=== PATIENT | male | born 1975 | race Caucasian/White ===

== ENCOUNTER 2018-06-02 04:15 | Emergency (ER) | payer BC ==
--- OUTSIDE RECORDS SUMMARY | 2018-06-02 04:18 | XMS REPORT | Continuity of Care Document ---
:1975 Author Organization Interface Problems Problem Status Onset Classification Date Comments Source Date Reported 71335,MORBID Active [facility] OBESITY 5 City Gout Active Problem 08/05/2014 [facility] Hypertension Active Problem 08/05/2014 [facility] Morbid obesity Active Problem 08/05/2014 [facility] MORBID OBESITY Active [facility] Medications Medication Details Route Status Patient Ordering Order Source Instructions Provider Date Promethazine 12.5 mg=1 tab, Active Hydrochloride PO, Q4H, PRN 2014 [facility] 12.5 MG Oral Nausea & City Tablet Vomiting, X 10 [Phenergan] day, # 30 tab, 0 Refill(s) Acetaminophen 15 ml, PO, Q4H, Active 24 MG/ML / PRN Pain, X 10 2014 [facility] Codeine day, # 240 mL, 0 City Phosphate 2.4 Refill(s) MG/ML Oral Solution metoprolol 25 mg=1 tab, PO, Active tartrate 25 mg BID, # 180 tab, 2014 [facility] oral tablet 0 Refill(s) [facility] Sodium Chloride 25 mL, Route: Inactive 0.9% IV IV, Start date: 2014 [facility] 08/02/14 [facility] 9:41:00, Duration: 30 day, Stop date: 09/01/14 9:40:00, PRN Line Flush BD Normal 10 mL, Route: Inactive Saline Flush IV, Drug Form: 2014 [facility] INJ, PRN, PRN City Line Flush, Start date: 08/02/14 9:41:00, Duration: 30 day, Stop date: 09/01/14 9:40:00Notes: (Same as: BD Posiflush) Lovenox 30 mg, 0.3 mL, Inactive Route: SUB-Q, 2014 [facility] Drug form: INJ, City [id number], Dosing Weight 117.273, kg, Start date: 08/02/14 9:00:00, Duration: 30 day, Stop date: 08/31/14 21:00:00Notes: (Same as: Lovenox) Famotidine 20 mg, 2 mL, No Longer Route: IVP, Drug Active 2014 [facility] form: INJ, Q12H, [facility] Dosing Weight 117.273, kg, Start date: 08/01/14 21:00:00, Duration: 30 day, Stop date: 08/31/14 9:00:00Notes: (Same as: Pepcid) Can be dilute in 5-10cc NS IVP: Slow IV push over at least 2 minutes. Ketorolac 30 mg, 1 mL, No Longer Route: IVP, Drug Active 2014 [facility] form: INJ, Q6H, [facility] Dosing Weight 117.273, kg, Start date: 08/01/14 18:00:00, Duration: 6 doses or times, Stop date: 08/03/14 0:00:00Notes: (Same as:Toradol) IV bolus must be given >15 seconds. Give IM administration slowly and deeply into the muscle. Not for use > 4 days MEDICATION WASTE Product Size: 30 mg Product Wasted: ___ mg Hydromorphone 0.5 mg, Route: Inactive IV, Q5Min, 2014 [facility] Dosing Weight [facility] 117.273, kg, Start date: 08/01/14 16:15:00, Duration: 4 doses or times, Stop date: 08/01/14 16:30:00 Hydromorphone 15 mg, 30 mL, No Longer Route: IV, Active 2014 [facility] Dose: 0.4mg, [employer] Dose: 0.2 mg, [employer] Lockout: 10 minutes, Continuous Basal Rate: 0 mg, 4 Hour Limit (In MG): 6, Drug Form: INJ, Continuous, Start date: 08/01/14 15:00:00, Duration: 30 day, Stop date: 08/31/14 14:...Notes: (Same as: Dilaudid) conc=0.5 mg/ml Hydromorphone [employer] Dose: ;Delay: ;Basal: Enoxaparin 30 mg, 0.3 mL, Inactive Route: SUB-Q, 2014 [facility] Drug form: INJ, City [id number], Dosing Weight 117.273, kg, Start date: 08/01/14 15:00:00, Duration: 30 day, Stop date: 08/31/14 3:00:00Notes: (Same as: Lovenox) Naloxone 0.04 mg, 0.1 mL, No Longer Route: IVP, Drug Active 2014 [facility] form: INJ, City Q2MIN, Dosing Weight 117.273, kg, PRN Narcotic Reversal, Start date: 08/01/14 14:37:00, Duration: 30 day, Stop date: 08/31/14 14:36:00Notes: Same as Narcan Naloxone 0.04 mg, 0.1 mL, No Longer Route: IVP, Drug Active 2014 [facility] form: INJ, City Q2MIN, Dosing Weight 117.273, kg, PRN Narcotic Reversal, Start date: 08/01/14 14:35:00, Duration: 30 day, Stop date: 08/31/14 14:34:00Notes: Same as Narcan Saline Flush 10 ml, Route: No Longer 0.9% IVP, Drug Form: Active 2014 [facility] INJ, Dosing [facility] Weight 117.273, kg, PRN, PRN Line Flush, Start date: 08/01/14 14:35:00, Duration: 30 day, Stop date: 08/31/14 14:34:00Notes: (Same as: BD Posiflush) Metoprolol 2.5 mg, 2.5 mL, No Longer Route: IVP, Drug Active 2014 [facility] form: INJ, Q6H, [facility] Dosing Weight 117.273, kg, PRN Elevated BP, Systolic BP >180 or Diastolic BP >100, Start date: 08/01/14 14:35:00, Duration: 30 day, Stop date: 08/31/14 14:34:00Notes: (Same as: Lopressor) Push over 2 minutes Ondansetron 4 mg, 2 mL, No Longer Route: IVP, Drug Active 2014 [facility] form: INJ, Q12H, [facility] Dosing Weight 117.273, kg, PRN Nausea & Vomiting, Start date: 08/01/14 14:35:00, Duration: 30 day, Stop date: 08/31/14 14:34:00Notes: (Same as: Zofran) MEDICATION WASTE Product Size: 4 mg Product Wasted: ___ mg Promethazine 12.5 mg, 0.5 mL, No Longer Route: IM, Drug Active 2014 [facility] form: INJ, Q4H, [facility] Dosing Weight 117.273, kg, PRN Nausea & Vomiting, Start date: 08/01/14 14:35:00, Duration: 30 day, Stop date: 08/31/14 14:34:00Notes: Do not give IV push. (Same as: Phenergan) Acetaminophen 15 mL, Route: No Longer 20 MG/ML / PO, Drug Form: Active 2014 [facility] Hydrocodone SOLN, Dosing City Bitartrate Weight 117.273, 0.667 MG/ML kg, Q4H, PRN Oral Solution Pain Score 4-6, Start date: 08/01/14 14:35:00, Duration: 30 day, Stop date: 08/31/14 14:34:00Notes: Do not exceed 4gm/day of acetaminophen. (Same as: [place] 325/7.5) Calcium 1,000 mL, Rate: No Longer Chloride 0.0014 125 ml/hr, Active 2014 [facility] MEQ/ML / Infuse over: 8 City Potassium hr, Route: IV, Chloride 0.004 Dosing Weight MEQ/ML / Sodium 117.273 kg, Chloride 0.103 Total Volume: MEQ/ML / Sodium 1,000, Start Lactate 0.028 date: 08/01/14 MEQ/ML 14:35:00, Injectable Duration: 30 Solution day, Stop date: 08/31/14 14:34:00 Ondansetron 4 mg, 2 mL, Inactive Route: IVP, Drug 2014 [facility] form: INJ, ONCE, City Dosing Weight 117.273, kg, PRN Nausea & Vomiting, Start date: 08/01/14 11:28:00Notes: (Same as: Zofran) MEDICATION WASTE Product Size: 4 mg Product Wasted: ___ mg Dexamethasone 4 mg, 1 mL, Inactive Route: IVP, Drug 2014 [facility] form: INJ, ONCE, City Dosing Weight 117.273, kg, PRN Nausea & Vomiting, Start date: 08/01/14 11:28:00Notes: Concentration: 4mg/ml Promethazine 6.25 mg, 0.25 Inactive mL, Route: IVPB, 2014 [facility] ONCE, Dosing City Weight 117.273, kg, PRN Nausea & Vomiting, Start date: 08/01/14 11:28:00Notes: Do not give IV push. (Same as: Phenergan) Labetalol 5 mg, 1 mL, Inactive Route: IVP, Drug 2014 [facility] form: INJ, [facility] Q5Min, Dosing Weight 117.273, kg, PRN Elevated BP, Start date: 08/01/14 11:28:00, Duration: 5 doses or times, Stop date: Limited # of timesNotes: (Same as: Normodyne, Trandate) Push over 2 minutes Give bolus over 2-3 minutes. Naloxone 0.04 mg, 0.1 mL, Inactive Route: IVP, Drug 2014 [facility] form: INJ, City Q2MIN, Dosing Weight 117.273, kg, PRN Narcotic Reversal, Start date: 08/01/14 11:28:00, Duration: 8 doses or times, Stop date: Limited # of timesNotes: Same as Narcan Hydromorphone 0.5 mg, 0.25 mL, Inactive Route: IVP, Drug 2014 [facility] form: INJ, City Q5Min, Dosing Weight 117.273, kg, PRN Pain Score 7-10, Start date: 08/01/14 11:28:00, Duration: 4 doses or times, Stop date: Limited # of timesNotes: (Same as: Dilaudid) Morphine 2 mg, 0.2 mL, Inactive Route: IVP, Drug 2014 [facility] form: INJ, City Q5Min, Dosing Weight 117.273, kg, PRN Pain Score 4-6, Start date: 08/01/14 11:28:00, Duration: 5 doses or times, Stop date: Limited # of timesNotes: (Same as:MORPhine Sulfate) Meperidine 12.5 mg, 0.25 Inactive mL, Route: IVP, 2014 [facility] Drug form: INJ, City Q30Min, Dosing Weight 117.273, kg, PRN Other -See Comment, For shivering, Start date: 08/01/14 11:28:00, Duration: 2 doses or times, Stop date: Limited # of timesNotes: (Same As: Demerol) Flumazenil 0.2 mg, 2 mL, Inactive Route: IVP, Drug 2014 [facility] form: INJ, PRN, [facility] Dosing Weight 117.273, kg, PRN Benzodiazepine Reversal, Initial dose, Start date: 08/01/14 11:28:00, Duration: 30 day, Stop date: 08/31/14 11:27:00Notes: (Same as: Romazicon) Calcium 1,000 mL, Rate: Inactive Chloride 0.0014 50 ml/hr, Infuse 2014 [facility] MEQ/ML / over: 20 hr, [facility] Potassium Route: IV, Chloride 0.004 Dosing Weight MEQ/ML / Sodium 117.273 kg, Chloride 0.103 Total Volume: MEQ/ML / Sodium 1,000, Start Lactate 0.028 date: 08/01/14 MEQ/ML 11:28:00, Injectable Duration: 30 Solution day, Stop date: 08/31/14 11:27:00 INVanz + Sodium 1 gm, Route: Inactive Chloride 0.9% IVPB ONCDOROTEO 2014 [facility] IV 100 mL Start date: [facility] 08/01/14 1:00:00, Duration: 20 hr, Stop date: 08/01/14 20:59:00Notes: (Same as: INVanz) Refrigerate. NOT COMPATIBLE WITH D5W. Stable in refrigerator for 24 hours MEDICATION WASTE Product Size: 1000 mg Product Wasted: 0 mg Uloric =1 tab, PO, No Longer 07/19/ MH Daily, 0 Active 2014 [facility] Refill(s) [facility] Colchicine 0.6 0.6 mg, PO, No Longer 07/19/ MH MG Oral Tablet Daily, 0 Active 2014 [facility] Refill(s) [facility] METOPROLOL METOPROLOL, 100 No Longer 07/19/ MH mg=, PO, BID, Active 2014 [facility] Refill(s) 0 [facility] Allergies, Adverse Reactions, Alerts Substance Category Reaction Severity Reaction Status Date Comments Source type Reported Food Assertion Food Active Shellfish allergy [facility] Immunizations Immunization Date Given Site Status Last Updated Comments Source Results Order Name Results Value Reference Date Interpretation Comments Source Range ELECTROLYTE AGAP 11.4 meq/L 10.0 - 08/02 S 20.0 [facility] ELECTROLYTE CO2 28 meq/L 24 - 32 08/02 [facility] ELECTROLYTE BUN 17 mg/dL 7 - 22 08/02 S [facility] ELECTROLYTE Glucose Lvl 102 mg/dL 70 - 99 08/02 4Interpretive Data: Adult reference range values reflect the clinical guidelines of the [place] [employer]. [facility] ELECTROLYTE eGFR 75 08/02 1Result Comment: The eGFR is calculated using the CKD-EPI formula. In most young, healthy individuals the eGFR will be > 90 mL/min/1.73m2. The eGFR declines with age. An eGFR of 60-89 may be normal in [facility] mL/min/1. some populations, particularly the elderly, for whom the CKD-EPI formula has not been extensively validated. Use of the eGFR is not recommended in the following populations: [address] Individuals with unstable creatinine concentrations, including patients and those with serious co-morbid conditions. Patients with extremes in muscle mass or diet. The data above are obtained from the National Kidney Disease Education Program (NKDEP) which additionally recommends that when the eGFR is used in patients with extremes of body mass index for purposes of drug dosing, the eGFR should be multiplied by the estimated BMI. ELECTROLYTE Calcium Lvl 9.0 mg/dL 8.5 - 10.5 08/02 S [facility] ELECTROLYTE Chloride Lvl 105 meq/L 95 - 109 08/02 [facility] ELECTROLYTE Potassium 4.4 meq/L 3.5 - 5.1 08/02 S Lvl [facility] ELECTROLYTE Creatinine 1.2 mg/dL 0.5 - 1.4 08/02 S Lvl [facility] ELECTROLYTE Sodium Lvl 140 meq/L 135 - 145 08/02 [facility] HEMATOLOGY Hgb 15.2 g/dL 14.0 - 08/02 18. [facility] HEMATOLOGY MPV 8.8 fL 7.4 - 10.4 08/02 [facility] HEMATOLOGY MCH 32.1 pg 27.0 - 08/02 31.0 [facility] HEMATOLOGY MCV 92.1 fL 80.0 - 08/02 MH 94.0 /2014 [facility] HEMATOLOGY MCHC 34.9 g/dL 32.0 - 08/02 MH 36.0 /2014 [facility] HEMATOLOGY Hct 43.6 % 42.0 - 08/02 MH 54.0 [facility] HEMATOLOGY RBC 4.73 M/CMM 4.70 - 08/02 MH 6.10 /2014 [facility] HEMATOLOGY WBC 8.9 K/CMM 3.7 - 10.4 08/02 [facility] HEMATOLOGY RDW 13.6 % 11.5 - 08/02 MH 14.5 /2014 [facility] HEMATOLOGY Platelet 145 K/CMM 133 - 450 08/02 /2014 [facility] HEMATOLOGY Segs 80.9 % 45.0 - 08/02 75.0 /2014 [facility] HEMATOLOGY Lymphocytes 12.5 % 20.0 - 08/02 40.0 [facility] HEMATOLOGY Segs-Bands # 7.2 K/CMM 1.5 - 8.1 08/02 [facility] HEMATOLOGY Monocytes 6.4 % 2.0 - 12.0 08/02 [facility] HEMATOLOGY Basophils 0.2 % 0.0 - 1.0 08/02 [facility] HEMATOLOGY Eosinophils 0.0 % 0.0 - 4.0 08/02 [facility] HEMATOLOGY Lymphocytes 1.1 K/CMM 1.0 - 5.5 08/02 [facility] HEMATOLOGY Monocytes # 0.6 K/CMM 0.0 - 0.8 08/02 [facility] HEMATOLOGY Eosinophils 0.0 K/CMM 0.0 - 0.5 08/02 /2014 [facility] Upper GI Upper GI Exam: Upper GI Gastrografin swallow 08/02 - Series w Series - [facility] soluble DX soluble DX Reason for Exam: Status post gastric bypass surgery Read by: Tom Warner MD Dictated Date/time: 08/02/14 14:01 Electronically Signed by: Tom Warner MD 08/02/14 14:04 FINAL REPORT Comparison Exam: Chest x-ray 07/19/2014 Discussion: On 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 Postoperative radiopaque suture material is also seen. The patient drank Gastrografin without incident. There i s no evidence for obstruction or extravasation of the oral contrast material. No dilated loops of bowel or delayed emptying. Note is made of calcifications seen overlying the right and left kidneys. Cor relate for history of nephrolithiasis. The patient is status post cholecystectomy. Fluoro time: One minute Impression: 1. Unremarkable upper GI Gastrografin swallow without evidence for obstruction or extravasation. 2. Note is made of calcifications seen overlying the right and left kidneys. Correlate for history of nephrolithiasis. CHEM PANEL eGFR 62 08/01 2Result Comment: The eGFR is calculated using the CKD-EPI formula. In most young, healthy individuals the eGFR will be >90 mL/ min/1.73m2. The eGFR declines with age. An eGFR of 60-89 may be normal in mL/min/1.7 some populations, particularly the elderly, for whom the CKD-EPI formula has not been extensively validated. Use of the eGFR is not recommended in the following populations: [address] Individuals with unstable creatinine concentrations, including patients and those with serious co-morbid conditions. Patients with extremes in muscle mass or diet. The data above are obtained from the National Kidney Disease Education Program (NKDEP) which additionally recommends that when the eGFR is used in patients with extremes of body mass index for purposes of drug dosing, the eGFR should be multiplied by the estimated BMI. CHEM PANEL Creatinine 1.4 mg/dL 0.5 - 1.4 08/01 Lvl /2014 [facility] HEMATOLOGY Platelet 158 K/CMM 133 - 450 08/01 [facility] HEMATOLOGY PTT 34.2 s 22.9 - 08/01 9Interpretive 35.8 Data: Heparin [facility] Range: 57 - 92 Seconds BLOOD BANK Antibody Negative 08/01 RESULTS Scrn /2014 [facility] (08/01/14 11:00 AM) [facility] BLOOD BANK ABO/Rh A POS 08/01 RESULTS /2014 [facility] CHEM PANEL VITAMIN B1 73 nMol/L 78 - 185 07/19 6Result Comment: Test Performed at: (THIAMINE) [facility] WHOLE BLOOD [address] [place] [address] Yobany Flower MD, PhD CHEM PANEL Vitamin D, 20 ng/mL 30 - 100 07/19 7Interpretive Data: Reference range is based on recommendations in the Endocrine 25-OH, /2014 Society Clinical Practice Guideline (J Clin Endocrinol Metab [facility] 2010;96:0502-3548) [facility] CHEM PANEL eGFR 75 07/19 3Result Comment: The eGFR is calculated using the CKD-EPI formula. In most young, healthy individuals the eGFR will be >90 mL/ min/1.73m2. The eGFR declines with age. An eGFR of 60-89 may be normal in mL/min/1.7 some populations, particularly the elderly, for whom the CKD-EPI formula has not been extensively validated. Use of the eGFR is not recommended in the following populations: [address] Individuals with unstable creatinine concentrations, including patients and those with serious co-morbid conditions. Patients with extremes in muscle mass or diet. The data above are obtained from the National Kidney Disease Education Program (NKDEP) which additionally recommends that when the eGFR is used in patients with extremes of body mass index for purposes of drug dosing, the eGFR should be multiplied by the estimated BMI. CHEM PANEL Calcium Lvl 8.7 mg/dL 8.5 - 10.5 07/19 [facility] CHEM PANEL Creatinine 1.2 mg/dL 0.5 - 1.4 07/19 Lvl [facility] CHEM PANEL Chloride Lvl 109 meq/L 95 - 109 07/19 [facility] CHEM PANEL Potassium 3.8 meq/L 3.5 - 5.1 07/19 Lv [facility] CHEM PANEL Sodium Lvl 144 meq/L 135 - 145 07/19 [facility] CHEM PANEL Bili Total 0.6 mg/dL 0.2 - 1.3 07/19 [facility] CHEM PANEL Alk Phos 100 unit/L 39 - 136 07/19 [facility] CHEM PANEL AST 45 unit/L 0 - 37 07/19 [facility] CHEM PANEL Albumin Lvl 3.9 g/dL 3.5 - 5.0 07/19 [facility] CHEM PANEL ALT 91 unit/L 0 - 65 07/19 [facility] CHEM PANEL Total 7.9 g/dL 6.4 - 8.4 07/19 [facility] CHEM PANEL CO2 27 meq/L 24 - 32 07/19 [facility] CHEM PANEL BUN 20 mg/dL 7 - 22 07/19 [facility] CHEM PANEL Glucose Lvl 121 mg/dL 70 - 99 07/19 5Interpretive Data: Adult reference range values reflect the clinical guidelines of the [place] [employer]. [facility] CHEM PANEL Globulin 4.0 g/dL 2.0 - 4.0 07/19 [facility] CHEM PANEL B/C Ratio 17 6 - 25 07/19 [facility] CHEM PANEL A/G Ratio 1.0 0.7 - 1.6 07/19 [facility] CHEM PANEL AGAP 11.8 meq/L 10.0 - 07/19 MH 20.0 [facility] HEMATOLOGY Lymphocytes 2.6 K/CMM 1.0 - 5.5 07/19 [facility] HEMATOLOGY Monocytes # 0.8 K/CMM 0.0 - 0.8 07/19 [facility] HEMATOLOGY Eosinophils 0.2 K/CMM 0.0 - 0.5 07/19 [facility] HEMATOLOGY Basophils # 0.0 K/CMM 0.0 - 0.2 07/19 [facility] HEMATOLOGY Monocytes 10.5 % 2.0 - 12.0 07/19 [facility] HEMATOLOGY Eosinophils 2.0 % 0.0 - 4.0 07/19 [facility] HEMATOLOGY Basophils 0.3 % 0.0 - 1.0 07/19 [facility] HEMATOLOGY Segs-Bands # 4.4 K/CMM 1.5 - 8.1 07/19 [facility] HEMATOLOGY Segs 54.3 % 45.0 - 07/19 75.0 [facility] HEMATOLOGY Lymphocytes 32.9 % 20.0 - 07/19 40.0 [facility] HEMATOLOGY PTT 31.7 s 22.9 - 07/19 10Interpretiv 35.8 /2015 e Data: [facility] Therapeutic Range: 57 - 92 Seconds HEMATOLOGY PT 13.3 s 12.0 - 07/19 14.7 [facility] HEMATOLOGY INR 1.01 0.85 - 07/19 8Interpretive Data: RECOMMENDED RANGES FOR PROTIME INR: 1. 2.0-3.0 for most medical and surgical thromboembolic states. [facility] 2.5-3.5 for artificial heart valves and recurrent embolism. [facility] INR SHOULD BE USED ONLY FOR PATIENTS ON STABLE ANTICOAGULANT THERAPY. HEMATOLOGY WBC 8.1 K/CMM 3.7 - 10.4 07/19 /2014 [facility] HEMATOLOGY Hgb 16.2 g/dL 14.0 - 07/19 MH 18.0 /2014 [facility] HEMATOLOGY RBC 5.14 M/CMM 4.70 - 07/19 MH 6.10 /2014 [facility] HEMATOLOGY Hct 47.2 % 42.0 - 07/19 MH 54.0 /2014 [facility] HEMATOLOGY MCV 91.7 fL 80.0 - 07/19 MH 94.0 /2014 [facility] HEMATOLOGY MCH 31.5 pg 27.0 - 07/19 MH 31.0 /2014 [facility] HEMATOLOGY MCHC 34.3 g/dL 32.0 - 07/19 MH 36.0 /2014 [facility] HEMATOLOGY RDW 13.3 % 11.5 - 07/19 MH 14.5 [facility] HEMATOLOGY MPV 9.4 fL 7.4 - 10.4 07/19 [facility] HEMATOLOGY Platelet 161 K/CMM 133 - 450 07/19 [facility] PARATHYROID PTH Intact 60.1 pg/mL 11.1 - 07/19 PROFILE 79.5 [facility] URINE AND UA <=1.0 0.1 - 1.0 07/19 STOOL Urobilinogen mg/dL /2014 [facility] URINE AND Micro? Not Indicated 07/19 STOOL [facility] *NA* [facility] (07/19/14 1:47 PM) URINE AND UA RBC null 0 - 2 07/19 [facility] URINE AND UA WBC null 0 - 5 07/19 STOOL [facility] URINE AND UA Mucus Few /LPF None Seen 07/19 STOOL /LPF /2014 [facility] URINE AND UA Blood Negative Negative 07/19 STOOL [facility] (07/19/14 1:47 PM) [facility] URINE AND UA Bili Negative Negative 07/19 STOOL [facility] *NA* [facility] (07/19/14 1:47 PM) URINE AND UA Nitrite Negative Negative 07/19 STOOL [facility] (07/19/14 1:47 PM) [facility] URINE AND UA Leuk Est Negative Negative 07/19 STOOL [facility] (07/19/14 1:47 PM) [facility] URINE AND UA Turbidity Clear Clear 07/19 STOOL [facility] (07/19/14 1:47 PM) [facility] URINE AND UA Color Light Yellow Yellow 07/19 STOOL [facility] (07/19/14 1:47 PM) URINE AND UA Ketones Negative Negative 07/19 STOOL mg/dL mg/dL /2014 [facility] URINE AND UA Glucose Negative Negative 07/19 STOOL mg/dL mg/dL /2014 [facility] URINE AND UA Protein Negative Negative 07/19 STOOL mg/dL mg/dL [facility] URINE AND UA pH 5.5 5.0 - 8.0 07/19 STOOL [facility] URINE AND UA Spec Grav 1.012 <=1.030 07/19 STOOL /2014 [facility] Chest 2 Chest 2 Clinical history: Coughing. 07/19 - views DX views DX /2014 - [facility] : 1975. Read by: Guillermo Hollis MD Dictated Date/time: 07/19/14 14:20 Electronically Signed by: Guillermo Hollis MD 07/19/14 14:23 FINAL REPORT Technique: Portable AP chest x-ray on Jul 19, 2014 02:07:00 PM. Heart size is normal. Lungs are clear without consolidation or effusion. Impression: 1. No active disease in the chest. Vital Signs Vital Sign Value Date Comments Source Systolic (mm Hg) 145 08/02/2014 [facility] Diastolic (mm Hg) 80 08/02/2014 [facility] Respitory Rate 16 08/02/2014 [facility] Heart Rate 50 08/02/2014 [facility] Temperature Oral (F) 97.4 F 08/02/2014 [facility] Respitory Rate 16 08/02/2014 [facility] Temperature Oral (F) 97.5 F 08/02/2014 [facility] Heart Rate 53 08/02/2014 [facility] Systolic (mm Hg) 153 08/02/2014 [facility] Diastolic (mm Hg) 83 08/02/2014 [facility] Temperature Oral (F) 97.7 F 08/02/2014 [facility] Heart Rate 61 08/02/2014 [facility] Systolic (mm Hg) 154 08/02/2014 [facility] Diastolic (mm Hg) 90 08/02/2014 [facility] Respitory Rate 16 08/02/2014 [facility] Height 187.96 cm 07/19/2014 [facility] Weight 117.273 07/19/2014 [facility] BMI Calculated 33.19 07/19/2014 [facility] Encounters Location Location Encounter Encounter Reason Attending ADM DC Status Source Details Type Number For Provider Date Date Visit [facility] [id number] Kodi 08/01 08/02 OMERO Patel /2014 [facility] Procedures Procedure Code Date Perfomer Comments Source Jean Carlos-en-y gastric [id number] 08/01/2014 [facility] Back [id number] [facility] Cholecystectomy [id number] [facility] Knee [id number] [facility]
--- OUTSIDE RECORDS SUMMARY | 2018-06-02 04:19 | XMS REPORT | Summary of Care ---
:1975 Author Encounter [facility] [place](MARILEE) [id number] Date(s): 08/01/14 - 08/02/[address] [address]- Discharge Disposition: Home Physician Attending: Kodi Patel MD Physician Admitting: Kodi Patel MD Physician_Referring: Kodi Patel MD Vital Signs Most recent to oldest [Reference 1 2 3 Range]: Height 187.96 cm (07/19/14 1:21 PM) Temperature Oral [96.4-99.1 DegF] 97.4 DegF 97.5 DegF 97.7 DegF (08/02/14 12:15 PM) (08/02/14 8:13 AM) (08/02/14 4:00 AM) Blood Pressure [90-140/60-90 145/80 mmHg 153/83 mmHg 154/90 mmHg mmHg] *HI* *HI* *HI* (08/02/14 12:15 PM) (08/02/14 8:13 AM) (08/02/14 4:00 AM) Respiratory Rate [14-20 BRMIN] 16 BRMIN 16 BRMIN 16 BRMIN (08/02/14 12:15 PM) (08/02/14 8:13 AM) (08/02/14 4:00 AM) Peripheral Pulse Rate [60-100 50 bpm 53 bpm 61 bpm bpm] *LOW* *LOW* (08/02/14 4:00 AM) (08/02/14 12:15 PM) (08/02/14 8:13 AM) Weight 117.273 kg (07/19/14 1:21 PM) Body Mass Index 33.19 m2 (07/19/14 1:21 PM) Problem List Condition Effective Dates Status Health Status Informant Gout(Confirmed) Active Hypertension(Confirmed) Active Morbid obesity(Confirmed) Active Allergies, Adverse Reactions, Alerts Substance Reaction Severity Status Food Shellfish Active NKDA Active Medications acetaminophen-codeine 120 mg-12 mg/5 mL oral liquid 15 ml, PO, Q4H, PRN Pain, X 10 day, # 240 mL, 0 Refill(s) Start Date: 08/02/14 Stop Date: 08/12/14 Status: Orderedacetaminophen-hydrocodone 300 mg-10 mg/15 mL oral liquid 15 mL, Route: PO, Drug Form: SOLN, Dosing Weight 117.273, kg, Q4H, PRN Pain Score 4-6, Start date: 08/01/14 14:35:00, Duration: 30 day, Stop date: 08/31/14 14:34:00 Notes: Do not exceed 4gm/day of acetaminophen. (Same as: [place] 325/7.5) Start Date: 08/01/14 Stop Date: 08/02/14 Status: DiscontinuedBD Normal Saline Flush 10 mL, Route: IV, Drug Form: INJ, PRN, PRN Line Flush, Start date: 08/02/14 9:41 :00, Duration: 30 day, Stop date: 09/01/14 9:40:00 Notes: (Same as: BD Posiflush) Start Date: 08/02/14 Stop Date: 08/02/14 Status: DiscontinuedBD Normal Saline Flush 5 mL, Route: IV, Drug Form: INJ, PRN, PRN Line Flush, Start date: 08/02/14 9:41: 00, Duration: 30 day, Stop date: 09/01/14 9:40:00 Notes: (Same as: BD Posiflush) Start Date: 08/02/14 Stop Date: 08/02/14 Status: Discontinuedcolchicine 0.6 mg oral tablet 0.6 mg, PO, Daily, 0 Refill(s) Start Date: 07/19/14 Stop Date: 08/02/14 Status: Discontinueddexamethasone 4 mg, 1 mL, Route: IVP, Drug form: INJ, ONCE, Dosing Weight 117.273, kg, PRN Nausea & Vomiting, Start date: 08/01/14 11:28:00 Notes: Concentration: 4mg/ml Start Date: 08/01/14 Stop Date: 08/01/14 Status: Discontinuedenoxaparin 30 mg, 0.3 mL, Route: SUB-Q, Drug form: INJ, [id number], Dosing Weight 117.273, kg , Start date: 08/01/14 15:00:00, Duration: 30 day, Stop date: 08/31/14 3:00:00 Notes: (Same as: Lovenox) Start Date: 08/01/14 Stop Date: 08/01/14 Status: Discontinuedfamotidine 20 mg, 2 mL, Route: IVP, Drug form: INJ, Q12H, Dosing Weight 117.273, kg, Start date: 08/01/14 21:00:00, Duration: 30 day, Stop date: 08/31/14 9:00:00 Notes: (Same as: Pepcid)Can be dilute in 5-10cc NS IVP: Slow IV push over at least 2 minutes. Start Date: 08/01/14 Stop Date: 08/02/14 Status: Discontinuedflumazenil 0.2 mg, 2 mL, Route: IVP, Drug form: INJ, PRN, Dosing Weight 117.273, kg, PRN Benzodiazepine Reversal, Initial dose, Start date: 08/01/14 11:28:00, Duration: 30 day, Stop date: 08/31/14 11:27:00 Notes: (Same as: Romazicon) Start Date: 08/01/14 Stop Date: 08/01/14 Status: Discontinuedhydromorphone 0.5 mg, Route: IV, Q5Min, Dosing Weight 117.273, kg, Start date: 08/01/14 16:15: 00, Duration: 4 doses or times, Stop date: 08/01/14 16:30:00 Start Date: 08/01/14 Stop Date: 08/01/14 Status: Discontinuedhydromorphone 0.5 mg, 0.25 mL, Route: IVP, Drug form: INJ, Q5Min, Dosing Weight 117.273, kg, PRN Pain Score 7-10, Start date: 08/01/14 11:28:00, Duration: 4 doses or times, Stop date: Limited # of times Notes: (Same as: Dilaudid) Start Date: 08/01/14 Stop Date: 08/01/14 Status: DiscontinuedHYDROmorphone 0.5mg/mL [employer] (15mg/30 mL) 15 mg 15 mg, 30 mL, Route: IV, Initial Loading Dose: 0.4mg, [employer] Dose: 0.2 mg, [employer] Lockout: 10 minutes, Continuous Basal Rate: 0 mg, 4 Hour Limit (In MG): 6, Drug Form: INJ, Continuous, Start date: 08/01/14 15:00:00, Duration: 30 day, Stop date: 08/31/14 14:... Notes: (Same as: Dilaudid) conc=0.5 mg/mlHydromorphone [employer] Dose: ;Delay : ;Basal: Start Date: 08/01/14 Stop Date: 08/02/14 Status: DiscontinuedINVanz + Sodium Chloride 0.9% IV 100 mL 1 gm, Route: IVPB, ONCALL, Start date: 08/01/14 1:00:00, Duration: 20 hr, Stop date: 08/01/14 20:59:00 Notes: (Same as: Nelda) Refrigerate. NOT COMPATIBLE WITH D5W.Stable in refrigerator for 24 hours MEDICATION WASTE Product Size: 1000 mgProduct Wasted: 0 mg Start Date: 08/01/14 Stop Date: 08/01/14 Status: CompletedketOROLAC 30 mg, 1 mL, Route: IVP, Drug form: INJ, Q6H, Dosing Weight 117.273, kg, Start date: 08/01/14 18:00:00, Duration: 6 doses or times, Stop date: 08/03/14 0:00:00 Notes: (Same as:Toradol) IV bolus must be given >15 seconds. Give IM administration slowly and deeply into the muscle.Not for use > 4 days MEDICATION WASTE Product Size: 30 mgProduct Wasted: ___ mg Start Date: 08/01/14 Stop Date: 08/02/14 Status: Discontinuedlabetalol 5 mg, 1 mL, Route: IVP, Drug form: INJ, Q5Min, Dosing Weight 117.273, kg, PRN Elevated BP, Start date: 08/01/14 11:28:00, Duration: 5 doses or times, Stop date: Limited # of times Notes: (Same as: Normodyne, Trandate)Push over 2 minutes Give bolus over 2-3 minutes. Start Date: 08/01/14 Stop Date: 08/01/14 Status: DiscontinuedLactated Ringers Injection IV 1,000 mL 1,000 mL, Rate: 125 ml/hr, Infuse over: 8 hr, Route: IV, Dosing Weight 117.273 kg, Total Volume: 1,000, Start date: 08/01/14 14:35:00, Duration: 30 day, Stop date: 08/31/14 14:34:00 Start Date: 08/01/14 Stop Date: 08/02/14 Status: DiscontinuedLactated Ringers Injection IV 1,000 mL 1,000 mL, Rate: 50 ml/hr, Infuse over: 20 hr, Route: IV, Dosing Weight 117.273 kg, Total Volume: 1,000, Start date: 08/01/14 11:28:00, Duration: 30 day, Stop date: 08/31/14 11:27:00 Start Date: 08/01/14 Stop Date: 08/01/14 Status: DiscontinuedLovenox 30 mg, 0.3 mL, Route: SUB-Q, Drug form: INJ, [id number], Dosing Weight 117.273, kg , Start date: 08/02/14 9:00:00, Duration: 30 day, Stop date: 08/31/14 21:00:00 Notes: (Same as: Lovenox) Start Date: 08/02/14 Stop Date: 08/02/14 Status: Discontinuedmeperidine 12.5 mg, 0.25 mL, Route: IVP, Drug form: INJ, Q30Min, Dosing Weight 117.273, kg , PRN Other -See Comment, For shivering, Start date: 08/01/14 11:28:00, Duration : 2 doses or times, Stop date: Limited # of times Notes: (Same As: Demerol) Start Date: 08/01/14 Stop Date: 08/01/14 Status: Discontinuedmetoprolol 2.5 mg, 2.5 mL, Route: IVP, Drug form: INJ, Q6H, Dosing Weight 117.273, kg, PRN Elevated BP, Systolic BP >180 or Diastolic BP >100, Start date: 08/01/14 14:35: 00, Duration: 30 day, Stop date: 08/31/14 14:34:00 Notes: (Same as: Lopressor)Push over 2 minutes Start Date: 08/01/14 Stop Date: 08/02/14 Status: DiscontinuedMETOPROLOL METOPROLOL, 100 mg=, PO, BID, Refill(s) 0 Start Date: 07/19/14 Stop Date: 08/02/14 Status: Discontinuedmetoprolol tartrate 25 mg oral tablet 25 mg=1 tab, PO, BID, # 180 tab, 0 Refill(s) Start Date: 08/02/14 Status: Orderedmorphine Sulfate 2 mg, 0.2 mL, Route: IVP, Drug form: INJ, Q5Min, Dosing Weight 117.273, kg, PRN Pain Score 4-6, Start date: 08/01/14 11:28:00, Duration: 5 doses or times, Stop date: Limited # of times Notes: (Same as:MORPhine Sulfate) Start Date: 08/01/14 Stop Date: 08/01/14 Status: Discontinuednaloxone 0.04 mg, 0.1 mL, Route: IVP, Drug form: INJ, Q2MIN, Dosing Weight 117.273, kg, PRN Narcotic Reversal, Start date: 08/01/14 14:35:00, Duration: 30 day, Stop date: 08/31/14 14:34:00 Notes: Same as Narcan Start Date: 08/01/14 Stop Date: 08/02/14 Status: Discontinuednaloxone 0.04 mg, 0.1 mL, Route: IVP, Drug form: INJ, Q2MIN, Dosing Weight 117.273, kg, PRN Narcotic Reversal, Start date: 08/01/14 14:37:00, Duration: 30 day, Stop date: 08/31/14 14:36:00 Notes: Same as Narcan Start Date: 08/01/14 Stop Date: 08/02/14 Status: Discontinuednaloxone 0.04 mg, 0.1 mL, Route: IVP, Drug form: INJ, Q2MIN, Dosing Weight 117.273, kg, PRN Narcotic Reversal, Start date: 08/01/14 11:28:00, Duration: 8 doses or times , Stop date: Limited # of times Notes: Same as Narcan Start Date: 08/01/14 Stop Date: 08/01/14 Status: Discontinuedondansetron 4 mg, 2 mL, Route: IVP, Drug form: INJ, Q12H, Dosing Weight 117.273, kg, PRN Nausea & Vomiting, Start date: 08/01/14 14:35:00, Duration: 30 day, Stop date: 08/31/14 14:34:00 Notes: (Same as: Zofran) MEDICATION WASTE Product Size: 4 mgProduct Wasted: ___ mg Start Date: 08/01/14 Stop Date: 08/02/14 Status: Discontinuedondansetron 4 mg, 2 mL, Route: IVP, Drug form: INJ, ONCE, Dosing Weight 117.273, kg, PRN Nausea & Vomiting, Start date: 08/01/14 11:28:00 Notes: (Same as: Zofran) MEDICATION WASTE Product Size: 4 mgProduct Wasted: ___ mg Start Date: 08/01/14 Stop Date: 08/01/14 Status: DiscontinuedPhenergan 12.5 mg oral tablet 12.5 mg=1 tab, PO, Q4H, PRN Nausea & Vomiting, X 10 day, # 30 tab, 0 Refill( s) Start Date: 08/02/14 Stop Date: 08/12/14 Status: Orderedpromethazine 12.5 mg, 0.5 mL, Route: IM, Drug form: INJ, Q4H, Dosing Weight 117.273, kg, PRN Nausea & Vomiting, Start date: 08/01/14 14:35:00, Duration: 30 day, Stop date: 08/31/14 14:34:00 Notes: Do not give IV push. (Same as: Phenergan) Start Date: 08/01/14 Stop Date: 08/02/14 Status: Discontinuedpromethazine + Sodium Chloride 0.9% IV 50 mL 6.25 mg, 0.25 mL, Route: IVPB, ONCE, Dosing Weight 117.273, kg, PRN Nausea &amp ; Vomiting, Start date: 08/01/14 11:28:00 Notes: Do not give IV push. (Same as: Phenergan) Start Date: 08/01/14 Stop Date: 08/01/14 Status: DiscontinuedSaline Flush 0.9% 10 ml, Route: IVP, Drug Form: INJ, Dosing Weight 117.273, kg, PRN, PRN Line Flush, Start date: 08/01/14 14:35:00, Duration: 30 day, Stop date: 08/31/14 14: 34:00 Notes: (Same as: BD Posiflush) Start Date: 08/01/14 Stop Date: 08/02/14 Status: DiscontinuedSodium Chloride 0.9% IV 25 mL, Route: IV, Start date: 08/02/14 9:41:00, Duration: 30 day, Stop date: 10/09 9:40:00, PRN Line Flush Start Date: 08/02/14 Stop Date: 08/02/14 Status: DiscontinuedUloric =1 tab, PO, Daily, 0 Refill(s) Start Date: 07/19/14 Stop Date: 08/02/14 Status: Discontinued Results BLOOD BANK RESULTS Most recent to oldest [Reference Range]: 1 2 3 ABO/Rh A POS *Unknown* (08/01/14 11:00 AM) Antibody Scrn Negative (08/01/14 11:00 AM) ELECTROLYTES Most recent to oldest [Reference Range]: 1 2 3 Sodium Lvl [135-145 mEq/L] 140 mEq/L 144 mEq/L (08/02/14 5:24 AM) (07/19/14 1:47 PM) Potassium Lvl [3.5-5.1 mEq/L] 4.4 mEq/L 3.8 mEq/L (08/02/14 5:24 AM) (07/19/14 1:47 PM) Chloride Lvl [95-109 mEq/L] 105 mEq/L 109 mEq/L (08/02/14 5:24 AM) (07/19/14 1:47 PM) CO2 [24-32 mEq/L] 28 mEq/L 27 mEq/L (08/02/14 5:24 AM) (07/19/14 1:47 PM) AGAP [10.0-20.0 mEq/L] 11.4 mEq/L 11.8 mEq/L (08/02/14 5:24 AM) (07/19/14 1:47 PM) CHEM PANEL Most recent to oldest 1 2 3 [Reference Range]: Creatinine Lvl [0.5-1.4 1.2 mg/dL 1.4 mg/dL 1.2 mg/dL mg/dL] (08/02/14 5:24 AM) (08/01/14 5:11 PM) (07/19/14 1:47 PM) eGFR 75 mL/min/1.73m2 1 62 mL/min/1.73m2 2 75 mL/min/1.73m2 3 *NA* *NA* *NA* (08/02/14 5:24 AM) (08/01/14 5:11 PM) (07/19/14 1:47 PM) BUN [7-22 mg/dL] 17 mg/dL 20 mg/dL (08/02/14 5:24 AM) (07/19/14 1:47 PM) B/C Ratio [6-25] 17 (07/19/14 1:47 PM) Glucose Lvl [70-99 mg/dL] 102 mg/dL 4 121 mg/dL 5 *HI* *HI* (08/02/14 5:24 AM) (07/19/14 1:47 PM) Total Protein [6.4-8.4 g/dL] 7.9 g/dL (07/19/14 1:47 PM) Albumin Lvl [3.5-5.0 g/dL] 3.9 g/dL (07/19/14 1:47 PM) Globulin [2.0-4.0 g/dL] 4.0 g/dL (07/19/14 1:47 PM) A/G Ratio [0.7-1.6] 1.0 (07/19/14 1:47 PM) Calcium Lvl [8.5-10.5 mg/dL] 9.0 mg/dL 8.7 mg/dL (08/02/14 5:24 AM) (07/19/14 1:47 PM) ALT [0-65 unit/L] 91 unit/L *HI* (07/19/14 1:47 PM) AST [0-37 unit/L] 45 unit/L *HI* (07/19/14 1:47 PM) Alk Phos [39-136 unit/L] 100 unit/L (07/19/14 1:47 PM) Bili Total [0.2-1.3 mg/dL] 0.6 mg/dL (07/19/14 1:47 PM) Vitamin B1 [78-185 nMol/L] 73 nMol/L 6 *LOW* (07/19/14 1:47 PM) Vitamin D, 25-OH, Total 20 ng/mL 7 [30-100 ng/mL] *LOW* (07/19/14 1:47 PM) 1Result Comment: The eGFR is calculated using the CKD-EPI formula. In most young , healthy individualsthe eGFR will be >90 mL/min/1.73m2. The eGFR declines with age. An eGFR of 60-89 may be normal in some populations, particularly the elderly, for whom the CKD-EPI formula has not been extensively validated. Use of the eGFR is not recommended in the following populations: Individuals with unstable creatinine concentrations, including patients and those with serious co-morbid conditions. Patients with extremes in muscle mass or diet. The data above are obtained from the National Kidney Disease Education Program ( NKDEP) which additionally recommends that when the eGFR is used in patients with extremes of body mass index for purposesof drug dosing, the eGFR should be multiplied by the estimated BMI.2Result Comment: The eGFR is calculated using the CKD-EPI formula. In most young, healthy individualsthe eGFR will be >90 mL/ min/1.73m2. The eGFR declines with age. An eGFR of 60-89 may be normal in some populations, particularly the elderly, for whom the CKD-EPI formula has not been extensively validated. Use of the eGFR is not recommended in the following populations: Individuals with unstable creatinine concentrations, including patients and those with serious co-morbid conditions. Patients with extremes in muscle mass or diet. The data above are obtained from the National Kidney Disease Education Program ( NKDEP) which additionally recommends that when the eGFR is used in patients with extremes of body mass index for purposesof drug dosing, the eGFR should be multiplied by the estimated BMI.3Result Comment: The eGFR is calculated using the CKD-EPI formula. In most young, healthy individualsthe eGFR will be >90 mL/ min/1.73m2. The eGFR declines with age. An eGFR of 60-89 may be normal in some populations, particularly the elderly, for whom the CKD-EPI formula has not been extensively validated. Use of the eGFR is not recommended in the following populations: Individuals with unstable creatinine concentrations, including patients and those with serious co-morbid conditions. Patients with extremes in muscle mass or diet. The data above are obtained from the National Kidney Disease Education Program ( NKDEP) which additionally recommends that when the eGFR is used in patients with extremes of body mass index for purposesof drug dosing, the eGFR should be multiplied by the estimated BMI.4Interpretive Data: Adult reference range values reflect the clinical guidelines of the [employer].5Interpretive Data: Adult reference range values reflect the clinical guidelines of the [employer].6Result Comment: [facility] [address] [place] [address] Yobany Flower MD, [id number] Data: Reference range is based on recommendations in the Endocrine Society Clinical Practice Guideline (J Clin Endocrinol Metab 2011;96:4371-6378)PARATHYROID PROFILE Most recent to oldest [Reference Range]: 1 2 3 PTH Intact [11.1-79.5 pg/mL] 60.1 pg/mL (07/19/14 1:47 PM) URINE AND STOOL Most recent to oldest [Reference Range]: 1 2 3 UA Turbidity [Clear] Clear (07/19/14 1:47 PM) UA Color [Yellow] Light Yellow *NA* (07/19/14 1:47 PM) UA pH [5.0-8.0] 5.5 (07/19/14 1:47 PM) UA Spec Grav [<=1.030] 1.012 (07/19/14 1:47 PM) UA Glucose [Negative mg/dL] Negative mg/dL *NA* (07/19/14 1:47 PM) UA Blood [Negative] Negative (07/19/14 1:47 PM) UA Ketones [Negative mg/dL] Negative mg/dL *NA* (07/19/14 1:47 PM) UA Protein [Negative mg/dL] Negative mg/dL (07/19/14 1:47 PM) UA Urobilinogen [0.1-1.0 mg/dL] <=1.0 mg/dL *NA* (07/19/14 1:47 PM) UA Bili [Negative] Negative *NA* (07/19/14 1:47 PM) UA Leuk Est [Negative] Negative (07/19/14 1:47 PM) UA Nitrite [Negative] Negative (07/19/14 1:47 PM) UA WBC [0-5 /HPF] <1 /HPF (07/19/14 1:47 PM) UA RBC [0-2 /HPF] <1 /HPF (07/19/14 1:47 PM) UA Mucus [None Seen /LPF] Few /LPF *NA* (07/19/14 1:47 PM) Micro? Not Indicated *NA* (07/19/14 1:47 PM) HEMATOLOGY Most recent to oldest 1 2 3 [Reference Range]: WBC [3.7-10.4 K/CMM] 8.9 K/CMM 8.1 K/CMM (08/02/14 5:24 AM) (07/19/14 1:47 PM) RBC [4.70-6.10 M/CMM] 4.73 M/CMM 5.14 M/CMM (08/02/14 5:24 AM) (07/19/14 1:47 PM) Hgb [14.0-18.0 g/dL] 15.2 g/dL 16.2 g/dL (08/02/14 5:24 AM) (07/19/14 1:47 PM) Hct [42.0-54.0 %] 43.6 % 47.2 % (08/02/14 5:24 AM) (07/19/14 1:47 PM) MCV [80.0-94.0 fL] 92.1 fL 91.7 fL (08/02/14 5:24 AM) (07/19/14 1:47 PM) MCH [27.0-31.0 pg] 32.1 pg 31.5 pg *HI* *HI* (08/02/14 5:24 AM) (07/19/14 1:47 PM) MCHC [32.0-36.0 g/dL] 34.9 g/dL 34.3 g/dL (08/02/14 5:24 AM) (07/19/14 1:47 PM) RDW [11.5-14.5 %] 13.6 % 13.3 % (08/02/14 5:24 AM) (07/19/14 1:47 PM) Platelet [133-450 K/CMM] 145 K/CMM 158 K/CMM 161 K/CMM (08/02/14 5:24 AM) (08/01/14 5:11 PM) (07/19/14 1:47 PM) MPV [7.4-10.4 fL] 8.8 fL 9.4 fL (08/02/14 5:24 AM) (07/19/14 1:47 PM) Segs [45.0-75.0 %] 80.9 % 54.3 % *HI* (07/19/14 1:47 PM) (08/02/14 5:24 AM) Lymphocytes [20.0-40.0 %] 12.5 % 32.9 % *LOW* (07/19/14 1:47 PM) (08/02/14 5:24 AM) Monocytes [2.0-12.0 %] 6.4 % 10.5 % (08/02/14 5:24 AM) (07/19/14 1:47 PM) Eosinophils [0.0-4.0 %] 0.0 % 2.0 % (08/02/14 5:24 AM) (07/19/14 1:47 PM) Basophils [0.0-1.0 %] 0.2 % 0.3 % (08/02/14 5:24 AM) (07/19/14 1:47 PM) Segs-Bands # [1.5-8.1 K/CMM] 7.2 K/CMM 4.4 K/CMM (08/02/14 5:24 AM) (07/19/14 1:47 PM) Lymphocytes # [1.0-5.5 1.1 K/CMM 2.6 K/CMM K/CMM] (08/02/14 5:24 AM) (07/19/14 1:47 PM) Monocytes # [0.0-0.8 K/CMM] 0.6 K/CMM 0.8 K/CMM (08/02/14 5:24 AM) (07/19/14 1:47 PM) Eosinophils # [0.0-0.5 0.0 K/CMM 0.2 K/CMM K/CMM] (08/02/14 5:24 AM) (07/19/14 1:47 PM) Basophils # [0.0-0.2 K/CMM] 0.0 K/CMM (07/19/14 1:47 PM) PT [12.0-14.7 seconds] 13.3 seconds (07/19/14 1:47 PM) INR [0.85-1.17] 1.01 8 (07/19/14 1:47 PM) PTT [22.9-35.8 seconds] 34.2 seconds 9 31.7 seconds 10 (08/01/14 5:11 PM) (07/19/14 1:47 PM) 8Interpretive Data: RECOMMENDED RANGES FOR PROTIME INR: 2.0-3.0 for most medical and surgical thromboembolic states. 2.5-3.5 for artificial heart valves and recurrent embolism. 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
[2018-06-02] MEDS ORDERED: AZITHROMYCIN 250 MG TAB ONE (05:01)
[2018-06-02 05:07] LABS: Absolute Lymphocytes (CBC) 2.3 K/uL (0.7-4.9); Absolute Monocytes 0.9 K/uL (0.1-1.3); Absolute Neutrophil 4.3 K/uL (1.8-8.0); Basophils % 0.8 % (0-1.3); Eosinophils % 4.5 % (0-4.4); Hematocrit 43.7 % (39.6-49.0); Lymphocytes % 29.4 % (15.3-44.8); MPV 9.4 fL (7.6-11.3); Monocytes % 11.1 % (3.3-12.3); RBC Red Blood Cell Count 5.01 M/uL (4.33-5.43)
[2018-06-02 05:09] LABS: Protime INR 1.11
[2018-06-02 05:24] LABS: ALT/SGPT 18 U/L (12-78); AST/SGOT 16 U/L (15-37); Albumin 3.7 g/dL (3.4-5.0); Alkaline Phosphatase 106 U/L (45-117); BUN Blood Urea Nitrogen 17 mg/dL (7-18); Bicarbonate 26 mmol/L (21-32); Bilirubin Direct 0.2 mg/dL (0-0.2); Bilirubin Total 0.7 mg/dL (0.2-1.0); Glucose Level 87 mg/dL (74-106); Magnesium 1.9 mg/dL (1.8-2.4); NT PRO-BNP 191 pg/mL (<125); Potassium 3.7 mmol/L (3.5-5.1); Protein, Total 6.8 g/dL (6.4-8.2); Sodium Level 146 mmol/L (136-145); Troponin (Emerg Dept Use Only) < 0.02 ng/mL (0.0-0.045)
--- NOTE | 2018-06-02 05:43 | ER ---
Nurse's Notes [facility] Name: Johann Nash Age: 43 yrs Sex: Male : 1975 Arrival Date: 06/02/2018 Time: 04:17 Bed 15 Private MD: Dejuan Dean Diagnosis: Bronchitis, not specified as acute or chronic Presentation: 06/02 04:30 Presenting complaint: Patient states: having central sharp non radiating chest pain, rr5 pain score of 4/10. unknown time started. 04:30 Transition of care: patient was not received from another setting of care. Onset of rr5 symptoms was June 02, 2018. Risk Assessment: Do you want to hurt yourself or someone else? Patient reports no desire to harm self or others. Initial Sepsis Screen: Does the patient meet any 2 criteria? No. Patient's initial sepsis screen is negative. Does the patient have a suspected source of infection? No. Patient's initial sepsis screen is negative. Note started to have flu last Tuesday. I felt so dizzy went to urgent care yesterday done flu test with a negative result. Care prior to arrival: None. 04:30 Method Of Arrival: Ambulatory rr5 04:30 Acuity: AYANNA 3 rr5 Historical: - Allergies: 05:02 SHELLFISH; rr5 - Home Meds: 04:30 Colchicine Oral [Active]; rr5 04:30 Metoprolol Tartrate Oral [Active]; urolic [Active]; rr5 - PMHx: 04:30 Hypertension; Gout; rr5 - PSHx: 04:30 spine surgery; Tonsillectomy; ankle surgery; rr5 - Immunization history:: Adult Immunizations up to date. - Social history:: Smoking status: Patient uses tobacco products, smokes one-half pack cigarettes per day, Patient/guardian denies using alcohol, street drugs, Patient/guardian denies using The patient lives with family. - Ebola Screening: : Patient negative for fever greater than or equal to 101.5 degrees Fahrenheit, and additional compatible Ebola Virus Disease symptoms Patient denies exposure to infectious person Patient denies travel to an Ebola-affected area in the 21 days before illness onset. - Family history:: not pertinent. Screenin:59 Abuse screen: Denies threats or abuse. Denies injuries from another. Nutritional rr5 screening: No deficits noted. Tuberculosis screening: No symptoms or risk factors identified. Fall Risk IV access (20 points). Total Browne Fall Scale indicates No Risk (0-24 pts). Assessment: 04:32 General: Appears in no apparent distress. uncomfortable, Behavior is calm, cooperative, rr5 appropriate for age. Pain: Complains of pain in chest Pain does not radiate. Pain currently is 4 out of 10 on a pain scale. Quality of pain is described as sharp, Pain began gradually, Is intermittent. Neuro: Level of Consciousness is awake, alert, obeys commands, Oriented to person, place, time, situation, Appropriate for age. Cardiovascular: Capillary refill < 3 seconds Patient's skin is warm and dry. Rhythm is sinus bradycardia. Cardiovascular: Reports since high blood pressure. Respiratory: Reports cough that is productive, Airway is patent Respiratory effort is even, unlabored, Respiratory pattern is regular, symmetrical. GI: Abdomen is round. : No signs and/or symptoms were reported regarding the genitourinary system. EENT: No signs and/or symptoms were reported regarding the EENT system. Derm: Skin is intact, Skin temperature is warm. Musculoskeletal: Capillary refill < 3 seconds, Range of motion: intact in all extremities. 05:20 Reassessment: Patient appears in no apparent distress at this time. no complaints made. rr5 awaiting for laboratory results. 06:00 Reassessment: Patient appears in no apparent distress at this time. Patient is alert, rr5 oriented x 3, equal unlabored respirations, skin warm/dry/pink. discharge instruction given and explained without complaints made. Patient states symptoms have improved. Vital Signs: 04:30 BP 181 / 106; Pulse 42; Resp 16; Temp 97.7; Pulse Ox 100% ; Weight 113.4 kg; Height 6 rr5 ft. 1 in. (185.42 cm); Pain 4/10; 05:00 BP 171 / 101; Pulse 43; Resp 19; Pulse Ox 98% ; rr5 05:20 BP 176 / 100; Pulse 44; Resp 17; Pulse Ox 99% ; rr5 05:40 BP 161 / 73; Pulse 46; Resp 17; Pulse Ox 100% ; rr5 06:00 BP 155 / 72; Pulse 49; Resp 19; Pulse Ox 99% ; rr5 04:30 Body Mass Index 32.98 (113.40 kg, 185.42 cm) rr5 ED Course: 04:17 Patient arrived in ED. am2 04:18 Dejuan Dean MD is Private Physician. am2 04:24 Sushant Ng, RN is Primary Nurse. rr5 04:27 Adrianna Ahn MD is Attending Physician. ma2 04:30 Arm band placed on. EKG completed in triage. Results shown to MD. rr5 04:35 Patient has correct armband on for positive identification. Placed in gown. Bed in low rr5 position. Call light in reach. Side rails up X2. assignment agent on. Pulse ox on. NIBP on. 04:44 X-ray completed. Portable x-ray completed in exam room. Patient tolerated procedure kw well. 04:45 Triage completed. rr5 04:54 XRAY Chest (1 view) In Process Unspecified. EDMS 04:55 Inserted saline lock: 20 gauge in right forearm, using aseptic technique. Blood rr5 collected. 04:55 No provider procedures requiring assistance completed. Patient maintains SpO2 rr5 saturation greater than 95% on room air. 06:05 IV discontinued, intact, bleeding controlled, No redness/swelling at site. Pressure rr5 dressing applied. Administered Medications: 04:58 Drug: AZITHromycin 500 mg Route: PO; rr5 06:07 Follow up: Response: No adverse reaction rr5 Outcome: 05:43 Discharge ordered by . ma2 06:05 Discharged to home ambulatory. rr5 06:05 Condition: stable 06:05 Discharge instructions given to patient, Instructed on discharge instructions, follow up and referral plans. medication usage, Demonstrated understanding of instructions, follow-up care, medications, Prescriptions given X 3. 06:07 Patient left the ED. rr5 Signatures: Dispatcher [employer] EDSC Leigh Holden Amanda am2 Adrianna Ahn MD MD va2 Sushant Ng, RN RN rr5 Corrections: (The following items were deleted from the chart) 05:02 04:30 Allergies: No Known Allergies; rr5 rr5
--- NOTE | 2018-06-02 05:44 | EDPHYS ---
Physician Documentation [facility] Name: Johann Nash Age: 43 yrs Sex: Male : 1975 Arrival Date: 06/02/2018 Time: 04:17 Bed 15 Private MD: Dejuan Dean ED Physician Adrianna Ahn HPI: 06/02 04:57 This 43 yrs old Male presents to ER via Ambulatory with complaints of Chest ma2 Pain > 30 y/o, High Blood Pressure. 04:57 The patient or guardian reports chest pain that is located primarily in the anterior ma2 chest wall, left breast. Onset: gradually, 3 day(s) ago. The pain does not radiate. Associated signs and symptoms: Pertinent positives: cough, Pertinent negatives: lower extremity pain, nausea, near syncope, vomiting. The chest pain is described as sharp. Duration: The patient or guardian reports multiple episodes. Severity of pain: At its worst the pain was moderate in the emergency department the pain is unchanged. here with cough for 2 days left sided chest stabbing pain for the last 3 days only when he takes deep breath or cough. Historical: - Allergies: 05:02 SHELLFISH; rr5 - Home Meds: 04:30 Colchicine Oral [Active]; rr5 04:30 Metoprolol Tartrate Oral [Active]; urolic [Active]; rr5 - PMHx: 04:30 Hypertension; Gout; rr5 - PSHx: 04:30 spine surgery; Tonsillectomy; ankle surgery; rr5 - Immunization history:: Adult Immunizations up to date. - Social history:: Smoking status: Patient uses tobacco products, smokes one-half pack cigarettes per day, Patient/guardian denies using alcohol, street drugs, Patient/guardian denies using The patient lives with family. - Ebola Screening: : Patient negative for fever greater than or equal to 101.5 degrees Fahrenheit, and additional compatible Ebola Virus Disease symptoms Patient denies exposure to infectious person Patient denies travel to an Ebola-affected area in the 21 days before illness onset. - Family history:: not pertinent. ROS: 04:57 Neck: Negative for injury, pain, and swelling, Cardiovascular: Negative for chest pain, ma2 palpitations, and edema. 04:57 Abdomen/GI: Negative for abdominal pain, nausea, diarrhea, and constipation. 04:57 Constitutional: Positive for fever, Negative for chills, weight loss. 04:57 ENT: Positive for nasal discharge, rhinorrhea, sore throat, Negative for ear pain. 04:57 Cardiovascular: Positive for Negative for chest pain, edema, orthopnea, palpitations, paroxysmal nocturnal dyspnea. 04:57 Respiratory: Positive for cough, dyspnea on exertion, pleurisy, shortness of breath, Negative for orthopnea. 04:57 All other systems are negative. Exam: 04:57 Constitutional: This is a well developed, well nourished patient who is awake, alert, ma2 and in no acute distress. Neck: Trachea midline, no thyromegaly or masses palpated, and no cervical lymphadenopathy. Supple, full range of motion without nuchal rigidity, or vertebral point tenderness. No Meningismus. 04:57 Cardiovascular: Regular rate and rhythm with a normal S1 and S2. No gallops, murmurs, or rubs. Normal PMI, no JVD. No pulse deficits. Abdomen/GI: Soft, non-tender, with normal bowel sounds. No distension or tympany. No guarding or rebound. No evidence of tenderness throughout. Neuro: Awake and alert, GCS 15, oriented to person, place, time, and situation. Cranial nerves II-XII grossly intact. Motor strength 5/5 in all extremities. Sensory grossly intact. Cerebellar exam normal. Normal gait. 04:57 ENT: Posterior pharynx: Airway: normal, swelling, is not appreciated, erythema, that is moderate. 04:57 Chest/axilla: Inspection: normal, Palpation: tenderness, that is moderate, of the left breast. 04:57 Respiratory: Breath sounds: rales, that are moderate, are heard in the left lower lobe, rhonchi, + upper airway congestion. Vital Signs: 04:30 BP 181 / 106; Pulse 42; Resp 16; Temp 97.7; Pulse Ox 100% ; Weight 113.4 kg; Height 6 rr5 ft. 1 in. (185.42 cm); Pain 4/10; 05:00 BP 171 / 101; Pulse 43; Resp 19; Pulse Ox 98% ; rr5 05:20 BP 176 / 100; Pulse 44; Resp 17; Pulse Ox 99% ; rr5 05:40 BP 161 / 73; Pulse 46; Resp 17; Pulse Ox 100% ; rr5 06:00 BP 155 / 72; Pulse 49; Resp 19; Pulse Ox 99% ; rr5 04:30 Body Mass Index 32.98 (113.40 kg, 185.42 cm) rr5 MDM: 04:27 Patient medically screened. ma2 04:57 Differential diagnosis: pleurisy, pneumonia, pneumothorax, vs bronchitis, history and ma2 exam clearly suggest pulmonary cause of chest pain.. HEART Score: History:. TIMOTHY Risk Score: not applicable. 05:42 Data reviewed: vital signs, EMS record, lab test result(s), radiologic studies. ma2 Counseling: I had a detailed discussion with the patient and/or guardian regarding: the historical points, exam findings, and any diagnostic results supporting the discharge/admit diagnosis, the presence of at least one elevated blood pressure reading (>120/80) during this emergency department visit, the need for outpatient follow up. Response to treatment: the patient's symptoms have markedly improved after treatment. 06/02 04:27 Order name: Basic Metabolic Panel; Complete Time: 05:41 06/02 04:27 Order name: CBC with Diff; Complete Time: 05:41 06/02 04:27 Order name: LFT's; Complete Time: 05:41 06/02 04:27 Order name: Magnesium; Complete Time: 05:41 06/02 04:27 Order name: NT PRO-BNP; Complete Time: 05:41 06/02 04:27 Order name: PT-INR; Complete Time: 05:41 06/02 04:27 Order name: Troponin (emerg Dept Use Only); Complete Time: 05:41 06/02 04:27 Order name: XRAY Chest (1 view) 06/02 04:27 Order name: EKG; Complete Time: 04:28 06/02 04:27 Order name: Cardiac monitoring; Complete Time: 04:42 06/02 04:27 Order name: EKG - Nurse/Tech; Complete Time: 04:42 06/02 04:27 Order name: IV Saline Lock; Complete Time: 04:58 06/02 04:27 Order name: Labs collected and sent; Complete Time: 05:01 06/02 04:27 Order name: O2 Per Protocol; Complete Time: 04:58 06/02 04:27 Order name: O2 Sat Monitoring; Complete Time: :58 ma2 Administered Medications: 04:58 Drug: AZITHromycin 500 mg Route: PO; rr5 06:07 Follow up: Response: No adverse reaction rr5 Disposition: 06/02/18 05:43 Discharged to Home. Impression: Bronchitis, not specified as acute or chronic. - Condition is Stable. - Discharge Instructions: Acute Bronchitis, Adult. - Prescriptions for Tylenol- Codeine #3 300-30 mg Oral Tablet - take 2 tablet by ORAL route every 6 hours As needed; 30 tablet. Zithromax Z- Yosef 250 mg Oral Tablet - take 1 tablet by ORAL route as directed for 5 days Day 1 - take two (2) tablets one time. Day 2, 3, 4 , 5 take one (1) tablet once daily.; 6 tablet. Medrol (Yosef) 4 mg Oral Tablets, Dose Pack - take 1 tablet by ORAL route as directed - follow package instructions; 1 packet. - Medication Reconciliation Form, Thank You Letter, Antibiotic Education, Prescription Opioid Use form. - Follow up: Private Physician; When: Tomorrow; Reason: If symptoms return, Continuance of care. Signatures: Dispatcher [employer] EDMS Adrianna Ahn MD MD ma2 Sushant Ng RN RN rr5 Corrections: (The following items were deleted from the chart) 05:02 04:30 Allergies: No Known Allergies; rr5 rr5 06:07 05:43 06/02/2018 05:43 Discharged to Home. Impression: Bronchitis, not specified as rr5 acute or chronic. Condition is Stable. Forms are Medication Reconciliation Form, Thank You Letter, Antibiotic Education, Prescription Opioid Use. Follow up: Private Physician; When: Tomorrow; Reason: If symptoms return, Continuance of care. ma2
--- NOTE | 2018-06-02 08:20 | RAD REPORT ---
EXAM DESCRIPTION: RAD - Chest Single View - 06/02/2018 4:54 am CLINICAL HISTORY: CHEST PAIN Chest pain. COMPARISON: CHEST PA AND LAT 2 VIEW dated 09/18/2012; CHEST PA AND LAT 2 VIEW dated 02/11/2006 FINDINGS: Portable technique limits examination quality. The lungs are grossly clear. The heart is normal in size. No displaced fractures. IMPRESSION: No acute intrathoracic process suspected.
--- NOTE | 2018-06-02 13:39 | EKG ---
Test Date: 2018-06-02 Test Time: 04:30:50 Sheet Metal Assembler: RR MEASUREMENT RESULTS: Intervals: Rate: 42 SC: 190 QRSD: 102 QT: 472 QTc: 394 [place]: P: 52 SC: 190 QRS: 53 T: 48 INTERPRETIVE STATEMENTS: Marked sinus bradycardia Abnormal ECG No previous ECG available for comparison Electronically Signed On 06-02-18 13:38:28 FIELD ACCOUNT MANAGER by Narciso Quintero
== END 2018-06-02 06:07 | disposition home or self-care (01) ==
LOC: ER 04:15
DX: J40 Bronchitis, not specified as acute or chronic (principal); I10 Essential (primary) hypertension; F17.210 Nicotine dependence, cigarettes, uncomplicated; Z91.013 Allergy to seafood
CPT/HCPCS: 36415; 71045; 80048; 80076; 83735; 83880; 84484; 85025; 85610; 93005; 99285

== ENCOUNTER 2021-09-14 17:00 | Emergency (ER) | payer BC ==
--- OUTSIDE RECORDS SUMMARY | 2021-09-14 17:06 | XMS REPORT | Continuity of Care Document ---
:1975 Author Organization [facility] t Address [address] [place] [address] Dr. Burks[address] [place] [id number] Care Team Providers Name Role Phone Henna Arredondo MD Primary Care Physician Henna Arredondo MD Attending Clinician HENNA ARREDONDO Attending Clinician Unavailable AGA, W Attending Clinician Unavailable Bryce GARCIA JR Attending Clinician Unavailable Radha Lazo DPM, Bryce Attending Clinician Pob, Lab Main Attending Clinician Unavailable LAB90 Attending Clinician Unavailable Nurse, Pob Immunization Attending Clinician Unavailable Peter Harvey DO Attending Clinician Singer REGAN Attending Clinician Attending Clinician Unavailable Bryce GARCIA JR Admitting Clinician Unavailable Radha Lazo DPM, Bryce Admitting Clinician Payers Payer Name Policy Type Policy Number Effective Date Expiration Date S candice BCBS 2 [id number] 2020 00:00:00 [employer] [place] [id number] 2016 00:00:00 Problems Condition Condition Condition Status Onset Resolution Last Treating Co mments Source Name Details Category Date Date Treatment Clinician Date Obesity Obesity Disease Active Univers (BMI (BMI 4-19 ity of 30-39.9) 30-39.9) 00:00: [place] [address] Medical Branch Acute Acute Disease 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 00:00: right knee right knee 00 Hyperurice Hyperurice Disease Active K lex stevie stevie - Seybold 00:00: 00 History of History of Disease Active K lex kidney kidney 08-21 Seybold stones stones 00:00: 00 Essential Essential Disease Active Jerome sey hypertensi hypertensi 27 Se ybold on on 00:00: 00 [id number],MORB Diagnosis Active 2014-08-06 Memoria ID OBESITY 4-22 21:54:00 l 00:00: Ramakrishna [id number],MORB 00 ID OBESITY Active 07/17/2014 [facility] Gout Problem Active 2014-08-05 Memor ia (disorder) 00:34:22 l Gout [place] (disorder) Active Problem 08/05/2014 [facility] Hypertensi Problem Active 2014-08-05 M emoria ve 00:34:22 l disorder, [place] systemic Hypertensi arterial ve (disorder) disorder, systemic arterial (disorder) Active Problem 08/05/2014 [facility] Morbid Problem Active 2014-08-05 Memor ia obesity 00:34:22 l (disorder) Morbid Herm roxann obesity (disorder) Active Problem 08/05/2014 [facility] MORBID Diagnosis Active 2014-08-06 Mem oria OBESITY 21:54:00 l MORBID [place] OBESITY Active [facility] No known No known Disease Unive rs active active ity of problems problems [facility] Allergies, Adverse Reactions, Alerts Allergy Allergy Status Severity Reaction(s) Onset Inactive Treating Comm ents Source Name Type Date Date Clinician MORPHINE DRUG Active Other-Cmnt Univ ers INGREDI 11-23 ity of 00:00: [place] 00 Medical Branch SHELLFIS DRUG Active Rash Univers H INGREDI 11-23 ity of DERIVED 00:00: [place] 00 Medical Branch Morphine Propensi Active Other - See "makes m y Univers ty to comments 11-23 chest ity of adverse 00:00: feel like [place] reaction 00 it's Medical s caving Branch in" Shellfis Propensi Active Rash Univer s h ty to 11-23 ity of Derived adverse 00:00: [place] reaction 00 Medical s Branch Shellfis Propensi Active Rash Patricia h-Derive ty to 8-29 Seybold d adverse 00:00: Products reaction 00 s Morphine Propensi Active Other "makes my Jerome sey ty to 5-27 chest Seybold adverse 00:00: feel like reaction 00 it's s caving in" Shellfis Propensi Active Swelling Ashley ey h ty to 5-27 Seybold Allergy adverse 00:00: reaction 00 s Food Food Active Memoria Shellfis Shellfis l h h Ramakrishna Social History Social Habit Start Date Stop Date Quantity Comments Source History of Cigarette Smoker Patricia gamingbodany tobacco use Exposure to 2021-06-08 2021-07-08 Not sure [facility] SARS-CoV-2 00:00:00 11:28:00 [facility] [place] Tobacco use and 2021-07-08 2021-07-08 Never used Universit y of exposure 00:00:00 00:00:00 [facility] Sex Assigned At [birth year] Patricia scott 00:00:00 00:00:00 Smoking Status Start Date Stop Date Source Current some day smoker 2021-07-08 00:00:00 [facility] ersity [facility] Unknown if ever smoked Universit y of [facility] Social History 2014-08-01 15:47:28 [facility] Medications Ordered Filled Start Stop Current Ordering Indication Dosage Frequency Signature Comments Components Source Medication Medication Date Date Medication? Clinician (SIG) Name Name lactated Yes 1000mL at 100 Unive rs ringers IV 4-19 mL/hr, ity of infusion 19:45: 1,000 mL, [place] 1[place]000 [place] 00 IV Medical Infusion, Branch CONTINUOUS , Starting on Tue07/14/21 at 1445, Until Discontinu ed, Routine, PACU lactated 2021- No 1000mL at 100 Univ ers ringers IV 4-19 04-19 mL/hr, ity of infusion 19:45: 22:29 1,000 mL, Oscar as 1,000 mL 00 :52 IV Medical Infusion, Branch CONTINUOUS , Starting on Tu07/14/21 at 1445, Until Tu07/14/21 at 1729, Routine, PACU FENTanyl PF Yes 25ug 25 mcg, Uni vers (SUBLIMAZE 4-19 Slow IV ity of (PF)) 19:43: Push, [place] injection 51 Q5MIN PRN, Medi nereida 25 mcg 4 doses, Branch Starting on Tue07/14/21 at 1443, Until Discontinu ed, Routine, Pain (scale 7-10), PACU FENTanyl PF 2021- Yes 25ug 25 mcg, Uni vers (SUBLIMAZE 4-19 Slow IV ity of (PF)) 19:43: Push, [place] injection 51 Q5MIN PRN, Medi nereida 25 mcg 4 doses, Branch Starting on Tue07/14/21 at 1443, Until Discontinu ed, Routine, Pain (scale 4-6), PACU ondansetron Yes 4mg 4 mg, Slow Univers (ZOFRAN 19 IV Push, ity of (PF)) 19:43: PRN, 1 [place] injection 4 51 dose, Medical mg Starting Branch on Tue07/14/21 at 1443, Until Discontinu ed, Routine, Nausea and Vomiting (N/V), PACU FENTanyl PF 2021- No 25ug 25 mcg, Un james (SUBLIMAZE 07-1419 Slow IV ity o f (PF)) 19:43: 22:29 Push, [place] injection 51 :52 Q5MIN PRN, Medi nereida 25 mcg 4 doses, Branch Starting on Tue07/14/21 at 1443, Until Tue07/14/21 at 1729, Routine, Pain (scale 7-10), PACU FENTanyl PF 2021- No 25ug 25 mcg, Un james (SUBLIMAZE 07-14-19 Slow IV ity o f (PF)) 19:43: 22:29 Push, [place] injection 51 :52 Q5MIN PRN, Medi nereida 25 mcg 4 doses, Branch Starting on Tue07/14/21 at 1443, Until Tue07/14/21 at 1729, Routine, Pain (scale 4-6), PACU ondansetron 2021- No 4mg 4 mg, Slow Univers (ZOFRAN 07-14 04-19 IV Push, ity of (PF)) 19:43: 22:29 PRN, 1 [place] injection 4 51 :52 dose, Medical mg Starting Branch on Tue07/14/21 at 1443, Until Tue07/14/21 at 1729, Routine, Nausea and Vomiting (N/V), PACU bupivacaine 2021-0 Yes PRN, Univer s liposome 07-14 Starting ity of (PF) 17:45: on Tue [place] (EXPAREL 00 07/14/21 at Medic al (PF)) 1.3 % 1245, Branch (13.3 Until mg/mL) Discontinu injection ed, Routine, Intra-op sodium 2021-0 Yes PRN, Univers chloride 07-14 Starting ity of 0.9 % 17:45: on Tue [place] irrigation 00 07/14/21 at Med ical solution 1245, Branch Until Discontinu ed, Intra-op bupivacaine 2021-0 2022- No PRN, Unive rs liposome 07-14 Starting ity of (PF) 17:45: 22:29 on Tue [place] (EXPAREL 00 :52 07/14/21 at Medic al (PF)) 1.3 % 1245, Branch (13.3 Until Tue mg/mL) 07/14/21 at injection 1729, Routine, Intra-op sodium 2022-0 2022- No PRN, Univers chloride 07-14 Starting ity of 0.9 % 17:45: 22:29 on [facility] irrigation 00 :52 07/14/21 at Med ical solution 1245, Branch Until Tue07/14/21 at 1729, Intra-op lactated 2021-0 2021- No 1000mL at 42 [facility] rs ringers IV 07-14-19 mL/hr, ity of infusion 16:30: 16:39 1,000 mL, Oscar as 1,000 mL 00 :00 IV Medical Infusion, Branch ONCE, 1 dose, On Tue07/14/21 at 1130, Routine, DSU Pre-op lactated 202-0 202- No 1000mL at 42 Unive rs ringers IV 07-14-19 mL/hr, ity of infusion 16:30: 16:39 1,000 mL, Oscar as 1,000 mL 00 :00 IV Medical Infusion, Branch ONCE, 1 dose, On Tue07/14/21 at 1130, Routine, DSU Pre-op febuxostat 2022-0 Yes 40mg Take 40 mg U nivers 40 mg 4-19 by mouth ity of tablet 15:24: daily. [place] [address] Medical Branch metoprolol 0 Yes 100mg Take 100 Un james succinate 4-19 mg by ity of XL 100 mg 15:24: mouth [place] 24 hr 47 daily. Medical tablet Branch febuxostat 0 Yes 40mg Take 40 mg U nivers 40 mg 4-19 by mouth ity of tablet 15:24: daily. [place] [address] Medical Branch metoprolol 0 Yes 100mg Take 100 Un james succinate 4-19 mg by ity of XL 100 mg 15:24: mouth [place] 24 hr 47 daily. Medical tablet Branch febuxostat 0 Yes 40mg Take 40 mg U nivers 40 mg 4-13 by mouth ity of tablet 11:27: daily. [place] [address] Medical Branch metoprolol 0 Yes 100mg Take 100 Un james succinate 4-13 mg by ity of XL 100 mg 11:27: mouth [place] 24 hr 14 daily. Medical tablet Branch Metoprolol Yes 100mg Take 1 Ashley ey Succinate 12-04 tablet Seybold 100 MG oral 00:00: (100 mg TABLET SR 00 total) by 24 HR mouth 2 times daily Febuxostat Yes 40mg Take 40 mg K elsey (Uloric) 40 12-04 by mouth Seyb old MG oral 00:00: daily Tablet 00 pantoprazol No 80mg 80 mg, IV Univers e 11-24 Push, ity of (PROTONIX) 12:30: 11:20 ONCE, 1 Oscar as 80 mg in 00 :00 dose, Mon Medica l NaCl 0.9% 11/24/20 at [facility] (NS) 20 mL 0730, syringe Administer over 2 Minutes, 20 mL pantoprazol No 80mg 80 mg, IV Univers e 11-24 Push, ity of (PROTONIX) 12:30: 11:20 ONCE, 1 Oscar as 80 mg in 00 :00 dose, Mon Medica l NaCl 0.9% 11/24/20 at [facility] (NS) 20 mL 0730, syringe Administer over 2 Minutes, 20 mL maalox:diph 2021-0 2021- No 15mL 15 mL, Uni vers enhydrAMINE 11-24 Oral, ity of :lidocaine2 11:45: 10:40 ONCE, 1 [place] %viscous 00 :00 dose, Mon Medica l 1:1:1: 11/24/20 at [place] [address], (COMPOUNDED Routine ) maalox:diph 2020- No 15mL 15 mL, Uni vers enhydrAMINE 11-24 Oral, ity of :lidocaine2 11:45: 10:40 ONCE, 1 [place] %viscous 00 :00 dose, Mon Medica l 1:1:1: 11/24/20 at [place] [address], (COMPOUNDED Routine ) maalox:diph 2020- No 15mL 15 mL, Uni vers enhydrAMINE 11-23 Oral, ity of :lidocaine 11:00: 09:59 ONCE, 1 [place] as 2 % viscous 00 :00 dose, Sun Med ical 1:1:1 11/23/20 at [place] ([facility], [facility]) Routine oral suspension 15 mL maalox:diph 2020- No 15mL 15 mL, Uni vers enhydrAMINE 11-23 Oral, ity of :lidocaine 11:00: 09:59 ONCE, 1 [place] as 2 % viscous 00 :00 dose, Sun Med ical 1:1:1 11/23/20 at [place] ([facility], [facility]) Routine oral suspension 15 mL iopamidol 2020- No [id number] 100mL 100 mL, Univers (ISOVUE 11-23 Intravenou ity o f 370-500 mL) 10:30: 09:15 s, ONCE, 1 [place] injection 00 :00 dose, Sun Medic al 100 mL 11/23/20 at [place] [address], Routine iopamidol 2020- No [id number] 100mL 100 mL, Univers (ISOVUE 11-23 Intravenou ity o f 370-500 mL) 10:30: 09:15 s, ONCE, 1 [place] injection 00 :00 dose, Sun Medic al 100 mL 11/23/20 at [place] [address], Routine ketorolac 2020- No 30mg 30 mg, Unive rs (TORADOL) 11-23 Slow IV ity of injection 10:00: 08:57 Push, [place] 30 mg 00 :00 ONCE, 1 Medical dose, [facility] 11/23/20 at 0500, TAL
Fa culty member approving Restricted medication : ESPERANZA ISAACS ketorolac 2020- No 30mg 30 mg, Unive rs (TORADOL) 11-23 Slow IV ity of injection 10:00: 08:57 Push, [place] 30 mg 00 :00 ONCE, 1 Medical dose, [facility] 11/23/20 at 0500, TAL
Fa culty member approving Restricted medication : ESPERANZA ISAACS NaCl 0.9% 2020- No 1000mL at 999 Uni vers (NS) bolus 11-23 mL/hr, ity of infusion 08:45: 10:00 1,000 mL, Oscar as 1,000 mL 00 :00 IV Medical Infusion, Branch ONCE, 1 dose, [place] 11/23/20 at 0345, STAT NaCl 0.9% No 1000mL at 999 Uni vers (NS) bolus 11-23- mL/hr, ity of infusion 08:45: 10:00 1,000 mL, Oscar as 1,000 mL 00 :00 IV Medical Infusion, Branch ONCE, 1 dose, [place] 11/23/20 at 0345, STAT sucralfate 0 Yes [id number] 1g Take 1 U nivers 1 gram 8-29 tablet by ity of tablet 00:00: mouth [place] 00 before Medical meals and Branch at bedtime. dicyclomine Yes [id number] 10mg Take 1 Univers 10 mg 8-29 capsule by ity of capsule 00:00: mouth [place] 00 every 8 Medical (eight) Branch hours as needed for Abdominal pain. ondansetron 0 Yes [id number] 4mg Take 1 Univers 4 mg 8-29 tablet by ity of disintegrat 00:00: mouth [place] ing tablet 00 every 8 Medica l (eight) Branch hours as needed for Nausea and Vomiting (N/V). sucralfate 0 Yes [id number] 1g Take 1 U nivers 1 gram 8-29 tablet by ity of tablet 00:00: mouth [place] 00 before Medical meals and Branch at bedtime. dicyclomine 2020-0 Yes [id number] 10mg Take 1 Univers 10 mg 8-29 capsule by ity of capsule 00:00: mouth [place] 00 every 8 Medical (eight) Branch hours as needed for Abdominal pain. ondansetron 2020-0 Yes [id number] 4mg Take 1 Univers 4 mg 8-29 tablet by ity of disintegrat 00:00: mouth [place] ing tablet 00 every 8 Medica l (eight) Branch hours as needed for Nausea and Vomiting (N/V). sucralfate 2020-0 Yes [id number] 1g Take 1 U nivers 1 gram 8-29 tablet by ity of tablet 00:00: mouth [place] 00 before Medical meals and Branch at bedtime. dicyclomine 2020-0 Yes [id number] 10mg Take 1 Univers 10 mg 8-29 capsule by ity of capsule 00:00: mouth [place] 00 every 8 Medical (eight) Branch hours as needed for Abdominal pain. sucralfate 2020-0 Yes [id number] 1g Take 1 U nivers 1 gram 8-29 tablet by ity of tablet 00:00: mouth [place] 00 before Medical meals and Branch at bedtime. dicyclomine 2020-0 Yes [id number] 10mg Take 1 Univers 10 mg 8-29 capsule by ity of capsule 00:00: mouth [place] 00 every 8 Medical (eight) Branch hours as needed for Abdominal pain. ondansetron 2020-0 Yes [id number] 4mg Take 1 Univers 4 mg 8-29 tablet by ity of disintegrat 00:00: mouth [place] ing tablet 00 every 8 Medica l (eight) Branch hours as needed for Nausea and Vomiting (N/V). ondansetron 2020-0 Yes [id number] 4mg Take 1 Univers 4 mg 8-29 tablet by ity of disintegrat 00:00: mouth [place] ing tablet 00 every 8 Medica l (eight) Branch hours as needed for Nausea and Vomiting (N/V). sucralfate 2020-0 Yes [id number] 1g Take 1 U nivers 1 gram 8-29 tablet by ity of tablet 00:00: mouth [place] 00 before Medical meals and Branch at bedtime. dicyclomine 2020-0 Yes [id number] 10mg Take 1 Univers 10 mg 8-29 capsule by ity of capsule 00:00: mouth [place] 00 every 8 Medical (eight) Branch hours as needed for Abdominal pain. ondansetron 2020-0 Yes [id number] 4mg Take 1 Univers 4 mg 8-29 tablet by ity of disintegrat 00:00: mouth [place] ing tablet 00 every 8 Medica l (eight) Branch hours as needed for Nausea and Vomiting (N/V). sucralfate 2020-0 Yes [id number] 1g Take 1 U nivers 1 gram 8-29 tablet by ity of tablet 00:00: mouth [place] 00 before Medical meals and Branch at bedtime. dicyclomine 2020-0 Yes [id number] 10mg Take 1 Univers 10 mg 8-29 capsule by ity of capsule 00:00: mouth [place] 00 every 8 Medical (eight) Branch hours as needed for Abdominal pain. ondansetron 2020-0 Yes [id number] 4mg Take 1 Univers 4 mg 8-29 tablet by ity of disintegrat 00:00: mouth [place] ing tablet 00 every 8 Medica l (eight) Branch hours as needed for Nausea and Vomiting (N/V). sucralfate 2020-0 Yes [id number] 1g Take 1 U nivers 1 gram 8-29 tablet by ity of tablet 00:00: mouth [place] 00 before Medical meals and Branch at bedtime. dicyclomine 2020-0 Yes [id number] 10mg Take 1 Univers 10 mg 8-29 capsule by ity of capsule 00:00: mouth [place] 00 every 8 Medical (eight) Branch hours as needed for Abdominal pain. ondansetron 2020-0 Yes [id number] 4mg Take 1 Univers 4 mg 8-29 tablet by ity of disintegrat 00:00: mouth [place] ing tablet 00 every 8 Medica l (eight) Branch hours as needed for Nausea and Vomiting (N/V). sucralfate 1-0 Yes [id number] 1g Take 1 U nivers 1 gram 8-29 tablet by ity of tablet 00:00: mouth [place] 00 before Medical meals and Branch at bedtime. dicyclomine 1-0 Yes [id number] 10mg Take 1 Univers 10 mg 8-29 capsule by ity of capsule 00:00: mouth [place] 00 every 8 Medical (eight) Branch hours as needed for Abdominal pain. ondansetron Yes [id number] 4mg Take 1 Univers 4 mg 8-29 tablet by ity of disintegrat 00:00: mouth [place] ing tablet 00 every 8 Medica l (eight) Branch hours as needed for Nausea and Vomiting (N/V). omeprazole 2020-2020- No [id number] 20mg Take 1 Univers 20 mg 8-24 12- capsule by ity of capsule 00:00: 04:59 mouth [place] 00 :00 daily for Medical 30 days. Branch omeprazole 2020-2020- No [id number] 20mg Take 1 Univers 20 mg 8-24 12- capsule by ity of capsule 00:00: 04:59 mouth [place] 00 :00 daily for Medical 30 days. Branch omeprazole 2020-2020- No [id number] 20mg Take 1 Univers 20 mg 8-24 12- capsule by ity of capsule 00:00: 04:59 mouth [place] 00 :00 daily for Medical 30 days. Branch omeprazole 0 2020- No [id number] 20mg Take 1 Univers 20 mg 8-24 12- capsule by ity of capsule 00:00: 04:59 mouth [place] 00 :00 daily for Medical 30 days. Branch Colchicine Yes .6mg Take 0.6 Jerome sey 0.6 MG oral 6-10 mg by Seybold Capsule 00:00: mouth 00 daily hydroCHLORO 2020-0 Yes 25mg Take 1 Ashley ey thiazide 25 6-10 tablet (25 Se ybold MG oral 00:00: mg total) Tablet 00 by mouth daily colchicine 2020-0 Yes .6mg Take 0.6 Uni vers 0.6 mg Cap 6-10 mg by ity of 00:00: mouth [place] 00 daily. Medical Daily as Branch needed for gout hydroCHLORO 2020-0 Yes 25mg Take 25 mg Univers thiazide 25 6-10 by mouth ity of mg tablet 00:00: daily. [place] 00 Medical Branch colchicine 2020-0 Yes .6mg Take 0.6 Uni vers 0.6 mg Cap 6-10 mg by ity of 00:00: mouth [place] 00 daily. Medical Daily as Branch needed for gout hydroCHLORO 2020-0 Yes 25mg Take 25 mg Univers thiazide 25 6-10 by mouth ity of mg tablet 00:00: daily. [place] Medical Branch colchicine Yes .6mg Take 0.6 Uni vers 0.6 mg Cap 6-10 mg by ity of 00:00: mouth daily. Medical Daily as Branch needed for gout hydroCHLORO Yes 25mg Take 25 mg Univers thiazide 25 6-10 by mouth ity of mg tablet 00:00: daily. [place] [facility] Branch methylPREDN 2021- No [id number] 1{pepe} Take 1 pepe Patricia ISolone 6-10 05-18 by mouth Seybold (Medrol) 4 00:00: 00:00 See Admin MG oral 00 :00 Instructio Tablet ns Use as Therapy directed. Pack Promethazin Yes 12.5 mg = M emoria e 08-02 1 tab, PO, l Hydrochlori 16:44: Q4H, PRN He rmann de 12.5 MG 00 Nausea & Oral Tablet Vomiting, [Phenergan] X 10 day, # 30 tab, 0 Refill(s) Acetaminoph Yes 15 ml, PO, Memoria en 24 MG/ML 08-02 Q4H, PRN l / Codeine 16:44: Pain, X 10 He rmann Phosphate 00 day, # 240 2.4 MG/ML mL, 0 Oral Refill(s) Solution metoprolol Yes 25 mg = 1 Me moria tartrate 25 08 tab, PO, l mg oral 16:44: BID, # 180 Herm roxann tablet 00 tab, 0 Refill(s) Sodium No 25 mL, Memoria Chloride 08-02 Route: IV, l 0.9% IV 14:41: Start date: 08/02/14 9:41:00, Duration: 30 day, Stop date: 09/01/14 9:40:00, PRN Line Flush BD Normal No Notes: Memori a Saline 08-02 (Same as: l Flush 14:41: BD Posiflush) Lovenox No Notes: Memoria 08-02 (Same as: l 14:00: Lovenox) Famotidine No Notes: Memor ia 5-08 (Same as: l 02:00: Pepcid) [place] 00 Can be dilute in 5-10cc NS IVP: Slow IV push over at least 2 minutes. Ketorolac No 4 days Memor ia 5-07 l 23:00: MEDICATION Ramakrishna 00 WASTE Product Size: 30 mg Product Wasted: ___ mg Hydromorpho No 0.5 mg, Mem oria ne 08-01 Route: IV, l 21:15: Q5Min, Ramakrishna 00 Dosing Weight 117.273, kg, Start date: 08/01/14 16:15:00, Duration: 4 doses or times, Stop date: 08/01/14 16:30:00 Hydromorpho No Notes: Jordy jackeline ne 08-01 (Same as: l 20:00: Dilaudid) conc = 0.5 mg/ml Hydromorph one MATERNITY NURSE Dose: ;Delay: ;Basal: Enoxaparin No Notes: Memor ia 5-07 (Same as: l 20:00: Lovenox) Ramakrishna 00 Naloxone No Notes: Memoria 5-07 Same as l 19:37: Narcan Naloxone No Notes: Memoria 5-07 Same as l 19:35: Narcan [place] 00 Saline No Notes: Memoria Flush 0.9% 07 (Same as: l 19:35: BD [place] 00 Posiflush) Metoprolol No Notes: Memor ia 5-07 (Same as: l 19:35: Lopressor) Ramakrishna 00 Push over 2 minutes Ondansetron No Notes: Jordy jackeline 5-07 (Same as: l 19:35: Zofran) Ramakrishna 00 MEDICATION WASTE Product Size: 4 mg Product Wasted: ___ mg Promethazin No Notes: Do M emoria e 5-07 not give l 19:35: IV push. Ramakrishna (Same as: Phenergan) Acetaminoph No Notes: Do M emoria en 20 MG/ML -07 not exceed l / 19:35: 4gm/day of [place] Hydrocodone 00 acetaminop Bitartrate hen. 0.667 MG/ML (Same as: Oral [place] Solution 325/7.5) Calcium No 1,000 mL, Memor ia Chloride 08-01 Rate: 125 l 0.0014 19:35: ml/hr, Ramakrishna MEQ/ML / 00 Infuse Potassium over: 8 Chloride hr, Route: 0.004 IV, Dosing MEQ/ML / Weight Sodium 117.273 Chloride kg, Total 0.103 Volume: MEQ/ML / 1,000, Sodium Start Lactate date: 0.028 15 MEQ/ML 14:35:00, Injectable Duration: Solution 30 day, Stop date: 08/31/14 14:34:00 Ondansetron No Notes: Jordy jackeline 5-07 (Same as: l 16:28: Zofran) MEDICATION WASTE Product Size: 4 mg Product Wasted: ___ mg Dexamethaso No Notes: Jordy jackeline ne -07 Concentrat l 16:28: ion: Ramakrishna 00 4mg/ml Promethazin No Notes: Do M emoria e 5-07 not give l 16:28: IV push. Ramakrishna 00 (Same as: Phenergan) Labetalol No Notes: Memori a 5-07 (Same as: l 16:28: Normodyne, Ramakrishna 00 Trandate) Push over 2 minutes Give bolus over 2-3 minutes. Naloxone No Notes: Memoria 5-07 Same as l 16:28: Narcan Hydromorpho No Notes: Jordy jackeline ne 5-07 (Same as: l 16:28: Dilaudid) Morphine No Notes: Memoria 5-07 (Same l 16:28: as:MORPhin Ramakrishna 00 e Sulfate) Meperidine No Notes: Memor ia 5-07 (Same As: l 16:28: Demerol) Flumazenil No Notes: Memor ia 5-07 (Same as: l 16:28: Romazicon) Calcium No 1,000 mL, Memor ia Chloride 08-01 Rate: 50 l 0.0014 16:28: ml/hr, Ramakrishna MEQ/ML / 00 Infuse Potassium over: 20 Chloride hr, Route: 0.004 IV, Dosing MEQ/ML / Weight Sodium 117.273 Chloride kg, Total 0.103 Volume: MEQ/ML / 1,000, Sodium Start Lactate date: 0.028 15 MEQ/ML 11:28:00, Injectable Duration: Solution 30 day, Stop date: 08/31/14 11:27:00 INVanz + No Notes: Memoria Sodium 5-07 (Same as: l Chloride 06:00: INVanz) Vinh n 0.9% IV 100 00 Refrigerat mL e. NOT COMPATIBLE WITH D5W. Stable in refrigerat or for 24 hours MEDICATION WASTE Product Size: 1000 mg Product Wasted: 0 mg Uloric No = 1 tab, Memoria 4-24 PO, Daily, l 18:47: 0 Ramakrishna 00 Refill(s) Colchicine No 0.6 mg, Jordy jackeline 0.6 MG Oral 4-24 PO, Daily, l Tablet 18:47: 0 [place] 00 Refill(s) METOPROLOL No METOPROLOL M emoria 4-24 , 100 mg l 18:46: =, PO, [place] 00 BID, Refill(s) 0 Immunizations Ordered Filled Immunization Date Status Comments [facility] Immunization Name Name SARS-COV-2 COVID-19 2021-04-24 Completed Unive rsity of MODERNA BOOSTER 00:00:00 [facility] ica VACCINE Branch SARS-COV-2 COVID-19 2021-04-24 Completed Unive rsity of MODERNA BOOSTER 00:00:00 [facility] ica VACCINE Branch SARS-COV-2 COVID-19 2021-04-24 Completed Unive rsity of MODERNA BOOSTER 00:00:00 [facility] ica VACCINE Branch SARS-COV-2 COVID-19 2021-04-24 Completed Unive rsity of MODERNA BOOSTER 00:00:00 [facility] VACCINE Branch SARS-COV-2 COVID-19 2020-06-11 Completed Unive rsity of MODERNA VACCINE 00:00:00 [facility] SARS-COV-2 COVID-19 2020-06-11 Completed Unive rsity of MODERNA VACCINE 00:00:00 [place] Med ical Branch SARS-COV-2 COVID-19 2020-06-11 Completed Unive rsity of MODERNA VACCINE 00:00:00 [place] [facility] ical Branch SARS-COV-2 COVID-19 2020-06-11 Completed Unive rsity of MODERNA VACCINE 00:00:00 [place] [facility] ical Branch SARS-COV-2 COVID-19 2020-06-11 Completed Unive rsity of MODERNA VACCINE 00:00:00 [place] [facility] ical Branch SARS-COV-2 COVID-19 2020-06-11 Completed Unive rsity of MODERNA VACCINE 00:00:00 [facility] ical Branch SARS-COV-2 COVID-19 2020-06-11 Completed Unive rsity of MODERNA VACCINE 00:00:00 [facility] ical Branch SARS-COV-2 COVID-19 2020-06-11 Completed Unive rsity of MODERNA VACCINE 00:00:00 [facility] ical Branch SARS-COV-2 COVID-19 2020-05-04 Completed Unive rsity of MODERNA VACCINE 00:00:00 [facility] ical Branch SARS-COV-2 COVID-19 2020-05-04 Completed Unive rsity of MODERNA VACCINE 00:00:00 [facility] [facility] ical Branch SARS-COV-2 COVID-19 2020-05-04 Completed Unive rsity of MODERNA VACCINE 00:00:00 [facility] ical Branch SARS-COV-2 COVID-19 2020-05-04 Completed Unive rsity of MODERNA VACCINE 00:00:00 [facility] ical Branch SARS-COV-2 COVID-19 2020-05-04 Completed Unive rsity of MODERNA VACCINE 00:00:00 [facility] ical Branch SARS-COV-2 COVID-19 2020-05-04 Completed Unive rsity of MODERNA VACCINE 00:00:00 [facility] ical Branch SARS-COV-2 COVID-19 2020-05-04 Completed Unive rsity of MODERNA VACCINE 00:00:00 [facility] ical Branch SARS-COV-2 COVID-19 2020-05-04 Completed Unive rsity of MODERNA VACCINE 00:00:00 [facility] Tdap- (Boostrix, 2016-06-11 Completed Patricia S eybold Adacel) 00:00:00 Vital Signs Vital Name Observation Time Observation Value Comments Source Heart rate 2021-07-14 20:02:00 66 /min [facility] Oxygen saturation in 2021-07-14 20:02:00 94 /min [facility] Arterial blood by [facility] Pulse oximetry Branch Respiratory rate 2021-07-14 20:01:00 21 /min [facility] [place] [facility] Systolic blood 2021-07-14 19:59:00 122 mm[Hg] [facility] Diastolic blood 2021-07-14 19:59:00 92 mm[Hg] [facility] Body temperature 2021-07-14 19:15:00 36.33 Miriam [facility] Body height 2021-07-08 13:42:00 188 cm [facility] Body weight 2021-07-08 13:42:00 117.9 kg [facility] BMI 2021-07-08 13:42:00 33.36 kg/m2 [facility] Systolic blood 2021-07-14 16:29:00 135 mm[Hg] [facility] Diastolic blood 2021-07-14 16:29:00 91 mm[Hg] [facility] Heart rate 2021-07-14 16:29:00 61 /min [facility] Body temperature 2021-07-14 16:29:00 36.28 Miriam [facility] [place] [facility] Respiratory rate 2021-07-14 16:29:00 18 /min [facility] Oxygen saturation in 2021-07-14 16:29:00 98 /min [facility] Arterial blood by [facility] Pulse oximetry Branch Body height 2021-07-08 13:42:00 188 cm [facility] Body weight 2021-07-08 13:42:00 117.9 kg [facility] BMI 2021-07-08 13:42:00 33.36 kg/m2 [facility] Systolic blood 2021-05-18 14:51:00 128 mm[Hg] Patricia Merrill pressure Diastolic blood 2021-05-18 14:51:00 88 mm[Hg] Richard Merrill pressure Heart rate 2021-05-18 14:51:00 61 /min Patricia kauffman Body temperature 2021-05-18 14:51:00 36 Miriam Ashley Merrill Respiratory rate 2021-05-18 14:51:00 14 /min Ashley Merrill Body height 2021-05-18 14:51:00 188 cm Patricia kauffman Body weight 2021-05-18 14:51:00 122.471 kg Patricia kauffman BMI 2021-05-18 14:51:00 34.67 kg/m2 Patricia kauffman Systolic blood 2020-11-24 11:00:00 127 mm[Hg] [facility] Diastolic blood 2020-11-24 11:00:00 87 mm[Hg] [facility] Heart rate 2020-11-24 11:00:00 79 /min [facility] Respiratory rate 2020-11-24 11:00:00 20 /min [facility] Oxygen saturation in 2020-11-24 11:00:00 96 /min [facility] Arterial blood by [place] Pulse oximetry Branch Body temperature 2020-11-24 10:26:00 37.83 Miriam [facility] Body height 2020-11-24 10:26:00 188 cm [facility] Body weight 2020-11-24 10:26:00 117.935 kg [facility] BMI 2020-11-24 10:26:00 33.38 kg/m2 [facility] Systolic blood 2020-11-23 11:01:00 132 mm[Hg] [facility] Diastolic blood 2020-11-23 11:01:00 86 mm[Hg] [facility] Heart rate 2020-11-23 11:01:00 52 /min [facility] Respiratory rate 2020-11-23 11:01:00 14 /min [facility] Oxygen saturation in 2020-11-23 11:01:00 100 /min [facility] [place] [facility] Body temperature 2020-11-23 08:47:40 37.44 Miriam [facility] Body height 2020-11-23 08:45:00 188 cm [facility] Body weight 2020-11-23 08:45:00 117.935 kg [facility] BMI 2020-11-23 08:45:00 33.38 kg/m2 [facility] Systolic (mm Hg) 2014-08-02 17:15:00 Jordy rial Ramakrishna Diastolic (mm Hg) 2014-08-02 17:15:00 [facility] [place] Respitory Rate 2014-08-02 17:15:00 [facility] [place] Heart Rate 2014-08-02 17:15:00 [facility] [place] Temperature Oral (F) 2014-08-02 17:15:00 97.4 F [facility] [place] Respitory Rate 2014-08-02 13:13:00 Memori al Ram[facility]rishna Temperature Oral (F) 2014-08-02 13:13:00 97.5 F [facility] Heart Rate 2014-08-02 13:13:00 [facility] [place] Systolic (mm Hg) 2014-08-02 13:13:00 Jordy rial Ramakrishna Diastolic (mm Hg) 2014-08-02 13:13:00 Mem orial [facility] Temperature Oral (F) 2014-08-02 09:00:00 97.7 F [facility] [place] Heart Rate 2014-08-02 09:00:00 [facility] Systolic (mm Hg) 2014-08-02 09:00:00 Jordy rial Ramakrishna Diastolic (mm Hg) 2014-08-02 09:00:00 Mem [facility] [place] Respitory Rate 2014-08-02 09:00:00 [facility] [place] Height 2014-07-19 18:21:00 187.96 cm [facility] [place] Weight 2014-07-19 18:21:00 [facility] BMI Calculated 2014-07-19 18:21:00 [facility] [place] Procedures Procedure Date / Time Performing Clinician Source Performed [place] TIME OR 2021-07-14 18:59:10 Tony Garcia [facility] (NON-REPORTABLE) Medical Branch [place] TIME OR 2021-07-14 18:59:10 Tony Garcia [facility] (NON-REPORTABLE) Medical Branch TOE ARTHRODESIS 2021-07-14 16:53:00 Tony Garcia [facility] Medical Branch RONNY BUNION 2021-07-14 16:53:00 Tony Garcia [facility] Medical Branch PATIENT QUESTIONNAIRE 2021-07-14 05:01:00 Doctor Unassigned, [facility] [place] [facility] DAY SURGERY - ADC 2021-07-14 05:01:00 Doctor Unassigned, [facility] [place] [facility] CONSENT/REFUSAL FOR 2021-07-09 15:19:32 [facility] DIAGNOSIS AND TREATMENT [place] [facility] CONSENT/REFUSAL FOR 2021-07-09 15:19:32 Doctor Unassigned, [facility] DIAGNOSIS AND TREATMENT [place] [facility] ASSIGNMENT OF BENEFITS 2021-07-09 15:19:04 [facility] [place] [facility] ASSIGNMENT OF BENEFITS 2021-07-09 15:19:04 Doctor Unassigned, [facility] [place] [facility] RUST PATIENT FINANCIAL 2021-07-09 15:18:47 Doctor Unassigned, [facility] POLICY [place] [facility] RUST PATIENT FINANCIAL 2021-07-09 15:18:47 Doctor Unassigned, [facility] POLICY [place] [facility] NO SHOW OR MISSED 2021-07-09 15:18:31 Doctor Unassigned, [facility] APPOINTMENT POLICY [place] [facility] h ACKNOWLEDGEMENT NO SHOW OR MISSED 2021-07-09 15:18:31 Doctor Unassigned, [facility] APPOINTMENT POLICY [place] [facility] ACKNOWLEDGEMENT NOTICE OF PRIVACY 2021-07-09 15:18:13 Doctor Unassigned, [facility] PRACTICES [place] [facility] NOTICE OF PRIVACY 2021-07-09 15:18:13 Doctor Unassigned, [facility] PRACTICES [place] [facility] CONSENT/REFUSAL FOR 2021-07-09 15:17:58 Doctor Unassigned, [facility] DIAGNOSIS AND TREATMENT [place] [facility] CONSENT/REFUSAL FOR 2021-07-09 15:17:58 Doctor Unassigned, [facility] DIAGNOSIS AND TREATMENT [place] [facility] ASSIGNMENT OF BENEFITS 2021-07-09 15:17:34 Doctor Unassigned, Un [facility] [place] [facility] ASSIGNMENT OF BENEFITS 2021-07-09 15:17:34 Doctor Unassigned, [facility] [place] [facility] EXTERNAL PROVIDER RECORDS 2021-07-06 05:01:00 Doctor Babatunde, [facility] [place] [facility] EXTERNAL PROVIDER RECORDS 2021-07-06 05:01:00 Doctor Paulinasspearl, [facility] [place] [facility] SARS-COV-2 COVID-19 2021-04-24 15:06:03 Doctor Babatunde, [facility] VACCINE BOOSTER,0.25ML,IM [place] [facility] (MODERNA) URINALYSIS 2020-11-24 10:49:00 Singer [facility] COVID-19 (ID NOW RAPID 2020-11-24 10:39:00 Singer [facility] TESTING) Medical Branch LIPASE 2020-11-24 10:35:00 Singer [facility] COMP. METABOLIC PANEL 2020-11-24 10:35:00 Esperanza Isaacs [facility] ([id number]) Medical [place] CBC WITH DIFF 2020-11-24 10:35:00 Singer [facility] CONSENT/REFUSAL FOR 2020-11-24 10:20:22 Doctor Fine [facility] DIAGNOSIS AND TREATMENT [place] [facility] [place] CT ABDOMEN PELVIS W 2020-11-23 09:23:16 Esperanza Isaacs [facility] CONTRAST Medical Branch LIPASE 2020-11-23 08:50:00 Singer [facility] COMP. METABOLIC PANEL 2020-11-23 08:50:00 Esperanza Isaacs [facility] ([id number]) Medical Branch CBC WITH DIFF 2020-11-23 08:50:00 Singer [facility] URINALYSIS 2020-11-23 08:50:00 Singer [facility] NOTICE OF PRIVACY 2020-11-23 08:33:16 Doctor Fine [facility] PRACTICES [place] [facility] [place] Jean Carlos-en-y gastric bypass 2014-08-01 05:00:00 [facility] [place] Back [facility] [place] Cholecystectomy [facility] Encounters Start End Encounter Admission Attending Care Care Encounter Source Date/Time Date/Time Type Type Clinicians Facility Department ID 2021-09-14 2021-09-14 Office Adams Wei [id number] Patricia 16:30:00 16:45:00 Visit Arlen Justo [id number] Se sonia Henna 1.2.7.2.686 [id number] 2021-09-04 2021-09-04 Outpatient PATRICIA ARREDONDO [id number] Patricia 00:00:00 00:00:00 ARLEN Normanol rita 2021-09-04 2021-09-04 Outpatient PATRICIA ARREDONDO [id number] Patricia 00:00:00 00:00:00 ARLEN Normanol rita 2021-09-03 2021-09-03 Outpatient MELO GONZALEZ [id number] Patricia 00:00:00 00:00:00 Seybol d 2021-07-14 2021-07-14 Outpatient Tapan [facility] SOR [id number] Univers 11:23:00 15:24:00 TONY moore of [facility] 2021-07-14 2021-07-14 [facility] [id number] Univers 11:23:00 15:24:00 Encounter Tony INFANTE 350.1.13.10 [facility] [place] [id number] [facility] 071 Branch 2021-07-14 2021-07-14 Surgery [facility] [id number] Univers 11:45:00 14:07:00 Tony INFANTE 350.1.13.10 it[place] [facility] [place] [id number] [facility] 020 Branch 2021-07-09 2021-07-09 Agent Broker Angeli, Adc Lab Main RUST 1.2.8 [id number] Univers 10:15:00 10:30:00 Visit Tony Garcia 350.1.13.10 [place] [id number] Me dical NAL [address] [facility] 2021-07-09 2021-07-09 Outpatient R [facility] [id number] Univers 10:15:00 10:15:00 [id number] ity [facility] 2021-07-09 2021-07-09 Outpatient R RADHA NEUMANN, [facility] [id number] [facility] 10:15:00 10:15:00 [facility] 2021-05-18 2021-05-18 Outpatient LAB90 PATRICIA ZAVALA [id number] Patricia 09:45:00 09:45:00 Seybol d 2021-05-18 2021-05-18 Office Wei Arredondo [id number] Patricia 09:00:00 09:30:00 Visit Arlen Kemp 350.1.13.13 Se sonia Coates 1.2.7.2.686 [id number] 2021-05-05 2021-05-05 Outpatient MELO GONZALEZ [id number] Patricia 00:00:00 00:00:00 Seybol d 2021-04-24 2021-04-24 Imm/Inj Nurse, Adc Pob Immunization [place] [id number] Univers 09:10:00 09:10:00 Visit Willis Harvey 350.1.13 .10 [place] [id number] Me dical NAL [address] [facility] 2020-11-24 2020-11-24 Emergency Singer [place] [id number] Univers 05:24:00 06:37:00 Esperanza Infante 350.1.13.10 i ty [place] [id number] [facility] nereida 084 [place] 2020-11-24 2020-11-24 Emergency X SINGER RUST ERT [id number] Univers 05:24:00 05:24:00 ESPERANZA moore [facility] 2020-11-23 2020-11-23 Emergency Singer [place] [id number] Univers 03:35:00 06:36:00 Esperanza Infante 350.1.13.10 i ty [facility] 4.2.7.2.686 [facility] [id number] [facility] 084 Branch 2020-11-23 2020-11-23 Emergency X SINGER [place] ERT [id number] Univers 03:35:00 03:35:00 ESPERANZA moore [facility] 2014-08-01 2014-08-02 Inpatient [facility] [id number] [facility] 11:10:00 20:38:00 [facility] 00 l [facility] Results Test Description Test Time Test Comments Results Result Comments Source URINALYSIS 2020-11-24 11:10:43 Test Item Value Reference Range Interpretation Comme nts APPEARANCE (test code = Clear Clear 5681527994) COLOR (test code = 7675431496) Yellow Yellow PH (test code = 2403199884) 4.8-8.0 SP GRAVITY (test code = 1.003-1.030 7958123611) GLU U QUAL (test code = Normal Normal 7771554143) BLOOD (test code = 7205056063) Negative Negative KETONES (test code = 6468712823) Negative Negative PROTEIN (test code = 2887-8) Negative Negative UROBILIN (test code = Normal Normal 1143645797) BILIRUBIN (test code = Negative Negative 4593498462) NITRITE (test code = 3194178368) Negative Negative LEUK IZZY (test code = Negative Negative 9509725863) RBC/HPF (test code = 6280934165) See_Comment [Automated message] The system which ge nerated this result transmit susanne reference range: 0 - 3 HP F. The reference range was not used to interpret th is result as normal/abnormal . WBC/HPF (test code = 0563439809) See_Comment [Automated message] The system which ge nerated this result transmit susanne reference range: 0 - 5 HP F. The reference range was not used to interpret th is result as normal/abnormal . BACTERIA (test code = Negative Negative 0269214492) MUCOUS (test code = 0964733538) Slight Negative LPF A SQ EPITH (test code = <1 HPF 7966631836) Lab Interpretation (test code = Abnormal 56620-3) [facility] 11:10:43 Test Item Value Reference Range Interpretation Comments APPEARANCE (test code = Clear Clear 2212891254) COLOR (test code = Yellow Yellow 5326157970) PH (test code = 4.8-8.0 8158330835) SP GRAVITY (test code = 1.003-1.030 3899088129) GLU U QUAL (test code = Normal Normal 8933929477) BLOOD (test code = Negative Negative 4876753422) KETONES (test code = Negative Negative 9996093122) PROTEIN (test code = Negative Negative 2887-8) UROBILIN (test code = Normal Normal 1567433050) BILIRUBIN (test code = Negative Negative 5843928060) NITRITE (test code = Negative Negative 6361830755) LEUK IZZY (test code = Negative Negative 8541497230) RBC/HPF (test code = See_Comment [Autom ated message] 8251537369) The system [employer] generated this result transmitted ref erence range: 0 - 3 HP F. The reference range was not used to int erpret this result as normal/abnormal . WBC/HPF (test code = See_Comment [Autom ated message] 5767506790) The system [employer] generated this result transmitted ref erence range: 0 - 5 HP F. The reference range was not used to int erpret this result as normal/abnormal . BACTERIA (test code = Negative Negative 2716489552) MUCOUS (test code = Slight Negative LPF A 6602936259) SQ EPITH (test code = <1 HPF 3032239000) Lab Interpretation (test Abnormal code = 71027-1) [facility] (01001)2020-11-24 11:03:51 Test Item Value Reference Range Interpretation Comments NA (test code = 139 mmol/L 135-145 3094699409) K (test code = 3.9 mmol/L 3.5-5.0 2836349290) CL (test code = 104 mmol/L 98-108 5150954043) CO2 TOTAL (test code = 24 mmol/L 23-31 9900673418) AGAP (test code = 2-16 5002802210) BUN (test code = 17 mg/dL 7-23 1419868100) GLUCOSE (test code = 106 mg/dL 70-110 0165370858) CREATININE (test code = 1.25 mg/dL 0.60-1.25 5085212535) TOTAL BILI (test code = 1.5 mg/dL 0.1-1.1 H 4545320998) CALCIUM (test code = 9.3 mg/dL 8.6-10.6 8642945752) T PROTEIN (test code = 8.2 g/dL 6.3-8.2 4488603780) ALBUMIN (test code = 4.6 g/dL 3.5-5.0 8452288048) ALK PHOS (test code = 91 U/L 34-122 7158455470) ALTv (test code = 19 U/L 5-50 1742-6) AST(SGOT) (test code = 28 U/L 13-40 0596666425) eGFR (test code = mL/min/1.73m2 3778631386) PEDRO LUIS (test code = PEDRO LUIS) Association of Glomerular Filtration Rate (GFR) and Staging of Kidney Disease* + --+ --+ ------+| GFR (mL/min/1.73 m2) ?| With Kidney Damage ?| ?Without Kidney Damage+ --------+ --------+ +| ?>90 ?| ?Stage one ?| ? Normal ?+ ---+ ---+ -------+| ?60-89 ?| ?Stage two ?| ? Decreased GFR ? + --+ --+ ------+| ?30-59 ?| ?Stage three ?| ? Stage three ? + --+ --+ ------+| ?15-29 ?| ?Stage four ? | ? Stage four ?+ ---+ ---+ -------+| ?<15 (or dialysis) ? ?| ?Stage five ? | ? Stage five ?+ ---+ ---+ -------+ *Each stage assumes the associated GFR level has been in effect for at least three months. ?Stages 1 to 5, with or without kidney disease, indicate chronic kidney disease. Notes: Determination of stages one and two (with eGFR >59mL/min/1.73 m2) requires estimation of kidney damage for at least three months as defined by structural or functional abnormalities of the kidney, manifested by either:Pathological abnormalities or Markers of kidney damage (including abnormalities in the composition of the blood or urine or abnormalities in imaging tests). Lab Interpretation Abnormal (test code = 46196-6) [facility] (23974)2020-11-24 11:03:51 Test Item Value Reference Range Interpretation Comments NA (test code = 2591811053) 139 mmol/L 135-145 K (test code = 7691207705) 3.9 mmol/L 3.5-5.0 CL (test code = 6980543173) 104 mmol/L 98-108 CO2 TOTAL (test code = 1720471698) 24 mmol/L 23-31 AGAP (test code = 1258783409) 2-16 BUN (test code = 4530785485) 17 mg/dL 7-23 GLUCOSE (test code = 8133907741) 106 mg/dL 70-110 CREATININE (test code = 1.25 mg/dL 0.60-1.25 6994017150) TOTAL BILI (test code = 1.5 mg/dL 0.1-1.1 H 2545482694) CALCIUM (test code = 8589979540) 9.3 mg/dL 8.6-10.6 T PROTEIN (test code = 7082908907) 8.2 g/dL 6.3-8.2 ALBUMIN (test code = 1723334681) 4.6 g/dL 3.5-5.0 ALK PHOS (test code = 2444140143) 91 U/L 34-122 ALTv (test code = 1742-6) 19 U/L 5-50 AST(SGOT) (test code = 7385748370) 28 U/L 13-40 eGFR (test code = 6956612686) mL/min/1.73m2 PEDRO LUIS (test code = PEDRO LUIS) Lab Interpretation (test code = Abnormal 22258-3) [facility] 11[facility]03:10 Test Item Value Reference Range Interpretation Comments LIPASE (test code = 6345247286) 129 U/L 0-220 Lab Interpretation (test code = Normal 00603-7) [facility] 11:03:10 Test Item Value Reference Range Interpretation Comments LIPASE (test code = 0963221170) 129 U/L 0-220 Lab Interpretation (test code = Normal 76120-6) [facility] (ID NOW RAPID TESTING)2020-11-24 10:59:10 Test Item Value Reference Range Interpretation Comments SARS-CoV-2 Rapid ID NOW Not Detected Not Detected (test code = 30470-5) PEDRO LUIS (test code = PEDRO LUIS) ID NOW COVID-19 Assay is an isothermal nucleic acid amplification test intended for the qualitative detection of nucleic acid from SARS-CoV-2 viral RNA in nasopharyngeal (DAYCARE TEACHER) specimens. It is used under Emergency Use Authorization (EUA) by FDA. The limit of detection (LOD) of the assay is 125 Genome Equivalents/mL. A positive result is indicative of the presence of SARS-CoV-2 RNA. ?Clinical correlation with patient history and other diagnostic information is necessary to determine patient infection status. A negative (Not Detected) result does not preclude SARS-CoV-2 infection. In patients with clinical symptoms and other tests that are consistent with SARS-CoV-2 infection, negative results should be treated as presumptive negative and a new specimen should be tested with alternative PCR molecular test. Invalid: Please collect a new specimen for repeat patient testing if clinically indicated. Lab Interpretation Normal (test code = 05396-7) [facility]-19 (ID NOW RAPID TESTING)2020-11-24 10:59:10 Test Item Value Reference Range Interpretation Comments SARS-CoV-2 Rapid ID NOW (test Not Detected Not Detected code = 53967-5) PEDRO LUIS (test code = PEDRO LUIS) Lab Interpretation (test code = Normal 03075-9) [facility] [id number] 10:52:27 Test Item Value Reference Range Interpretation Comments WBC (test code = See_Comment [Automated 0490-2) message] The sy stem which generated this result transmitted reference range : 4.20 - 10.70 10*3/?L. The reference range was not used to interpret this result as normal/abnormal . RBC (test code = See_Comment [Automated 149-8) message] The sy stem which generated this result transmitted reference range : 4.26 - 5.52 10*6/?L. The reference range was not used to interpret this result as normal/abnormal . HGB (test code = 14.8 g/dL 12.2-16.4 718-7) HCT (test code = 46.3 % 38.4-49.3 4544-3) MCV (test code = 86.9 fL 81.7-95.6 787-2) MCH (test code = 27.8 pg 26.1-32.7 785-6) MCHC (test code = 32.0 g/dL 31.2-35.0 786-4) RDW-SD (test code = 48.2 fL 38.5-51.6 82407-8) RDW-CV (test code = 15.3 % 12.1-15.4 788-0) PLT (test code = See_Comment [Automated 777-3) message] The sy stem which generated this result transmitted reference range : 150 - 328 10*3/ ?L. The reference r matilda was not used to interpret this result as normal/abnormal . MPV (test code = 10.4 fL 9.8-13.0 81229-1) NRBC/100 WBC (test See_Comment [Automat ed code = 9544840056) message] The system which generated this result transmitted reference range : 0.0 - 10.0 /100 WBCs. The refer ence range was not u sed to interpret th is result as normal/abnormal . NRBC x10^3 (test code <0.01 See_Comment [Auto mated = 3459980905) message] The s ystem which generated this result transmitted reference range : 10*3/?L. The reference range was not used to interpret this result as normal/abnormal . GRAN MAT (NEUT) % 67.4 % (test code = 770-8) IMM GRAN % (test code 0.60 % = 3878219917) LYMPH % (test code = 19.2 % 736-9) MONO % (test code = 11.5 % 5905-5) EOS % (test code = 0.8 % 713-8) BASO % (test code = 0.5 % 706-2) GRAN MAT x10^3(ANC) 7.13 10*3/uL 1.99-6.95 H (test code = 2938964027) IMM GRAN x10^3 (test 0.06 10*3/uL 0.00-0.06 code = 7893263940) LYMPH x10^3 (test code 2.03 10*3/uL 1.09-3.23 = 731-0) MONO x10^3 (test code 1.22 10*3/uL 0.36-1.02 H = 742-7) EOS x10^3 (test code = 0.08 10*3/uL 0.06-0.53 711-2) BASO x10^3 (test code 0.05 10*3/uL 0.01-0.09 = 704-7) Lab Interpretation Abnormal (test code = 79780-3) [facility] WITH [id number] 10:52:27 Test Item Value Reference Range Interpretation Comments WBC (test code = See_Comment [Automated 7795-2) message] The sy stem which generated this result transmitted reference range : 4.20 - 10.70 10*3/?L. The reference range was not used to interpret this result as normal/abnormal . RBC (test code = See_Comment [Automated 389-8) message] The sy stem which generated this result transmitted reference range : 4.26 - 5.52 10*6/?L. The reference range was not used to interpret this result as normal/abnormal . HGB (test code = 14.8 g/dL 12.2-16.4 718-7) HCT (test code = 46.3 % 38.4-49.3 4544-3) MCV (test code = 86.9 fL 81.7-95.6 787-2) MCH (test code = 27.8 pg 26.1-32.7 785-6) MCHC (test code = 32.0 g/dL 31.2-35.0 786-4) RDW-SD (test code = 48.2 fL 38.5-51.6 18404-5) RDW-CV (test code = 15.3 % 12.1-15.4 788-0) PLT (test code = See_Comment [Automated 827-3) message] The sy stem which generated this result transmitted reference range : 150 - 328 10*3/ ?L. The reference r matilda was not used to interpret this result as normal/abnormal . MPV (test code = 10.4 fL 9.8-13.0 66043-2) NRBC/100 WBC (test See_Comment [Automat ed code = 4613277543) message] The system which generated this result transmitted reference range : 0.0 - 10.0 /100 WBCs. The refer ence range was not u sed to interpret th is result as normal/abnormal . NRBC x10^3 (test code <0.01 See_Comment [Auto mated = 5315206657) message] The s ystem which generated this result transmitted reference range : 10*3/?L. The reference range was not used to interpret this result as normal/abnormal . GRAN MAT (NEUT) % 67.4 % (test code = 770-8) IMM GRAN % (test code 0.60 % = 0332152167) LYMPH % (test code = 19.2 % 736-9) MONO % (test code = 11.5 % 5905-5) EOS % (test code = 0.8 % 713-8) BASO % (test code = 0.5 % 706-2) GRAN MAT x10^3(ANC) 7.13 10*3/uL 1.99-6.95 H (test code = 8923832829) IMM GRAN x10^3 (test 0.06 10*3/uL 0.00-0.06 code = 7865218859) LYMPH x10^3 (test code 2.03 10*3/uL 1.09-3.23 = 731-0) MONO x10^3 (test code 1.22 10*3/uL 0.36-1.02 H = 742-7) EOS x10^3 (test code = 0.08 10*3/uL 0.06-0.53 711-2) BASO x10^3 (test code 0.05 10*3/uL 0.01-0.09 = 704-7) Lab Interpretation Abnormal (test code = 76384-1) [facility] Test Item Value Reference Range Interpretation Comments APPEARANCE (test code = Clear Clear 1436469375) COLOR (test code = Yellow Yellow 4197951892) PH (test code = 4.8-8.0 8657620621) SP GRAVITY (test code = 1.003-1.030 8849453797) GLU U QUAL (test code = Normal Normal 3591577695) BLOOD (test code = Negative Negative 9261274281) KETONES (test code = Negative Negative 1683476927) PROTEIN (test code = Negative Negative 2887-8) UROBILIN (test code = Normal Normal 8315503756) BILIRUBIN (test code = Negative Negative 9843760256) NITRITE (test code = Negative Negative 9670244277) LEUK IZZY (test code = Negative Negative 0977518081) RBC/HPF (test code = See_Comment [Autom ated message] 1257876481) The system Get[employer] generated this result transmitted ref erence range: 0 - 3 HP F. The reference range was not used to int erpret this result as normal/abnormal . WBC/HPF (test code = See_Comment [Autom ated message] 8297629762) The system Get[employer] generated this result transmitted ref erence range: 0 - 5 HP F. The reference range was not used to int erpret this result as normal/abnormal . BACTERIA (test code = Negative Negative 0191786274) Lab Interpretation (test Normal code = 51276-0) [facility] 09:17[facility]59 Test Item Value Reference Range Interpretation Comments APPEARANCE (test code = Clear Clear 8706963725) COLOR (test code = Yellow Yellow 8691999251) PH (test code = 4.8-8.0 3083621362) SP GRAVITY (test code = 1.003-1.030 7812817057) GLU U QUAL (test code = Normal Normal 7243303553) BLOOD (test code = Negative Negative 6204274410) KETONES (test code = Negative Negative 4555736246) PROTEIN (test code = Negative Negative 2887-8) UROBILIN (test code = Normal Normal 3748023778) BILIRUBIN (test code = Negative Negative 1296138667) NITRITE (test code = Negative Negative 4711811406) LEUK IZZY (test code = Negative Negative 1720586072) RBC/HPF (test code = See_Comment [Autom ated message] 7054562541) The system Get[employer] generated this result transmitted ref erence range: 0 - 3 HP F. The reference range was not used to int erpret this result as normal/abnormal . WBC/HPF (test code = See_Comment [Autom ated message] 8901092529) The system Get[employer] generated this result transmitted ref erence range: 0 - 5 HP F. The reference range was not used to int erpret this result as normal/abnormal . BACTERIA (test code = Negative Negative 5092361424) Lab Interpretation (test Normal code = 84383-6) [facility]. METABOLIC PANEL ([id number])2020-11-23 09:12:56 Test Item Value Reference Range Interpretation Comments NA (test code = 141 mmol/L 135-145 2890888363) K (test code = 4.3 mmol/L 3.5-5.0 2796749168) CL (test code = 102 mmol/L 98-108 6350182991) CO2 TOTAL (test code = 28 mmol/L 23-31 6146148199) AGAP (test code = 2-16 6392387457) BUN (test code = 17 mg/dL 7-23 3601024274) GLUCOSE (test code = 103 mg/dL 70-110 1330569480) CREATININE (test code = 1.26 mg/dL 0.60-1.25 H 6649795348) TOTAL BILI (test code = 1.3 mg/dL 0.1-1.1 H 7076770861) CALCIUM (test code = 10.2 mg/dL 8.6-10.6 7173676516) T PROTEIN (test code = 8.8 g/dL 6.3-8.2 H 1129915299) ALBUMIN (test code = 5.0 g/dL 3.5-5.0 7452852201) ALK PHOS (test code = 96 U/L 34-122 1891481672) ALTv (test code = 24 U/L 5-50 1742-6) AST(SGOT) (test code = 31 U/L 13-40 0356702430) eGFR (test code = mL/min/1.73m2 2997032968) PEDRO LUIS (test code = PEDRO LUIS) Association of Glomerular Filtration Rate (GFR) and Staging of Kidney Disease* + --+ --+ ------+| GFR (mL/min/1.73 m2) ?| With Kidney Damage ?| ?Without Kidney Damage+ --------+ --------+ +| ?>90 ?| ?Stage one ?| ? Normal ?+ ---+ ---+ -------+| ?60-89 ?| ?Stage two ?| ? Decreased GFR ? + --+ --+ ------+| ?30-59 ?| ?Stage three ?| ? Stage three ? + --+ --+ ------+| ?15-29 ?| ?Stage four ? | ? Stage four ?+ ---+ ---+ -------+| ?<15 (or dialysis) ? ?| ?Stage five ? | ? Stage five ?+ ---+ ---+ -------+ *Each stage assumes the associated GFR level has been in effect for at least three months. ?Stages 1 to 5, with or without kidney disease, indicate chronic kidney disease. Notes: Determination of stages one and two (with eGFR >59mL/min/1.73 m2) requires estimation of kidney damage for at least three months as defined by structural or functional abnormalities of the kidney, manifested by either:Pathological abnormalities or Markers of kidney damage (including abnormalities in the composition of the blood or urine or abnormalities in imaging tests). Lab Interpretation Abnormal (test code = 35545-9) [facility]. METABOLIC PANEL ([id number])2020-11-23 09:12:56 Test Item Value Reference Range Interpretation Comments NA (test code = 6779060715) 141 mmol/L 135-145 K (test code = 3849416855) 4.3 mmol/L 3.5-5.0 CL (test code = 8458541575) 102 mmol/L 98-108 CO2 TOTAL (test code = 5006897066) 28 mmol/L 23-31 AGAP (test code = 3386842700) 2-16 BUN (test code = 4179073168) 17 mg/dL 7-23 GLUCOSE (test code = 5965058396) 103 mg/dL 70-110 CREATININE (test code = 1.26 mg/dL 0.60-1.25 H 9255765014) TOTAL BILI (test code = 1.3 mg/dL 0.1-1.1 H 5886525817) CALCIUM (test code = 8559280469) 10.2 mg/dL 8.6-10.6 T PROTEIN (test code = 5874903873) 8.8 g/dL 6.3-8.2 H ALBUMIN (test code = 2793931887) 5.0 g/dL 3.5-5.0 ALK PHOS (test code = 0819001360) 96 U/L 34-122 ALTv (test code = 1742-6) 24 U/L 5-50 AST(SGOT) (test code = 6253959230) 31 U/L 13-40 eGFR (test code = 3614019271) mL/min/1.73m2 PEDRO LUIS (test code = PEDRO LUIS) Lab Interpretation (test code = Abnormal 56158-9) [facility]12[facility]36 Test Item Value Reference Range Interpretation Comments LIPASE (test code = 3395764291) 183 U/L 0-220 Lab Interpretation (test code = Normal 02008-3) [facility] 09:12:36 Test Item Value Reference Range Interpretation Comments LIPASE (test code = 4306864676) 183 U/L 0-220 Lab Interpretation (test code = Normal 39068-4) [facility] WITH [id number] 08:57:36 Test Item Value Reference Range Interpretation Comments WBC (test code = See_Comment H [Automated 4390-2) message] The sy stem which generated this result transmitted reference range : 4.20 - 10.70 10*3/?L. The reference range was not used to interpret this result as normal/abnormal . RBC (test code = See_Comment H [Automated 759-8) message] The sy stem which generated this result transmitted reference range : 4.26 - 5.52 10*6/?L. The reference range was not used to interpret this result as normal/abnormal . HGB (test code = 16.1 g/dL 12.2-16.4 718-7) HCT (test code = 47.9 % 38.4-49.3 4544-3) MCV (test code = 83.9 fL 81.7-95.6 787-2) MCH (test code = 28.2 pg 26.1-32.7 785-6) MCHC (test code = 33.6 g/dL 31.2-35.0 786-4) RDW-SD (test code = 45.6 fL 38.5-51.6 35762-0) RDW-CV (test code = 15.3 % 12.1-15.4 788-0) PLT (test code = See_Comment [Automated 777-3) message] The sy stem which generated this result transmitted reference range : 150 - 328 10*3/ ?L. The reference r matilda was not used to interpret this result as normal/abnormal . MPV (test code = 9.9 fL 9.8-13.0 21591-8) NRBC/100 WBC (test See_Comment [Automat ed code = 4470404682) message] The system which generated this result transmitted reference range : 0.0 - 10.0 /100 WBCs. The refer ence range was not u sed to interpret th is result as normal/abnormal . NRBC x10^3 (test code <0.01 See_Comment [Auto mated = 1973004731) message] The s ystem which generated this result transmitted reference range : 10*3/?L. The reference range was not used to interpret this result as normal/abnormal . GRAN MAT (NEUT) % 62.2 % (test code = 770-8) IMM GRAN % (test code 0.50 % = 9402025185) LYMPH % (test code = 22.6 % 736-9) MONO % (test code = 12.6 % 5905-5) EOS % (test code = 1.5 % 713-8) BASO % (test code = 0.6 % 706-2) GRAN MAT x10^3(ANC) 6.87 10*3/uL 1.99-6.95 (test code = 0389583735) IMM GRAN x10^3 (test 0.06 10*3/uL 0.00-0.06 code = 1335995011) LYMPH x10^3 (test code 2.50 10*3/uL 1.09-3.23 = 731-0) MONO x10^3 (test code 1.39 10*3/uL 0.36-1.02 H = 742-7) EOS x10^3 (test code = 0.17 10*3/uL 0.06-0.53 711-2) BASO x10^3 (test code 0.07 10*3/uL 0.01-0.09 = 704-7) Lab Interpretation Abnormal (test code = 36585-5) [facility] WITH [id number] 08:57:36 Test Item Value Reference Range Interpretation Comments WBC (test code = See_Comment H [Automated 6690-2) message] The sy stem which generated this result transmitted reference range : 4.20 - 10.70 10*3/?L. The reference range was not used to interpret this result as normal/abnormal . RBC (test code = See_Comment H [Automated 789-8) message] The sy stem which generated this result transmitted reference range : 4.26 - 5.52 10*6/?L. The reference range was not used to interpret this result as normal/abnormal . HGB (test code = 16.1 g/dL 12.2-16.4 718-7) HCT (test code = 47.9 % 38.4-49.3 4544-3) MCV (test code = 83.9 fL 81.7-95.6 787-2) MCH (test code = 28.2 pg 26.1-32.7 785-6) MCHC (test code = 33.6 g/dL 31.2-35.0 786-4) RDW-SD (test code = 45.6 fL 38.5-51.6 83331-4) RDW-CV (test code = 15.3 % 12.1-15.4 788-0) PLT (test code = See_Comment [Automated 777-3) message] The sy stem which generated this result transmitted reference range : 150 - 328 10*3/ ?L. The reference r matilda was not used to interpret this result as normal/abnormal . MPV (test code = 9.9 fL 9.8-13.0 48673-9) NRBC/100 WBC (test See_Comment [Automat ed code = 1846705196) message] The system which generated this result transmitted reference range : 0.0 - 10.0 /100 WBCs. The refer ence range was not u sed to interpret th is result as normal/abnormal . NRBC x10^3 (test code <0.01 See_Comment [Auto mated = 2338180357) message] The s ystem which generated this result transmitted reference range : 10*3/?L. The reference range was not used to interpret this result as normal/abnormal . GRAN MAT (NEUT) % 62.2 % (test code = 770-8) IMM GRAN % (test code 0.50 % = 2148021400) LYMPH % (test code = 22.6 % 736-9) MONO % (test code = 12.6 % 5905-5) EOS % (test code = 1.5 % 713-8) BASO % (test code = 0.6 % 706-2) GRAN MAT x10^3(ANC) 6.87 10*3/uL 1.99-6.95 (test code = 7335088099) IMM GRAN x10^3 (test 0.06 10*3/uL 0.00-0.06 code = 1440351680) LYMPH x10^3 (test code 2.50 10*3/uL 1.09-3.23 = 731-0) MONO x10^3 (test code 1.39 10*3/uL 0.36-1.02 H = 742-7) EOS x10^3 (test code = 0.17 10*3/uL 0.06-0.53 711-2) BASO x10^3 (test code 0.07 10*3/uL 0.01-0.09 = 704-7) Lab Interpretation Abnormal (test code = 06646-9) [facility]2015-[facility] 10:24:00 Test Item Value Reference Range Interpretation Comments AGAP (test code = AGAP) 11.4 10.0-20.0 [facility]boyvtgOPITIKNOHQLA9754-38-14 10:24:00 Test Item Value Reference Range Interpretation Comments CO2 (test code = CO2) 28 24-32 [facility] HospitalSxrojhfGVPDVVZCQCMU8927-55-36 10:24:00 Test Item Value Reference Range Interpretation Comments BUN (test code = BUN) 17 7-22 [facility] HospitalOnjzlxmJFGEOYTFKXAT9649-61-81 10:24:00 Test Item Value Reference Range Interpretation Comments Glucose Lvl (test code = Glucose Lvl) 102 70-99 [facility] HospitalSgxxshzBLQUIOTVRXFC3174-40-07 10:24:00 Test Item Value Reference Range Interpretation Comments eGFR (test code = eGFR) 75 [facility] HospitalMxmzjyjLOYXDPKCNUMS4410-16-79 10:24:00 Test Item Value Reference Range Interpretation Comments Calcium Lvl (test code = Calcium Lvl) 9.0 8.5-10.5 [facility] HospitalOfurhznGPTKFVPXZTNZ9167-54-46 10:24:00 Test Item Value Reference Range Interpretation Comments Chloride Lvl (test code = Chloride Lvl) 105 95-109 [facility] HospitalAosagafJHAJMUKCMIJA7985-62-62 10:24:00 Test Item Value Reference Range Interpretation Comments Potassium Lvl (test code = Potassium 4.4 3.5-5.1 Lvl) [facility] HospitalKggvcriXGIYCFFYURQP2784-15-22 10:24:00 Test Item Value Reference Range Interpretation Comments Creatinine Lvl (test code = Creatinine 1.2 0.5-1.4 Lvl) [facility] HospitalTqacgggEKKRJSVCMLBT1109-23-07 10:24:00 Test Item Value Reference Range Interpretation Comments Sodium Lvl (test code = Sodium Lvl) 140 135-145 [facility]landsGheyddjAJUSBJOEGK7238-59-46 10:24:00 Test Item Value Reference Range Interpretation Comments Hgb (test code = Hgb) 15.2 14.0-18.0 [facility]landsJakbeprLOSYLVZVTN9857-04-08 10:24:00 Test Item Value Reference Range Interpretation Comments MPV (test code = MPV) 8.8 7.4-10.4 [facility]landsVdevavvYRMEQSTPCW4435-28-23 10:24:00 Test Item Value Reference Range Interpretation Comments MCH (test code = MCH) 32.1 pg 27.0-31.0 [facility]landsXcplsmgDCXGXNVEWN5928-89-31 10:24:00 Test Item Value Reference Range Interpretation Comments MCV (test code = MCV) 92.1 80.0-94.0 [facility]landsFnpinytWVFSYOQGEC2325-42-58 10:24:00 Test Item Value Reference Range Interpretation Comments MCHC (test code = MCHC) 34.9 32.0-36.0 [facility]landsCconcmqCVFCBOJTOD8449-34-03 10:24:00 Test Item Value Reference Range Interpretation Comments Hct (test code = Hct) 43.6 42.0-54.0 [facility]landsJhmiphqLFKAFDMSDS6227-86-49 10:24:00 Test Item Value Reference Range Interpretation Comments RBC (test code = RBC) 4.73 4.70-6.10 [facility]landsEjwffegGLTUVTJDLK8448-49-31 10:24:00 Test Item Value Reference Range Interpretation Comments WBC (test code = WBC) 8.9 3.7-10.4 [facility]landsRtmrftrDHRKEYPNDT9696-36-42 10:24:00 Test Item Value Reference Range Interpretation Comments RDW (test code = RDW) 13.6 11.5-14.5 [facility]landsKrexisoPASHHDCCIH4171-87-35 10:24:00 Test Item Value Reference Range Interpretation Comments Platelet (test code = Platelet) 145 133-450 [facility]landsYefnzjsBWYCQWZVVS8514-72-22 10:24:00 Test Item Value Reference Range Interpretation Comments Segs (test code = Segs) 80.9 45.0-75.0 [facility]landsWcvoxpdKYVIQYIWAD6223-88-24 10:24:00 Test Item Value Reference Range Interpretation Comments Lymphocytes (test code = Lymphocytes) 12.5 20.0-40.0 [facility]landsKhazggnTWGDJSYFZR3023-93-37 10:24:00 Test Item Value Reference Range Interpretation Comments Segs-Bands # (test code = Segs-Bands #) 7.2 1.5-8.1 [facility]landsMulcwjbCHHNCGRAEF1693-33-82 10:24:00 Test Item Value Reference Range Interpretation Comments Monocytes (test code = Monocytes) 6.4 2.0-12.0 [facility]landsUxnqodzUDUSPRJSBD2452-87-89 10:24:00 Test Item Value Reference Range Interpretation Comments Basophils (test code = 0.2 See_Comment [Aut omated message] The Basophils) system which ge nerated this result tra nsmitted reference range : <=1.0. The reference r matilda was not used to int erpret this result as normal/abnormal . [facility]landsZatqisfCFNWDGATRY6918-24-64 10:24:00 Test Item Value Reference Range Interpretation Comments Eosinophils (test code = 0.0 See_Comment [A utomated message] The Eosinophils) system which ge nerated this result tra nsmitted reference range : <=4.0. The reference r matilda was not used to int erpret this result as normal/abnormal . [facility]landsDqniaotOGNJWIHLHU5838-80-03 10:24:00 Test Item Value Reference Range Interpretation Comments Lymphocytes # (test code = Lymphocytes 1.1 1.0-5.5 #) [facility]landsVqmuewkNKSDFERGHK9078-59-20 10:24:00 Test Item Value Reference Range Interpretation Comments Monocytes # (test code 0.6 See_Comment [Aut omated message] The = Monocytes #) system which generated this result tra nsmitted reference range : <=0.8. The reference r matilda was not used to int erpret this result as normal/abnormal . [facility]landsBfsvsqyCTDSBDHWNB8540-44-79 10:24:00 Test Item Value Reference Range Interpretation Comments Eosinophils # (test code 0.0 See_Comment [A utomated message] The = Eosinophils #) system whic h generated this result tra nsmitted reference range : <=0.5. The reference r matilda was not used to int erpret this result as normal/abnormal . [facility] AXWEQ2933-56-55 22:11:00 Test Item Value Reference Range Interpretation Comments eGFR (test code = eGFR) 62 [facility] PEULL6408-84-36 22:11:00 Test Item Value Reference Range Interpretation Comments Creatinine Lvl (test code = Creatinine 1.4 0.5-1.4 Lvl) [facility]VzvyvwfEJMGMQFJWT9654-30-49 22:11:00 Test Item Value Reference Range Interpretation Comments Platelet (test code = Platelet) 158 133-450 [facility] CenterXtbutldSCKBUMPRUZ0501-38-81 22:11:00 Test Item Value Reference Range Interpretation Comments PTT (test code = PTT) 34.2 s 22.9-35.8 [facility] Media GSUHRCW7077-16-65 16:00:00 Test Item Value Reference Range Interpretation Comments Antibody Scrn (test Negative (08/01/14 11:00 code = Antibody Scrn) AM) [facility] FHIASQD5887-16-10 16:00:00 Test Item Value Reference Range Interpretation Comments ABO/Rh (test code = ABO/Rh) A POS [facility] CenterBoylimtUAXOZFHIAY5415-84-55 18:47:00 Test Item Value Reference Range Interpretation Comments Lymphocytes # (test code = Lymphocytes 2.6 1.0-5.5 #) [facility]landsYhhiiimCVJMYLBOPJ6920-28-40 18:47:00 Test Item Value Reference Range Interpretation Comments Monocytes # (test code 0.8 See_Comment [Aut omated message] The = Monocytes #) system which generated this result tra nsmitted reference range : <=0.8. The reference r matilda was not used to int erpret this result as normal/abnormal . [facility]landsWgcnqddHFPOMIIXXR4052-41-01 18:47:00 Test Item Value Reference Range Interpretation Comments Eosinophils # (test code 0.2 See_Comment [A utomated message] The = Eosinophils #) system whic h generated this result tra nsmitted reference range : <=0.5. The reference r matilda was not used to int erpret this result as normal/abnormal . [facility]landsGkcsyjtMAGYFKHXWP5585-63-59 18:47:00 Test Item Value Reference Range Interpretation Comments Basophils # (test code 0.0 See_Comment [Aut omated message] The = Basophils #) system which generated this result tra nsmitted reference range : <=0.2. The reference r matilda was not used to int erpret this result as normal/abnormal . [facility]landsRqknchmXADPFNGVPY1744-38-23 18:47:00 Test Item Value Reference Range Interpretation Comments Monocytes (test code = Monocytes) 10.5 2.0-12.0 [facility]landsBavpjsiGPKHCQGUQO1997-47-32 18:47:00 Test Item Value Reference Range Interpretation Comments Eosinophils (test code = 2.0 See_Comment [A utomated message] The Eosinophils) system which ge nerated this result tra nsmitted reference range : <=4.0. The reference r matilda was not used to int erpret this result as normal/abnormal . [facility]landsQkyjgbfSENBVPJGOR4404-72-05 18:47:00 Test Item Value Reference Range Interpretation Comments Basophils (test code = 0.3 See_Comment [Aut omated message] The Basophils) system which ge nerated this result tra nsmitted reference range : <=1.0. The reference r matilda was not used to int erpret this result as normal/abnormal . [facility]landsBokrwiaZZVBNMZNAA4879-75-19 18:47:00 Test Item Value Reference Range Interpretation Comments Segs-Bands # (test code = Segs-Bands #) 4.4 1.5-8.1 [facility]landsGwayqilARWBBNRKCZ8452-44-21 18:47:00 Test Item Value Reference Range Interpretation Comments Segs (test code = Segs) 54.3 45.0-75.0 [facility]landsHbkqabzNQFJBPMZDT9810-71-40 18:47:00 Test Item Value Reference Range Interpretation Comments Lymphocytes (test code = Lymphocytes) 32.9 20.0-40.0 [facility]landsHtbskflEBEIROLQUU2865-71-65 18:47:00 Test Item Value Reference Range Interpretation Comments PTT (test code = PTT) 31.7 s 22.9-35.8 [facility]landsIdknuoiTVUAPXOKUC2520-34-60 18:47:00 Test Item Value Reference Range Interpretation Comments PT (test code = PT) 13.3 s 12.0-14.7 [facility]landsMlvoiyhDTTQZHKUWC6852-84-82 18:47:00 Test Item Value Reference Range Interpretation Comments INR (test code = INR) 1.01 0.85-1.17 [facility]landsYgvgasuCPIACFVMGS8070-98-25 18:47:00 Test Item Value Reference Range Interpretation Comments WBC (test code = WBC) 8.1 3.7-10.4 [facility]landsJshmsucNPRKXFJIAS0934-72-07 18:47:00 Test Item Value Reference Range Interpretation Comments Hgb (test code = Hgb) 16.2 14.0-18.0 [facility]landsIbaifqiICZCIDLPJK3506-89-36 18:47:00 Test Item Value Reference Range Interpretation Comments RBC (test code = RBC) 5.14 4.70-6.10 [facility]landsFcextnsDEEPJAJPVG2761-14-62 18:47:00 Test Item Value Reference Range Interpretation Comments Hct (test code = Hct) 47.2 42.0-54.0 [facility]landsRxuyjpfXJBXLCDIEV6404-02-61 18:47:00 Test Item Value Reference Range Interpretation Comments MCV (test code = MCV) 91.7 80.0-94.0 [facility]landsSswgahvSOLRPMQRUE8913-96-11 18:47:00 Test Item Value Reference Range Interpretation Comments MCH (test code = MCH) 31.5 pg 27.0-31.0 [facility]landsFamtevhZJTILVPTRZ6088-49-62 18:47:00 Test Item Value Reference Range Interpretation Comments MCHC (test code = MCHC) 34.3 32.0-36.0 [facility]landsMyqtdfnHXLOONWNBN3334-52-10 18:47:00 Test Item Value Reference Range Interpretation Comments RDW (test code = RDW) 13.3 11.5-14.5 [facility]landsHmxwmfzTSHPEKMPJU1571-45-29 18:47:00 Test Item Value Reference Range Interpretation Comments MPV (test code = MPV) 9.4 7.4-10.4 [facility]fuduAGCBDVWLNC9283-15-32 18:47:00 Test Item Value Reference Range Interpretation Comments Platelet (test code = Platelet) 161 133-450 [facility]PAR[facility] EIPTUZY7562-30-97 18:47:00 Test Item Value Reference Range Interpretation Comments PTH Intact (test code = PTH Intact) 60.1 11.1-79.5 [facility]annUR[facility] AND OGGKP2032-58-47 18:47:00 Test Item Value Reference Range Interpretation Comments UA Urobilinogen (test code = UA <=1.0 mg/dL 0.1-1.0 U[facility]ogen) [facility] [id number] 18:47:00 Test Item Value Reference Range Interpretation Comments Micro? (test code = Not Indicated Micro?) *NA*(07/19/14 1:47 PM) [facility] [id number] 18:47:00 Test Item Value Reference Range Interpretation Comments UA RBC (test code = no gt See_Comment [Automa susanne message] The UA RBC) system which ge nerated this result transmit susanne reference range : <=2. The reference range was not used to interpr et this result as shabana l/abnormal. [facility] [id number] 18:47:00 Test Item Value Reference Range Interpretation Comments UA WBC (test code = no gt See_Comment [Automa susanne message] The UA WBC) system which ge nerated this result transmit susanne reference range : <=5. The reference range was not used to interpr et this result as shabana l/abnormal. [facility] [id number] 18:47:00 Test Item Value Reference Range Interpretation Comments UA Mucus (test code = UA Mucus) Few /LPF [facility] [id number] 18:47:00 Test Item Value Reference Range Interpretation Comments UA Blood (test code = Negative (07/19/14 1:47 UA Blood) PM) [facility] [id number] 18:47:00 Test Item Value Reference Range Interpretation Comments UA Bili (test code = Negative *NA*(07/19/14 UA Bili) 1:47 PM) [facility] [id number] 18:47:00 Test Item Value Reference Range Interpretation Comments UA Nitrite (test code Negative (07/19/14 1:47 = UA Nitrite) PM) [facility] AND [id number] 18:47:00 Test Item Value Reference Range Interpretation Comments UA Leuk Est (test Negative (07/19/14 1:47 code = UA Leuk Est) PM) [facility] AND [id number] 18:47:00 Test Item Value Reference Range Interpretation Comments UA Turbidity (test code = Clear (07/19/14 1:47 UA Turbidity) PM) [facility] AND [id number] 18:47:00 Test Item Value Reference Range Interpretation Comments UA Color (test code = Light Yellow UA Color) *NA*(07/19/14 1:47 PM) [facility] AND [id number] 18:47:00 Test Item Value Reference Range Interpretation Comments UA Ketones (test code = UA Negative mg/dL Ketones) [facility] AND [id number] 18:47:00 Test Item Value Reference Range Interpretation Comments UA Glucose (test code = UA Negative mg/dL Glucose) [facility] AND [id number] 18:47:00 Test Item Value Reference Range Interpretation Comments UA Protein (test code = UA Negative mg/dL Protein) [facility] AND [id number] 18:47:00 Test Item Value Reference Range Interpretation Comments UA pH (test code = UA pH) 5.5 5.0-8.0 [facility] AND [id number] 18:47:00 Test Item Value Reference Range Interpretation Comments UA Spec Grav (test code = UA Spec Grav) [facility].012 [facility] [id number] 18:47:00 Test Item Value Reference Range Interpretation Comments VITAMIN B1 (THIAMINE) WHOLE BLOOD (test 73 78-185 code = VITAMIN B1 (THIAMINE) WHOLE BLOOD) [facility] [id number] 18:47:00 Test Item Value Reference Range Interpretation Comments Vitamin D, 25-OH, Total (test code = 20 30-100 Vitamin D, 25-OH, Total) [facility] [id number] 18:47:00 Test Item Value Reference Range Interpretation Comments eGFR (test code = eGFR) 75 [facility]2015-04-24 18:47:00 Test Item Value Reference Range Interpretation Comments Calcium Lvl (test code = Calcium Lvl) 8.7 8.5-10.5 [facility]2015-04-24 18:47:00 Test Item Value Reference Range Interpretation Comments Creatinine Lvl (test code = Creatinine 1.2 0.5-1.4 Lvl) [facility]2015-04-24 18:47:00 Test Item Value Reference Range Interpretation Comments Chloride Lvl (test code = Chloride Lvl) 109 95-109 [facility]2015-04-24 18:47:00 Test Item Value Reference Range Interpretation Comments Potassium Lvl (test code = Potassium 3.8 3.5-5.1 Lvl) [facility]2015-04-24 18:47:00 Test Item Value Reference Range Interpretation Comments Sodium Lvl (test code = Sodium Lvl) 144 135-145 [facility]2015-04-24 18:47:00 Test Item Value Reference Range Interpretation Comments Bili Total (test code = Bili Total) 0.6 0.2-1.3 [facility]2015-04-24 18:47:00 Test Item Value Reference Range Interpretation Comments Alk Phos (test code = Alk Phos) 100 39-136 [facility]2015-04-24 18:47:00 Test Item Value Reference Range Interpretation Comments AST (test code = AST) 45 See_Comment [Auto mated message] The system which ge nerated this result transmit susanne reference range : <=37. The reference range was not used to interpr et this result as shabana l/abnormal. [facility]2015-04-24 18:47:00 Test Item Value Reference Range Interpretation Comments Albumin Lvl (test code = Albumin Lvl) 3.9 3.5-5.0 [facility]2015-04-24 18:47:00 Test Item Value Reference Range Interpretation Comments ALT (test code = ALT) 91 See_Comment [Auto mated message] The system which ge nerated this result transmit susanne reference range : <=65. The reference range was not used to interpr et this result as shabana l/abnormal. [facility]2015-04-24 18:47:00 Test Item Value Reference Range Interpretation Comments Total Protein (test code = Total 7.9 6.4-8.4 Protein) [facility]2015-04-24 18:47:00 Test Item Value Reference Range Interpretation Comments CO2 (test code = CO2) 27 24-32 [facility]2015-04-24 18:47:00 Test Item Value Reference Range Interpretation Comments BUN (test code = BUN) 20 7-22 [facility]2015-04-24 18:47:00 Test Item Value Reference Range Interpretation Comments Glucose Lvl (test code = Glucose Lvl) 121 70-99 [facility]2015-04-24 18:47:00 Test Item Value Reference Range Interpretation Comments Globulin (test code = Globulin) 4.0 2.0-4.0 [facility]2015-04-24 18:47:00 Test Item Value Reference Range Interpretation Comments B/C Ratio (test code = B/C Ratio) 17 6-25 [facility]2015-04-24 18:47:00 Test Item Value Reference Range Interpretation Comments A/G Ratio (test code = A/G Ratio) 1.0 0.7-1.6 [facility]2015-04-24 18:47:00 Test Item Value Reference Range Interpretation Comments AGAP (test code = AGAP) 11.8 10.0-20.0 [facility]
[2021-09-14] MEDS ORDERED: KETOROLAC 30 MG/ML INJ ONE ×2 (18:15→20:06)
[2021-09-14] MEDS ORDERED: ONDANSETRON 4 MG/2 ML VIAL ONE (18:15)
[2021-09-14] MEDS ORDERED: NA CHLORIDE 0.9% 1,000 ML ONE ×2 (18:15→20:06)
[2021-09-14] MEDS ORDERED: FENTANYL CITR 100 MCG/2 ML ONE (18:15)
[2021-09-14 18:18] LABS: Absolute Lymphocytes (CBC) 0.7 K/uL (0.7-4.9); Hematocrit 44.8 % (39.6-49.0); Lymphocytes % 9.3 % (15.3-44.8); MPV 8.4 fL (7.6-11.3); RBC Red Blood Cell Count 5.39 M/uL (4.33-5.43)
[2021-09-14 18:39] LABS: Albumin 3.4 g/dL (3.4-5.0); Bilirubin Total 1.5 mg/dL (0.2-1.0); Potassium 3.5 mmol/L (3.5-5.1); Protein, Total 8.2 g/dL (6.4-8.2)
--- NOTE | 2021-09-14 20:12 | RAD REPORT ---
EXAM DESCRIPTION: CTStone Protocol - 09/14/2021 7:59 pm CLINICAL HISTORY: Flank Pain COMPARISON: CT ABDOMEN PELVIS WO CONTRAST dated 02/18/2007 TECHNIQUE: CT of the abdomen and pelvis was performed. All CT scans are performed using dose optimization technique as appropriate and may include automated exposure control or mA/KV adjustment according to patient size. FINDINGS: Lower chest: Mild circumferential thickening of distal esophagus. Liver: No focal lesions identified. Limited by streak artifact from patient's arms Biliary: No biliary ductal dilatation. Stomach: Jean Carlos-en-Y gastric bypass Duodenum: No significant focal abnormality. Pancreas: No significant abnormality. Spleen: No significant abnormality. Adrenal: No suspicious lesions. Kidney/ureter: No hydronephrosis. Bilateral renal calculi. Largest right millimeters. The largest 4 m illimeters . Defect identified. Retroperitoneum: No retroperitoneal adenopathy. Vascular: No aneurysm. Bowel: No significant focal abnormality. Nonvisualized appendix. Peritoneum: No ascites or free air. Bladder: Grossly unremarkable. Reproductive: No adnexal masses. Bones: No acute fracture. Disc height loss at L5-S1. Other: n/a IMPRESSION: Bilateral nonobstructive nephrolithiasis. No ureteral calculi identified. No acute findi ngs.
[2021-09-14 20:41] LABS: White Blood Cell Scan OK (OK)
[2021-09-14 20:42] LABS: Blood Morphology Comment NOT SEEN (NOT SEEN); Platelet Estimate DECR
[2021-09-14] MEDS ORDERED: CYCLOBENZAPRINE 10 MG TAB ONE (22:43)
[2021-09-14] MEDS ORDERED: LIDOCAINE 4% PATCH ONE (22:44)
[2021-09-14] MEDS ORDERED: HYDROCODONE/APAP 10/325 TAB ONE (22:44)
--- NOTE | 2021-09-14 23:03 | EDPHYS ---
Physician Documentation [facility] Name: Johann Nash Age: 46 yrs Sex: Male : 1975 Arrival Date: 09/14/2021 Time: 17:10 Bed 24 Private MD: ED Physician Jacobo Yuan HPI: 09/14 18:21 This 46 yrs old Male presents to ER via Ambulatory with complaints of Flank Pain. jmm 18:21 The patient complains of pain in the left flank and right flank. Onset: The jmm symptoms/episode began/occurred gradually, 4 day(s) ago. Modifying factors: The symptoms are alleviated by nothing. the symptoms are aggravated by nothing. This is a 46 year old male with a history of gout, htn, previous kidney stones that presents to the ED with complaints of bilateral back pain, lower abdominal pain, nausea, vomiting. Symptoms began 4 days ago. . Historical: - Allergies: 17:53 SHELLFISH; aa5 17:57 Morphine; aa5 - PMHx: 17:53 Gout; Hypertension; aa5 17:59 Kidney stone; aa5 - PSHx: 17:53 spine sx; Tonsillectomy; ankle; aa5 17:57 gastric bypass; aa5 - Immunization history:: Adult Immunizations unknown. - Social history:: Smoking status: Patient denies any tobacco usage or history of. ROS: 18:21 Constitutional: Negative for fever, chills, and weight loss, Cardiovascular: Negative jmm for chest pain, palpitations, and edema, Respiratory: Negative for shortness of breath, cough, wheezing, and pleuritic chest pain. 18:21 Abdomen/GI: Positive for abdominal pain, nausea and vomiting. 18:21 Back: Positive for flank pain. 18:21 All other systems are negative. Exam: 18:21 Constitutional: This is a well developed, well nourished patient who is awake, alert, jmm and in no acute distress. Head/Face: atraumatic. Eyes: EOMI, no conjunctival erythema appreciated ENT: Moist Mucus Membranes Neck: Trachea midline, Supple Chest/axilla: Normal chest wall appearance and motion. Cardiovascular: Regular rate and rhythm. No edema appreciated Respiratory: Normal respirations, no respiratory distress appreciated 18:21 Skin: General appearance color normal MS/ Extremity: Moves all extremities, no obvious deformities appreciated, no edema noted to the lower extremities Neuro: Awake and alert Psych: Behavior is normal, Mood is normal, Patient is cooperative and pleasant 18:21 Abdomen/GI: Inspection: abdomen appears normal, Bowel sounds: normal, Palpation: soft, mild abdominal tenderness, in the right lower quadrant and left lower quadrant. 18:21 Back: CVA tenderness, that is moderate, is noted bilaterally. Vital Signs: 17:54 BP 126 / 84; Pulse 110; Resp 24 S; Temp 97.4(TE); Pulse Ox 100% on R/A; Weight 121.11 aa5 kg (R); Height 6 ft. 2 in. (187.96 cm) (R); 21:00 BP 130 / 80; Pulse 99; Resp 19 S; Pulse Ox 98% on R/A; as6 23:00 BP 129 / 74; Pulse 88; Resp 18 S; Pulse Ox 97% on R/A; as6 17:54 Body Mass Index 34.28 (121.11 kg, 187.96 cm) aa5 MDM: 18:02 Patient medically screened. [facility] 22:01 ED course: Patient and his spouse requested evaluation of his left great toe bunion pm1 repair by Dr. Garcia. Last evaluated by him 2 weeks ago when evaluation appears to be a mild wound dehiscence post removal of sutures no apparent signs cellulitis or discharge or erythema from the wound. Patient refused evaluation with x-ray, will cover the patient with Bactrim antibiotics and recommended follow-up with Dr. Garcia for reevaluation. 22:01 Counseling: I had a detailed discussion with the patient and/or guardian regarding: the pm1 historical points, exam findings, and any diagnostic results supporting the discharge/admit diagnosis, lab results, radiology results, the need for outpatient follow up, Discussed lab and CT findings with the patient and impression is musculoskeletal pain with physical exam muscle spasm across lower back. Will treat with muscle relaxant Lidoderm and narcotic on discharge. Will give patient the same treatment in ER prior to disposition. 23:01 Data reviewed: vital signs. Data interpreted: Pulse oximetry: on room air is 100 %. pm1 Interpretation: normal. 09/14 18: Order name: CBC with Diff; Complete Time: 21:46 [facility] 09/14 18: Order name: CMP; Complete Time: 18:42 [facility] 09/14 18:06 Order name: Lipase; Complete Time: 18:42 [facility] 09/14 18:08 Order name: CT Stone Protocol; Complete Time: 20:17 [facility] 09/14 20:40 Order name: CBC Smear Scan; Complete Time: 21:46 [facility] 09/14 18:06 Order name: IV Saline Lock; Complete Time: 18:18 [facility] 09/14 18:06 Order name: Labs collected and sent; Complete Time: 18:18 [facility] Administered Medications: 18:15 Drug: NS 0.9% 1000 ml Route: IV; Rate: 1 bolus; Site: right antecubital; aa5 23:46 Follow up: Response: No adverse reaction; IV Status: Completed infusion; IV Intake: as6 1000ml 18:15 Drug: Zofran (Ondansetron) 4 mg Route: IVP; Site: right antecubital; aa5 23:46 Follow up: Response: No adverse reaction as6 18:18 Drug: Ketorolac 30 mg Route: IVP; Site: right antecubital; aa5 23:46 Follow up: Response: No adverse reaction as6 18:18 Drug: fentaNYL (PF) 50 mcg Route: IVP; Site: right antecubital; aa5 23:46 Follow up: Response: No adverse reaction as6 21:18 Drug: NS 0.9% 1000 ml Route: IV; Rate: 1 bolus; Site: right antecubital; bb 23:46 Follow up: Response: No adverse reaction; IV Status: Completed infusion; IV Intake: as6 1000ml 22:46 Drug: [place] (HYDROcodone-acetaminophen) 10 mg-325 mg 1 tabs Route: PO; as6 23:46 Follow up: Response: No adverse reaction as6 22:46 Drug: Flexeril (cyclobenzaprine) 10 mg Route: PO; as6 23:46 Follow up: Response: No adverse reaction as6 22:46 Drug: Lidoderm Patch 5 % (700 mg/patch) 1 patches Route: Topical; Site: affected area; as6 23:46 Follow up: Response: No adverse reaction as6 23:28 Drug: Triple Antibiotic (ebzzhecx-ohxdpjxrto-dtgnmalsp) Ointment 1 application Route: as6 Topical; Site: affected area; 23:47 Follow up: Response: No adverse reaction as6 Disposition Summary: 09/14/21 23:02 Discharge Ordered Location: Home pm1 Problem: new pm1 Symptoms: have improved pm1 Condition: Stable pm1 Diagnosis - Low back pain pm1 Followup: pm1 - With: Emergency Department - When: As needed - Reason: Worsening of condition Followup: pm1 - With: Private Physician - When: 2 - 3 days - Reason: Recheck today's complaints, Continuance of care, Re-evaluation by your physician Discharge Instructions: - Discharge Summary Sheet pm1 - Acute Back Pain, Adult pm1 Forms: - Medication Reconciliation Form pm1 - Thank You Letter pm1 - Antibiotic Education pm1 - Prescription Opioid Use pm1 Prescriptions: - Cyclobenzaprine 10 mg Oral Tablet - take 1 tablet by ORAL route every 8 hours As needed; 30 tablet; Refills: 0, pm1 Product Selection Permitted - Diclofenac Sodium 75 mg Oral tablet,delayed release (DR/EC) - take 1 tablet by ORAL route 2 times per day As needed; 30 tablet; Refills: 0, pm1 Product Selection Permitted - Tylenol-Codeine #3 300 mg-30 mg Oral - take 2 tablet by ORAL route every 6 hours As needed; 20 tablet; Refills: 0, pm1 Product Selection Permitted Signatures: Dispatcher [employer] EDMS Jamarcus Trotter PA PA jmm Ballard, Brenda, RN RN bb Calderon, Audri, RN RN aa5 Andrew Gregorio, PANTOGRAPH MACHINE SET UP OPERATOR-C PANTOGRAPH MACHINE SET UP OPERATOR-Cla1 Justin Perez, KIM WATER TEAM LEADER pm1 Natalio Lopez RN RN as6 Corrections: (The following items were deleted from the chart) 23:28 18:06 Urine Dipstick-Ancillary ordered. romy as6
--- NOTE | 2021-09-14 23:03 | ER ---
Nurse's Notes [facility] Name: Johann Nash Age: 46 yrs Sex: Male : 1975 Arrival Date: 09/14/2021 Time: 17:10 Bed 24 Private MD: Diagnosis: Low back pain Presentation: 09/14 17:54 Chief complaint: Patient states: rosalia flank pain that began Tuesday with hematuria. Pt aa5 reports being sent here from [facility] "because blood pressure was 96 (systolic) and I had tachycardia". Pt also c/o nausea. Coronavirus screen: nausea. Ebola Screen: No symptoms or risks identified at this time. Initial Sepsis Screen: Does the patient meet any 2 criteria? HR > 90 bpm. Does the patient have a suspected source of infection? No. Patient's initial sepsis screen is negative. Risk Assessment: Do you want to hurt yourself or someone else? Patient reports no desire to harm self or others. Onset of symptoms was August 2021. 17:54 Acuity: AYANNA 2 aa5 17:54 Method Of Arrival: Ambulatory aa5 Triage Assessment: 17:57 General: Appears uncomfortable, Behavior is calm, cooperative. Respiratory: Airway is aa5 patent Respiratory effort is even, unlabored, Respiratory pattern is tachypnea. GI: Reports nausea. Derm: Skin is dry, Skin is pale, Skin temperature is warm. Historical: - Allergies: 17:53 SHELLFISH; aa5 17:57 Morphine; aa5 - PMHx: 17:53 Gout; Hypertension; aa5 17:59 Kidney stone; aa5 - PSHx: 17:53 spine sx; Tonsillectomy; ankle; aa5 17:57 gastric bypass; aa5 - Immunization history:: Adult Immunizations unknown. - Social history:: Smoking status: Patient denies any tobacco usage or history of. Screenin:29 Abuse screen: Denies threats or abuse. Denies injuries from another. Nutritional as6 screening: No deficits noted. Tuberculosis screening: No symptoms or risk factors identified. Fall Risk None identified. Assessment: 23:00 Pain: Complains of pain in right flank and left flank. as6 23:00 General: pain has improved by discharge . as6 Vital Signs: 17:54 BP 126 / 84; Pulse 110; Resp 24 S; Temp 97.4(TE); Pulse Ox 100% on R/A; Weight 121.11 aa5 kg (R); Height 6 ft. 2 in. (187.96 cm) (R); 21:00 BP 130 / 80; Pulse 99; Resp 19 S; Pulse Ox 98% on R/A; as6 23:00 BP 129 / 74; Pulse 88; Resp 18 S; Pulse Ox 97% on R/A; as6 17:54 Body Mass Index 34.28 (121.11 kg, 187.96 cm) aa5 ED Course: 17:10 Patient arrived in ED. am2 17:53 Arm band placed on. aa5 17:57 Triage completed. aa5 18:00 Jamarcus Trotter PA is PHCP. aa5 18:00 Jacobo Yuan MD is Attending Physician. aa5 18:10 Initial lab(s) drawn, by ok, sent to lab. Inserted saline lock: 20 gauge in right aa5 antecubital area, using aseptic technique. Blood collected. 19:29 Natalio Lopez, AILYN is Primary Nurse. as6 19:58 PHCP role handed off by Jamarcus Trotter PA pm1 19:58 Justin Perez NP is PHCP. pm1 20:00 Bed in low position. Call light in reach. Side rails up X2. Adult w/ patient. as6 20:01 CT Stone Protocol In Process Unspecified. EDMS 23:44 No provider procedures requiring assistance completed. IV discontinued, intact, as6 bleeding controlled, No redness/swelling at site. Pressure dressing applied. Administered Medications: 18:15 Drug: NS 0.9% 1000 ml Route: IV; Rate: 1 bolus; Site: right antecubital; aa5 23:46 Follow up: Response: No adverse reaction; IV Status: Completed infusion; IV Intake: as6 1000ml 18:15 Drug: Zofran (Ondansetron) 4 mg Route: IVP; Site: right antecubital; aa5 23:46 Follow up: Response: No adverse reaction as6 18:18 Drug: Ketorolac 30 mg Route: IVP; Site: right antecubital; aa5 23:46 Follow up: Response: No adverse reaction as6 18:18 Drug: fentaNYL (PF) 50 mcg Route: IVP; Site: right antecubital; aa5 23:46 Follow up: Response: No adverse reaction as6 21:18 Drug: NS 0.9% 1000 ml Route: IV; Rate: 1 bolus; Site: right antecubital; bb 23:46 Follow up: Response: No adverse reaction; IV Status: Completed infusion; IV Intake: as6 1000ml 22:46 Drug: [place] (HYDROcodone-acetaminophen) 10 mg-325 mg 1 tabs Route: PO; as6 23:46 Follow up: Response: No adverse reaction as6 22:46 Drug: Flexeril (cyclobenzaprine) 10 mg Route: PO; as6 23:46 Follow up: Response: No adverse reaction as6 22:46 Drug: Lidoderm Patch 5 % (700 mg/patch) 1 patches Route: Topical; Site: affected area; as6 23:46 Follow up: Response: No adverse reaction as6 23:28 Drug: Triple Antibiotic (yclsaedv-rmbkpnxjmd-ssenirzpk) Ointment 1 application Route: as6 Topical; Site: affected area; 23:47 Follow up: Response: No adverse reaction as6 Medication: 23:45 VIS not applicable for this client. as6 Intake: 23:46 IV: 1000ml; Total: 1000ml. as6 23:46 IV: 1000ml; Total: 2000ml. as6 Outcome: 23:02 Discharge ordered by . pm1 23:44 Discharged to home via wheelchair, with family. as6 23:44 Condition: stable 23:44 Discharge instructions given to patient, family, Instructed on discharge instructions, follow up and referral plans. no drinking with medication, no driving heavy equipment, medication usage, Demonstrated understanding of instructions, follow-up care, medications, Prescriptions given X 3. 23:48 Patient left the ED. as6 Signatures: Dispatcher [employer] EDMS Jamarcus Trotter PA PA jmm Ballard, Brenda, RN RN bb Tamie Ramirez RN RN aa5 Justin Perez NP VENTILATOR SPECIALIST pm1 Marlene Chavez am2 Natalio Lopez RN RN as6
[2021-09-14] MEDS ORDERED: BACI/NEOMYCIN/POLY OINT 15GM TOP ONE (23:12)
[2021-09-15 00:58] VITALS: TEMP 97.4
[2021-09-15 01:15] VITALS: BP 129/74; O2SAT 97
== END 2021-09-14 23:48 | disposition home or self-care (01) ==
LOC: ER 17:00
DX: M54.50 Low back pain, unspecified (principal); I10 Essential (primary) hypertension; Z88.5 Allergy status to narcotic agent; Z91.013 Allergy to seafood
CPT/HCPCS: 85025; 36415; 83690; 80053; 76377; 74176; J3010; J2001; J7030 ×2; J2405; 96361; 96374; 96375; 99284

== ENCOUNTER 2021-09-16 21:34 | Emergency (ER) | payer BC ==
--- OUTSIDE RECORDS SUMMARY | 2021-09-16 21:41 | XMS REPORT | Continuity of Care Document ---
:[address] [facility] t Address [address] [place] [address] [place] [id number] Care Team Providers Name Role Phone Henna [...] Type Policy Number Effective Date Expiration Date Violet harvey 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 Gout Problem Active 2014-08-05 Memor ia (disorder) 00:34:22 l Gout [place] (disorder) Active Problem 08/05/[address] [facility] Hypertensi Problem Active 2014-08-05 M emoria ve 00:34:22 l disorder, Ramakrishna systemic Hypertensi arterial ve (disorder) disorder, systemic arterial (disorder) Active Problem 08/05/[address] [facility] Morbid Problem Active 2014-08-05 Memor ia obesity 00:34:22 l (disorder) Morbid Herm roxann obesity (disorder) Active Problem 08/05/[address] [facility] MORBID Diagnosis Active 2014-08-06 Mem oria OBESITY 21:54:00 l MORBID [place] OBESITY Active [facility] No known No known Disease Unive rs active active ity of problems problems [facility] Allergies, Adverse Reactions, Alerts Allergy Allergy Status [...] Comments Source History of Cigarette Smoker Patricia gamingbold tobacco use Exposure to 2021-06-08 2021-07-08 Not sure [facility] SARS-CoV-2 00:00:00 11:28:00 [facility] [place] Tobacco use and 2021-07-08 2021-07-08 Never used Universit y of exposure 00:00:00 00:00:00 [facility] Sex Ass[birth year] At [birth year] Patricia Adams ybold 00:00:00 00:00:00 Smoking Status Start Date Stop Date Source Current some day smoker 2021-07-08 00:00:00 [facility] ersity [facility] Unknown if ever smoked Universit y of [facility] Social History 2014-08-01 15:47:28 [facility] Medications Ordered Filled Start Stop Current Ordering [...] Medical Infusion, Branch CONTINUOUS , Starting on 07/14/21 at 1445, Until Tu07/14/21 at 1729, Routine, PACU FENTanyl PF Yes 25ug 25 mcg, Uni vers (SUBLIMAZE 4-19 Slow IV ity of (PF)) 19:43: Push, [place] injection 51 Q5MIN PRN, Medi nereida 25 mcg 4 doses, Branch Starting on Tue07/14/21 at 1443, Until Discontinu ed, Routine, Pain (scale 7-10), PACU FENTanyl PF Yes 25ug 25 mcg, Uni vers (SUBLIMAZE 4-19 Slow IV ity of (PF)) 19:43: Push, [place] injection 51 Q5MIN PRN, Medi nereida 25 mcg 4 doses, Branch Starting on Tue07/14/21 at 1443, Until Discontinu ed, Routine, Pain (scale 4-6), PACU ondansetron Yes 4mg 4 mg, Slow Univers (ZOFRAN 4-19 IV Push, ity of (PF)) 19:43: PRN, 1 [place] injection 4 51 dose, Medical mg Starting Branch on Tue07/14/21 at 1443, Until Discontinu ed, Routine, Nausea and Vomiting (N/V), PACU FENTanyl PF 2021- No 25ug 25 mcg, Un james (SUBLIMAZE 07-14 04-19 Slow IV ity o f (PF)) 19:43: 22:29 Push, [place] injection 51 :52 Q5MIN PRN, Medi nereida 25 mcg 4 doses, Branch Starting on Tue07/14/21 at 1443, Until Tue07/14/21 at 1729, Routine, Pain (scale 7-10), PACU FENTanyl PF 2021-2021- No 25ug 25 mcg, Un james (SUBLIMAZE 07-14-19 Slow IV ity o f (PF)) 19:43: 22:29 Push, [place] injection 51 :52 Q5MIN PRN, Medi nereida 25 mcg 4 doses, Branch Starting on Tue07/14/21 at 1443, Until Tue07/14/21 at 1729, Routine, Pain (scale 4-6), PACU ondansetron 2021- No 4mg 4 mg, Slow Univers (ZOFRAN 4- 04-19 IV Push, ity of (PF)) 19:43: 22:29 PRN, 1 [place] injection 4 51 :52 dose, Medical mg Starting Branch on Tue07/14/21 at 1443, Until Tue07/14/21 at 1729, Routine, Nausea and Vomiting (N/V), PACU bupivacaine 2021-0 Yes PRN, Univer s liposome 07-14 Starting ity of (PF) 17:45: on Tue [place] (EXPAREL 00 07/14/21 at Medic al (PF)) 1.3 % 1245, Branch (13.3 Until mg/mL) Discontinu injection ed, Routine, Intra-op sodium 2021-0 Yes PRN, Univers chloride 07-14 Starting ity of 0.9 % 17:45: on [facility] irrigation 00 07/14/21 at Med ical solution 1245, Branch Until Discontinu ed, Intra-op bupivacaine 2021-0 2021- No PRN, Unive rs liposome 07-14 Starting ity of (PF) 17:45: 22:29 on Tue [place] (EXPAREL 00 :52 07/14/21 at Medic al (PF)) 1.3 % 1245, Branch (13.3 Until Tue mg/mL) 07/14/21 at injection 1729, Routine, Intra-op sodium 2021-0 2021- No PRN, Univers chloride 07-14 Starting ity of 0.9 % 17:45: 22:29 on [facility] irrigation 00 :52 07/14/21 at Med ical solution 1245, Branch Until Tue07/14/21 at 1729, Intra-op lactated 2021-0 2021- No 1000mL at 42 Unive rs ringers IV 07-14 mL/hr, ity of infusion 16:30: 16:39 1,000 mL, Oscar as 1,000 mL 00 :00 IV Medical Infusion, Branch ONCE, 1 dose, On Tue07/14/21 at 1130, Routine, DSU Pre-op lactated 2021-0 2021- No 1000mL at 42 Unive rs ringers IV 07-14 mL/hr, ity of infusion 16:30: 16:39 1,000 mL, Oscar as 1,000 mL 00 :00 IV Medical Infusion, Branch ONCE, 1 dose, On Tue07/14/21 at 1130, Routine, DSU Pre-op febuxostat 2021-0 Yes 40mg Take 40 mg U nivers 40 mg 4-19 by mouth ity of tablet 15:24: daily. [place] [address] Medical Branch metoprolol 0 Yes 100mg Take 100 Un james succinate 4-19 mg by ity of XL 100 mg 15:24: mouth [place] 24 hr 47 daily. Medical tablet Branch febuxostat 0 Yes 40mg Take 40 mg U nivers 40 mg 4-19 by mouth ity of tablet 15:24: daily. [place] [address] Medical Branch metoprolol 0 Yes 100mg Take 100 Un james succinate 4-19 mg by ity of XL 100 mg 15:24: mouth [place] 24 hr 47 daily. Medical tablet Branch febuxostat 0 Yes 40mg Take 40 mg U nivers 40 mg 4-13 by mouth ity of tablet 11:27: daily. [address] metoprolol 0 Yes 100mg Take 100 Un james succinate 4-13 mg by ity of XL 100 mg 11:27: mouth [place] 24 hr 14 daily. Medical tablet Branch [...] Mon Medica l NaCl 0.9% 11/24/20 at [facility] (NS) 20 mL 0730, syringe Administer over 2 Minutes, 20 mL pantoprazol 2020- No 80mg 80 mg, IV Univers e 11-2430 Push, ity of (PROTONIX) 12:30: 11:20 ONCE, 1 [place] as 80 mg in 00 :00 dose, Mon Medica l NaCl 0.9% 11/24/20 at [facility] ch (NS) 20 mL 0730, syringe Administer over 2 Minutes, 20 mL maalox:diph 2020- No 15mL 15 mL, Uni vers enhydrAMINE 11-24 Oral, ity of :lidocaine2 11:45: 10:40 [place]CE, 1 [place] %viscous 00 :00 dose, Mon Medica l 1:1:1: 11/24/20 at [place] [address], (COMPOUNDED Routine ) maalox:diph 0 2020- No 15mL 15 mL, Uni vers enhydrAMINE 11-24 Oral, ity of :lidocaine2 11:45: 10:40 [place]CE, 1 [place] %viscous 00 :00 dose, Mon Medica l 1:1:1: 11/24/20 at [place] [address], (COMPOUNDED Routine ) maalox:diph No 15mL 15 mL, Uni vers enhydrAMINE 11-23 Oral, ity of :lidocaine 11:00: 09:59 ONCE, 1 [place] as 2 % viscous 00 :00 dose, Sun Med ical 1:1:1 11/23/20 at [place] ([facility]) Routine oral suspension 15 mL maalox:diph No 15mL 15 mL, Uni vers enhydrAMINE 11-23 Oral, ity of :lidocaine 11:00: 09:59 ONCE, 1 [place] as 2 % viscous 00 :00 dose, Sun Med ical 1:1:1 11/23/20 at [place] ([facility]) Routine oral suspension 15 mL iopamidol 2020- No [id number] 100mL 100 mL, Univers (ISOVUE 11-23 Intravenou ity o f 370-500 mL) 10:30: 09:15 s, ONCE, 1 [place] injection 00 :00 dose, Sun Medic al 100 mL 11/23/20 at [place] [address], Routine iopamidol 2020- No [id number] 100mL 100 mL, Univers (ISOVUE 11-23 Intravenou ity o f 370-500 mL) 10:30: 09:15 s, ONCE, 1 [place] injection 00 :00 dose, Sun Medic al 100 mL 11/23/20 at Branch 0530, Routine ketorolac 2020- No 30mg 30 mg, Unive rs (TORADOL) 11-23 Slow IV ity of injection 10:00: 08:57 Push, [place] 30 mg 00 :00 ONCE, 1 Medical dose, [facility] 11/23/20 at 0500, TAL
Fa culty member approving Restricted medication : ESPERANZA ISAACS ketorolac 2020- No 30mg 30 mg, Unive rs (TORADOL) 11-23 Slow IV ity of injection 10:00: 08:57 Push, [place] 30 mg 00 :00 ONCE, 1 Medical dose, [facility] 11/23/20 at 0500, TAL
Fa culty member approving Restricted medication : ESPERANZA ISAACS NaCl 0.9% 2020- No 1000mL at 999 Uni vers (NS) bolus 11-23 0829 mL/hr, ity of infusion 08:45: 10:00 1,000 mL, Oscar as 1,000 mL 00 :00 IV Medical Infusion, Branch ONCE, 1 dose, [place] 11/23/20 at 0345, STAT NaCl 0.9% No 1000mL at 999 Uni vers (NS) bolus 11-23- mL/hr, ity of infusion 08:45: 10:00 1,000 mL, Oscar as 1,000 mL 00 :00 IV Medical Infusion, Branch ONCE, 1 dose, [place] 11/23/20 at 0345, STAT sucralfate Yes [id number] 1g Take 1 U nivers 1 gram 8-29 tablet by ity of tablet 00:00: mouth [place] 00 before Medical meals and Branch at bedtime. dicyclomine Yes [id number] 10mg Take 1 Univers 10 mg 8-29 capsule by ity of capsule 00:00: mouth [place] 00 every 8 Medical (eight) Branch hours as needed for Abdominal pain. ondansetron Yes [id number] 4mg Take 1 Univers 4 mg 8-29 tablet by ity of disintegrat 00:00: mouth [place] ing tablet 00 every 8 Medica l (eight) Branch hours as needed for Nausea and Vomiting (N/V). sucralfate Yes [id number] 1g Take 1 U nivers 1 gram 8-29 tablet by ity of tablet 00:00: mouth [place] 00 before Medical meals and Branch at bedtime. dicyclomine 2020-0 Yes [id number] 10mg Take 1 Univers 10 mg 8-29 capsule by ity of capsule 00:00: mouth [place] 00 every 8 Medical (eight) Branch hours as needed for Abdominal pain. ondansetron 2020-0 Yes [id number] 4mg Take 1 Univers 4 mg 8-29 tablet by ity of disintegrat 00:00: mouth [place] ing tablet 00 every 8 Medica l (eight) Branch hours as needed for Nausea and Vomiting (N/V). sucralfate 2020-0 Yes [id number] 1g Take 1 U nivers 1 gram 8-29 tablet by ity of tablet 00:00: mouth [place] 00 before Medical meals and Branch at bedtime. dicyclomine 2020-0 Yes [id number] 10mg Take 1 Univers 10 mg 8-29 capsule by ity of capsule 00:00: mouth [place] 00 every 8 Medical (eight) Branch hours as needed for Abdominal pain. sucralfate 2020-0 Yes [id number] 1g Take 1 U nivers 1 gram 8-29 tablet by ity of tablet 00:00: mouth [place] 00 before Medical meals and Branch at bedtime. dicyclomine 2020-0 Yes [id number] 10mg Take 1 Univers 10 mg 8-29 capsule by ity of capsule 00:00: mouth [place] 00 every 8 Medical (eight) Branch hours as needed for Abdominal pain. ondansetron 2020-0 Yes [id number] 4mg Take 1 Univers 4 mg 8-29 tablet by ity of disintegrat 00:00: mouth [place] ing tablet 00 every 8 Medica l (eight) Branch hours as needed for Nausea and Vomiting (N/V). ondansetron 2020-0 Yes [id number] 4mg Take 1 Univers 4 mg 8-29 tablet by ity of disintegrat 00:00: mouth [place] ing tablet 00 every 8 Medica l (eight) Branch hours as needed for Nausea and Vomiting (N/V). sucralfate 2020-0 Yes [id number] 1g Take 1 U nivers 1 gram 8-29 tablet by ity of tablet 00:00: mouth [place] 00 before Medical meals and Branch at bedtime. dicyclomine 2020-0 Yes [id number] 10mg Take 1 Univers 10 mg 8-29 capsule by ity of capsule 00:00: mouth [place] 00 every 8 Medical (eight) Branch hours as needed for Abdominal pain. ondansetron 2020-0 Yes [id number] 4mg Take 1 Univers 4 mg 8-29 tablet by ity of disintegrat 00:00: mouth [place] ing tablet 00 every 8 Medica l (eight) Branch hours as needed for Nausea and Vomiting (N/V). sucralfate 2020-0 Yes [id number] 1g Take 1 U nivers 1 gram 8-29 tablet by ity of tablet 00:00: mouth [place] 00 before Medical meals and Branch at bedtime. dicyclomine 2020-0 Yes [id number] 10mg Take 1 Univers 10 mg 8-29 capsule by ity of capsule 00:00: mouth [place] 00 every 8 Medical (eight) Branch hours as needed for Abdominal pain. ondansetron 2020-0 Yes [id number] 4mg Take 1 Univers 4 mg 8-29 tablet by ity of disintegrat 00:00: mouth [place] ing tablet 00 every 8 Medica l (eight) Branch hours as needed for Nausea and Vomiting (N/V). sucralfate 2020-0 Yes [id number] 1g Take 1 U nivers 1 gram 8-29 tablet by ity of tablet 00:00: mouth [place] 00 before Medical meals and Branch at bedtime. dicyclomine 2020-0 Yes [id number] 10mg Take 1 Univers 10 mg 8-29 capsule by ity of capsule 00:00: mouth [place] 00 every 8 Medical (eight) Branch hours as needed for Abdominal pain. ondansetron 2020-0 Yes [id number] 4mg Take 1 Univers 4 mg 8-29 tablet by ity of disintegrat 00:00: mouth [place] ing tablet 00 every 8 Medica l (eight) Branch hours as needed for Nausea and Vomiting (N/V). sucralfate 2020-0 Yes [id number] 1g Take 1 U nivers 1 gram 8-29 tablet by ity of tablet 00:00: mouth [place] 00 before Medical meals and Branch at bedtime. dicyclomine 2020-0 Yes [id number] 10mg Take 1 Univers 10 mg 8-29 capsule by ity of capsule 00:00: mouth [place] 00 every 8 Medical (eight) Branch hours as needed for Abdominal pain. ondansetron Yes [id number] 4mg Take 1 Univers 4 mg 8-29 tablet by ity of disintegrat 00:00: mouth [place] ing tablet 00 every 8 Medica l (eight) Branch hours as needed for Nausea and Vomiting (N/V). omeprazole 2020-2020- No [id number] 20mg Take 1 Univers 20 mg 8-29 -29 capsule by ity of capsule 00:00: 04:59 mouth [place] 00 :00 daily for Medical 30 days. Branch omeprazole 2020-2020- No [id number] 20mg Take 1 Univers 20 mg 8-29 -29 capsule by ity of capsule 00:00: 04:59 mouth [place] 00 :00 daily for Medical 30 days. Branch omeprazole 2020-2020- No [id number] 20mg Take 1 Univers 20 mg 8-29 - capsule by ity of capsule 00:00: 04:59 mouth [place] 00 :00 daily for Medical 30 days. Branch omeprazole 2020- No [id number] 20mg Take 1 Univers 20 mg 8-29 -29 capsule by ity of capsule 00:00: 04:59 [...] Daily as Branch needed for gout hydroCHLORO 2021-0 Yes 25mg Take 25 mg Univers thiazide 25 6-10 by mouth ity of mg tablet 00:00: daily. [address] Branch colchicine Yes .6mg Take 0.6 Uni vers 0.6 mg Cap 6-10 mg by ity of 00:00: mouth daily. Medical Daily as Branch needed for gout hydroCHLORO Yes 25mg Take 25 mg Univers thiazide 25 6-10 by mouth ity of mg tablet 00:00: daily. [place] [facility] Branch methylPREDN 2021- No [id number] 1{pepe} Take 1 pepe Patricia ISolone 6-10 02-21 by mouth [place] (Medrol) 4 00:00: 00:00 [...] mg = 1 Me moria tartrate 25 -08 tab, PO, l mg oral 16:44: BID, # 180 Herm roxann tablet 00 tab, 0 Refill(s) Sodium No 25 mL, Memoria Chloride 08-02 Route: IV, l 0.9% IV 14:41: Start Ramakrishna date: 08/02/14 9:41:00, Duration: 30 day, Stop date: 09/01/14 9:40:00, PRN Line Flush BD Normal No Notes: Memori a Saline 08-02 (Same as: l Flush 14:41: BD Posiflush) Lovenox No Notes: Memoria -08 (Same as: l 14:00: Lovenox) Famotidine No Notes: Memor ia 5-08 (Same as: l 02:00: Pepcid) [place] Can be dilute in 5-10cc NS IVP: Slow IV push over at least 2 minutes. Ketorolac No 4 days Memor ia 5-07 l 23:00: MEDICATION Ramakrishna WASTE Product Size: 30 mg Product Wasted: ___ mg Hydromorpho No 0.5 mg, Mem oria ne 08-01 Route: IV, l 21:15: Q5Min, Ramakrishna 00 Dosing Weight 117.273, kg, Start date: 08/01/14 16:15:00, Duration: 4 doses or times, Stop date: 08/01/14 16:30:00 Hydromorpho No Notes: Jordy jackeline ne 08-01 (Same as: l 20:00: Dilaudid) conc = 0.5 mg/ml Hydromorph one [employer] Dose: ;Delay: ;Basal: Enoxaparin No Notes: Memor ia 5-07 (Same as: l 20:00: Lovenox) Ramakrishna Naloxone No Notes: Memoria 5-07 Same as l 19:37: Narcan Ramakrishna 00 Naloxone No Notes: Memoria 5-07 Same as l 19:35: Narcan [place] 00 Saline No Notes: Memoria Flush 0.9% 07 (Same as: l 19:35: BD Ramakrishna 00 Posiflush) Metoprolol No Notes: Memor ia 5-07 (Same as: l 19:35: Lopressor) [place] 00 Push over 2 minutes Ondansetron No Notes: Jordy jackeline 5-07 (Same as: l 19:35: Zofran) Ramakrishna MEDICATION WASTE Product Size: 4 mg Product Wasted: ___ mg Promethazin No Notes: Do M emoria e 5-07 not give l 19:35: IV push. Ramakrishna (Same as: Phenergan) Acetaminoph No Notes: Do M emoria en 20 MG/ML 08-01 not exceed l / 19:35: 4gm/day of Ramakrishna Hydrocodone 00 acetaminop Bitartrate hen. 0.667 MG/ML (Same as: Oral [place] Solution 325/7.5) Calcium No 1,000 mL, Memor ia Chloride 5- Rate: 125 l 0.0014 19:35: ml/hr, [place] MEQ/ML / 00 Infuse Potassium over: 8 Chloride hr, Route: 0.004 IV, Dosing MEQ/ML / Weight Sodium 117.273 Chloride kg, Total 0.103 Volume: MEQ/ML / 1,000, Sodium Start Lactate date: 0.028 08/01/14 MEQ/ML 14:35:00, Injectable Duration: Solution 30 day, Stop date: 08/31/14 14:34:00 Ondansetron No Notes: Jordy jackeline 5-07 (Same as: l 16:28: Zofran) MEDICATION WASTE Product Size: 4 mg Product Wasted: ___ mg Dexamethaso No Notes: Jordy jackeline ne 5-07 Concentrat l 16:28: ion: Ramakrishna 00 4mg/ml Promethazin No Notes: Do M emoria e 5-07 not give l 16:28: IV push. [place] (Same as: Phenergan) Labetalol No Notes: Memori a 5-07 (Same as: l 16:28: Normodyne, Ramakrishna 00 Trandate) Push over 2 minutes Give bolus over 2-3 minutes. Naloxone No Notes: Memoria 5-07 Same as l 16:28: Narcan Hydromorpho No Notes: Jordy jackeline ne 5-07 (Same as: l 16:28: Dilaudid) Morphine No Notes: Memoria 5-07 (Same l 16:28: as:MORPhin [place] 00 e Sulfate) Meperidine No Notes: Memor ia 5-07 (Same As: l 16:28: Demerol) Flumazenil No Notes: Memor ia 5-07 (Same as: l 16:28: Romazicon) Ramakrishna Calcium No 1,000 mL, Memor ia Chloride 5-07 Rate: 50 l 0.0014 16:28: ml/hr, [place] MEQ/ML / 00 Infuse Potassium over: 20 [...] Memoria 4-24 PO, Daily, l 18:47: 0 [place] 00 Refill(s) Colchicine No 0.6 mg, Jordy jackeline 0.6 MG Oral 4-24 PO, Daily, l Tablet 18:47: 0 [place] 00 Refill(s) METOPROLOL No METOPROLOL M emoria 4-24 , 100 mg l 18:46: =, PO, [place] 00 BID, Refill(s) 0 Immunizations Ordered Filled Immunization Date Status Comments [facility] e Immunization Name Name SARS-COV-2 COVID-19 2021-04-24 Completed Unive rsity of MODERNA BOOSTER 00:00:00 [facility] ical VACCINE Branch SARS-COV-2 COVID-19 2021-04-24 Completed Unive rsity of MODERNA BOOSTER 00:00:00 [facility] ical VACCINE Branch SARS-COV-2 COVID-19 2021-04-24 Completed Unive rsity of MODERNA BOOSTER 00:00:00 [facility] ical VACCINE Branch SARS-COV-2 COVID-19 2021-04-24 Completed Unive rsity of MODERNA BOOSTER 00:00:00 [facility] ical VACCINE Branch SARS-COV-2 COVID-19 2020-06-11 Completed Unive rsity of MODERNA VACCINE 00:[facility]COV-2 COVID-19 2020-06-11 Completed Unive rsity of MODERNA VACCINE 00:00:00 [place] Med ical Branch SARS-COV-2 COVID-19 2020-06-11 Completed Unive rsity of MODERNA VACCINE 00:00:00 [place] Med ical Branch SARS-COV-2 COVID-19 2020-06-11 Completed Unive rsity of MODERNA VACCINE 00:00:00 [place] [facility] ical Branch SARS-COV-2 COVID-19 2020-06-11 Completed Unive rsity of MODERNA VACCINE 00:00:00 [place] Med ical Branch SARS-COV-2 COVID-19 2020-06-11 Completed Unive rsity of MODERNA VACCINE 00:00:00 [place] [facility] ical Branch SARS-COV-2 COVID-19 2020-06-11 Completed Unive rsity of MODERNA VACCINE 00:00:00 [place] [facility] ical Branch SARS-COV-2 COVID-19 2020-06-11 Completed Unive rsity of MODERNA VACCINE 00:00:00 [place] [facility] ical Branch SARS-COV-2 COVID-19 2020-05-04 Completed Unive rsity of MODERNA VACCINE 00:00:00 [place] [facility] ical Branch SARS-COV-2 COVID-19 2020-05-04 Completed Unive rsity of MODERNA VACCINE 00:00:00 [place] [facility] ical Branch SARS-COV-2 COVID-19 2020-05-04 Completed Unive rsity of MODERNA VACCINE 00:00:00 [place] [facility] ical Branch SARS-COV-2 COVID-19 2020-05-04 Completed Unive rsity of MODERNA VACCINE 00:00:00 [place] [facility] ical Branch SARS-COV-2 COVID-19 2020-05-04 Completed Unive rsity of MODERNA VACCINE 00:00:00 [place] [facility] ical Branch SARS-COV-2 COVID-19 2020-05-04 Completed Unive rsity of MODERNA VACCINE 00:00:00 [place] [facility] ical Branch SARS-COV-2 COVID-19 2020-05-04 Completed Unive rsity of MODERNA VACCINE 00:00:00 [place] [facility] ical Branch SARS-COV-2 COVID-19 2020-05-04 Completed Unive rsity of MODERNA VACCINE 00:00:00 [facility] ical Branch Tdap- (Boostrix, 2016-06-11 Completed Patricia kauffman Adacel) 00:00:00 Vital Signs Vital Name Observation Time Observation Value Comments Source Heart rate 2021-07-14 20:02:00 66 /min [facility] [place] [facility] Oxygen saturation in 2021-07-14 20:02:00 94 /min University of Arterial blood by [place] Medi nereida Pulse oximetry Branch Respiratory rate 2021-07-14 20:01:00 21 /min Univ ersity [facility] [place] [facility] Systolic blood 2021-07-14 19:59:00 122 mm[Hg] Univer sity of pressure [place] [facility] Diastolic blood 2021-07-14 19:59:00 92 mm[Hg] Unive rsity of pressure [place] [facility] Body temperature 2021-07-14 19:15:00 36.33 Miriam Univ [facility] [place] [facility] Body height 2021-07-08 13:42:00 188 cm [facility] [place] [facility] Body weight 2021-07-08 13:42:00 117.9 kg [facility] [place] [facility] BMI 2021-07-08 13:42:00 33.36 kg/m2 [facility] [place] [facility] Systolic blood 2021-07-14 16:29:00 135 mm[Hg] Univer sity of pressure [place] [facility] Diastolic blood 2021-07-14 16:29:00 91 mm[Hg] Unive rsity of pressure [place] [facility] Heart rate 2021-07-14 16:29:00 61 /min [facility] [place] [facility] Body temperature 2021-07-14 16:29:00 36.28 Miriam Univ [facility] [place] [facility] Respiratory rate 2021-07-14 16:29:00 18 /min Univ ers[facility] [place] [facility] Oxygen saturation in 2021-07-14 16:29:00 98 /min University of Arterial blood by [place] Medi nereida Pulse oximetry Branch Body height 2021-07-08 13:42:00 188 cm [facility] [place] [facility] Body weight 2021-07-08 13:42:00 117.9 kg [facility] [place] [facility] BMI 2021-07-08 13:42:00 33.36 kg/m2 [facility] [place] [facility] Systolic blood 2021-05-18 14:51:00 128 mm[Hg] Patricia Merrill pressure Diastolic blood 2021-05-18 14:51:00 88 mm[Hg] Richard y Seyblaurie pressure Heart rate 2021-05-18 14:51:00 61 /min Patricia gamingbodany Body temperature 2021-05-18 14:51:00 36 Miriam Ashley gaming Sey[place]ie Respiratory rate 2021-05-18 14:51:00 14 /min [place] Body height 2021-05-18 14:51:00 188 cm Patricia gamingbodany Body weight 2021-05-18 14:51:00 122.471 kg Patricia gamingbodany BMI 2021-05-18 14:51:00 34.67 kg/m2 Patricia kauffman Systolic blood 2020-11-24 11:00:00 127 mm[Hg] Univer sity of pressure [place] [facility] Diastolic blood 2020-11-24 11:00:00 87 mm[Hg] Unive rsity of [facility] Heart rate 2020-11-24 11:00:00 79 /min [facility] [place] [facility] Respiratory rate 2020-11-24 11:00:00 20 /min [facility] [place] [facility] Oxygen saturation in 2020-11-24 11:00:00 96 /min [facility] blood by [facility] Pulse oximetry [place] Body temperature 2020-11-24 10:26:00 37.83 Miriam Univ [facility] [place] [facility] Body height 2020-11-24 10:26:00 188 cm [facility] [place] [facility] Body weight 2020-11-24 10:26:00 117.935 kg [facility] [place] [facility] BMI 2020-11-24 10:26:00 33.38 kg/m2 [facility] [place] [facility] Systolic blood 2020-11-23 11:01:00 132 mm[Hg] Univer sity of pressure [place] [facility] Diastolic blood 2020-11-23 11:01:00 86 mm[Hg] Unive rsity of pressure [place] [facility] Heart rate 2020-11-23 11:01:00 52 /min [facility] [place] [facility] Respiratory rate 2020-11-23 11:01:00 14 /min Univ ers[facility] [place] [facility] Oxygen saturation in 2020-11-23 11:01:00 100 /min [facility] Arterial blood by [facility] Pulse oximetry Branch Body temperature 2020-11-23 08:47:40 37.44 [facility] height 2020-11-23 08:45:00 188 cm [facility] Body weight 2020-11-23 08:45:00 117.935 kg [facility] BMI 2020-11-23 08:45:00 33.38 kg/m2 [facility] Systolic (mm Hg) 2014-08-02 17:15:00 Jordy rial Ramak[facility]na Diastolic (mm Hg) 2014-08-02 17:15:00 Mem [facility] Respitory Rate 2014-08-02 17:15:00 [facility] Heart Rate 2014-08-02 17:15:00 [facility] Temperature Oral (F) 2014-08-02 17:15:00 97.4 F [facility] Respitory Rate 2014-08-02 13:13:00 Memori al [facility] Temperature Oral (F) 2014-08-02 13:13:00 97.5 F [facility] Heart Rate 2014-08-02 13:13:00 [facility] Systolic (mm Hg) 2014-08-02 13:13:00 Jordy [facility] Diastolic (mm Hg) 2014-08-02 13:13:00 Mem orial Ramakrishna Temperature Oral (F) 2014-08-02 09:00:00 97.7 F [facility] Heart Rate 2014-08-02 09:00:00 [facility] Systolic (mm Hg) 2014-08-02 09:00:00 Jordy rial [place] Diastolic (mm Hg) 2014-08-02 09:00:00 Mem [facility] Respitory Rate 2014-08-02 09:00:00 Memori al Ram[facility] Height 2014-07-19 18:21:00 187.96 cm [facility] Ram[facility]na Weight 2014-07-19 18:21:00 [facility] BMI Calculated 2014-07-19 18:21:00 [facility] Procedures Procedure Date / Time Performing Clinician Source Performed [place] TIME OR 2021-07-14 18:59:10 Tony Garcia [place] [facility] (NON-REPORTABLE) [facility] [place] TIME OR 2021-07-14 18:59:10 Tony Garcia [facility] (NON-REPORTABLE) Medical Branch TOE ARTHRODESIS 2021-07-14 16:53:00 Tony Garcia [facility] Medical Branch RONNY BUNION 2021-07-14 16:53:00 Tony Garcia [facility] Medical Branch PATIENT QUESTIONNAIRE 2021-07-14 05:01:00 Doctor Unassigned, [facility] [place] [facility] DAY SURGERY - ADC 2021-07-14 05:01:00 Doctor Unassigned, [facility] [place] [facility] CONSENT/REFUSAL FOR 2021-07-09 15:19:32 Doctor [facility]assigned, [facility] DIAGNOSIS AND TREATMENT [place] [facility] CONSENT/REFUSAL FOR 2021-07-09 15:19:32 Doctor Unassigned, [facility] DIAGNOSIS AND TREATMENT [place] [facility] ASSIGNMENT OF BENEFITS 2021-07-09 15:19:04 Doctor Unassigned, [facility] [place] [facility] ASSIGNMENT OF BENEFITS 2021-07-09 15:19:04 Doctor Unassigned, [facility] [place] [facility] PATIENT FINANCIAL 2021-07-09 15:18:47 Doctor Unassigned, [facility] POLICY [place] [facility] PATIENT FINANCIAL 2021-07-09 15:18:47 Doctor Unassigned, [facility] POLICY [place] [facility] NO SHOW OR MISSED 2021-07-09 15:18:31 Doctor Unassigned, [facility] APPOINTMENT POLICY [place] [facility] Branc h ACKNOWLEDGEMENT NO SHOW OR MISSED 2021-07-09 15:18:31 Doctor Unassigned, [facility] APPOINTMENT POLICY [place] [facility] h ACKNOWLEDGEMENT NOTICE OF PRIVACY 2021-07-09 15:18:13 Doctor Unassigned, [facility] PRACTICES [place] [facility] NOTICE OF PRIVACY 2021-07-09 15:18:13 Doctor Unassigned, [facility]ACTICES [place] [facility] CONSENT/REFUSAL FOR 2021-07-09 15:17:58 Doctor Unassigned, [facility] DIAGNOSIS AND TREATMENT [place] [facility] CONSENT/REFUSAL FOR 2021-07-09 15:17:58 Doctor Unassigned, [facility] DIAGNOSIS AND TREATMENT [place] [facility] [place] ASSIGNMENT OF BENEFITS 2021-07-09 15:17:34 [facility], [facility] [place] [facility] [place] ASSIGNMENT OF BENEFITS 2021-07-09 15:17:34 Doctor Unassigned, [facility] [place] [facility] [place] EXTERNAL PROVIDER RECORDS 2021-07-06 05:01:00 Doctor Babatunde, [facility] [place] [facility] [place] EXTERNAL PROVIDER RECORDS 2021-07-06 05:01:00 Doctor Unassigned, [facility] [place] [facility] [place] SARS-COV-2 COVID-19 2021-04-24 15:06:03 Doctor Babatunde [facility] VACCINE BOOSTER,0.25ML,IM [place] [facility] (MODERNA) URINALYSIS 2020-11-24 10:49:00 Singer [facility] COVID-19 (ID NOW RAPID 2020-11-24 10:39:00 Singer Esperanza [facility] TESTING) Medical Branch LIPASE 2020-11-24 10:35:00 Singer [facility] COMP. METABOLIC PANEL 2020-11-24 10:35:00 Esperanza Isaacs [facility] ([id number]) Medical Branch CBC WITH DIFF 2020-11-24 10:35:00 Singer [facility] CONSENT/REFUSAL FOR 2020-11-24 10:20:22 Doctor Fine [facility] PELVIS W 2020-11-23 09:23:16 Esperanza Isaacs [facility] CONTRAST Medical Branch LIPASE 2020-11-23 08:50:00 Singer [facility] COMP. METABOLIC PANEL 2020-11-23 08:50:00 Esperanza Isaacs [facility] ([id number]) Medical Branch CBC WITH DIFF 2020-11-23 08:50:00 Singer [facility] URINALYSIS 2020-11-23 08:50:00 Singer [facility] NOTICE OF PRIVACY 2020-11-23 08:33:16 Doctor Babatunde [facility] PRACTICES [place] [facility] Jean Carlos-en-y gastric bypass 2014-08-01 05:00:00 Mem orial [facility] Back [facility] Cholecystectomy [facility] Knee [facility] Encounters Start End Encounter Admission Attending Care Care Encounter Source Date/Time Date/Time Type Type Clinicians Facility Department ID 2021-09-14 2021-09-14 Office Adams Wei [id number] Patricia 16:30:00 16:45:00 Visit Arlen Kemp 350.1.13.13 Se glennylaurie Henna 1.2.7.2.686 [id number] 2021-09-04 2021-09-04 Outpatient PATRICIA ARREDONDO [id number] Patricia 00:00:00 00:00:00 ARLEN [place] 2021-09-04 2021-09-04 Outpatient PATRICIA ARREDONDO [id number] Patricia 00:00:00 00:00:00 ARLEN [place] 2021-09-03 2021-09-03 Outpatient MELO GONZALEZ [id number] Patricia 00:00:00 00:00:00 Heath [place] 2021-07-14 2021-07-14 Outpatient Tapan GARCIA JR, [facility] SOR [id number] Univers 11:23:00 15:24:00 TONY moore of [facility] 2021-07-14 2021-07-14 [facility] [id number] Univers 11:23:00 15:24:00 Encounter Tony INFANTE 350.1.13.10 it[place] [id number] [facility] 071 Branch 2021-07-14 2021-07-14 Surgery [facility] [id number] Univers 11:45:00 14:07:00 Toyn INFANTE 350.1.13.10 [facility] [place] [id number] [facility] 020 Branch 2021-07-09 2021-07-09 Family Protection Specialist Angeli, Adc Lab Main [facility] 1.2.8 40.114 [id number] Univers 10:15:00 10:30:00 Visit Tony Garcia 350.1.13.10 [place] PROF[place] [id number] [place] NAL 353 [facility] 2021-07-09 2021-07-09 Outpatient R [facility] [id number] Univers 10:15:00 10:15:00 [id number] ity [facility] 2021-07-09 2021-07-09 Outpatient R RADHA NEUMANN, [facility] [id number] Univers 10:15:00 10:15:00 TONY [facility] 2021-05-18 2021-05-18 Outpatient LAB90 PATRICIA ZAVALA [id number] Patricia 09:45:00 09:45:00 Seybol d 2021-05-18 2021-05-18 Office Wei Arredondo [id number] Patricia 09:00:00 09:30:00 Visit Arlen Kemp 350.1.13.13 Se sonia Coates 1.2.7.2.686 [id number] 2021-05-05 2021-05-05 Outpatient MELO GONZALEZ [id number] Patricia 00:00:00 00:00:00 Seybol d 2021-04-24 2021-04-24 Imm/Inj Nurse, Adc Pob Immunization [facility] [id number] Univers 09:10:00 09:10:00 Visit Willis Harvey 350.1.13 .10 [place] [id number] [place] NAL 421 [facility] 2020-11-24 2020-11-24 Emergency [facility] [id number] Univers 05:24:00 06:37:00 Esperanza Infante 350.1.13.10 i [place] [id number] [facility] 084 Kamas 2020-11-24 2020-11-24 Emergency X SINGER HIMB ERT [id number] Univers 05:24:00 05:24:00 ESPERANZA moore [facility] 2020-11-23 2020-11-23 Emergency [facility] [id number] Univers 03:35:00 06:36:00 Esperanza Infante 350.1.13.10 i ty [facility] 4.2.7.2.686 [facility] [id number] [facility] 084 Branch 2020-11-23 2020-11-23 Emergency X [facility] ERT [id number] Univers 03:35:00 03:35:00 ESPERANZA moore [facility] 2014-08-01 2014-08-02 [facility] [id number] [facility] 11:10:00 20:38:00 [facility] 00 l [facility] Results Test Description Test Time Test Comments Results Result Comments Source URINALYSIS 2020-11-24 11:10:43 Test Item Value Reference Range Interpretation Comme nts APPEARANCE (test code = Clear Clear 4539823604) COLOR (test code = 7179168102) Yellow Yellow PH (test code = 6099204457) 4.8-8.0 SP GRAVITY (test code = 1.003-1.030 1908444059) GLU U QUAL (test code = Normal Normal 7100456849) BLOOD (test code = 9267915604) Negative Negative KETONES (test code = 5136384106) Negative Negative PROTEIN (test code = 2887-8) Negative Negative UROBILIN (test code = Normal Normal 0355971885) BILIRUBIN (test code = Negative Negative 6697134398) NITRITE (test code = 8462026650) Negative Negative LEUK IZZY (test code = Negative Negative 5028913318) RBC/HPF (test code = 4638640889) See_Comment [Automated message] The system which ge nerated this result transmit susanne reference range: 0 - 3 HP F. The reference range was not used to interpret th is result as normal/abnormal . WBC/HPF (test code = 9797389156) See_Comment [Automated message] The system which ge nerated this result transmit susanne reference range: 0 - 5 HP F. The reference range was not used to interpret th is result as normal/abnormal . BACTERIA (test code = Negative Negative 0179405391) MUCOUS (test code = 4219406425) Slight Negative LPF A SQ EPITH (test code = <1 HPF 1960145285) Lab Interpretation (test code = Abnormal 84417-8) [facility] 11:10:43 Test Item Value Reference Range Interpretation Comments APPEARANCE (test code = Clear Clear 2094935442) COLOR (test code = Yellow Yellow 4035396192) PH (test code = 4.8-8.0 7403845609) SP GRAVITY (test code = 1.003-1.030 3468979505) GLU U QUAL (test code = Normal Normal 1396898028) BLOOD (test code = Negative Negative 8824655903) KETONES (test code = Negative Negative 2277220689) PROTEIN (test code = Negative Negative 2887-8) UROBILIN (test code = Normal Normal 8294704169) BILIRUBIN (test code = Negative Negative 8480928191) NITRITE (test code = Negative Negative 0683344518) LEUK IZZY (test code = Negative Negative 8916987881) RBC/HPF (test code = See_Comment [Autom ated message] 6070196181) The system [employer] generated this result transmitted ref erence range: 0 - 3 HP F. The reference range was not used to int erpret this result as normal/abnormal . WBC/HPF (test code = See_Comment [Autom ated message] 8357786751) The system [employer] generated this result transmitted ref erence range: 0 - 5 HP F. The reference range was not used to int erpret this result as normal/abnormal . BACTERIA (test code = Negative Negative 9410312203) MUCOUS (test code = Slight Negative LPF A 1444138116) SQ EPITH (test code = <1 HPF 6965093953) Lab Interpretation (test Abnormal code = 20653-3) [facility]OLIC PANEL ([id number])2020-11-24 11:03:51 Test Item Value Reference Range Interpretation Comments NA (test code = 139 mmol/L 135-145 9480437812) K (test code = 3.9 mmol/L 3.5-5.0 7638979098) CL (test code = 104 mmol/L 98-108 4560930382) CO2 TOTAL (test code = 24 mmol/L 23-31 8058324019) AGAP (test code = 2-16 8342882287) BUN (test code = 17 mg/dL 7-23 1243703216) GLUCOSE (test code = 106 mg/dL 70-110 6057878247) CREATININE (test code = 1.25 mg/dL 0.60-1.25 0685896646) TOTAL BILI (test code = 1.5 mg/dL 0.1-1.1 H 4622495862) CALCIUM (test code = 9.3 mg/dL 8.6-10.6 2560927290) T PROTEIN (test code = 8.2 g/dL 6.3-8.2 6672840600) ALBUMIN (test code = 4.6 g/dL 3.5-5.0 5027144904) ALK PHOS (test code = 91 U/L 34-122 4529340145) ALTv (test code = 19 U/L 5-50 1742-6) AST(SGOT) (test code = 28 U/L 13-40 7547881975) eGFR (test code = mL/min/1.73m2 3672880354) PEDRO LUIS (test code = PEDRO LUIS) [...] tests). Lab Interpretation Abnormal (test code = 09532-8) [facility]OLIC PANEL (83751)2020-11-24 11:03:51 Test Item Value Reference Range Interpretation Comments NA (test code = 4205335684) 139 mmol/L 135-145 K (test code = 8410050010) 3.9 mmol/L 3.5-5.0 CL (test code = 8535467739) 104 mmol/L 98-108 CO2 TOTAL (test code = 1577861169) 24 mmol/L 23-31 AGAP (test code = 3974059995) 2-16 BUN (test code = 4202298336) 17 mg/dL 7-23 GLUCOSE (test code = 6248094854) 106 mg/dL 70-110 CREATININE (test code = 1.25 mg/dL 0.60-1.25 2728608382) TOTAL BILI (test code = 1.5 mg/dL 0.1-1.1 H 7364044602) CALCIUM (test code = 9143464247) 9.3 mg/dL 8.6-10.6 T PROTEIN (test code = 3000799467) 8.2 g/dL 6.3-8.2 ALBUMIN (test code = 1250045405) 4.6 g/dL 3.5-5.0 ALK PHOS (test code = 8177204558) 91 U/L 34-122 ALTv (test code = 1742-6) 19 U/L 5-50 AST(SGOT) (test code = 1549724656) 28 U/L 13-40 eGFR (test code = 4551001680) mL/min/1.73m2 PEDRO LUIS (test code = PEDRO LUIS) Lab Interpretation (test code = Abnormal 15238-3) [facility]2021-08-30 11:03:10 Test Item Value Reference Range Interpretation Comments LIPASE (test code = 1780132810) 129 U/L 0-220 Lab Interpretation (test code = Normal 36624-2) [facility]2021-08-30 11:03:10 Test Item Value Reference Range Interpretation Comments LIPASE (test code = 7750584193) 129 U/L 0-220 Lab Interpretation (test code = Normal 97994-4) [facility] (ID NOW RAPID TESTING)2020-11-24 10:59:10 Test Item Value Reference Range Interpretation Comments SARS-CoV-2 Rapid ID NOW Not Detected Not Detected (test code = 16341-4) PEDRO LUIS (test code = PEDRO LUIS) ID NOW COVID-19 Assay is an isothermal nucleic acid amplification test intended for the qualitative detection of nucleic acid from SARS-CoV-2 viral RNA in nasopharyngeal (RAMPMAN) specimens. It is used under Emergency Use [...] indicated. Lab Interpretation Normal (test code = 35305-2) [facility] (ID NOW RAPID TESTING)2020-11-24 10:59:10 Test Item Value Reference Range Interpretation Comments SARS-CoV-2 Rapid ID NOW (test Not Detected Not Detected code = 28707-7) PEDRO LUIS (test code = PEDRO LUIS) Lab Interpretation (test code = Normal 37991-2) [facility] WITH [id number] 10:52:27 Test Item Value Reference Range Interpretation Comments WBC (test code = See_Comment [Automated 8790-2) message] The sy stem which generated this result transmitted reference range : 4.20 - 10.70 10*3/?L. The reference range was not used to interpret this result as normal/abnormal . RBC (test code = See_Comment [Automated 369-8) message] The sy stem which generated this [...] RDW-SD (test code = 48.2 fL 38.5-51.6 65295-6) RDW-CV (test code = 15.3 % 12.1-15.4 788-0) PLT (test code = See_Comment [Automated 777-3) message] The sy stem which generated this result transmitted reference range : 150 - 328 10*3/ ?L. The reference r matilda was not used to interpret this result as normal/abnormal . MPV (test code = 10.4 fL 9.8-13.0 46302-1) NRBC/100 WBC (test See_Comment [Automat ed code = 1258099696) message] The system which generated this result transmitted reference range : 0.0 - 10.0 /100 WBCs. The refer ence range was not u sed to interpret th is result as normal/abnormal . NRBC x10^3 (test code <0.01 See_Comment [Auto mated = 3834917499) message] The s ystem which generated this result transmitted reference range : 10*3/?L. The reference range was not used to interpret this result as normal/abnormal . GRAN MAT (NEUT) % 67.4 % (test code = 770-8) IMM GRAN % (test code 0.60 % = 1463896504) LYMPH % (test code = 19.2 % 736-9) MONO % (test code = 11.5 % 5905-5) EOS % (test code = 0.8 % 713-8) BASO % (test code = 0.5 % 706-2) GRAN MAT x10^3(ANC) 7.13 10*3/uL 1.99-6.95 H (test code = 0359304370) IMM GRAN x10^3 (test 0.06 10*3/uL 0.00-0.06 code = 5036152973) LYMPH x10^3 (test code 2.03 10*3/uL 1.09-3.23 = 731-0) MONO x10^3 (test code 1.22 10*3/uL 0.36-1.02 H = 742-7) EOS x10^3 (test code = 0.08 10*3/uL 0.06-0.53 711-2) BASO x10^3 (test code 0.05 10*3/uL 0.01-0.09 = 704-7) Lab Interpretation Abnormal (test code = 62943-7) [facility] WITH [id number] 10:52:27 Test Item Value Reference Range Interpretation Comments WBC (test code = See_Comment [Automated 3590-2) message] The sy stem which generated this result transmitted reference range : 4.20 - 10.70 10*3/?L. The reference range was not used to interpret this result as normal/abnormal . RBC (test code = See_Comment [Automated 439-8) message] The sy stem which generated this [...] RDW-SD (test code = 48.2 fL 38.5-51.6 43121-6) RDW-CV (test code = 15.3 % 12.1-15.4 788-0) PLT (test code = See_Comment [Automated 087-3) message] The sy stem which generated this result transmitted reference range : 150 - 328 10*3/ ?L. The reference r matilda was not used to interpret this result as normal/abnormal . MPV (test code = 10.4 fL 9.8-13.0 21412-5) NRBC/100 WBC (test See_Comment [Automat ed code = 8499272481) message] The system which generated this result transmitted reference range : 0.0 - 10.0 /100 WBCs. The refer ence range was not u sed to interpret th is result as normal/abnormal . NRBC x10^3 (test code <0.01 See_Comment [Auto mated = 3973557105) message] The s ystem which generated this result transmitted reference range : 10*3/?L. The reference range was not used to interpret this result as normal/abnormal . GRAN MAT (NEUT) % 67.4 % (test code = 770-8) IMM GRAN % (test code 0.60 % = 5860096080) LYMPH % (test code = 19.2 % 736-9) MONO % (test code = 11.5 % 5905-5) EOS % (test code = 0.8 % 713-8) BASO % (test code = 0.5 % 706-2) GRAN MAT x10^3(ANC) 7.13 10*3/uL 1.99-6.95 H (test code = 2107716306) IMM GRAN x10^3 (test 0.06 10*3/uL 0.00-0.06 code = 0766123274) LYMPH x10^3 (test code 2.03 10*3/uL 1.09-3.23 = 731-0) MONO x10^3 (test code 1.22 10*3/uL 0.36-1.02 H = 742-7) EOS x10^3 (test code = 0.08 10*3/uL 0.06-0.53 711-2) BASO x10^3 (test code 0.05 10*3/uL 0.01-0.09 = 704-7) Lab Interpretation Abnormal (test code = 17671-0) [facility]2021-08-29 09:17:59 Test Item Value Reference Range Interpretation Comments APPEARANCE (test code = Clear Clear 3942889192) COLOR (test code = Yellow Yellow 5112521346) PH (test code = 4.8-8.0 6632572859) SP GRAVITY (test code = 1.003-1.030 0062670001) GLU U QUAL (test code = Normal Normal 0575085028) BLOOD (test code = Negative Negative 3684502160) KETONES (test code = Negative Negative 0924226380) PROTEIN (test code = Negative Negative 2887-8) UROBILIN (test code = Normal Normal 0395270000) BILIRUBIN (test code = Negative Negative 7679866723) NITRITE (test code = Negative Negative 8637888271) LEUK IZZY (test code = Negative Negative 7270451166) RBC/HPF (test code = See_Comment [Autom ated message] 3708632849) The system [employer] generated this result transmitted ref erence range: 0 - 3 HP F. The reference range was not used to int erpret this result as normal/abnormal . WBC/HPF (test code = See_Comment [Autom ated message] 6971466259) The system [employer] generated this result transmitted ref erence range: 0 - 5 HP F. The reference range was not used to int erpret this result as normal/abnormal . BACTERIA (test code = Negative Negative 6870932543) Lab Interpretation (test Normal code = 79157-9) [facility]2021-08-29 09:17:59 Test Item Value Reference Range Interpretation Comments APPEARANCE (test code = Clear Clear 0464918221) COLOR (test code = Yellow Yellow 2126300506) PH (test code = 4.8-8.0 3275400568) SP GRAVITY (test code = 1.003-1.030 4948223774) GLU U QUAL (test code = Normal Normal 6756201060) BLOOD (test code = Negative Negative 6765481811) KETONES (test code = Negative Negative 1821303078) PROTEIN (test code = Negative Negative 2887-8) UROBILIN (test code = Normal Normal 3117545233) BILIRUBIN (test code = Negative Negative 6397663204) NITRITE (test code = Negative Negative 1514263619) LEUK IZZY (test code = Negative Negative 1718052310) RBC/HPF (test code = See_Comment [Autom ated message] 0727342113) The system [employer] generated this result transmitted ref erence range: 0 - 3 HP F. The reference range was not used to int erpret this result as normal/abnormal . WBC/HPF (test code = See_Comment [Autom ated message] 2260400942) The system [employer] generated this result transmitted ref erence range: 0 - 5 HP F. The reference range was not used to int erpret this result as normal/abnormal . BACTERIA (test code = Negative Negative 8178962977) Lab Interpretation (test Normal code = 89618-4) [facility] METABOLIC PANEL (82930)2020-11-23 09:12:56 Test Item Value Reference Range Interpretation Comments NA (test code = 141 mmol/L 135-145 4426555837) K (test code = 4.3 mmol/L 3.5-5.0 2194370821) CL (test code = 102 mmol/L 98-108 8176123603) CO2 TOTAL (test code = 28 mmol/L 23-31 0804648113) AGAP (test code = 2-16 2664326594) BUN (test code = 17 mg/dL 7-23 0202033778) GLUCOSE (test code = 103 mg/dL 70-110 9750233637) CREATININE (test code = 1.26 mg/dL 0.60-1.25 H 3158077533) TOTAL BILI (test code = 1.3 mg/dL 0.1-1.1 H 9316288668) CALCIUM (test code = 10.2 mg/dL 8.6-10.6 0163468621) T PROTEIN (test code = 8.8 g/dL 6.3-8.2 H 0582945470) ALBUMIN (test code = 5.0 g/dL 3.5-5.0 3118658016) ALK PHOS (test code = 96 U/L 34-122 7271457935) ALTv (test code = 24 U/L 5-50 1742-6) AST(SGOT) (test code = 31 U/L 13-40 7141219941) eGFR (test code = mL/min/1.73m2 1828089509) PEDRO LUIS (test code = PEDRO LUIS) [...] tests). Lab Interpretation Abnormal (test code = 98651-4) [facility]. METABOLIC PANEL (79839)2020-11-23 09:12:56 Test Item Value Reference Range Interpretation Comments NA (test code = 5768235233) 141 mmol/L 135-145 K (test code = 0568885148) 4.3 mmol/L 3.5-5.0 CL (test code = 2822530960) 102 mmol/L 98-108 CO2 TOTAL (test code = 5752030048) 28 mmol/L 23-31 AGAP (test code = 0232393869) 2-16 BUN (test code = 5118027016) 17 mg/dL 7-23 GLUCOSE (test code = 7057329804) 103 mg/dL 70-110 CREATININE (test code = 1.26 mg/dL 0.60-1.25 H 1845938391) TOTAL BILI (test code = 1.3 mg/dL 0.1-1.1 H 3869426989) CALCIUM (test code = 6769733529) 10.2 mg/dL 8.6-10.6 T PROTEIN (test code = 3765767005) 8.8 g/dL 6.3-8.2 H ALBUMIN (test code = 8955266808) 5.0 g/dL 3.5-5.0 ALK PHOS (test code = 6040841518) 96 U/L 34-122 ALTv (test code = 1742-6) 24 U/L 5-50 AST(SGOT) (test code = 3270596620) 31 U/L 13-40 eGFR (test code = 2238602422) mL/min/1.73m2 PEDRO LUIS (test code = PEDRO LUIS) Lab Interpretation (test code = Abnormal 62893-2) [facility] 09:12:36 Test Item Value Reference Range Interpretation Comments LIPASE (test code = 0975702303) 183 U/L 0-220 Lab Interpretation (test code = Normal 08025-5) [facility] 09[facility]12:36 Test Item Value Reference Range Interpretation Comments LIPASE (test code = 2315191743) 183 U/L 0-220 Lab Interpretation (test code = Normal 68733-7) [facility] WITH [id number] 08:57:36 Test Item Value Reference Range Interpretation Comments WBC (test code = See_Comment H [Automated 3690-2) message] The sy stem which generated this result transmitted reference range : 4.20 - 10.70 10*3/?L. The reference range was not used to interpret this result as normal/abnormal . RBC (test code = See_Comment H [Automated 519-8) message] The sy stem which generated this [...] RDW-SD (test code = 45.6 fL 38.5-51.6 46863-7) RDW-CV (test code = 15.3 % 12.1-15.4 788-0) PLT (test code = See_Comment [Automated 777-3) message] The sy stem which generated this result transmitted reference range : 150 - 328 10*3/ ?L. The reference r matilda was not used to interpret this result as normal/abnormal . MPV (test code = 9.9 fL 9.8-13.0 68900-2) NRBC/100 WBC (test See_Comment [Automat ed code = [id number]) message] The system which generated this result transmitted reference range : 0.0 - 10.0 /100 WBCs. The refer ence range was not u sed to interpret th is result as normal/abnormal . NRBC x10^3 (test code <0.01 See_Comment [Auto mated = 5216395213) message] The s ystem which generated this result transmitted reference range : 10*3/?L. The reference range was not used to interpret this result as normal/abnormal . GRAN MAT (NEUT) % 62.2 % (test code = 770-8) IMM GRAN % (test code 0.50 % = 9196707228) LYMPH % (test code = 22.6 % 736-9) MONO % (test code = 12.6 % 5905-5) EOS % (test code = 1.5 % 713-8) BASO % (test code = 0.6 % 706-2) GRAN MAT x10^3(ANC) 6.87 10*3/uL 1.99-6.95 (test code = 6473327130) IMM GRAN x10^3 (test 0.06 10*3/uL 0.00-0.06 code = 6158076758) LYMPH x10^3 (test code 2.50 10*3/uL 1.09-3.23 = 731-0) MONO x10^3 (test code 1.39 10*3/uL 0.36-1.02 H = 742-7) EOS x10^3 (test code = 0.17 10*3/uL 0.06-0.53 711-2) BASO x10^3 (test code 0.07 10*3/uL 0.01-0.09 = 704-7) Lab Interpretation Abnormal (test code = 58943-6) [facility] WITH [id number] 08:57:36 Test Item Value Reference Range Interpretation [...] RDW-SD (test code = 45.6 fL 38.5-51.6 70826-5) RDW-CV (test code = 15.3 % 12.1-15.4 788-0) PLT (test code = See_Comment [Automated 777-3) message] The sy stem which generated this result transmitted reference range : 150 - 328 10*3/ ?L. The reference r matilda was not used to interpret this result as normal/abnormal . MPV (test code = 9.9 fL 9.8-13.0 85972-9) NRBC/100 WBC (test See_Comment [Automat ed code = 0766417932) message] The system which generated this result transmitted reference range : 0.0 - 10.0 /100 WBCs. The refer ence range was not u sed to interpret th is result as normal/abnormal . NRBC x10^3 (test code <0.01 See_Comment [Auto mated = [id number]) message] The s ystem which generated this result transmitted reference range : 10*3/?L. The reference range was not used to interpret this result as normal/abnormal . GRAN MAT (NEUT) % 62.2 % (test code = 770-8) IMM GRAN % (test code 0.50 % = 2136506330) LYMPH % (test code = 22.6 % 736-9) MONO % (test code = 12.6 % 5905-5) EOS % (test code = 1.5 % 713-8) BASO % (test code = 0.6 % 706-2) GRAN MAT x10^3(ANC) 6.87 10*3/uL 1.99-6.95 (test code = 4147161811) IMM GRAN x10^3 (test 0.06 10*3/uL 0.00-0.06 code = 4125911410) LYMPH x10^3 (test code 2.50 10*3/uL 1.09-3.23 = 731-0) MONO x10^3 (test code 1.39 10*3/uL 0.36-1.02 H = 742-7) EOS x10^3 (test code = 0.17 10*3/uL 0.06-0.53 711-2) BASO x10^3 (test code 0.07 10*3/uL 0.01-0.09 = 704-7) Lab Interpretation Abnormal (test code = 40064-3) [facility]LECT[facility]OLY[facility]2015-[facility]-08 10:24:00 Test Item Value Reference Range Interpretation Comments AGAP (test code = AGAP) 11.4 10.0-20.0 [facility]QxtesqrXKFGLYDBHCKX7919-67-69 10:24:00 Test Item Value Reference Range Interpretation Comments CO2 (test code = CO2) 28 24-32 [facility] HospitalAvgrvxmJSSUYLNUUWTZ8972-47-82 10:24:00 Test Item Value Reference Range Interpretation Comments BUN (test code = BUN) 17 7-22 [facility] HospitalPsxtpnlDMVADOFKWSVB5881-77-95 10:24:00 Test Item Value Reference Range Interpretation Comments Glucose Lvl (test code = Glucose Lvl) 102 70-99 [facility] HospitalGxttldaUSGORVEISRTQ9126-44-39 10:24:00 Test Item Value Reference Range Interpretation Comments eGFR (test code = eGFR) 75 [facility] HospitalHafoxyyMPMZXPCSJBWN1714-77-85 10:24:00 Test Item Value Reference Range Interpretation Comments Calcium Lvl (test code = Calcium Lvl) 9.0 8.5-10.5 [facility] HospitalMjkhczoOCRMTTQFGHBM9978-86-53 10:24:00 Test Item Value Reference Range Interpretation Comments Chloride Lvl (test code = Chloride Lvl) 105 95-109 [facility] HospitalDfkbmdfWQZWBCANOXWO2815-60-54 10:24:00 Test Item Value Reference Range Interpretation Comments Potassium Lvl (test code = Potassium 4.4 3.5-5.1 Lvl) [facility] HospitalEjgdwlcJNGAYWPNGONN9569-72-79 10:24:00 Test Item Value Reference Range Interpretation Comments Creatinine Lvl (test code = Creatinine 1.2 0.5-1.4 Lvl) [facility] HospitalFiwdvddLKKYOYSCLFQY6514-94-49 10:24:00 Test Item Value Reference Range Interpretation Comments Sodium Lvl (test code = Sodium Lvl) 140 135-145 [facility]OagukhqIDMNTMEJPV9908-26-06 10:24:00 Test Item Value Reference Range Interpretation Comments Hgb (test code = Hgb) 15.2 14.0-18.0 [facility] HeightsDyrqytpPXGUSFFMZB0076-39-68 10:24:00 Test Item Value Reference Range Interpretation Comments MPV (test code = MPV) 8.8 7.4-10.4 [facility] HeightsBxiltwmZKLUOVQHTD8550-98-27 10:24:00 Test Item Value Reference Range Interpretation Comments MCH (test code = MCH) 32.1 pg 27.0-31.0 [facility] HeightsRonchblYEDMSYVASV7423-11-23 10:24:00 Test Item Value Reference Range Interpretation Comments MCV (test code = MCV) 92.1 80.0-94.0 [facility] HeightsYxximpvBKYCEQIGNE6298-31-40 10:24:00 Test Item Value Reference Range Interpretation Comments MCHC (test code = MCHC) 34.9 32.0-36.0 [facility] HeightsYcqftleHJYPFMBOBC1534-83-78 10:24:00 Test Item Value Reference Range Interpretation Comments Hct (test code = Hct) 43.6 42.0-54.0 [facility] HeightsFlzlpbrYZLAKMPOYE5574-21-64 10:24:00 Test Item Value Reference Range Interpretation Comments RBC (test code = RBC) 4.73 4.70-6.10 [facility] HeightsXpvhvgrLSOPLAHEEI8783-17-36 10:24:00 Test Item Value Reference Range Interpretation Comments WBC (test code = WBC) 8.9 3.7-10.4 [facility] HeightsOmkysojUSESPNGNPV1375-81-73 10:24:00 Test Item Value Reference Range Interpretation Comments RDW (test code = RDW) 13.6 11.5-14.5 [facility] HeightsBtndhkwEYJRCSYFUD7033-39-98 10:24:00 Test Item Value Reference Range Interpretation Comments Platelet (test code = Platelet) 145 133-450 [facility] HeightsWrvpsjfEHMZWDSMSK7088-28-21 10:24:00 Test Item Value Reference Range Interpretation Comments Segs (test code = Segs) 80.9 45.0-75.0 [facility] HeightsYyrwtysAZOFZMKLVU1901-09-36 10:24:00 Test Item Value Reference Range Interpretation Comments Lymphocytes (test code = Lymphocytes) 12.5 20.0-40.0 [facility] HeightsPobfjexGUTLGLSREO3469-15-47 10:24:00 Test Item Value Reference Range Interpretation Comments Segs-Bands # (test code = Segs-Bands #) 7.2 1.5-8.1 [facility] HeightsIgxkxprDZKECYMGTD2218-58-40 10:24:00 Test Item Value Reference Range Interpretation Comments Monocytes (test code = Monocytes) 6.4 2.0-12.0 [facility] HeightsTzybftbXYUIINXRFT9520-70-33 10:24:00 Test Item Value Reference Range Interpretation Comments Basophils (test code = 0.2 See_Comment [Aut omated message] The Basophils) system which ge nerated this result tra nsmitted reference range : <=1.0. The reference r matilda was not used to int erpret this result as normal/abnormal . [facility] HeightsRbmgxaeHPZWDYZPYE1809-84-05 10:24:00 Test Item Value Reference Range Interpretation Comments Eosinophils (test code = 0.0 See_Comment [A utomated message] The Eosinophils) system which ge nerated this result tra nsmitted reference range : <=4.0. The reference r matilda was not used to int erpret this result as normal/abnormal . [facility] HeightsRbvvqmrAOMCFLGKUW5609-75-74 10:24:00 Test Item Value Reference Range Interpretation Comments Lymphocytes # (test code = Lymphocytes 1.1 1.0-5.5 #) [facility]KduevhjNJBIATNBHJ6821-41-67 10:24:00 Test Item Value Reference Range Interpretation Comments Monocytes # (test code 0.6 See_Comment [Aut omated message] The = Monocytes #) system which generated this result tra nsmitted reference range : <=0.8. The reference r matilda was not used to int erpret this result as normal/abnormal . [facility] HeightsOgcjrcvRWPMRONUYN7539-81-87 10:24:00 Test Item Value Reference Range Interpretation Comments Eosinophils # (test code 0.0 See_Comment [A utomated message] The = Eosinophils #) system whic h generated this result tra nsmitted reference range : <=0.5. The reference r matilda was not used to int erpret this result as normal/abnormal . [facility] PAKKQ0836-57-16 22:11:00 Test Item Value Reference Range Interpretation Comments eGFR (test code = eGFR) 62 [facility] KFOBY4918-75-64 22:11:00 Test Item Value Reference Range Interpretation Comments Creatinine Lvl (test code = Creatinine 1.4 0.5-1.4 Lvl) [facility] HospitalBqiykhfMHUEHMLIVN5609-25-63 22:11:00 Test Item Value Reference Range Interpretation Comments Platelet (test code = Platelet) 158 133-450 [facility] HospitalYxbaqgeNASCBEDFWF3543-88-75 22:11:00 Test Item Value Reference Range Interpretation Comments PTT (test code = PTT) 34.2 s 22.9-35.8 [facility] Center[facility] SDAKAXP0201-38-22 16:00:00 Test Item Value Reference Range Interpretation Comments Antibody Scrn (test Negative (08/01/14 11:00 code = Antibody Scrn) AM) [facility] [employer] HGBVUQB1087-97-95 16:00:00 Test Item Value Reference Range Interpretation Comments ABO/Rh (test code = ABO/Rh) A POS [facility] HospitalLouchnmICCEZGXEOX4262-35-51 18:47:00 Test Item Value Reference Range Interpretation Comments Lymphocytes # (test code = Lymphocytes 2.6 1.0-5.5 #) [facility] HospitalLxygcbxANYJZGJUNX4495-88-74 18:47:00 Test Item Value Reference Range Interpretation Comments Monocytes # (test code 0.8 See_Comment [Aut omated message] The = Monocytes #) system which generated this result tra nsmitted reference range : <=0.8. The reference r matilda was not used to int erpret this result as normal/abnormal . [facility] HeightsEhsfglvUMTXSYSMLY3873-70-30 18:47:00 Test Item Value Reference Range Interpretation Comments Eosinophils # (test code 0.2 See_Comment [A utomated message] The = Eosinophils #) system wh h generated this result tra nsmitted reference range : <=0.5. The reference r matilda was not used to int erpret this result as normal/abnormal . [facility] HeightsGexzcdoIPJFHWTQNS3854-87-39 18:47:00 Test Item Value Reference Range Interpretation Comments Basophils # (test code 0.0 See_Comment [Aut omated message] The = Basophils #) system which generated this result tra nsmitted reference range : <=0.2. The reference r matilda was not used to int erpret this result as normal/abnormal . [facility] HeightsIsmqtzbAGRTEQRBTH7341-18-02 18:47:00 Test Item Value Reference Range Interpretation Comments Monocytes (test code = Monocytes) 10.5 2.0-12.0 [facility] HeightsZfukjpeJFJABQPZIO5204-98-27 18:47:00 Test Item Value Reference Range Interpretation Comments Eosinophils (test code = 2.0 See_Comment [A utomated message] The Eosinophils) system which ge nerated this result tra nsmitted reference range : <=4.0. The reference r matilda was not used to int erpret this result as normal/abnormal . [facility] HeightsRqxqiszVGPSGGDRZF9574-25-98 18:47:00 Test Item Value Reference Range Interpretation Comments Basophils (test code = 0.3 See_Comment [Aut omated message] The Basophils) system which ge nerated this result tra nsmitted reference range : <=1.0. The reference r matilda was not used to int erpret this result as normal/abnormal . [facility] HeightsJujlfvuBLSYCLFUHF8284-22-13 18:47:00 Test Item Value Reference Range Interpretation Comments Segs-Bands # (test code = Segs-Bands #) 4.4 1.5-8.1 [facility] HeightsSkhijztNDAGGXVPWC1778-01-76 18:47:00 Test Item Value Reference Range Interpretation Comments Segs (test code = Segs) 54.3 45.0-75.0 [facility] HeightsXcucckuVPHZHRXSXF8157-85-26 18:47:00 Test Item Value Reference Range Interpretation Comments Lymphocytes (test code = Lymphocytes) 32.9 20.0-40.0 [facility] HeightsHaxrxqrZQFWCLBEPD7968-58-30 18:47:00 Test Item Value Reference Range Interpretation Comments PTT (test code = PTT) 31.7 s 22.9-35.8 [facility] HeightsEcbmcfmUETNVKQWVA0995-57-08 18:47:00 Test Item Value Reference Range Interpretation Comments PT (test code = PT) 13.3 s 12.0-14.7 [facility] HeightsPicdbpcAXKWTQGBIX3080-81-44 18:47:00 Test Item Value Reference Range Interpretation Comments INR (test code = INR) 1.01 0.85-1.17 [facility] HeightsGkfckgvUFWKSSKFPW5913-58-26 18:47:00 Test Item Value Reference Range Interpretation Comments WBC (test code = WBC) 8.1 3.7-10.4 [facility] HeightsJarvkvsBEBZNXASAB0262-05-37 18:47:00 Test Item Value Reference Range Interpretation Comments Hgb (test code = Hgb) 16.2 14.0-18.0 [facility] HeightsAzpcorjIMDBRXJMRL1057-79-47 18:47:00 Test Item Value Reference Range Interpretation Comments RBC (test code = RBC) 5.14 4.70-6.10 [facility] HeightsWuzraeqJMMLXZTMZL4278-01-41 18:47:00 Test Item Value Reference Range Interpretation Comments Hct (test code = Hct) 47.2 42.0-54.0 [facility] HeightsAclzcvqMEOLHPZDNF9980-88-02 18:47:00 Test Item Value Reference Range Interpretation Comments MCV (test code = MCV) 91.7 80.0-94.0 [facility] HeightsMvqrhpiMLOPRRPYWU4138-46-16 18:47:00 Test Item Value Reference Range Interpretation Comments MCH (test code = MCH) 31.5 pg 27.0-31.0 [facility] HeightsFewzmjnXACKFBWYAB5055-27-16 18:47:00 Test Item Value Reference Range Interpretation Comments MCHC (test code = MCHC) 34.3 32.0-36.0 [facility] HeightsZgbjlsoZUOSVTJMLW8806-68-93 18:47:00 Test Item Value Reference Range Interpretation Comments RDW (test code = RDW) 13.3 11.5-14.5 [facility] HeightsUgyexiyPBHCIHBQYG0725-36-36 18:47:00 Test Item Value Reference Range Interpretation Comments MPV (test code = MPV) 9.4 7.4-10.4 [facility] QwuxtzcHGCCVKIVUO5081-05-56 18:47:00 Test Item Value Reference Range Interpretation Comments Platelet (test code = Platelet) 161 133-450 [facility] KatharineannPARATHYROID ASMHHTZ2139-16-26 18:47:00 Test Item Value Reference Range Interpretation Comments PTH Intact (test code = PTH Intact) 60.1 11.1-79.5 [facility] RJXDO5104-59-89 18:47:00 Test Item Value Reference Range Interpretation Comments UA Urobilinogen (test code = UA <=1.0 mg/dL 0.1-1.0 Urobilinogen) [facility] [id number] 18:47:00 Test Item Value Reference Range Interpretation Comments Micro? (test code = Not Indicated Micro?) *NA*(07/19/14 1:47 PM) [facility] BUSVM4775-87-12 18:47:00 Test Item Value Reference Range Interpretation Comments UA RBC (test code = no gt See_Comment [Automa susanne message] The UA RBC) system which ge nerated this result transmit susanne reference range : <=2. The reference range was not used to interpr et this result as shabana l/abnormal. [facility] PHCVQ2629-35-45 18:47:00 Test Item Value Reference Range Interpretation Comments UA WBC (test code = no gt See_Comment [Automa susanne message] The UA WBC) system which ge nerated this result transmit susanne reference range : <=5. The reference range was not used to interpr et this result as shabana l/abnormal. [facility] WJEYQ2086-26-86 18:47:00 Test Item Value Reference Range Interpretation Comments UA Mucus (test code = UA Mucus) Few /LPF [facility] VDBQB6398-08-61 18:47:00 Test Item Value Reference Range Interpretation Comments UA Blood (test code = Negative (07/19/14 1:47 UA Blood) PM) [facility] UXPGQ2291-69-25 18:47:00 Test Item Value Reference Range Interpretation Comments UA Bili (test code = Negative *NA*(07/19/14 UA Bili) 1:47 PM) [facility] AND CPMAP7677-25-15 18:47:00 Test Item Value Reference Range Interpretation Comments UA Nitrite (test code Negative (07/19/14 1:47 = UA Nitrite) PM) [facility] AND DGLQM8253-80-71 18:47:00 Test Item Value Reference Range Interpretation Comments UA Leuk Est (test Negative (07/19/14 1:47 code = UA Leuk Est) PM) [facility] AND RQNOG6571-24-75 18:47:00 Test Item Value Reference Range Interpretation Comments UA Turbidity (test code = Clear (07/19/14 1:47 UA Turbidity) PM) [facility] AND VDUOD5538-95-41 18:47:00 Test Item Value Reference Range Interpretation Comments UA Color (test code = Light Yellow UA Color) *NA*(07/19/14 1:47 PM) [facility] AND [id number] 18:47:00 Test Item Value Reference Range Interpretation Comments UA Ketones (test code = UA Negative mg/dL Ketones) [facility] AND WKYLF9742-33-97 18:47:00 Test Item Value Reference Range Interpretation Comments UA Glucose (test code = UA Negative mg/dL Glucose) [facility] AND UUZDJ1503-35-04 18:47:00 Test Item Value Reference Range Interpretation Comments UA Protein (test code = UA Negative mg/dL Protein) [facility] AND GZTON4761-48-54 18:47:00 Test Item Value Reference Range Interpretation Comments UA pH (test code = UA pH) 5.5 5.0-8.0 [facility] AND EHIUA6322-32-38 18:47:00 Test Item Value Reference Range Interpretation Comments UA Spec Grav (test code = UA Spec Grav) 1.012 [facility] IFLYX3849-75-21 18:47:00 Test Item Value Reference Range Interpretation Comments VITAMIN B1 (THIAMINE) WHOLE BLOOD (test 73 78-185 code = VITAMIN B1 (THIAMINE) WHOLE BLOOD) [facility] ELQCU5728-88-92 18:47:00 Test Item Value Reference Range Interpretation Comments Vitamin D, 25-OH, Total (test code = 20 30-100 Vitamin D, 25-OH, Total) [facility] HPNOP0146-23-16 18:47:00 Test Item Value Reference Range Interpretation Comments eGFR (test code = eGFR) 75 [facility]2015-04-24 18:47:00 Test Item Value Reference Range Interpretation Comments Calcium Lvl (test code = Calcium Lvl) 8.7 8.5-10.5 [facility]2015-04-24 18:47:00 Test Item Value Reference Range Interpretation Comments Creatinine Lvl (test code = Creatinine 1.2 0.5-1.4 Lvl) [facility]2015-04-24 18:47:00 Test Item Value Reference Range Interpretation Comments Chloride Lvl (test code = Chloride Lvl) 109 95-109 [facility]2015-04-24 18:47:00 Test Item Value Reference Range Interpretation Comments Potassium Lvl (test code = Potassium 3.8 3.5-5.1 Lvl) [facility]2015-04-24 18:47:00 Test Item Value Reference Range Interpretation Comments Sodium Lvl (test code = Sodium Lvl) 144 135-145 [facility]2015-04-24 18:47:00 Test Item Value Reference Range Interpretation Comments Bili Total (test code = Bili Total) 0.6 0.2-1.3 [facility]2015-04-24 18:47:00 Test Item Value Reference Range Interpretation Comments Alk Phos (test code = Alk Phos) 100 39-136 [facility]2015-04-24 18:47:00 Test Item Value Reference Range Interpretation Comments AST (test code = AST) 45 See_Comment [Auto mated message] The system which ge nerated this result transmit susanne reference range : <=37. The reference range was not used to interpr et this result as shabana l/abnormal. [facility]2015-04-24 18:47:00 Test Item Value Reference Range Interpretation Comments Albumin Lvl (test code = Albumin Lvl) 3.9 3.5-5.0 [facility]2015-04-24 18:47:00 Test Item Value Reference Range Interpretation Comments ALT (test code = ALT) 91 See_Comment [Auto mated message] The system which ge nerated this result transmit susanne reference range : <=65. The reference range was not used to interpr et this result as shabana l/abnormal. [place] 738625-04-24 18:47:00 Test Item Value Reference Range Interpretation Comments Total Protein (test code = Total 7.9 6.4-8.4 Protein) [facility]2015-04-24 18:47:00 Test Item Value Reference Range Interpretation Comments CO2 (test code = CO2) 27 24-32 [facility]2015-04-24 18:47:00 Test Item Value Reference Range Interpretation Comments BUN (test code = BUN) 20 7-22 [facility]2015-04-24 18:47:00 Test Item Value Reference Range Interpretation Comments Glucose Lvl (test code = Glucose Lvl) 121 70-99 [facility]2015-04-24 18:47:00 Test Item Value Reference Range Interpretation Comments Globulin (test code = Globulin) 4.0 2.0-4.0 [facility]2015-04-24 18:47:00 Test Item Value Reference Range Interpretation Comments B/C Ratio (test code = B/C Ratio) 17 6-25 [facility]2015-04-24 18:47:00 Test Item Value Reference Range Interpretation Comments A/G Ratio (test code = A/G Ratio) 1.0 0.7-1.6 [facility]2015-04-24 18:47:00 Test Item Value Reference Range Interpretation Comments AGAP (test code = AGAP) 11.8 10.0-20.0 [facility]
[2021-09-16] MEDS ORDERED: FENTANYL CITR 100 MCG/2 ML ONE (22:48)
[2021-09-16] MEDS ORDERED: NA CHLORIDE 0.9% 1,000 ML ONE (22:49)
[2021-09-16] MEDS ORDERED: ONDANSETRON 4 MG/2 ML VIAL ONE (22:49)
[2021-09-16 23:29] LABS: Absolute Lymphocytes (CBC) 0.8 K/uL (0.7-4.9); Hematocrit 37.5 % (39.6-49.0); Lymphocytes % 12.6 % (15.3-44.8); MPV 8.5 fL (7.6-11.3); RBC Red Blood Cell Count 4.56 M/uL (4.33-5.43)
[2021-09-16] MEDS ORDERED: METHYLPREDNISOLONE 125 MG INJ ONE (23:36)
[2021-09-16] MEDS ORDERED: FAMOTIDINE 20 MG/2 ML VIAL IV ONE (23:36)
[2021-09-16] MEDS ORDERED: DIPHENHYDRAMINE 50 MG/ML VIAL ONE (23:36)
[2021-09-16 23:57] LABS: Albumin 3.2 g/dL (3.4-5.0); Potassium 3.6 mmol/L (3.5-5.1); Protein, Total 7.5 g/dL (6.4-8.2); Uric Acid 8.7 mg/dL (3.5-7.2)
[2021-09-17 00:59] LABS: Urine Blood Trace-lysed (Negative); Urine Glucose Negative (Negative); Urine Protein Negative (Negative); Urine pH 6.5 (5.0-7.0)
[2021-09-17] MEDS ORDERED: TAMSULOSIN 0.4 MG SR CAP ONE (01:19)
[2021-09-17] MEDS ORDERED: CEFTRIAXONE 1000 MG/VIAL ONE (01:19)
[2021-09-17 01:40] LABS: Urine Bacteria >50 /HPF (NONE SEEN); Urine RBC <5 /HPF (NONE SEEN); Urine Urothelial Cells <5 /HPF (NONE SEEN)
--- NOTE | 2021-09-17 02:40 | ER ---
Nurse's Notes [facility] Name: Johann Nash Age: 46 yrs Sex: Male : 1975 Arrival Date: 09/16/2021 Time: 21:35 Bed 7 Private MD: Diagnosis: Low back pain;Retention of urine, unspecified-PVR 2400 CC;Paresthesia of skin;Gout, unspecified Presentation: 09/16 22:04 Chief complaint: Patient states: he was just here for back pain and started on bb medication which is not working the pain is not going away and he has not been able to have a bowel movement or urinate in several days he has started taking allopurinol this last week and doesn't know if that is contributing, the pain is burning and the lower half of his body is numb. Coronavirus screen: At this time, the client does not indicate any symptoms associated with coronavirus-19. Ebola Screen: No symptoms or risks identified at this time. Initial Sepsis Screen: Does the patient meet any 2 criteria? No. Patient's initial sepsis screen is negative. Does the patient have a suspected source of infection? No. Patient's initial sepsis screen is negative. Risk Assessment: Do you want to hurt yourself or someone else? Patient reports no desire to harm self or others. Onset of symptoms was September 16, 2021. 22:04 Method Of Arrival: Wheelchair bb 22:04 Acuity: AYANNA 2 bb Historical: - Allergies: 22:21 Morphine; bb 22:21 SHELLFISH; bb - Home Meds: 22:21 Colchicine Oral [Active]; Metoprolol Tartrate Oral [Active]; urolic [Active]; bb - PMHx: 22:21 Gout; Hypertension; Kidney stone; bb - PSHx: 22:21 Ankle; Gastric Bypass; spine SX; Tonsillectomy; bb - Immunization history:: Moderna x 3. - Social history:: Smoking status: Patient reports the use of cigarette tobacco products. - Family history:: not pertinent. Screenin/23 01:35 Abuse screen: Denies threats or abuse. Denies injuries from another. Nutritional as6 screening: No deficits noted. Tuberculosis screening: No symptoms or risk factors identified. Fall Risk None identified. Assessment: 00:01 General: Appears in no apparent distress. uncomfortable, Behavior is calm, cooperative. lg3 Neuro: No deficits noted. Level of Consciousness is awake, alert, obeys commands, Oriented to person, place, time, situation. Cardiovascular: No deficits noted. Denies chest pain, shortness of breath, Capillary refill < 3 seconds Clubbing of nail beds is absent JVD is absent Patient's skin is warm and dry. Respiratory: No deficits noted. Airway is patent Trachea midline Respiratory effort is even, unlabored, Respiratory pattern is regular, symmetrical. GI: Abdomen is round non-distended, Bowel sounds present X 4 quads. Reports lower abdominal pain, cramping. : Reports inability to void, pain. EENT: No deficits noted. No signs and/or symptoms were reported regarding the EENT system. Derm: No deficits noted. No signs and/or symptoms reported regarding the dermatologic system. Skin is intact, is healthy with good turgor, Skin is dry, Skin temperature is warm. Musculoskeletal: No deficits noted. No signs and/or symptoms reported regarding the musculoskeletal system. Circulation, motion, and sensation intact. Range of motion: intact in all extremities. 01:35 Reassessment: Patient appears in no apparent distress at this time. No changes from lg3 previously documented assessment. Patient and/or family updated on plan of care and expected duration. Pain level reassessed. Patient is alert, oriented x 3, equal unlabored respirations, skin warm/dry/pink. 03:33 General: report called to AILYN Castro at [facility] . lg3 04:00 Reassessment: Patient appears in no apparent distress at this time. No changes from lg3 previously documented assessment. Patient and/or family updated on plan of care and expected duration. Pain level reassessed. Patient is alert, oriented x 3, equal unlabored respirations, skin warm/dry/pink. 04:46 General: initial urine output post Yoon insertion 2400 ml. additional 700 ml of urine lg3 output via Yoon at time of transfer . Vital Signs: 09/16 22:04 BP 122 / 88; Pulse 73; Resp 20 S; Temp 98.3(O); Pulse Ox 97% on R/A; Weight 121.11 kg bb (R); Height 6 ft. 2 in. (187.96 cm) (R); Pain 9/10; 09/17 00:03 BP 124 / 91; Pulse 71; Resp 19 S; Pulse Ox 98% on R/A; lg3 01:35 BP 131 / 89; Pulse 68; Resp 18 S; Pulse Ox 96% on R/A; as6 04:00 BP 143 / 88; Pulse 66; Resp 17 S; Pulse Ox 97% on R/A; lg3 09/16 22:04 Body Mass Index 34.28 (121.11 kg, 187.96 cm) bb ED Course: 09/16 21:35 Patient arrived in ED. as 22:08 Natalio Lopez, AILYN is Primary Nurse. as6 22:16 Jacobo Yuan MD is Attending Physician. ashley 22:21 Triage completed. bb 22:21 Arm band placed on Patient placed in an exam room, on a stretcher, on pulse oximetry. bb EKG completed in triage. Results shown to MD. Family accompanied patient. 22:30 Inserted saline lock: 18 gauge in right antecubital area, using aseptic technique. as6 Blood collected. 22:39 CBC with Diff Sent. as6 22:39 CMP Sent. as6 22:39 Lipase Sent. as6 09/17 00:44 Yoon cath inserted, using sterile technique, 18 Fr., by hi, balloon inflated, to lg3 gravity drainage, urine specimen collected. 00:50 Chest Single View XRAY In Process Unspecified. EDMS 00:59 Urine Culture Sent. lg3 01:00 Urine Microscopic Only Sent. lg3 01:31 Abdomen In Process Unspecified. EDMS 01:36 Placed in gown. Bed in low position. Call light in reach. Side rails up X2. Adult w/ as6 patient. Pulse ox on. NIBP on. 02:37 Sushant Vera MD is Hospitalizing Provider. ashley 04:48 No provider procedures requiring assistance completed. Patient transferred, IV remains lg3 in place. intact, No redness/swelling at site. Administered Medications: 09/16 22:47 Drug: fentaNYL (PF) 50 mcg Route: IVP; Site: right antecubital; as6 23:32 Follow up: Response: No adverse reaction lg3 22:48 Drug: NS 0.9% 1000 ml Route: IV; Rate: 1 bolus; Site: right antecubital; as6 23:39 Follow up: IV Status: Completed infusion; IV Intake: 1000ml lg3 22:48 Drug: Zofran (Ondansetron) 4 mg Route: IVP; Site: right antecubital; as6 23:39 Follow up: Response: No adverse reaction lg3 23:38 Drug: SOLU-Medrol (methylPrednisoLONE) 125 mg Route: IVP; Site: right antecubital; lg3 23:38 Follow up: Response: No adverse reaction lg3 23:39 Drug: Pepcid (famotidine) 20 mg Route: IVP; Site: right antecubital; lg3 23:39 Follow up: Response: No adverse reaction lg3 23:39 Drug: Benadryl (diphenhydrAMINE) 50 mg Route: IVP; Site: right antecubital; lg3 23:39 Follow up: Response: No adverse reaction lg3 09/17 01:30 Drug: Rocephin (cefTRIAXone) 1 grams Route: IV; Rate: per protocol; Site: right as6 antecubital; 01:30 Drug: Flomax (tamsulosin) 0.4 mg Route: PO; as6 02:30 Follow up: Response: No adverse reaction lg3 Medication: 04:48 VIS not applicable for this client. lg3 Intake: 09/16 23:39 IV: 1000ml; Total: 1000ml. lg3 Output: 09/17 00:55 Urine: 2400ml (Yoon); Total: 2400ml. as6 Outcome: 02:40 Decision to Hospitalize by Provider. ashley 03:14 ER care complete, transfer ordered by . ashley 04:48 Transferred by ground EMS to [facility], Transfer form completed. lg3 04:48 Condition: stable 04:48 Instructed on the need for transfer, Demonstrated understanding of instructions. 05:17 Patient left the ED. lg3 Signatures: Dispatcher [employer] EDMS Jacobo Yuan MD MD cha Martinez, Amelia as Ballard, Brenda, RN RN bb Gibson, Lacie, RN RN lg3 Natalio Lopez RN RN as6 Corrections: (The following items were deleted from the chart) 04:46 00:01 Pain: Complains of pain in abdomen and right low back lg3 lg3 04:46 04:45 General: lg3 lg3
--- NOTE | 2021-09-17 02:40 | EDPHYS ---
Physician Documentation [facility] Name: Johann Nash Age: 46 yrs Sex: Male : 1975 Arrival Date: 09/16/2021 Time: 21:35 Bed 7 Private MD: LISSA Physician Jacobo Yuan HPI: 09/16 22:29 This 46 yrs old Male presents to ER via Wheelchair with complaints of Back ashley Pain, Urinary Retention, Constipation, Numbness - legs. 22:29 The patient presents with pain that is acute, with no known mechanism of injury. The ashley symptoms are located in the low back, right low back. Onset: The symptoms/episode began/occurred 3 day(s) ago. The pain does not radiate. Associated signs and symptoms: Pertinent positives: constipation, urinary retention, NO URINE 2 DAYS. The problem was sustained from unknown cause. Modifying factors: The patient symptoms are alleviated by nothing, the patient symptoms are aggravated by movement. Severity of symptoms: At their worst the symptoms were mild, moderate, in the emergency department the symptoms are unchanged. The patient has experienced a previous episode, approximately 3 days ago. Historical: - Allergies: 22:21 Morphine; bb 22:21 SHELLFISH; bb - Home Meds: 22:21 Colchicine Oral [Active]; Metoprolol Tartrate Oral [Active]; urolic [Active]; bb - PMHx: 22:21 Gout; Hypertension; Kidney stone; bb - PSHx: 22:21 Ankle; Gastric Bypass; spine SX; Tonsillectomy; bb - Immunization history:: Moderna x 3. - Social history:: Smoking status: Patient reports the use of cigarette tobacco products. - Family history:: not pertinent. ROS: 22:29 Constitutional: Negative for fever, chills, and weight loss, Eyes: Negative for injury, ashley pain, redness, and discharge, ENT: Negative for injury, pain, and discharge, Neck: Negative for injury, pain, and swelling, Cardiovascular: Negative for chest pain, palpitations, and edema, Respiratory: Negative for shortness of breath, cough, wheezing, and pleuritic chest pain, Abdomen/GI: Negative for abdominal pain, nausea, vomiting, diarrhea, and constipation, : Negative for injury, bleeding, discharge, and swelling, MS/Extremity: Negative for injury and deformity, Skin: Negative for injury, rash, and discoloration, Neuro: Negative for headache, weakness, numbness, tingling, and seizure, Psych: Negative for depression, anxiety, suicide ideation, homicidal ideation, and hallucinations, Allergy/Immunology: Negative for hives, rash, and allergies, Endocrine: Negative for neck swelling, polydipsia, polyuria, polyphagia, and marked weight changes, Hematologic/Lymphatic: Negative for swollen nodes, abnormal bleeding, and unusual bruising. 22:29 Back: Positive for decreased range of motion, flank pain, on the right. Exam: 22:29 Constitutional: This is a well developed, well nourished patient who is awake, alert, ashley and in no acute distress. Head/Face: Normocephalic, atraumatic. Eyes: Pupils equal round and reactive to light, extra-ocular motions intact. Lids and lashes normal. Conjunctiva and sclera are non-icteric and not injected. Cornea within normal limits. Periorbital areas with no swelling, redness, or edema. ENT: Nares patent. No nasal discharge, no septal abnormalities noted. Tympanic membranes are normal and external auditory canals are clear. Oropharynx with no redness, swelling, or masses, exudates, or evidence of obstruction, uvula midline. Mucous membranes moist. Neck: Trachea midline, no thyromegaly or masses palpated, and no cervical lymphadenopathy. Supple, full range of motion without nuchal rigidity, or vertebral point tenderness. No Meningismus. Chest/axilla: Normal chest wall appearance and motion. Nontender with no deformity. No lesions are appreciated. Cardiovascular: Regular rate and rhythm with a normal S1 and S2. No gallops, murmurs, or rubs. Normal PMI, no JVD. No pulse deficits. Respiratory: Lungs have equal breath sounds bilaterally, clear to auscultation and percussion. No rales, rhonchi or wheezes noted. No increased work of breathing, no retractions or nasal flaring. Abdomen/GI: Soft, non-tender, with normal bowel sounds. No distension or tympany. No guarding or rebound. No evidence of tenderness throughout. Male : Normal genitalia with no discharge or lesions. Skin: Warm, dry with normal turgor. Normal color with no rashes, no lesions, and no evidence of cellulitis. MS/ Extremity: Pulses equal, no cyanosis. Neurovascular intact. Full, normal range of motion. Neuro: Awake and alert, GCS 15, oriented to person, place, time, and situation. Cranial nerves II-XII grossly intact. Motor strength 5/5 in all extremities. Sensory grossly intact. Cerebellar exam normal. Normal gait. Psych: Awake, alert, with orientation to person, place and time. Behavior, mood, and affect are within normal limits. 22:29 Back: pain, that is severe, ROM is painful, with all movement, normal spinal alignment noted, CVA tenderness, that is mild, muscle spasm, is not present. Vital Signs: 22:04 BP 122 / 88; Pulse 73; Resp 20 S; Temp 98.3(O); Pulse Ox 97% on R/A; Weight 121.11 kg bb (R); Height 6 ft. 2 in. (187.96 cm) (R); Pain 9/10; 09/17 00:03 BP 124 / 91; Pulse 71; Resp 19 S; Pulse Ox 98% on R/A; lg3 01:35 BP 131 / 89; Pulse 68; Resp 18 S; Pulse Ox 96% on R/A; as6 04:00 BP 143 / 88; Pulse 66; Resp 17 S; Pulse Ox 97% on R/A; lg3 09/16 22:04 Body Mass Index 34.28 (121.11 kg, 187.96 cm) bb MDM: 09/16 22:16 Patient medically screened. ashley 22:33 Differential diagnosis: Fatigue Hydronephrosis Obesity Pyelonephritis Ureterolithiasis. [facility] Data reviewed: vital signs, nurses notes, lab test result(s), radiologic studies, CT scan, plain films. 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 Counseling: I had a detailed discussion with the patient and/or guardian regarding: the historical points, exam findings, and any diagnostic results supporting the discharge/admit diagnosis, lab results, radiology results. 09/16 22:29 Order name: CBC with Diff; Complete Time: 00:05 ashley 09/16 22:29 Order name: CMP; Complete Time: 00:05 ashley 09/16 22:29 Order name: Lipase; Complete Time: 00:05 [facility] 09/16 21: Order name: Urine Microscopic Only; Complete Time: 01:55 [facility] 09/16 22:29 Order name: Urine Culture [facility] 09/16 23:15 Order name: Uric Acid; Complete Time: 00:05 [facility] 09/17 00:27 Order name: Chest Single View XRAY [facility] 09/17 00:59 Order name: Urine Dipstick-Ancillary; Complete Time: 01:55 [facility] 09/17 01:03 Order name: Abdomen [facility] 09/17 02:24 Order name: SARS-COV-2 RT PCR (Document "Date of Onset" if Symptomatic); Complete Time: [facility] 04:04 09/16 22:29 Order name: IV Saline Lock; Complete Time: 22:39 [facility] 09/16 22:29 Order name: Labs collected and sent; Complete Time: 22:39 [facility] 09/16 22:29 Order name: Urine Dipstick-Ancillary (obtain specimen); Complete Time: 01:00 [facility] 09/17 00:26 Order name: Yoon; Complete Time: 00:44 [facility] 09/17 00:27 Order name: EKG; Complete Time: 00:28 [facility] 09/17 00:27 Order name: EKG - Nurse/Tech; Complete Time: 01:35 [facility] Administered Medications: 22:47 Drug: fentaNYL (PF) 50 mcg Route: IVP; Site: right antecubital; as6 23:32 Follow up: Response: No adverse reaction lg3 22:48 Drug: NS 0.9% 1000 ml Route: IV; Rate: 1 bolus; Site: right antecubital; as6 23:39 Follow up: IV Status: Completed infusion; IV Intake: 1000ml lg3 22:48 Drug: Zofran (Ondansetron) 4 mg Route: IVP; Site: right antecubital; as6 23:39 Follow up: Response: No adverse reaction lg3 23:38 Drug: SOLU-Medrol (methylPrednisoLONE) 125 mg Route: IVP; Site: right antecubital; lg3 23:38 Follow up: Response: No adverse reaction lg3 23:39 Drug: Pepcid (famotidine) 20 mg Route: IVP; Site: right antecubital; lg3 23:39 Follow up: Response: No adverse reaction lg3 23:39 Drug: Benadryl (diphenhydrAMINE) 50 mg Route: IVP; Site: right antecubital; lg3 23:39 Follow up: Response: No adverse reaction lg3 09/17 01:30 Drug: Rocephin (cefTRIAXone) 1 grams Route: IV; Rate: per protocol; Site: right as6 antecubital; 01:30 Drug: Flomax (tamsulosin) 0.4 mg Route: PO; as6 02:30 Follow up: Response: No adverse reaction lg3 Disposition Summary: 09/17/21 03:14 Transfer Ordered Transfer Location: [facility] ashley Reason: Higher level of care ashley Condition: Fair(09/17/21 03:14) ashley Problem: new(09/17/21 03:14) ashley Symptoms: have improved(09/17/21 03:14) ashley Accepting Physician: TO [facility](09/17/21 05:17) lg3 Diagnosis - Low back pain(09/17/21 03:14) ashley - Retention of urine, unspecified - PVR 2400 CC(09/17/21 03:14) ashley - Paresthesia of skin(09/17/21 03:14) ashley - Gout, unspecified ashley Forms: - Medication Reconciliation Form ashley - SBAR form ashley Signatures: Dispatcher [employer] EDMS Jacobo Yuan MD MD cha Ballard, Brenda, RN RN bb Berna Benavides RN RN lg3 Natalio Lopez RN RN as6 Corrections: (The following items were deleted from the chart) 09/16 23:14 22:35 URIC ACID+C.LAB.BRZ ordered. EDMS EDMS 09/17 01:03 09/16 22:29 Abdomen Pelvis W Con+CT.RAD.BRZ ordered. EDFL EDMS 09/17 03:11 02:40 Observation ashley ashley 03:11 02:40 Sushant Vera ashley ashley 03:11 02:40 Telemetry/MedSurg (observation) ashley ashley 03:11 02:40 Fair ashley ashley 03:11 02:40 new ashley ashley 03:11 02:40 have improved ashley ashley 03:11 02:40 Standard ashley ashley 03:11 02:40 ashley ashley 03:11 02:40 Constipation ashley ashley 03:11 02:40 Retention of urine, unspecified - PVR 2400 CC ashley ashley 03:11 02:40 Paresthesia of skin - GROINS ashley ashley 03:11 02:40 Low back pain ashley ashley 05:17 03:14 TO [facility] ER lg3
[2021-09-17 05:29] VITALS: TEMP 98.3
[2021-09-17 05:44] VITALS: BP 143/88; O2SAT 97
--- NOTE | 2021-09-17 14:15 | RAD REPORT ---
EXAM DESCRIPTION: CT - Abdomen Pelvis Wo Contrast - 09/17/2021 6:31 am CLINICAL HISTORY: 46 years, Male, Flank pain, kidney stone suspected COMPARISON: None TECHNIQUE: Multiple transaxial tomograms of the abdomen and pelvis were performed from the lung base s to the symphysis pubis 5 mm slice thickness at 5 mm interval reconstruction, without administration of IV and oral contrast. Multiplanar reformats in the sagittal and coronal plane were generated and reviewed. This exam was performed according to our departmental dose-optimization protocol, which includes auto mated exposure control, adjustment of the mA and/or kV according to patient size and/or use of iterat anjel reconstruction technique. FINDINGS: The lack of IV and oral contrast limits evaluation of solid organs, subtle lesions cannot be excluded. The lung bases demonstrate to be clear. Grossly the unopacified liver, pancreas, spleen and adrenal glands demonstrate to be within normal li mits, no significant focal lesions were identified. There is a status post cholecystectomy. The kidneys demonstrated presence of bilateral nephrolithiasis, largest calculus lower pole right kid allen measures 12 mm on image 56, largest calculus within the left kidney along the mid/lower pole david ures 12 x 11 mm on image 47. There is no evidence for hydronephrosis/or hydroureter. Grossly the unopacified stomach demonstrate status post gastric bypass jejunostomy. Otherwise the sto mach, small bowel and large bowel demonstrate to be within normal limits. There is no evidence for natalee wel dilatation and/or free air. There is mild fecal stasis within the left site colon/rectum The urinary bladder demonstrate presence of a Yoon catheter. The prostate gland is unremarkable The aorta demonstrate to be within normal limits. There is no retroperitoneal lymphadenopathy. There is no evidence for ascites. The rest of the soft tissue demonstrate to be grossly unremarkable. IMPRESSION: Bilateral nephrolithiasis with no evidence for hydronephrosis and/or hydroureter. Status post gastric bypass jejunostomy. Mild fecal stasis within the left site colon/rectum. Status post cholecystectomy. Electronically signed by: Francis Joy MD 09/17/2021 2:08 AM CDT Due to temporary technical issues with the PACS/Fluency reporting system, reports are being signed by the in house radiologists without. review as a courtesy to insure prompt reporting. The interpreting radiologist is fully responsible for the content of the report.
--- NOTE | 2021-09-17 14:25 | RAD REPORT ---
EXAM DESCRIPTION: RAD - Chest Single View - 09/17/2021 12:48 am CLINICAL HISTORY: 46 years Male, COUGH COMPARISON: Chest radiograph dated 06/02/2018 FINDINGS: No focal lung consolidation. No pleural effusion. No pneumothorax. Cardiomediastinal silhouette is unchanged. No acute osseous abnormality. IMPRESSION: No acute cardiopulmonary disease. Electronically signed by: José Antonio Benson DO 09/17/2021 1:04 AM CDT Due to temporary technical issues with the PACS/Fluency reporting system, reports are being signed by the in house radiologists without. review as a courtesy to insure prompt reporting. The interpreting radiologist is fully responsible for the content of the report.
== END 2021-09-17 05:17 | disposition short-term general hospital (02) ==
LOC: ER 21:34
DX: M54.50 Low back pain, unspecified (principal); R33.9 Retention of urine, unspecified; R20.2 Paresthesia of skin; M10.9 Gout, unspecified; I10 Essential (primary) hypertension; Z72.0 Tobacco use; Z88.5 Allergy status to narcotic agent; Z87.442 Personal history of urinary calculi; Z91.013 Allergy to seafood
CPT/HCPCS: 85025; 36415; 84550; 83690; 80053; J1200; J3010; J7030; J2930; J2405; J3490; 71045; 74176; 81003; 81015; 87086; 87088; 93005; U0003

== ENCOUNTER 2021-09-23 22:55 | Emergency (ER) | payer BC ==
[2021-09-23] MEDS ORDERED: DEXTROSE 10%-WATER 500 ML IV ONE (23:21)
[2021-09-23] MEDS ORDERED: NA CHLORIDE 0.9% 3,000 ML ONE (23:22)
[2021-09-23 23:45] LABS: Protime INR 1.46
[2021-09-23 23:50] LABS: Urine Blood 3+ (Negative); Urine Glucose Negative (Negative); Urine Protein 2+ (Negative); Urine Specific Gravity >=1.030 (1.005-1.030); Urine pH 5.5 (5.0-7.0)
[2021-09-23 23:54] LABS: Absolute Lymphocytes (CBC) 1.2 K/uL (0.7-4.9); Hematocrit 37.3 % (39.6-49.0); Lymphocytes % 13.1 % (15.3-44.8); MPV 8.3 fL (7.6-11.3); RBC Red Blood Cell Count 4.57 M/uL (4.33-5.43)
[2021-09-24 00:23] LABS: Albumin 2.4 g/dL (3.4-5.0); Bilirubin Total 0.5 mg/dL (0.2-1.0); Potassium 3.7 mmol/L (3.5-5.1); Protein, Total 6.9 g/dL (6.4-8.2)
[2021-09-24 00:45] LABS: Blood Morphology Comment NOT SEEN (NOT SEEN); Platelet Estimate ADEQ; White Blood Cell Scan OK (OK)
[2021-09-24 00:52] LABS: Urine Bacteria 20-50 /HPF (NONE SEEN); Urine RBC >50 /HPF (NONE SEEN)
[2021-09-24] MEDS ORDERED: DEXTROSE 10%-WATER 500 ML IV ONE (03:46)
--- NOTE | 2021-09-24 04:04 | EDPHYS ---
Physician Documentation [facility] Name: Johann Nash Age: 46 yrs Sex: Male : 1975 Arrival Date: 09/23/2021 Time: 22:55 Bed 4 Private MD: ED Physician Riley Morales HPI: 09/24 04:04 This 46 yrs old Male presents to ER via EMS with complaints of General kdr Weakness. 04:04 Weakness in the lower extremities. Onset: The symptoms/episode began/occurred kdr gradually, 2 week(s) ago. Severity of symptoms: At their worst the symptoms were mild in the emergency department the symptoms are unchanged. The patient has not experienced similar symptoms in the past. The patient has been recently seen at the [facility] Emergency Department, Patient has been seen and evaluated by neurology discharge recently from [facility] in [place]. Patient and are on aware of any specific diagnosis that have been made.. Historical: - Allergies: 09/23 23:12 Morphine; as6 23:12 SHELLFISH; as6 - Home Meds: 23:12 Colchicine Oral [Active]; Metoprolol Tartrate Oral [Active]; urolic [Active]; as6 - PMHx: 23:12 Gout; Hypertension; Kidney stone; as6 - PSHx: 23:12 Ankle; Gastric Bypass; spine SX; Tonsillectomy; as6 - Immunization history:: Client reports receiving the 2nd dose of the Covid vaccine. - Social history:: Smoking status: Patient denies any tobacco usage or history of. ROS: 09/24 04:04 Constitutional: Negative for fever, chills, and weight loss, Eyes: Negative for injury, kdr pain, redness, and discharge, Neck: Negative for injury, pain, and swelling, Cardiovascular: Negative for chest pain, palpitations, and edema, Respiratory: Negative for shortness of breath, cough, wheezing, and pleuritic chest pain, Abdomen/GI: Negative for abdominal pain, nausea, vomiting, diarrhea, and constipation, Back: Negative for injury and pain, MS/Extremity: Negative for injury and deformity, Skin: Negative for injury, rash, and discoloration, Psych: Negative for depression, anxiety, suicide ideation, homicidal ideation, and hallucinations, Allergy/Immunology: Negative for hives, rash, and allergies. Neuro: Positive for weakness, of the right leg and left leg. Exam: 04:04 Constitutional: This is a well developed, well nourished patient who is awake, alert, kdr and in no acute distress. Head/Face: Normocephalic, atraumatic. Eyes: Pupils equal round and reactive to light, extra-ocular motions intact. Lids and lashes normal. Conjunctiva and sclera are non-icteric and not injected. Cornea within normal limits. Periorbital areas with no swelling, redness, or edema. Neck: Trachea midline, no thyromegaly or masses palpated, and no cervical lymphadenopathy. Supple, full range of motion without nuchal rigidity, or vertebral point tenderness. No Meningismus. Chest/axilla: Normal chest wall appearance and motion. Nontender with no deformity. No lesions are appreciated. Cardiovascular: Regular rate and rhythm with a normal S1 and S2. No gallops, murmurs, or rubs. Normal PMI, no JVD. No pulse deficits. Respiratory: Lungs have equal breath sounds bilaterally, clear to auscultation and percussion. No rales, rhonchi or wheezes noted. No increased work of breathing, no retractions or nasal flaring. Abdomen/GI: Soft, non-tender, with normal bowel sounds. No distension or tympany. No guarding or rebound. No evidence of tenderness throughout. Skin: Warm, dry with normal turgor. Normal color with no rashes, no lesions, and no evidence of cellulitis. MS/ Extremity: Pulses equal, no cyanosis. Neurovascular intact. Full, normal range of motion. Psych: Awake, alert, with orientation to person, place and time. Behavior, mood, and affect are within normal limits. 04:04 Neuro: Orientation: is normal, Motor: moves all fours, strength is 5/5 in the right arm and left arm, strength is 4/5 in the right leg and left leg. Vital Signs: 09/23 22:58 BP 107 / 58; Pulse 77; Resp 18 S; Temp 97.8(O); Pulse Ox 100% on R/A; Weight 123.5 kg aa9 (M); Height 5 ft. 11 in. (180.34 cm) (R); Pain 3/10; 23:30 BP 99 / 59; Pulse 72; Resp 10 S; Pulse Ox 100% on R/A; 09/24 00:39 BP 124 / 67; Pulse 70; Resp 13 S; Pulse Ox 100% on R/A; as6 02:00 BP 116 / 69; Pulse 69; Resp 15 S; Pulse Ox 100% on R/A; as6 03:00 BP 116 / 66; Pulse 68; Resp 16 S; Pulse Ox 100% on R/A; as6 04:00 BP 116 / 68; Pulse 66; Resp 14 S; Pulse Ox 100% on R/A; as6 05:00 BP 114 / 60; Pulse 67; Resp 14 S; Pulse Ox 100% on R/A; as6 06:00 BP 110 / 63; Pulse 66; Resp 14 S; Pulse Ox 98% on R/A; 09/23 22:58 Body Mass Index 37.97 (123.50 kg, 180.34 cm) aa MDM: 04:04 Patient medically screened. kdr 04:04 Data reviewed: vital signs, nurses notes, lab test result(s). Counseling: I had a kdr detailed discussion with the patient and/or guardian regarding: the historical points, exam findings, and any diagnostic results supporting the discharge/admit diagnosis, lab results, the need to transfer to another facility. 09/23 23:02 Order name: Blood Culture Adult (2) 09/23 23:02 Order name: CBC with Diff; Complete Time: 00:54 09/23 23:02 Order name: CMP; Complete Time: 00:54 09/23 23:02 Order name: Lactate; Complete Time: 00:54 09/23 23:02 Order name: Protime (+inr); Complete Time: 00:54 09/23 23:02 Order name: Ptt, Activated; Complete Time: 00:54 09/23 23:02 Order name: Urine Culture 09/23 23:02 Order name: Urine Microscopic Only; Complete Time: 00:54 09/23 23:22 Order name: Glucose, Ancillary Testing; Complete Time: 00:54 EDDE 09/23 23:51 Order name: Urine Dipstick-Ancillary; Complete Time: 00:54 EDDE 09/23 23:57 Order name: CBC Smear Scan; Complete Time: 00:54 EDMS 09/24 00:16 Order name: COVID-19 SARS RT PCR (Document "Date of Onset" if Symptomatic); Complete aa9 Time: 03:09 09/24 01:32 Order name: Glucose, Ancillary Testing; Complete Time: 03:09 EDMS 09/24 06:24 Order name: Glucose, Ancillary Testing EDMS 09/23 23:02 Order name: Chest Single View XRAY aa9 09/23 23:02 Order name: Accucheck; Complete Time: 23:17 9 09/23 23:02 Order name: Cardiac monitoring; Complete Time: 23:17 09/23 23:02 Order name: EKG - Nurse/Tech; Complete Time: 23:17 9 09/23 23:02 Order name: IV Saline Lock - Large Bore; Complete Time: 23:17 09/23 23:02 Order name: Labs collected and sent; Complete Time: 23:17 09/23 23:02 Order name: O2 Per Protocol; Complete Time: 23:17 9 09/23 23:02 Order name: O2 Sat Monitoring; Complete Time: 23:09/23 23:02 Order name: Urine Dipstick-Ancillary (obtain specimen); Complete Time: 23:55 Administered Medications: 09/23 23:18 Drug: D10 in Water [2 mL/kg] 250 ml Route: IVP; Site: right forearm; as09/24 06:28 Follow up: Response: No adverse reaction 09/23 23:19 Drug: NS 0.9% (30 ml/kg) 30 ml/kg Route: IV; Rate: bolus; Site: right antecubital; as09/24 06:27 Follow up: Response: No adverse reaction; IV Status: IV converted to saline lock; IV as6 Intake: 3000ml 04:07 Drug: D10 in Water [2 mL/kg] 250 ml Route: IVP; Site: right antecubital; 06:28 Follow up: Response: No adverse reaction as6 Disposition Summary: 09/24/21 04:04 Transfer Ordered Transfer Location: [facility] kdr Reason: Higher level of care kdr Condition: Fair kdr Problem: an ongoing problem kdr Symptoms: have worsened kdr Accepting Physician: Osmar./ED(09/24/21 06:28) as6 Diagnosis - Lower estremity weakness, Hypoglycemia, Renal Failure kdr Forms: - Medication Reconciliation Form kdr - SBAR form kdr Signatures: Dispatcher [employer] EDMS Riley Morales MD MD kdr Natalio Lopez RN RN as6 Tosha Paris RN RN vc1 Lara Stein RN RN aa9 Corrections: (The following items were deleted from the chart) 06:28 04:04 Buelhr./ED kdr as6
--- NOTE | 2021-09-24 04:04 | ER ---
Nurse's Notes [facility] Name: Johann Nash Age: 46 yrs Sex: Male : 1975 Arrival Date: 09/23/2021 Time: 22:55 Bed 4 Private MD: Diagnosis: Lower estremity weakness, Hypoglycemia, Renal Failure Presentation: 09/23 22:58 Chief complaint: EMS states: called out for generalized weakness and testicular aa9 swelling. pt states he is extremely weak and he feels like he has no energy to move. pt has had a recent hospitalization. on seen for EMS pt systolic BP was 53. Coronavirus screen: At this time, the client does not indicate any symptoms associated with coronavirus-19. Ebola Screen: No symptoms or risks identified at this time. Initial Sepsis Screen: Does the patient meet any 2 criteria? RR > 20 per min. Systolic BP < 90 mmHg. Yes Does the patient have a suspected source of infection? Yes: Catheter related infection (Yoon/dialysis/PICC/central line) Skin breakdown/wound. Risk Assessment: Do you want to hurt yourself or someone else? Patient reports no desire to harm self or others. Onset of symptoms is unknown. Care prior to arrival: Medication(s) given: Normal saline infusion, 1200 ML IV initiated. 20 GA, in the right forearm. 22:58 Method Of Arrival: EMS: [facility] aa9 22:58 Acuity: AYANNA 2 aa9 Historical: - Allergies: 23:12 Morphine; as6 23:12 SHELLFISH; as6 - Home Meds: 23:12 Colchicine Oral [Active]; Metoprolol Tartrate Oral [Active]; urolic [Active]; as6 - PMHx: 23:12 Gout; Hypertension; Kidney stone; as6 - PSHx: 23:12 Ankle; Gastric Bypass; spine SX; Tonsillectomy; as6 - Immunization history:: Client reports receiving the 2nd dose of the Covid vaccine. - Social history:: Smoking status: Patient denies any tobacco usage or history of. Screenin:28 Abuse screen: Denies threats or abuse. Denies injuries from another. Nutritional as6 screening: No deficits noted. Tuberculosis screening: No symptoms or risk factors identified. Fall Risk Gait- Weak (10 pts.). Total Browne Fall Scale indicates No Risk (0-24 pts). Assessment: 22:50 General: Appears ill, Behavior is cooperative, drowsy, Reports fatigue for. Pain: as6 Denies pain. Neuro: Level of Consciousness is obeys commands, lethargic, Oriented to person, place, time, situation, Reports weakness. Cardiovascular: Patient's skin is warm and dry. Respiratory: Respiratory effort is even, unlabored. : Yoon in place. Derm: Skin is dusky, pale. Vital Signs: 22:58 BP 107 / 58; Pulse 77; Resp 18 S; Temp 97.8(O); Pulse Ox 100% on R/A; Weight 123.5 kg aa9 (M); Height 5 ft. 11 in. (180.34 cm) (R); Pain 3/10; 23:30 BP 99 / 59; Pulse 72; Resp 10 S; Pulse Ox 100% on R/A; as6 09/24 00:39 BP 124 / 67; Pulse 70; Resp 13 S; Pulse Ox 100% on R/A; as6 02:00 BP 116 / 69; Pulse 69; Resp 15 S; Pulse Ox 100% on R/A; as6 03:00 BP 116 / 66; Pulse 68; Resp 16 S; Pulse Ox 100% on R/A; as6 04:00 BP 116 / 68; Pulse 66; Resp 14 S; Pulse Ox 100% on R/A; as6 05:00 BP 114 / 60; Pulse 67; Resp 14 S; Pulse Ox 100% on R/A; as6 06:00 BP 110 / 63; Pulse 66; Resp 14 S; Pulse Ox 98% on R/A; as6 09/23 22:58 Body Mass Index 37.97 (123.50 kg, 180.34 cm) aa9 ED Course: 09/23 22:55 Patient arrived in ED. bb 22:58 Lara Stein, AILYN is Primary Nurse. aa9 23:00 No provider procedures requiring assistance completed. Inserted saline lock: 20 gauge as6 in right antecubital area, using aseptic technique. Blood collected. Maintain EMS IV. Dressing intact. Good blood return noted. Site clean \T\ dry. Gauge \T\ site: 20g right forearm. 23:01 Triage completed. aa9 23:12 Arm band placed on. as6 23:28 Bed in low position. Call light in reach. Side rails up X2. Adult w/ patient. Client as6 placed on continuous cardiac and pulse oximetry monitoring. NIBP monitoring applied. Warm blanket given. 23:34 Riley Morales MD is Attending Physician. kdr 23:38 Chest Single View XRAY In Process Unspecified. EDMS 09/24 01:57 Primary Nurse role handed off by Lara Stein, AILYN kd3 01:57 Bonny Stark, AILYN is Primary Nurse. kd3 06:25 Patient transferred, IV remains in place. as6 Administered Medications: 09/23 23:18 Drug: D10 in Water [2 mL/kg] 250 ml Route: IVP; Site: right forearm; as6 09/24 06:28 Follow up: Response: No adverse reaction as6 09/23 23:19 Drug: NS 0.9% (30 ml/kg) 30 ml/kg Route: IV; Rate: bolus; Site: right antecubital; as6 09/24 06:27 Follow up: Response: No adverse reaction; IV Status: IV converted to saline lock; IV as6 Intake: 3000ml 04:07 Drug: D10 in Water [2 mL/kg] 250 ml Route: IVP; Site: right antecubital; as6 06:28 Follow up: Response: No adverse reaction as6 Medication: 06:25 VIS not applicable for this client. as6 Intake: 06:27 IV: 3000ml; Total: 3000ml. as6 Output: 06:27 Urine: 580ml (Yoon); Total: 580ml. as6 Outcome: 04:04 ER care complete, transfer ordered by . kdr 06:25 Transferred by ground EMS to [facility], Transfer form completed. as6 X-rays sent w/ patient. 06:25 Condition: stable 06:25 Instructed on the need for transfer. 06:28 Patient left the ED. as6 Signatures: Dispatcher [employer] [facility] Riley Morales MD MD kdr Ballard, Brenda, RN Natalio Haynes RN RN as6 Bonny Stark RN RN kd3 Lara Stein, RN AILYN aa9
[2021-09-24 06:40] VITALS: TEMP 97.8
[2021-09-24 06:52] VITALS: BP 110/63; O2SAT 98
--- NOTE | 2021-09-24 16:30 | RAD REPORT ---
EXAM DESCRIPTION: RAD - Chest Single View - 09/23/2021 11:36 pm CLINICAL HISTORY: The patient is 46 years old and is Male; sepsis TECHNIQUE: Frontal view of the chest. COMPARISON: No relevant prior studies available. FINDINGS: Lungs: Unremarkable. No consolidation. Pleural space: Unremarkable. No pneumothorax. Heart: Unremarkable. Mediastinum: Unremarkable. Bones/joints: Unremarkable. IMPRESSION: No acute findings in the chest. Electronically signed by: Topher Sosa MD 09/23/2021 11:50 PM CDT Due to temporary technical issues with the PACS/Fluency reporting system, reports are being signed by the in house radiologists without. review as a courtesy to insure prompt reporting. The interpreting radiologist is fully responsible for the content of the report.
== END 2021-09-24 06:28 | disposition short-term general hospital (02) ==
LOC: ER 22:55
DX: R53.1 Weakness (principal); E16.2 Hypoglycemia, unspecified; I12.9 Hypertensive chronic kidney disease with stage 1 through stage 4 chronic kidney disease, or unspecified chronic kidney disease; N18.9 Chronic kidney disease, unspecified; Z88.5 Allergy status to narcotic agent; Z91.013 Allergy to seafood
CPT/HCPCS: 87040; 87088; 85025; 87086; 36415; 85610; 82947; 83605; 85730; 80053; 71045; J7030; 81003; 81015; U0003

== ENCOUNTER 2021-12-14 11:16 | Inpatient (IN) | payer BC ==
[2021-12-14 12:16] LABS: SARS-CoV-2 Antigen Rapid Res Negative (Negative)
--- OUTSIDE RECORDS SUMMARY | 2021-12-14 14:18 | XMS REPORT | Continuity of Care Document ---
:1975 Author Organization [facility] t Address [address] [place] [address] Dr. Mills [address] [place] [id number] Care Team Providers Name Role Phone Adams YARBROUGH, Alexa Coates Primary Care Physician [phone] NARINDER BROOKS Attending Clinician Unavailable Andrew YARBROUGH, Debra [place]edo Attending Clinician Sharita YARBROUGH, Guillermo Elaine Attending Clinician Shireen YARBROUGH, Ivy Max Attending Clinician Narinder Brooks MD Attending Clinician MELISSA JIMENEZ Attending Clinician Unavailable NARINDER BROOKS Attending Clinician Unavailable GEORGE LEVY Attending Clinician Unavailable Maribell Ley MD Attending Clinician Ariela YARBROUGH, Fanta Attending Clinician George Levy MD Attending Clinician MARIBELL LEY Attending Clinician Unavailable SUNNY STARR Attending Clinician Unavailable Moe Estrada MD, Igor Helms Attending Clinici Merlin YARBROUGH, Fernando Attending Clinician Sunny Starr MD Attending Clinician IGOR THOMASON Attending Clinician Unavailable Adams YARBROUGH, Alexa Coates Attending Clinician [phone] ALEXA ARREDONDO Attending Clinician Unavailable MELO GONZALEZ Attending Clinician Unavailable TONY GARCIA JR Attending Clinician Unavailable Radha Lazo, Tony FISHER Attending Clinician Pob, Adc Lab Main Attending Clinician Unavailable LAB90 Attending Clinician Unavailable Nurse, Adc Pob Immunization Attending Clinician Unavailable Willis Harvey DO Attending Clinician Jaguar Frye DO Attending Clinician JAGUAR FRYE Attending Clinician Unavailable Kodi Patel Attending Clinician NARINDER BROOKS Admitting Clinician Unavailable GUILLERMO SHERIFF Admitting Clinician Unavailable FANTA TITUS Admitting Clinician Unavailable SUNNY STARR Admitting Clinician Unavailable TONY GARCIA JR Admitting Clinician Unavailable Radha Lazo DPM, Ronald E Admitting Clinician Kodi Patel Admitting Clinician Payers Payer Name Policy Type Policy Number Effective Date Expiration Date S candice BCBS PPO POS EPO [id number] 2018 00:00:00 CHOICE PPO/EPO - BCBS [id number] 2018 00:00:00 CVCP-BCBS [id number] BCBS 2 [id number] 2020 00:00:00 BCBS [facility] [id number] 2016 00:00:00 Problems Condition Condition Condition Status Onset Resolution Last Treating Co mments Source Name Details Category Date Date Treatment Clinician Date 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 [facility]-20 [facility] 00:[facility]: Hospita determined determined 00 l by biopsy by biopsy of kidney of kidney Acute Acute Disease Active [facility] renal renal [facility] failure, failure, 00:00: Hospit a unspecifie unspecifie 00 l d acute d acute renal renal failure failure type type Acute Acute Disease Active [facility] failure, failure, 00:00: Medica l unspecifie unspecifie 00 Ce nter d acute d acute renal renal failure failure type type Urinary Urinary Disease Active [facility] retention retention 6-25 [facility] 00[facility] Center Acute back Acute back Disease Active [facility] pain pain 6-23 [facility] Center Cauda Cauda Disease Active [facility] equina 6-23 [facility] compressio compressio 00:00: Me dical n n 00 Center Obesity Obesity Disease Active Univers (BMI (BMI 4-19 ity of 30-39.9) 30-39.9) 00:00: [place] 00 Medical Branch Acute Acute Disease 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 00:00: right knee right knee 00 Hyperurice Hyperurice Disease Active K lex stevie stevie 5-27 Seybold 00:00: 00 History of History of Disease Active K ryany kidney kidney 5-27 [place] stones stones 00:00: 00 Essential Essential Disease Active Jerome sey hypertensi hypertensi 5-27 Se ybold on on 00:00: 00 [id number],MORB [id number],MOR Diagnosis Active 2014-08-06 Memoria ID OBESITY BID 4-22 21:54:00 l OBESITY 00:00: Ramakrishna Active 00 07/17/2014 [facility] Gout Gout Problem Active 2014-08-05 Memor ia (disorder) (disorder) 00:34:22 l Active Downey Problem 08/05/2014 [facility] Hypertensi Hypertens Problem Active 2014-08-05 Memoria ve anjel 00:34:22 l disorder, disorder, Herm ita systemic systemic arterial arterial (disorder) (disorder) Active Problem 08/05/2014 [facility] Morbid Morbid Problem Active 2014-08-05 Jordy jackeline obesity obesity 00:34:22 l (disorder) (disorder) He rmann Active Problem 08/05/2014 [facility] MORBID MORBID Diagnosis Active 2014-08-06 Me moria OBESITY OBESITY 21:54:00 l Active [facility] No known No known Disease Unive rs active active ity of problems problems [facility] Allergies, Adverse Reactions, Alerts Allergy Allergy Status Severity Reaction(s) Onset Inactive Treating Comm ents Source Name Type Date Date Clinician Fentanyl Propensi Active Hallucinatio Methodi ty to ns 11-10 st adverse 00:00: Hospita reaction 00 l s to drug Shellfis Propensi Active Itching Metho di h ty to 11-10 st Derived adverse 00:00: Hospita reaction 00 l s to drug Fentanyl Propensi Active Other [facility] ty to 09-18 reaction( [place] adverse 00:00: s): Other of reaction 00 (See Medicin s to Comments) e drug Hallucina tions FENTANYL Allergy Active Med [facility] Center Fentanyl Drug Active Other (See Hallucina [facility] Allergy Comments) 09-18 tions [facility] 00:[facility]: Medical 00 Center SHELLFIS Allergy Active Low Rash 2021-[address] [facility] CONTAINI 00:00: Medical NG 00 Center PRODUCTS MORPHINE Allergy Active [facility] - 00:00: 00 Shellfis Propensi Active Rash 2021-[address] [facility] ty to 09-17 [facility] Containi adverse 00:00: Medical ng reaction 00 Center Products s Shellfis Propensi Active Rash 2020-[address] [facility] h-Derive ty to 11-23 College d adverse 00:00: of Products reaction 00 Medici n s to e drug Shellfis Propensi Active Rash 2020-0 [facility] h-Derive ty to 11-23 Seybold d adverse 00:00: Products reaction 00 s MORPHINE DRUG Active Other-Cmnt Univ ers INGREDI 11-23 ity of 00:00: Medical Branch SHELLFIS DRUG Active Rash 2020-0 Univers H INGREDI 11-23 ity of DERIVED 00:00: Medical Branch Morphine Propensi Active Other - See "makes m y Univers ty to comments 11-23 chest ity of adverse 00:00: feel like [place] reaction 00 it's Medical s caving Branch in" Shellfis Propensi Active Rash Univer s h ty to 8-29 ity of Derived adverse 00:00: [place] reaction 00 Medical s Branch Morphine Propensi Active Shortness Of "makes my [facility] ty to Breath - chest College adverse 00:00: feel like of reaction 00 it's Medicin s to caving e drug in""makes my chest feel like it's caving in" Morphine Propensi Active Other "makes my Jerome sey ty to 08-21 chest Seybold adverse 00:00: feel like reaction 00 it's s caving in" Shellfis Propensi Active Swelling Ashley ey h ty to 08-21 Seybold Allergy adverse 00:00: reaction 00 s Food Food Active Memoria Shellfis Shellfis l h h Ramakrishna Social History Social Habit Start Date Stop Date Quantity Comments Source History of tobacco Current sm[facility] use [facility] Cigarettes smoked 2021-10-29 2021-10-[address] [facility] current (pack per 00:00:00 00:00:00 Medical Center day) - Reported Cigarette 2021-10-29 2021-10-[address] [facility] pack-years 00:00:00 00:00:00 [facility] Tobacco use and 2021-10-29 2021-10-[address] [facility] kes exposure 00:00:00 00:00:00 [facility] Alcohol intake 2021-10-29 2021-10-29 Ex-drinker [facility] es 00:00:00 00:00:00 (finding) Medical Center Exposure to 2021-09-21 2021-10-[address] [facility] Collefranchesca e SARS-CoV-2 (event) 00:00:00 17:27:00 of Med icine Sex Assigned At [address] k[facility] 00:00:00 00:00:00 [facility] Smoking Status Start Date Stop Date Source Tobacco smoking [facility] o f consumption unknown Medicine Never smoked tobacco [facility] Former smoker 2021-10-29 00:00:00 2021-10-[address] [facility] 00:00:00 Center Current some day smoker 2021-07-08 00:00:00 [facility] Social History 2014-08-01 15:47:28 [facility] Her mckeon Medications Ordered Filled Start Stop Current Ordering Indication Dosage Frequency Signature Comments Components Source Medication Medication Date Date Medication? Clinician (SIG) Name Name metoprolol Yes 50mg Q.5D Take 1 Metho di succinate 8-21 tablet (50 st XL 15:12: mg total) Hospita (TOPROL-XL) 03 by mouth 2 l 50 mg 24 hr (two) tablet times a day. pantoprazol Yes 40mg QD Take 1 Meth geovanna e 8-21 tablet (40 st (PROTONIX) 15:12: mg total) Ho spita 40 MG EC 03 by mouth l tablet daily. febuxostat Yes 40mg QD Take 1 Metho di (ULORIC) 40 8-21 tablet (40 st mg tablet 15:12: mg total) Hos juvencio 03 by mouth l daily. colchicine 2021- No .6mg Q24H Take 1 Meth geovanna 0.6 mg 8-21 -[address] tablet 15:12: 00:00 (0.6 mg Hospita 03 :00 total) by l mouth daily as needed (gout flare-up). [place]DROcodone 2021- [place] [id number] 1{tbl} Q8H Take 1 Methodi -acetaminop -15 11-[address] hen (NORCO) 15:12: 00:00 mouth Hosp william 7.5-325 mg 03 :00 every 8 l per tablet (eight) hours as needed for moderate pain .acute pain. [place] 10/28/2021 QTY 21; 7 days supply. predniSONE 2021- No 60mg QD Take 3 Meth geovanna (DELTASONE) 8-21 09-[address] 20 mg 00:00: 04:59 (60 mg Hospita tablet 00 :00 total) by l mouth daily for 14 days. nystatin Yes Q.5D Apply Methodi (MYCOSTATIN 8-[address] ) 100,000 00:00: 2 (two) Hospi ta unit/gram 00 times a l powder day for 5 days. ferrous 2021- Yes 324mg Q.5D Take 1 Method i gluconate 8-20 09-[address] (FERGON) 00:00: 04:59 (324 mg Hospi ta 324 MG 00 :00 total) by l tablet mouth 2 (two) times a day for 30 days. HYDROcodone 0 2021- [place] [id number] 1{tbl} Q6H Take 1 Methodi -acetaminop 11-[address] hen (NORCO) 00:00: 04:59 mouth Hosp william 7.5-325 mg 00 :00 every 6 l per tablet (six) hours as needed for moderate pain for up to 20 doses .acute pain. Max Daily Amount: 4 tablets ciprofloxac 0 2021- No 500mg QD Take 1 Me thodi in (CIPRO) 11-[address] 500 MG 00:00: 04:59 (500 mg Hospita tablet 00 :00 total) by l mouth daily for 2 days. methocarbam 0 Yes Take by [facility] (ROBAXIN 8-04 mouth. [facility] ORAL) 09:25: [address] cyclobenzap 0 Yes 10mg QD Take [address] rine 8-04 by mouth [facility] (FLEXERIL) 09:25: daily. Medic al 10 MG 36 Center tablet pantoprazol 0 Yes 20mg QD Take [address] e 8-04 by mouth [facility] (PROTONIX) 09:25: daily. Medic al 20 MG 36 Center tablet hydroCHLORO 0 Yes 12.5mg QD Take 12.[address] thiazide 8-04 mg by [facility]ukes (HYDRODIURI 09:25: mouth Medic al L) 12.5 MG 36 daily. Center tablet febuxostat 2021-0 Yes 40mg QD Take [address] 40 mg 8-04 by mouth [facility] tablet 09:25: daily. [address] lisinopriL 2021-0 Yes 40mg QD Take [address] (PRINIVIL,Z 8-04 by mouth Luke s ESTRIL) 40 09:25: daily. Medic al MG tablet 36 Center metoprolol 0 Yes 100mg Q.5D Take [address] succinate 8-04 mg by [facility] 50 mg CSpX 09:25: mouth 2 Medi nereida 36 (two) Center times daily . allopurinoL 0 Yes 300mg QD Take [address] (ZYLOPRIM) 8-04 mg by [facility] 100 MG 09:25: mouth Medical tablet 36 daily . [place] pantoprazol Yes 20mg Take [address] [facility] e - by mouth. [place] (PROTONIX) 09:15: of 20 MG 41 Medicin tablet e methylPREDN Yes [id number] 1{packa Take 1 Juan ISolone 4 7- ge} Package by Ines flores MG TBPK 00:00: mouth See of 00 Admin Medicin Instructio e ns. Medrol dose pack. ciprofloxac Yes [id number] 250mg Take [address] [facility] in (CIPRO) 10-01 Tablet by Ines flores 250 MG 00:00: mouth of tablet 00 every 12 Medicin hours. e Tamsulosin 2021- Yes .8mg Take 0.8 Ba ylor HCl 0.4 MG 10-01-07 mg by [place] CAPS 00:00: 04:59 mouth. of 00 :00 Medicin e tamsulosin 2021- No .8mg QD Take [address] (FLOMAX) 10-01 08-06 capsules [facility] 0.4 mg Cap 00:00: 23:59 (0.8 mg Med ical 24 hr 00 :00 total) by [place] capsule mouth daily for 30 days. predniSONE 2021- No 20mg QD Take [address] (DELTASONE) 10-01 07-11 tablet (20 L ukes 20 MG 00:00: 23:59 mg total) Medica l tablet 00 :00 by mouth Center daily for 4 days 20 mg X 2 days, 10 mg X 2 days and stop.. colchicine 2021- No .6mg Take 0.[address] (COLCRYS) 09-30 07-06 mg by [facility]ukes 0.6 mg 11:22: 00:00 mouth as Medica l tablet 28 :00 needed. [place] gabapentin 2021- Yes 100mg Take 100 B aylor (NEURONTIN) 09-30 08-06 mg by Nataliia e 100 MG 00:00: 04:59 mouth. of capsule 00 :00 Medicin e gabapentin 2021- No 100mg Q.[id number] Take [address] (NEURONTIN) 09-30 08- [id number] capsule [facility]ukes 100 MG 00:00: 23:59 3D (100 mg Medical capsule 00 :00 total) by Center mouth 3 (three) times daily for 30 days. lidocaine-p 2021-[address] [facility] rilocaine 09-24 [place] (EMLA) 00:00: of 2.5-2.5 % 00 Medicin cream e desonide 2021-[address] [facility] (DESOWEN) 09-24 [place] 0.05 % 00:00: of cream 00 Medicin e lisinopriL 2- No 20mg QD Take [address] (PRINIVIL,Z 09-22- tablet (20 L ukes ESTRIL) 20 00:00: 00:00 mg total) M edical MG tablet 00 :00 by mouth Center daily for 30 days. tamsulosin 2021-2021- No .8mg QD Take [address] (FLOMAX) 09-22- capsules [facility]ukes 0.4 mg Cap 00:00: 00:00 (0.8 mg Med ical 24 hr 00 :00 total) by Center capsule mouth daily for 30 days. acetaminoph 2021-2021- No 1{tbl} Take [address] en-codeine 09-21- tablet by Sheryl es (TYLENOL 11:59: 00:00 mouth Medical #3) 300-30 27 :00 every 4 Center mg per (four) tablet hours as needed for Pain. lisinopril 2021-[address] [facility] (PRINIVIL, 09-21 [place] ZESTRIL) 20 00:00: of MG tablet 00 Medicin e acetaminoph 2021- No 1{tbl} Take [address] en-codeine 09-21- tablet by Sheryl es (TYLENOL 00:00: 00:00 mouth Medical #3) 300-30 00 :00 every 6 Center mg per (six) tablet hours as needed for Pain for up to 15 days. Max Daily Amount: 4 tablets gabapentin 2021-2021- No 100mg Q.[id number] Take [address] (NEURONTIN) 09-21- [id number] capsule [facility]ukes 100 MG 00:00: 00:00 3D (100 mg Medical capsule 00 :00 total) by Center mouth 3 (three) times daily for 30 days. gabapentin 2021-0 2021- No 100mg Q.[id number] Take [address] (NEURONTIN) 09-18- [id number] capsule [facility]ukes 100 MG 00:00: 00:00 3D (100 mg Medical capsule 00 :00 total) by Center mouth 3 (three) times daily for 30 days. furosemide 2021-0 2021- No QD Take by [facility] St (LASIX) 10 09-17 06- mouth [facility]ukes mg/mL 09:32: 00:00 daily. Medical solution 43 :00 [place] calcipotrie 2021-[address] [facility] ne 6-21 [place] (DOVONOX) 00:00: of 0.005 % 00 Medicin cream e metoprolol 0 Yes 100mg Take 100 Ba ylor (TOPROL-XL) 6-03 mg by [place] 100 MG XL 00:00: mouth. of tablet 00 Medicin e lactated 2021-0 Yes 1000mL at 100 Unive rs ringers IV 4-19 mL/hr, ity of infusion 19:45: 1,000 [place], [place] 1[place]000 mL 00 IV Medical Infusion, Branch CONTINUOUS , Starting on Tue07/14/21 at 1445, Until Discontinu ed, Routine, PACU lactated 2021-0 2021- No 1000mL at 100 Univ ers ringers IV 4-19 04-19 mL/hr, ity of infusion 19:45: 22:29 1,000 mL, Oscar as 1,000 mL 00 :52 IV Medical Infusion, Branch CONTINUOUS , Starting on Tue07/14/21 at 1445, Until Tue07/14/21 at 1729, Routine, PACU FENTanyl PF 2021-0 Yes 25ug 25 mcg, Uni vers (SUBLIMAZE 4-19 Slow IV ity of (PF)) 19:43: Push, [place] injection 51 Q5MIN PRN, Medi nereida 25 mcg 4 doses, Branch Starting on Tue07/14/21 at 1443, Until Discontinu ed, Routine, Pain (scale 7-10), PACU FENTanyl PF 2021-0 Yes 25ug 25 mcg, Uni vers (SUBLIMAZE [...] Nausea and Vomiting (N/V), PACU FENTanyl PF 2021-2021- No 25ug 25 mcg, Un james (SUBLIMAZE 07-14 Slow IV ity o f (PF)) 19:43: 22:29 Push, [place] injection 51 :52 Q5MIN PRN, Medi nereida 25 mcg 4 doses, Branch Starting on Tue07/14/21 at 1443, Until Tue07/14/21 at 1729, Routine, Pain (scale 7-10), PACU FENTanyl PF 0 2021- No 25ug 25 mcg, Un james (SUBLIMAZE 07-14 Slow IV ity o f (PF)) 19:43: 22:29 Push, [place] injection 51 :52 Q5MIN PRN, Medi nereida 25 mcg 4 doses, Branch Starting on Tue07/14/21 at 1443, Until Tue07/14/21 at 1729, Routine, Pain (scale 4-6), PACU ondansetron 0 2021- No 4mg 4 mg, Slow Univers (ZOFRAN 07-14 IV Push, ity of (PF)) 19:43: 22:29 [...] mg/mL) Discontinu injection ed, Routine, Intra-op sodium 0 Yes PRN, Univers chloride 07-14 Starting ity of 0.9 % 17:45: on Tue [place] irrigation 00 07/14/21 at Med ical solution 1245, Branch Until Discontinu ed, Intra-op bupivacaine 2021- No PRN, Univ rs liposome 07-14 Starting ity of (PF) 17:45: 22:29 on Tue [place] (EXPAREL 00 :52 07/14/21 at Medic al (PF)) 1.3 % 1245, Branch (13.3 Until Tue mg/mL) 07/14/21 at injection 1729, Routine, Intra-op sodium 2021- No PRN, Univers chloride 07-14 Starting ity of 0.9 % 17:45: 22:29 on Tue [place] irrigation 00 :52 07/14/21 at Med ical solution 1245, Branch Until Tue07/14/21 at 1729, Intra-op lactated 2021- No 1000mL at [address] [facility] rs ringers IV 07-14-19 mL/hr, ity of infusion 16:30: 16:39 1,000 mL, Oscar as 1,000 mL 00 :00 IV Medical Infusion, [place] ONCE, 1 dose, On Tue07/14/21 at 1130, Routine, DSU Pre-op lactated 2021- No 1000mL at [address] [facility] rs ringers IV 07-14-19 mL/hr, ity of infusion 16:30: 16:39 1,000 mL, Oscar as 1,000 mL 00 :00 IV Medical Infusion, Cirilo ONCE, 1 dose, On Tue07/14/21 at 1130, Routine, DSU Pre-op febuxostat 2021-0 Yes 40mg Take 40 mg U nivers 40 mg 4-19 by mouth ity of tablet 15:24: daily. [place] [address] Medical Branch metoprolol 2021-0 Yes 100mg Take 100 Un james succinate 4-19 mg by ity of XL 100 mg 15:24: mouth [place] 24 hr 47 daily. Medical tablet Branch febuxostat 2021-0 Yes 40mg Take 40 mg U nivers 40 mg 4-19 by mouth ity of tablet 15:24: daily. [place] 47 [facility] metoprolol 0 Yes 100mg Take 100 Un james succinate 4-19 mg by ity of XL 100 mg 15:24: mouth [place] 24 hr 47 daily. Medical tablet Branch febuxostat 0 Yes 40mg Take 40 mg U nivers 40 mg 4-13 by mouth ity of tablet 11:27: daily. [place] 14 [facility] metoprolol 0 Yes 100mg Take 100 Un james succinate 4-13 mg by ity of XL 100 mg 11:27: mouth [place] 24 hr 14 daily. Medical tablet Branch Febuxostat Yes 40mg Take 40 mg B aylor 40 MG TABS 909 by mouth. Ines ege 00:00: of 00 Medicin e Metoprolol Yes 100mg Take 1 Ashley ey Succinate 12-04 tablet Sey[place] 100 MG oral 00:00: (100 mg TABLET SR 00 total) by 24 HR mouth 2 times daily Febuxostat Yes 40mg Take 40 mg K elsey (Uloric) 40 12-04 by mouth Seyb old MG oral 00:00: daily Tablet 00 pantoprazol 2020- No 80mg 80 mg, IV Univers e 11-24 Push, ity of (PROTONIX) 12:30: 11:20 ONCE, 1 Oscar as 80 mg in 00 :00 dose, Mon Medica l NaCl 0.9% 11/24/20 at [facility] (NS) 20 mL 0730, syringe Administer over 2 Minutes, 20 mL pantoprazol No 80mg 80 mg, IV Univers e 11-24 Push, ity of (PROTONIX) 12:30: 11:20 ONCE, 1 Oscar as 80 mg in 00 :00 dose, Mon Medica l NaCl 0.9% 11/24/20 at [facility] (NS) 20 mL 0730, syringe Administer over 2 Minutes, 20 mL maalox:diph 2020- No 15mL 15 mL, Uni vers enhydrAMINE 11-24 Oral, ity of :lidocaine2 11:45: 10:40 [place]CE, 1 [place] %viscous 00 :00 dose, Mon Medica l 1:1:1: 11/24/20 at [place] [address], (COMPOUNDED Routine ) maalox:diph No 15mL 15 mL, Uni vers enhydrAMINE 11-24 Oral, ity of :lidocaine2 11:45: 10:40 ONCE, 1 [place] %viscous 00 :00 dose, Mon Medica l 1:1:1: 11/24/20 at [place] [address], (COMPOUNDED Routine ) maalox:diph No 15mL 15 mL, Uni vers enhydrAMINE 11-23 Oral, ity of :lidocaine 11:00: 09:59 ONCE, 1 [place] as 2 % viscous 00 :00 dose, Sun Med ical 1:1:1 11/23/20 at [place] ([facility], [facility]) Routine oral suspension 15 mL maalox:diph No 15mL 15 mL, Uni vers enhydrAMINE 11-23 Oral, ity of :lidocaine 11:00: 09:59 ONCE, 1 Oscar as 2 % viscous 00 :00 dose, Sun Med ical 1:1:1 11/23/20 at [place] [facility] Routine oral suspension 15 mL iopamidol No [id number] 100mL 100 mL, Univers (ISOVUE 11-23 Intravenou ity o f 370-500 mL) 10:30: 09:15 s, ONCE, 1 [place] injection 00 :00 dose, Sun Medic al 100 mL 11/23/20 at [place] 05, Routine iopamidol No [id number] 100mL 100 mL, Univers (ISOVUE 11-23 Intravenou ity o f 370-500 mL) 10:30: 09:15 s, ONCE, 1 [place] injection 00 :00 dose, Sun Medic al 100 mL 11/23/20 at [place] [address], Routine ketorolac 30mg 30 mg, Unive rs (TORADOL) 11-23 Slow IV ity of injection 10:00: 08:57 Push, [place] 30 mg 00 :00 ONCE, 1 Medical dose, [facility] 11/23/20 at 0500, TAL
Fa culty member approving Restricted medication : JAGUAR FRYE ketorolac 2020- No 30mg 30 mg, Unive rs (TORADOL) 11-23 Slow IV ity of injection 10:00: 08:57 Push, [place] 30 mg 00 :00 ONCE, 1 Medical dose, Sun Branch 11/23/20 at 0500, TAL
Fa culty member approving Restricted medication : JAGUAR FRYE NaCl 0.9% 2020- No 1000mL at 999 Uni vers (NS) bolus 11-23 08- mL/hr, ity of infusion 08:45: 10:00 1,000 mL, Oscar as 1,000 mL 00 :00 IV Medical Infusion, Branch ONCE, 1 dose, [place] 11/23/20 at 0345, STAT NaCl 0.9% 2020- No 1000mL at 999 Uni vers (NS) bolus 11-23- mL/hr, ity of infusion 08:45: 10:00 1,000 mL, Oscar as 1,000 mL 00 :00 IV Medical Infusion, Branch ONCE, 1 dose, [place] 11/23/20 at 0345, STAT sucralfate 0 Yes 1g Take 1 g [place] jenn (CARAFATE) 8-29 by mouth. Ines ege 1 g tablet 00:00: of 00 Medicin e ondansetron Yes 4mg Take 4 mg B aylor (ZOFRAN-ODT 8-29 by mouth. Col lege ) 4 mg 00:00: of disintegrat 00 Medicin ing tablet e sucralfate Yes [id number] 1g Take 1 U nivers 1 gram 8-29 tablet by ity of tablet 00:00: mouth [place] 00 before Medical meals and Branch at bedtime. dicyclomine 0 Yes [id number] 10mg Take 1 Univers 10 mg 8-29 capsule by ity of capsule 00:00: mouth [place] 00 every 8 Medical (eight) Branch hours as needed for Abdominal pain. ondansetron 0 Yes [id number] 4mg Take 1 Univers 4 mg 8-29 tablet by ity of disintegrat 00:00: mouth [place] ing tablet 00 every 8 Medica l (eight) Branch hours as needed for Nausea and Vomiting (N/V). sucralfate 2020-0 Yes [id number] 1g Take 1 U nivers 1 gram 8-29 tablet by ity of tablet 00:00: mouth [place] 00 before Medical meals and Branch at bedtime. dicyclomine 2020-0 Yes [id number] 10mg Take 1 Univers 10 mg 8-29 capsule by ity of capsule 00:00: mouth [place] 00 every 8 Medical (eight) Branch hours as needed for Abdominal pain. ondansetron 2020-0 Yes [id number] 4mg Take 1 Univers 4 mg 8-29 tablet by ity of disintegrat 00:00: mouth [place] ing tablet 00 every 8 Medica l (eight) Branch hours as needed for Nausea and Vomiting (N/V). sucralfate 2020-0 Yes [id number] 1g Take 1 U nivers 1 gram 8-29 tablet by ity of tablet 00:00: mouth [place] 00 before Medical meals and Branch at bedtime. dicyclomine 2020-0 Yes [id number] 10mg Take 1 Univers 10 mg 8-29 capsule by ity of capsule 00:00: mouth [place] 00 every 8 Medical (eight) Branch hours as needed for Abdominal pain. sucralfate 2020-0 Yes [id number] 1g Take 1 U nivers 1 gram 8-29 tablet by ity of tablet 00:00: mouth [place] 00 before Medical meals and Branch at bedtime. dicyclomine 2020-0 Yes [id number] 10mg Take 1 Univers 10 mg 8-29 capsule by ity of capsule 00:00: mouth [place] 00 every 8 Medical (eight) Branch hours as needed for Abdominal pain. ondansetron 2020-0 Yes [id number] 4mg Take 1 Univers 4 mg 8-29 tablet by ity of disintegrat 00:00: mouth [place] ing tablet 00 every 8 Medica l (eight) Branch hours as needed for Nausea and Vomiting (N/V). ondansetron 2020-0 Yes [id number] 4mg Take 1 Univers 4 mg 8-29 tablet by ity of disintegrat 00:00: mouth [place] ing tablet 00 every 8 Medica l (eight) Branch hours as needed for Nausea and Vomiting (N/V). sucralfate 2020-0 Yes [id number] 1g Take 1 U nivers 1 gram 8-29 tablet by ity of tablet 00:00: mouth [place] 00 before Medical meals and Branch at bedtime. dicyclomine 2020-0 Yes [id number] 10mg Take 1 Univers 10 mg 8-29 capsule by ity of capsule 00:00: mouth [place] 00 every 8 Medical (eight) Branch hours as needed for Abdominal pain. ondansetron 2020-0 Yes [id number] 4mg Take 1 Univers 4 mg 8-29 tablet by ity of disintegrat 00:00: mouth [place] ing tablet 00 every 8 Medica l (eight) Branch hours as needed for Nausea and Vomiting (N/V). sucralfate 2020-0 Yes [id number] 1g Take 1 U nivers 1 gram 8-29 tablet by ity of tablet 00:00: mouth [place] 00 before Medical meals and Branch at bedtime. dicyclomine 2020-0 Yes [id number] 10mg Take 1 Univers 10 mg 8-29 capsule by ity of capsule 00:00: mouth [place] 00 every 8 Medical (eight) Branch hours as needed for Abdominal pain. ondansetron 2020-0 Yes [id number] 4mg Take 1 Univers 4 mg 8-29 tablet by ity of disintegrat 00:00: mouth [place] ing tablet 00 every 8 Medica l (eight) Branch hours as needed for Nausea and Vomiting (N/V). sucralfate 2020-0 Yes [id number] 1g Take 1 U nivers 1 gram 8-29 tablet by ity of tablet 00:00: mouth [place] 00 before Medical meals and Branch at bedtime. dicyclomine 2020-0 Yes [id number] 10mg Take 1 Univers 10 mg 8-29 capsule by ity of capsule 00:00: mouth [place] 00 every 8 Medical (eight) Branch hours as needed for Abdominal pain. ondansetron 2020-0 Yes [id number] 4mg Take 1 Univers 4 mg 8-29 tablet by ity of disintegrat 00:00: mouth [place] ing tablet 00 every 8 Medica l (eight) Branch hours as needed for Nausea and Vomiting (N/V). sucralfate 2020-0 Yes [id number] 1g Take 1 U nivers 1 gram 8-29 tablet by ity of tablet 00:00: mouth [place] 00 before Medical meals and Branch at bedtime. dicyclomine 2021-0 Yes [id number] 10mg Take 1 Univers 10 mg 8-29 capsule by ity of capsule 00:00: mouth [place] 00 every 8 Medical (eight) Branch hours as needed for Abdominal pain. ondansetron Yes [id number] 4mg Take 1 Univers 4 mg 8-29 tablet by ity of disintegrat 00:00: mouth [place] ing tablet 00 every 8 Medica l (eight) Branch hours as needed for Nausea and Vomiting (N/V). omeprazole 2020- No [id number] 20mg Take 1 Univers 20 mg 8-29 -29 capsule by ity of capsule 00:00: 04:59 mouth [place] 00 :00 daily for Medical 30 days. Branch omeprazole 2020- No [id number] 20mg Take 1 [facility] 20 mg 8-29 -29 capsule by ity of capsule 00:00: 04:59 mouth [place] 00 :00 daily for Medical 30 days. Branch omeprazole 2020- No [id number] 20mg Take 1 Univers 20 mg 8-29 -29 capsule by ity of capsule 00:00: 04:59 mouth [place] 00 :00 daily for Medical 30 days. Branch omeprazole 2020- No [id number] 20mg Take 1 Univers 20 mg 8-29 -29 capsule by ity of capsule 00:00: 04:59 mouth [place] 00 :00 daily for Medical 30 days. Branch hydrochloro Yes 25mg Take [address] [facility] thiazide 6-10 by mouth. Colleg e (HYDRODIURI 00:00: of L) 25 MG 00 Medicin tablet e Colchicine Yes .6mg Take 0.6 Jerome sey 0.6 MG oral 6-10 mg by [facility] Capsule 00:00: mouth 00 daily hydroCHLORO Yes 25mg Take 1 Ashley ey thiazide 25 6-10 tablet (25 Se ybold MG oral 00:00: mg total) Tablet 00 by mouth daily colchicine Yes .6mg Take 0.6 Uni vers 0.6 mg Cap 6-10 mg by ity of 00:00: mouth [place] 00 daily. Medical Daily as Branch needed for gout hydroCHLORO 2020- Yes 25mg Take 25 mg Univers thiazide 25 6-10 by mouth ity of mg tablet 00:00: daily. [address] colchicine Yes .6mg Take 0.6 Uni vers 0.6 mg Cap 6-10 mg by ity of 00:00: mouth daily. Medical Daily as Branch needed for gout hydroCHLORO Yes 25mg Take 25 mg Univers thiazide 25 6-10 by mouth ity of mg tablet 00:00: daily. [address] colchicine Yes .6mg Take 0.6 Uni vers 0.6 mg Cap 6-10 mg by ity of 00:00: mouth daily. Medical Daily as Branch needed for gout hydroCHLORO Yes 25mg Take 25 mg Univers thiazide 25 6-10 by mouth ity of mg tablet 00:00: daily. [address] methylPREDN 2021- No [id number] 1{pepe} Take 1 pepe Patricia ISolone 6-10 -21 by mouth [facility] (Medrol) 4 00:00: 00:00 [...] mg oral 16:44: BID, # 180 Herm ita tablet 00 tab, 0 Refill(s) Promethazin Yes 12.5 mg = M emoria e 08-02 1 tab, PO, l Hydrochlori 16:44: Q4H, PRN He rmann de 12.5 MG 00 Nausea & Oral Tablet Vomiting, [Phenergan] X 10 day, # 30 tab, 0 Refill(s) Acetaminoph Yes 15 ml, PO, Memoria en 24 MG/ML 5-08 Q4H, PRN l / Codeine 16:44: Pain, X 10 He rmann Phosphate 00 day, # 240 2.4 MG/ML mL, 0 Oral Refill(s) Solution metoprolol Yes 25 mg = 1 Me moria tartrate 25 5-08 tab, PO, l mg oral 16:44: BID, # 180 Herm ita tablet 00 tab, 0 Refill(s) Sodium No 25 mL, Memoria Chloride 508 Route: IV, l 0.9% IV 14:41: Start [place] 00 date: 08/02/14 9:41:00, Duration: 30 day, Stop date: 09/01/14 9:40:00, PRN Line Flush BD Normal No Notes: Memori a Saline 5-08 (Same as: l Flush 14:41: BD Ramakrishna Posiflush) Sodium No 25 mL, Memoria Chloride 508 Route: IV, l 0.9% IV 14:41: Start Ramakrishna date: 08/02/14 9:41:00, Duration: 30 day, Stop date: 09/01/14 9:40:00, PRN Line Flush BD Normal No Notes: Memori a Saline 5-08 (Same as: l Flush 14:41: BD [place] 00 Posiflush) Lovenox No Notes: Memoria 5-08 (Same as: l 14:00: Lovenox) Ramakrishna Lovenox No Notes: Memoria 5-08 (Same as: l 14:00: Lovenox) Ramakrishna Famotidine No Notes: Memor ia 5-08 (Same as: l 02:00: Pepcid) [place] 00 Can be dilute in 5-10cc NS IVP: Slow IV push over at least 2 minutes. Famotidine No Notes: Memor ia 5-08 (Same as: l 02:00: Pepcid) Ramakrishna 00 Can be dilute in 5-10cc NS IVP: Slow IV push over at least 2 minutes. Ketorolac No 4 days Memor ia 5-07 l 23:00: MEDICATION [place] 00 WASTE Product Size: 30 mg Product Wasted: ___ mg Ketorolac No 4 days Memor ia 5-07 l 23:00: MEDICATION WASTE Product Size: 30 mg Product Wasted: ___ mg Hydromorpho No 0.5 mg, Mem oria ne 5-07 Route: IV, l 21:15: Q5Min, Dosing Weight 117.273, kg, Start date: 08/01/14 16:15:00, Duration: 4 doses or times, Stop date: 08/01/14 16:30:00 Hydromorpho No 0.5 mg, Mem oria ne 5-07 Route: IV, l 21:15: Q5Min, Dosing Weight 117.273, kg, Start date: 08/01/14 16:15:00, Duration: 4 doses or times, Stop date: 08/01/14 16:30:00 Hydromorpho No Notes: Jordy jackeline ne 5-07 (Same as: l 20:00: Dilaudid) conc = 0.5 mg/ml 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 Dose: ;Delay: ;Basal: Enoxaparin No Notes: Memor ia 5-07 (Same as: l 20:00: Lovenox) Hydromorpho No Notes: Jordy jackeline ne 5-07 (Same as: l 20:00: Dilaudid) conc = 0.5 mg/ml 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 Dose: ;Delay: ;Basal: Enoxaparin No Notes: Memor ia 5-07 (Same as: l 20:00: Lovenox) Naloxone No Notes: Memoria 5-07 Same as l 19:37: Narcan Naloxone No Notes: Memoria 5-07 Same as l 19:37: Narcan Naloxone No Notes: Memoria 5-07 Same as l 19:35: Narcan Saline No Notes: Memoria Flush 0.9% 5-07 (Same as: l 19:35: BD Posiflush) Metoprolol No Notes: Memor ia 5-07 (Same as: l 19:35: Lopressor) [place] 00 Push over 2 minutes Ondansetron No Notes: Jordy jackeline 5-07 (Same as: l 19:35: Zofran) Ramakrishna MEDICATION WASTE Product Size: 4 mg Product Wasted: ___ mg Promethazin No Notes: Do M emoria e 5-07 not give l 19:35: IV push. [place] 00 (Same as: Phenergan) Acetaminoph No Notes: Do M emoria en 20 MG/ML 08-01 not exceed l / 19:35: 4gm/day of [place] Hydrocodone 00 acetaminop Bitartrate hen. (Same 0.667 MG/ML as: [place] Oral 325/7.5) Solution Calcium No 1,000 mL, Memor ia Chloride 08-01 Rate: 125 l 0.0014 19:35: ml/hr, [place] MEQ/ML / 00 Infuse Potassium over: 8 Chloride hr, Route: 0.004 IV, Dosing MEQ/ML / Weight Sodium 117.273 Chloride kg, Total 0.103 Volume: MEQ/ML / 1,000, Sodium Start Lactate date: 0.028 05/15 MEQ/ML 14:35:00, Injectable Duration: Solution 30 day, Stop date: 08/31/14 14:34:00 Naloxone No Notes: Memoria 5-07 Same as l 19:35: Narcan Ramakrishna 00 Saline No Notes: Memoria Flush 0.9% 5-07 (Same as: l 19:35: BD [place] 00 Posiflush) Metoprolol No Notes: Memor ia 5-07 (Same as: l 19:35: Lopressor) [place] 00 Push over 2 minutes Ondansetron No Notes: Jordy jackeline 5-07 (Same as: l 19:35: Zofran) Ramakrishna 00 MEDICATION WASTE Product Size: 4 mg Product Wasted: ___ mg Promethazin No Notes: Do M emoria e 5-07 not give l 19:35: IV push. [place] 00 (Same as: Phenergan) Acetaminoph No Notes: Do M emoria en 20 MG/ML 08-01 not exceed l / 19:35: 4gm/day of Ramakrishna Hydrocodone 00 acetaminop Bitartrate hen. (Same 0.667 MG/ML as: [place] Oral 325/7.5) Solution Calcium No 1,000 mL, Memor ia Chloride 08-01 Rate: 125 l 0.0014 19:35: ml/hr, [place] MEQ/ML / 00 Infuse Potassium over: 8 Chloride hr, Route: 0.004 IV, Dosing MEQ/ML / Weight Sodium 117.273 Chloride kg, Total 0.103 Volume: MEQ/ML / 1,000, Sodium Start Lactate date: 0.028 08/01/14 MEQ/ML 14:35:00, Injectable Duration: Solution 30 day, Stop date: 08/31/14 14:34:00 Ondansetron No Notes: Jordy jackeline 08-01 (Same as: l 16:28: Zofran) MEDICATION WASTE Product Size: 4 mg Product Wasted: ___ mg Dexamethaso No Notes: Jordy jackeline ne 08-01 Concentrat l 16:28: ion: [place] 00 4mg/ml Promethazin No Notes: Do M emoria e 08-01 not give l 16:28: IV push. [place] 00 (Same as: Phenergan) Labetalol No Notes: Memori a 08-01 (Same as: l 16:28: Normodyne, [place] 00 Trandate) Push over 2 minutes Give bolus over 2-3 minutes. Naloxone No Notes: Memoria 5-07 Same as l 16:28: Narcan Ramakrishna 00 Hydromorpho No Notes: Jordy jackeline ne 08-01 (Same as: l 16:28: Dilaudid) Morphine No Notes: Memoria 5-07 (Same l 16:28: as:MORPhin Ramakrishna 00 e Sulfate) Meperidine No Notes: Memor ia -07 (Same As: l 16:28: Demerol) Flumazenil No Notes: Memor ia 5-07 (Same as: l 16:28: Romazicon) Ramakrishna 00 Calcium No 1,000 mL, Memor ia Chloride 5-07 Rate: 50 l 0.0014 16:28: ml/hr, [place] MEQ/ML / 00 Infuse Potassium over: 20 Chloride hr, Route: 0.004 IV, Dosing MEQ/ML / Weight Sodium 117.273 Chloride kg, Total 0.103 Volume: MEQ/ML / 1,000, Sodium Start Lactate date: 0.028 15 MEQ/ML 11:28:00, Injectable Duration: Solution 30 day, Stop date: 08/31/14 11:27:00 Ondansetron No Notes: Jordy jackeline 5-07 (Same as: l 16:28: Zofran) MEDICATION WASTE Product Size: 4 mg Product Wasted: ___ mg Dexamethaso No Notes: Jordy jackeline ne 5-07 Concentrat l 16:28: ion: Ramakrishna 00 4mg/ml Promethazin No Notes: Do M emoria e 5-07 not give l 16:28: IV push. [place] 00 (Same as: Phenergan) Labetalol No Notes: Memori a 5-07 (Same as: l 16:28: Normodyne, [place] 00 Trandate) Push over 2 minutes Give bolus over 2-3 minutes. Naloxone No Notes: Memoria 5-07 Same as l 16:28: Narcan Hydromorpho No Notes: Jordy jackeline ne 5-07 (Same as: l 16:28: Dilaudid) Morphine No Notes: Memoria 5-07 (Same l 16:28: as:MORPhin [place] 00 e Sulfate) Meperidine No Notes: Memor ia 5-07 (Same As: l 16:28: Demerol) Flumazenil No Notes: Memor ia 5-07 (Same as: l 16:28: Romazicon) Calcium No 1,000 mL, Memor ia Chloride 5-07 Rate: 50 l 0.0014 16:28: ml/hr, [place] MEQ/ML / 00 Infuse Potassium over: 20 Chloride hr, Route: 0.004 IV, Dosing MEQ/ML / Weight Sodium 117.273 Chloride kg, Total 0.103 Volume: MEQ/ML / 1,000, Sodium Start Lactate date: 0.028 08/01/14 MEQ/ML 11:28:00, Injectable Duration: Solution 30 day, Stop date: 08/31/14 11:27:00 INVanz + No Notes: Memoria Sodium 5-07 (Same as: l Chloride 06:00: INVanz) Vinh n 0.9% IV 100 00 Refrigerat mL e. NOT COMPATIBLE WITH D5W. Stable in refrigerat or for 24 hours MEDICATION WASTE Product Size: 1000 mg Product Wasted: 0 mg INVanz + No Notes: Memoria Sodium 5-07 (Same as: l Chloride 06:00: INVanz) Vinh n 0.9% IV 100 00 Refrigerat mL e. NOT COMPATIBLE WITH D5W. Stable in refrigerat or for 24 hours MEDICATION WASTE Product Size: 1000 mg Product Wasted: 0 mg Uloric No = 1 tab, Memoria 4-24 PO, Daily, l 18:47: 0 [place] 00 Refill(s) Colchicine No 0.6 mg, Jordy jackeline 0.6 MG Oral 4-24 PO, Daily, l Tablet 18:47: 0 [place] 00 Refill(s) Uloric No = 1 tab, Memoria 4-24 PO, Daily, l 18:47: 0 Ramakrishna 00 Refill(s) Colchicine No 0.6 mg, Jordy jackeline 0.6 MG Oral 4-24 PO, Daily, l Tablet 18:47: 0 [place] 00 Refill(s) METOPROLOL No METOPROLOL M emoria 4-24 , 100 mg l 18:46: =, PO, [place] 00 BID, Refill(s) 0 METOPROLOL No METOPROLOL M emoria 4-24 , 100 mg l 18:46: =, PO, [place] 00 BID, Refill(s) 0 Immunizations Ordered Filled Immunization Date Status Comments [facility] e Immunization Name Name SARS-COV-2 COVID-19 2021-04-24 Completed Unive rsity of MODERNA BOOSTER 00:00:00 [place] Med ical VACCINE Branch SARS-COV-2 COVID-19 2021-04-24 Completed Unive rsity of MODERNA BOOSTER 00:00:00 [place] Med ical VACCINE Branch SARS-COV-2 COVID-19 2021-04-24 Completed Unive rsity of MODERNA BOOSTER 00:00:00 [place] Med ical VACCINE Branch SARS-COV-2 COVID-19 2021-04-24 Completed Unive rsity of MODERNA BOOSTER 00:00:00 [place] Med ical VACCINE Branch SARS-COV-2 COVID-19 2020-06-11 Completed [...] 00:00:00 [place] Med ical Branch SARS-COV-2 COVID-19 2020-05-04 Completed Unive rsity of MODERNA VACCINE 00:00:00 [place] Med ical Branch SARS-COV-2 COVID-19 2020-05-04 Completed Unive rsity of MODERNA VACCINE 00:00:00 [place] Med ical Branch SARS-COV-2 COVID-19 2020-05-04 Completed Unive rsity of MODERNA VACCINE 00:00:00 [place] Med ical Branch SARS-COV-2 COVID-19 2020-05-04 Completed Unive rsity of MODERNA VACCINE 00:00:00 [facility] SARS-COV-2 COVID-19 2020-05-04 Completed Unive rsity of MODERNA VACCINE 00:00:00 [facility] SARS-COV-2 COVID-19 2020-05-04 Completed Unive rsity of MODERNA VACCINE 00:00:00 [facility] SARS-COV-2 COVID-19 2020-05-04 Completed Unive rsity of MODERNA VACCINE 00:00:00 [facility] SARS-COV-2 COVID-19 2020-05-04 Completed Unive rsity of MODERNA VACCINE 00:00:00 [facility] Tdap- (Boostrix, 2016-06-11 Completed Patricia kauffman Adacel) 00:00:00 Vital Signs Vital Name Observation Time Observation Value Comments Source HEIGHT 2021-10-29 09:31:00 188 cm WEIGHT 2021-10-29 09:31:00 108.863 kg HEIGHT 2021-11-02 09:45:00 188 cm WEIGHT 2021-11-02 09:45:00 108.047 kg HEIGHT 2021-11-02 09:45:00 188 cm WEIGHT 2021-11-02 09:45:00 108.047 kg HEIGHT 2021-11-02 09:45:00 188 cm WEIGHT 2021-11-02 09:45:00 108.047 kg Systolic blood 2021-10-20 14:14:00 156 mm[Hg] [facility] pressure Medicine Diastolic blood 2021-10-20 14:14:00 105 mm[Hg] [facility] pressure Medicine Heart rate 2021-10-20 14:14:00 57 /min [facility] Body temperature 2021-10-20 14:14:00 36.39 Miriam [facility] Respiratory rate 2021-10-20 14:14:00 16 /min [facility] Body height 2021-10-20 14:14:00 188 cm [facility] Body weight 2021-10-20 14:14:00 115.304 kg [facility] BMI 2021-10-20 14:14:00 32.64 kg/m2 [facility] Oxygen saturation in 2021-10-20 14:14:00 99 /min [facility] Arterial blood by Medicine Pulse oximetry WEIGHT 2021-09-30 06:20:00 129 kg WEIGHT 2021-09-29 06:06:00 127.7 kg WEIGHT 2021-09-28 04:00:00 127.143 kg WEIGHT 2021-09-27 05:00:00 126.1 kg WEIGHT 2021-09-26 05:00:00 125.465 kg WEIGHT 2021-09-25 05:29:00 125.5 kg HEIGHT 2021-09-24 07:55:00 188 cm WEIGHT 2021-09-24 07:55:00 117.935 kg WEIGHT 2021-09-30 06:20:00 129 kg WEIGHT 2021-09-29 06:06:00 127.7 kg WEIGHT 2021-09-28 04:00:00 127.143 kg WEIGHT 2021-09-27 05:00:00 126.1 kg WEIGHT 2021-09-26 05:00:00 125.465 kg WEIGHT 2021-09-25 05:29:00 125.5 kg HEIGHT 2021-09-24 07:55:00 188 cm WEIGHT 2021-09-24 07:55:00 117.935 kg WEIGHT 2021-09-30 06:20:00 129 kg WEIGHT 2021-09-29 06:06:00 127.7 kg WEIGHT 2021-09-28 04:00:00 127.143 kg WEIGHT 2021-09-27 05:00:00 126.1 kg WEIGHT 2021-09-26 05:00:00 125.465 kg WEIGHT 2021-09-25 05:29:00 125.5 kg HEIGHT 2021-09-24 07:55:00 188 cm WEIGHT 2021-09-24 07:55:00 117.935 kg HEIGHT 2021-09-17 06:30:00 188 cm WEIGHT 2021-09-17 06:30:00 121.292 kg HEIGHT 2021-09-17 06:30:00 188 cm WEIGHT 2021-09-17 06:30:00 121.292 kg HEIGHT 2021-09-17 06:30:00 188 cm WEIGHT 2021-09-17 06:30:00 121.292 kg Heart rate 2021-07-14 20:02:00 66 /min [facility] [place] [facility] Oxygen saturation in 2021-07-14 20:02:00 94 /min [facility] Arterial blood by [facility] Pulse oximetry Branch Respiratory rate 2021-07-14 20:01:00 21 /min [facility] Systolic blood 2021-07-14 19:59:00 122 mm[Hg] [facility] Diastolic blood 2021-07-14 19:59:00 92 mm[Hg] [facility] Body temperature 2021-07-14 19:15:00 36.33 Miriam [facility] Body height 2021-07-08 13:42:00 188 cm [facility] Body weight 2021-07-08 13:42:00 117.9 kg [facility] BMI 2021-07-08 13:42:00 33.36 kg/m2 [facility] Systolic blood 2021-07-14 16:29:00 135 mm[Hg] [facility] Diastolic blood 2021-07-14 16:29:00 91 mm[Hg] [facility] Heart rate 2021-07-14 16:29:00 61 /min [facility] [place] [facility] Body temperature 2021-07-14 16:29:00 36.28 Miriam [facility] Respiratory rate 2021-07-14 16:29:00 18 /min [facility] Oxygen saturation in 2021-07-14 16:29:00 98 /min [facility] Arterial blood by [facility] Pulse oximetry Branch Body height 2021-07-08 13:42:00 188 cm [facility] [place] [facility] Body weight 2021-07-08 13:42:00 117.9 kg [facility] BMI 2021-07-08 13:42:00 33.36 kg/m2 [facility] Systolic blood 2021-05-18 14:51:00 128 [...] 11:00:00 87 mm[Hg] [facility] [place] [facility] Heart rate 2020-11-24 11:00:00 79 /min [facility] Respiratory rate 2020-11-24 11:00:00 20 /min [facility] Oxygen saturation in 2020-11-24 11:00:00 96 /min [facility] Arterial blood by [employer] nereida Pulse oximetry Branch Body temperature 2020-11-24 10:26:00 [...] 100 /min [facility] Arterial blood by [employer] nereida Pulse oximetry Branch Body temperature 2020-11-23 08:47:40 37.44 Miriam [facility] Body height 2020-11-23 08:45:00 188 cm [facility] Body weight 2020-11-23 08:45:00 117.935 kg [facility] BMI 2020-11-23 08:45:00 33.38 kg/m2 [facility] Systolic blood 2021-11-14 12:09:03 140 mm[Hg] [facility] pressure Diastolic blood 2021-11-14 12:09:03 83 mm[Hg] [facility] pressure Heart rate 2021-11-14 12:09:03 56 /min [facility] Body temperature 2021-11-14 12:09:03 36.17 Miriam [facility] Respiratory rate 2021-11-14 12:09:03 19 /min [facility] Oxygen saturation in 2021-11-14 12:09:03 99 /min [facility] Arterial blood by Pulse oximetry Body weight 2021-11-13 11:05:00 107.049 kg [facility] BMI 2021-11-13 11:05:00 30.30 kg/m2 [facility] Body height 2021-11-11 20:24:00 188 cm [facility] Systolic blood 2021-11-02 09:45:00 102 mm[Hg] [facility] Diastolic blood 2021-11-02 09:45:00 62 mm[Hg] [facility] Heart rate 2021-11-02 09:45:00 81 /min [facility] Body temperature 2021-11-02 09:45:00 36.61 Miriam [facility] Respiratory rate 2021-11-02 09:45:00 18 /min [facility] Body height 2021-11-02 09:45:00 188 cm [facility] Body weight 2021-11-02 09:45:00 108.047 kg [facility] BMI 2021-11-02 09:45:00 30.58 kg/m2 [facility] Oxygen saturation in 2021-11-02 09:45:00 98 /min [facility] Arterial blood by Medical Ce nter Pulse oximetry Systolic (mm Hg) 2014-08-02 17:15:00 Jordy rial Ramakrishna Diastolic (mm Hg) 2014-08-02 17:15:00 Mem orial [place] Respitory Rate 2014-08-02 17:15:00 Memori al [place] Heart Rate 2014-08-02 17:15:00 [facility] [place] Temperature Oral (F) 2014-08-02 17:15:00 97.4 F [facility] [place] Respitory Rate 2014-08-02 13:13:00 Memori al [place] Temperature Oral (F) 2014-08-02 13:13:00 97.5 F [facility] Ramakrishna Heart Rate 2014-08-02 13:13:00 [facility] Ramakrishna Systolic (mm Hg) 2014-08-02 13:13:00 Jordy rial Ramakrishna Diastolic (mm Hg) 2014-08-02 13:13:00 Mem orial Ramakrishna Temperature Oral (F) 2014-08-02 09:00:00 97.7 F [facility] [place] Heart Rate 2014-08-02 09:00:00 [facility] [place] Systolic (mm Hg) 2014-08-02 09:00:00 Jordy rial Ramakrishna Diastolic (mm Hg) 2014-08-02 09:00:00 Mem orial [place] Respitory Rate 2014-08-02 09:00:00 Jennifer Barakat Height 2014-07-19 18:21:00 187.96 cm [facility] Weight 2014-07-19 18:21:00 [facility] BMI Calculated 2014-07-19 [facility]:21:[facility] [place] [facility] Procedure Date / Time Performing Clinician Source Performed BASIC METABOLIC PANEL 2021-11-14 10:44:00 Tony Florez [facility] HC COMPLETE BLD COUNT 2021-11-14 10:44[facility] DIFF MAGNESIUM LEVEL 2021-11-14 10:44:00 Tony Florez H ospital ESTIMATED GFR 2021-11-14 10:44:00 Tony Florez H ospital BASIC METABOLIC PANEL 2021-11-13 12:07:00 Guillermo Sheriff [facility] HC COMPLETE BLD COUNT 2021-11-13 12:07:00 Tony Florez [facility] W/AUTO DIFF FERRITIN LEVEL 2021-11-13 12:07:00 Tony Florez [facility] ospital TOTAL IRON BINDING 2021-11-13 12:07:00 Tony Florez [facility] CAPACITY ESTIMATED GFR 2021-11-13 12:07[facility]00 [facility] PHOSPHORUS LEVEL 2021-11-13 05:57:00 Tony Florez [facility] URINE CULTURE 2021-11-12 21:56:00 [facility] Avel Danny URINALYSIS SCREEN AND 2021-11-12 20:47:00 [facility] MICROSCOPY, WITH REFLEX TO Avel Danny CULTURE COVID-19 ANTI-SPIKE IGG 2021-11-12 10:24:00 [facility] ANTIBODY TITER HC COMPLETE BLD COUNT 2021-11-12 10:24:00 SheriffGuillermo Juan [facility] W/AUTO DIFF BASIC METABOLIC PANEL 2021-11-12 10:24:00 [facility] COVID-19 SEROLOGY PATIENT 2021-11-12 10:24:00 [facility] SURVEILLANCE ESTIMATED GFR 2021-11-12 10:24:00 [facility] SURGICAL PATHOLOGY REQUEST 2021-11-11 19:00:00 [facility] CT NEEDLE BIOPSY NO 2021-11-11 18:14:12 [facility] CONTRAST RHEUMATOID FACTOR 2021-11-11 09:36:00 [facility] CREATINE KINASE, TOTAL 2021-11-11 09:36:00 [facility] ([facility] URIC ACID LEVEL 2021-11-11 09:36:00 [facility] PARATHYROID HORMONE 2021-11-11 09:36:00 [facility] BASIC METABOLIC PANEL 2021-11-11 09:36:00 [facility], [facility] MAGNESIUM LEVEL 2021-11-11 09:36:00 Guillermo Sheriff [facility] ospital ESTIMATED GFR 2021-11-11 09:36:00 Guillermo Sheriff [facility] ospital PHOSPHORUS LEVEL 2021-11-11 05:12:00 Guillermo Sheriff [facility] US RENAL 2021-11-11 01:07:00 Guillermo Sheriff [facility] ospital URINE CULTURE 2021-11-10 20:53:00 Guillermo Sheriff [facility] ospital COVID-19 QUALITATIVE 2021-11-10 20:01:00 [facility] RT-PCR URINALYSIS SCREEN AND 2021-11-10 20:01:00 [facility], WITH REFLEX TO CULTURE PROTHROMBIN TIME WITH INR 2021-11-10 20:01:00 Guillermo Sheriff [facility] PARTIAL THROMBOPLASTIN 2021-11-10 20:01:00 [facility] TIME (PTT) BRISEIDA 2021-11-10 20:01:00 Guillermo Sheriff [facility] [facility] ospital ANTI-NEUTROPHILIC 2021-11-10 20:01:00 [facility] CYTOPLASMIC ABS PANEL C3 COMPLEMENT COMPONENT 2021-11-10 20:01:[address] [facility] [address] [facility] CARDIOLIPIN ANTIBODIES 2021-11-10 20:01:00 [facility] DOUBLE-STRANDED DNA 2021-11-10 20:01:00 [facility] ([facility] ANTIBODIES, CRITHIDIA KAPPA LAMBDA FREE LIGHT 2021-11-10 20:01:[address] [facility] [address] [facility] CHAIN WITH RATIO SERUM ELECTROPHORESIS 2021-11-10 20:01:00 [facility] JIMENEZ ANTIBODY 2021-11-10 20:01:00 Guillermo Sheriff [facility] URINE PROTEIN 2021-11-10 20:01:00 Guillermo Sheriff [facility] ospital ELECTROPHORESIS, RANDOM PROTEIN, URINE, RANDOM 2021-11-10 20:01:00 Sheriff, Guillermo [facility] CREATININE LEVEL, URINE, 2021-11-10 20:01:[address] [facility] RANDOM HC COMPLETE BLD COUNT 2021-11-10 17:33:00 Andrew [facility] W/AUTO DIFF COMPREHENSIVE METABOLIC 2021-11-10 17:33:00 [place] [facility] PANEL ESTIMATED GFR 2021-11-10 17:33:00 [facility] HEMOGLOBIN A1C 2021-11-10 17:33:00 [facility] THYROID STIMULATING 2021-11-10 17:33:00 [facility] HORMONE T4, FREE 2021-11-10 17:33:00 [facility] TYPE AND SCREEN, AUTOMATED 2021-11-02 09:50:00 Narinder Brooks [facility] BASIC METABOLIC PANEL (7) 2021-11-02 09:49:00 Narinder Brooks I [facility] CBC W/PLT COUNT & AUTO 2021-11-02 09:49:00 Narinder Brooks [facility] DIFFERENTIAL Center PT/APTT 2021-11-02 09:49:00 DelmarNarinder [facility] URINALYSIS W/ REFLEX URINE 2021-11-02 09:49:00 Narinder Brooks [facility] CULTURE Center CBC W/PLT COUNT & AUTO 2021-11-02 09:49:00 Narinder Brooks [facility] DIFFERENTIAL [place] ECG 12-LEAD 2021-11-02 09:46:12 DelmarNarinder [facility] ECG 12-LEAD 2021-11-02 09:46:12 Unknown, Hl7 Doctor [facility] XR CHEST 2 VIEWS 2021-11-02 09:41:00 DelmarNarinder [facility] JOSELIN,POST-VOID 2021-10-22 16:32:20 [facility],US,NON-IMG Medicine BLADDER WASHINGS CYTOLOGY 2021-10-15 10:19:[address] CYSTOSCOPY 2021-10-15 10:00:00 [facility] NON VIDEO URODYNAMICS 2021-10-05 15:04:51 [facility] POCT URINALYSIS DIPSTICK 2021-10-05 00:00:00 [facility] CULTURE, URINE/SENSITIVITY 2021-10-01 11:53:[address] [facility] POCT-GLUCOSE METER 2021-09-30 11:26:00 George Levy [facility] POCT-GLUCOSE METER 2021-09-30 07:15:00 Gayathri [facility] CBC W/PLT COUNT & AUTO 2021-09-30 06:01:[address] [facility] BASIC METABOLIC PANEL (7) 2021-09-30 06:01:00 [facility] CBC W/PLT COUNT & AUTO 2021-09-30 06:01:00 [facility] POCT-GLUCOSE METER 2021-09-29 21:11:00 Gayathri [facility] POCT-GLUCOSE METER 2021-09-29 15:39:00 Gayathri [facility] POCT-GLUCOSE METER 2021-09-29 11:19:00 [facility] SODIUM, RANDOM URINE 2021-09-29 10:11:00 Bandar Bauer [facility] CREATININE, RANDOM URINE 2021-09-29 10:11:00 Bandar Bauer HI [facility] PROTEIN, RANDOM URINE 2021-09-29 10:11:00 Bandar Bauer [facility] OSMOLALITY, URINE 2021-09-29 10:11:00 Bandar Bauer [facility] EOSINOPHIL SMEAR, URINE 2021-09-29 10:11:00 Bandar Bauer CH I [facility] URINALYSIS W/ MICROSCOPIC 2021-09-29 10:11:00 Bandar Bauer [facility] G6PD, QUANTITATIVE 2021-09-29 08:47:00 Bandar Bauer [facility] POCT-GLUCOSE METER 2021-09-29 07:10:00 Gayathri [facility] POCT-GLUCOSE METER 2021-09-29 06:04:00 Gayathri [facility] BASIC METABOLIC PANEL (7) 2021-09-29 01:46:00 Tony Florez [facility] MAGNESIUM 2021-09-29 01:46:00 Tony Florez [facility] PHOSPHORUS 2021-09-29 01:46:00 Tony Florez [facility] POCT-GLUCOSE METER 2021-09-28 21:07:00 Gayathri [facility] POCT-GLUCOSE METER 2021-09-28 15:27:00 Gayathri [facility] POCT-GLUCOSE METER 2021-09-28 11:20:00 Gayathri [facility] POCT-GLUCOSE METER 2021-09-28 07:12:00 Gayathri [facility] CBC W/PLT COUNT & AUTO 2021-09-28 04:15:[address] [facility] BASIC METABOLIC PANEL (7) 2021-09-28 04:15:00 Gayathri [facility] CBC W/PLT COUNT & AUTO 2021-09-28 04:15:[address] [facility] POCT-GLUCOSE METER 2021-09-27 20:25:00 Gayathri [facility] POCT-GLUCOSE METER 2021-09-27 16:16:00 Gayathri [facility] POCT-GLUCOSE METER 2021-09-27 12:10:00 Gayathri [facility] POCT-GLUCOSE METER 2021-09-27 08:35:00 Gayathri [facility] BASIC METABOLIC PANEL (7) 2021-09-27 03:04:00 Tony Florez [facility] CBC W/PLT COUNT & AUTO 2021-09-27 03:04:00 Tony Florez [facility] MAGNESIUM 2021-09-27 03:04:00 Tony Florez [facility] PHOSPHORUS 2021-09-27 03:04:00 Tony Florez [facility] VANCOMYCIN LEVEL, TROUGH 2021-09-27 03:04:00 Tony Florez [facility] CBC W/PLT COUNT & AUTO 2021-09-27 03:04:00 Tony Florez [facility] POCT-GLUCOSE METER 2021-09-26 20:35:00 [facility] POCT-GLUCOSE METER 2021-09-26 16:47:00 Gayathri [facility] VANCOMYCIN LEVEL, RANDOM 2021-09-26 14:51:00 Adelaide Watkins [facility] POCT-GLUCOSE METER 2021-09-26 11:26:00 [facility] CBC W/PLT COUNT & AUTO 2021-09-26 09:30:[address] [facility] BASIC METABOLIC PANEL (7) 2021-09-26 09:30:00 [facility] & AUTO 2021-09-26 09:30:[address] [facility] POCT-GLUCOSE METER 2021-09-26 07:58:00 [facility] POCT-GLUCOSE METER 2021-09-25 23:04:00 Gayathri [facility] POCT-GLUCOSE METER 2021-09-25 16:30:00 Gayathri [facility] POCT-GLUCOSE METER 2021-09-25 11:45:00 Gayathri [facility] POCT-GLUCOSE METER 2021-09-25 07:37:00 George Levy [facility] ALDOLASE 2021-09-25 05:22:00 Bandar Bauer [facility] COMPREHENSIVE METABOLIC 2021-09-25 05:22:00 Bandar Bauer [facility] PANEL [place] PTH, INTACT 2021-09-25 05:22:00 Bandar Bauer [facility] CBC W/PLT COUNT & AUTO 2021-09-25 05:22:00 Ariela [facility] DIFFERENTIAL [place] CBC W/PLT COUNT & AUTO 2021-09-25 05:22:00 Ariela [facility] DIFFERENTIAL [place] MAGNESIUM 2021-09-25 05:22:00 Ariela [facility] VANCOMYCIN LEVEL, RANDOM 2021-09-25 05:22:00 Vera Farrell [facility] OSMOLALITY, URINE 2021-09-25 00:15:00 Bandar Bauer [facility] EOSINOPHIL SMEAR, URINE 2021-09-25 00:15:00 Bandar Bauer [facility] URIC ACID 2021-09-24 21:22:00 Bandar Bauer [facility] CREATINE KINASE (CK) 2021-09-24 21:22:00 Bandar Bauer [facility] PHOSPHORUS 2021-09-24 21:22:00 Bandar Bauer [facility] POCT-GLUCOSE METER 2021-09-24 21:11:00 Ariela [facility] MR LUMBAR SPINE WITHOUT IV 2021-09-24 19:33:00 Fanta Titus [facility] CONTRAST [place] GI PATHOGEN PROFILE BY PCR 2021-09-24 18:10:00 Ariela terry [facility] C. DIFFICILE GDH TOXIN 2021-09-24 17:14:00 Ariela [facility] OVA AND PARASITE 2021-09-24 17:14:00 Ariela [facility] EXAMINATION [place] POCT-GLUCOSE METER 2021-09-24 17:12:00 [facility] POCT-GLUCOSE METER 2021-09-24 15:33:00 [facility] SARS-COV2/RT-PCR ([facility] & 2021-09-24 13:30:00 [facility] REF LABS) Center US RENAL COMPLETE 2021-09-24 12:49:00 [facility] SODIUM, RANDOM URINE 2021-09-24 12:24:00 [facility] CREATININE, RANDOM URINE 2021-09-24 12:24:00 [facility] PROTEIN, RANDOM URINE 2021-09-24 12:24:00 [facility] PROCALCITONIN 2021-09-24 12:01:00 [facility] LACTIC ACID, VENOUS 2021-09-24 12:01:00 [facility] PROTHROMBIN TIME/INR 2021-09-24 12:01:00 [facility] CORTISOL 2021-09-24 12:01:00 [facility] BLOOD CULTURE 2021-09-24 12:00:00 [facility] BLOOD CULTURE 2021-09-24 12:00:00 Ariela [facility] IDENTIFICATION PANEL Center XR CHEST 1 VIEW PORTABLE / 2021-09-24 11:31:00 Fanta Titus [facility] BEDSIDE Center URINALYSIS W/ REFLEX URINE 2021-09-24 09:11:00 Maribell Ley [facility] CULTURE Center CBC W/PLT COUNT & AUTO 2021-09-24 09:07:00 Maribell Ley I [facility] DIFFERENTIAL Center B-TYPE NATRIURETIC FACTOR 2021-09-24 09:07:00 Maribell Ley [facility] CBC W/PLT COUNT & AUTO 2021-09-24 09:07:00 Maribell Ley [facility] COMPREHENSIVE METABOLIC 2021-09-24 09:07:00 Maribell Ley [facility] PROTHROMBIN TIME/INR 2021-09-24 09:07:00 Jil [facility] HIGH SENSITIVITY TROPONIN 2021-09-24 09:07:00 Jil [facility] APTT 2021-09-24 09:07:00 Fanta Titus [facility] POCT-GLUCOSE METER 2021-09-24 08:10:00 Jil [facility] ECG 12-LEAD 2021-09-24 07:49:48 Unknown, Hl7 [facility] ECG 12-LEAD 2021-09-24 07:49:48 Unknown, Hl7 [facility] ED ECG INTERPRETATION 2021-09-24 07:49:00 Jil [facility] EKG-SCANNED 2021-09-24 00:00:00 Provider, [facility] Scanning Center CBC W/PLT COUNT & AUTO 2021-09-20 05:33:00 [facility] CBC W/PLT COUNT & AUTO 2021-09-20 05:33:00 [facility] ABDOMEN/PELVIS WITH IV 2021-09-19 03:48:00 Yoel [facility] CONTRAST [place] XR ABDOMEN / KUB 1 VIEW 2021-09-18 23:12:00 Uljose luis [facility] LACTIC ACID, VENOUS 2021-09-18 23:11:[address] [facility] LIPASE 2021-09-18 23:11:00 Yoel [facility] US RENAL COMPLETE 2021-09-18 11:20:00 Ro [facility] CBC W/PLT COUNT & AUTO 2021-09-18 04:58:00 Fernando Salvador [facility] BASIC METABOLIC PANEL (7) 2021-09-18 04:58:00 Fernando Salvador [facility] HEPATIC FUNCTION PANEL 2021-09-18 04:58:00 Ray SalvadorfranchescaJeana [facility] CBC W/PLT COUNT & AUTO 2021-09-18 04:58:00 Fernando Salvador [facility] URINE CULTURE 2021-09-17 12:27:00 Fernando Salvador [facility] URINALYSIS W/ REFLEX URINE 2021-09-17 12:27:00 Fernando Salvador [facility] CULTURE Center MR LUMBAR SPINE WITHOUT IV 2021-09-17 11:30:00 Fernando Salvadro [facility] CBC W/PLT COUNT & AUTO 2021-09-17 08:55:00 Fernando Salvador [facility] C-REACTIVE PROTEIN 2021-09-17 08:55:00 Fernando Salvador [facility] PROCALCITONIN 2021-09-17 08:55:00 Ray SalvadorfranchescaJeana [facility] CBC W/PLT COUNT & AUTO 2021-09-17 08:55:00 Fernando Salvador [facility] BASIC METABOLIC PANEL (7) 2021-09-17 08:55:00 Fernando Salvador [facility] HEPATIC FUNCTION PANEL 2021-09-17 08:55:00 Ray SalvadorfranchescaJeana [facility] FL TIME OR 2021-07-14 18:59:10 Tony Garcia [facility] (NON-REPORTABLE) Medical Branch [place] TIME OR 2021-07-14 18:59:10 Tony Garcia [facility] (NON-REPORTABLE) Medical [place] TOE ARTHRODESIS 2021-07-14 16:53:00 Tony Garcia [facility] RONNY BUNION 2021-07-14 16:53:00 Tony Garcia [facility] PATIENT QUESTIONNAIRE 2021-07-14 05:01:00 Doctor Unassigned, [facility] [place] [facility] DAY SURGERY - ADC 2021-07-14 05:01:00 Doctor Unassigned, [facility] [place] [facility] CONSENT/REFUSAL FOR 2021-07-09 15:19:32 Doctor [facility]ass[facility], [facility] DIAGNOSIS AND TREATMENT [place] [facility] CONSENT/REFUSAL FOR 2021-07-09 15:19:32 Doctor Unassigned, [facility] DIAGNOSIS AND TREATMENT [place] [facility] ASSIGNMENT OF BENEFITS 2021-07-09 15:19:04 Doctor Unassigned, [facility] [place] [facility] ASSIGNMENT OF BENEFITS 2021-07-09 15:19:04 Doctor Unassigned, [facility] [place] [facility] PATIENT FINANCIAL 2021-07-09 15:18:47 Doctor Unassigned, [facility] POLICY [place] [facility] PATIENT FINANCIAL 2021-07-09 15:18:47 Doctor Unassigned, [facility] POLICY [place] [facility] NO SHOW OR MISSED 2021-07-09 15:18:31 Doctor Unassigned, [facility] APPOINTMENT POLICY [place] [facility] ACKNOWLEDGEMENT NO SHOW OR MISSED 2021-07-09 15:18:31 Doctor Unassigned, [facility] APPOINTMENT POLICY [place] [facility] ACKNOWLEDGEMENT NOTICE OF PRIVACY 2021-07-09 15:18:13 Doctor Unassigned, [facility] PRACTICES [place] [facility] NOTICE OF PRIVACY 2021-07-09 15:18:13 Doctor Unassigned, [facility] PRACTICES [place] [facility] CONSENT/REFUSAL FOR 2021-07-09 15:17:58 Doctor Unassigned, [facility] DIAGNOSIS AND TREATMENT [place] [facility] CONSENT/REFUSAL FOR 2021-07-09 15:17:58 Doctor Unassigned, [facility] DIAGNOSIS AND TREATMENT [place] [facility] ASSIGNMENT OF BENEFITS 2021-07-09 15:17:34 Doctor Unassigned, [facility] [place] [facility] ASSIGNMENT OF BENEFITS 2021-07-09 15:17:34 Doctor Unassigned, [facility] [place] [facility] EXTERNAL PROVIDER RECORDS 2021-07-06 05:01:00 Doctor Unassigned, [facility] Name [facility] EXTERNAL PROVIDER RECORDS 2021-07-06 05:01:00 Doctor Babatunde, [facility] [place] [facility] [place] SARS-COV-2 COVID-19 2021-04-24 15:06:03 Doctor Babatunde [facility] VACCINE BOOSTER,0.25ML,IM [place] [facility] (MODERNA) URINALYSIS 2020-11-24 10:49:00 Singer [facility] COVID-19 (ID NOW RAPID 2020-11-24 10:39:00 Singer [facility] TESTING) Medical Branch LIPASE 2020-11-24 10:35:00 [facility] COMP. METABOLIC PANEL 2020-11-24 10:35:00 Singer [facility] ([id number]) Medical Branch CBC WITH DIFF 2020-11-24 10:35:00 [facility] CONSENT/REFUSAL FOR 2020-11-24 10:20:22 Doctor Fine [facility] DIAGNOSIS AND TREATMENT [place] [facility] CT ABDOMEN PELVIS W 2020-11-23 09:23:16 Jaguar Frye [facility] CONTRAST Medical Branch LIPASE 2020-11-23 08:50:00 Singer [facility] COMP. METABOLIC PANEL 2020-11-23 08:50:00 Singer [facility] ([id number]) Medical Branch CBC WITH DIFF 2020-11-23 08:50:00 Singer [facility] URINALYSIS 2020-11-23 08:50:00 Singer [facility] NOTICE OF PRIVACY 2020-11-23 08:33:16 Doctor Babatunde [facility] PRACTICES [place] [facility] [place] Jean Carlos-en-y gastric bypass 2014-08-01 05:00:00 Mem orial Ramakrishna Back [facility] Cholecystectomy [facility] Knee [facility] Plan of Care Planned Activity Planned Date Details Comments Source Future Scheduled 2026-06-11 DTAP/TDAP/TD VACCINES [facility] 00:00[facility]00 (2 - Td or Tdap) [code Medic al Center = DTAP/TDAP/TD VACCINES (2 - Td or Tdap)] Future Scheduled 2024-05-18 Lipid panel (procedure) [facility] 00:00:00 [code = 12369458] Medical Ce nter Future Scheduled 2021-12-12 HEPATITIS B VACCINES (1 [facility] 00:32:51 of 3 - 3-dose series) Hospit al [code = HEPATITIS B VACCINES (1 of 3 - 3-dose series)] Future Scheduled 2021-12-12 [facility] C screening [facility] 00:32:51 (procedure) [code = Hospital 481050187] Future Scheduled 2021-12-12 COL[facility]OSCOPY [facility]CREENING [facility] 00:32:51 [code = COLONOSCOPY Hospital SCREENING] Future Scheduled 2021-12-12 COVID-19 VACCINE (4 - [facility] 00:32:51 Booster for [facility] Hospital series) [code = COVID-19 VACCINE (4 - Booster for [employer] series)] Future Scheduled 2021-12-12 INFLUENZA VACCINE [code [facility] 00:32:51 = INFLUENZA VACCINE] Hospita l Future Scheduled 2021-11-26 INFLUENZA VACCINE (#1) [facility] 00:[facility]00 [code = INFLUENZA Medical Ce nter VACCINE (#1)] Future Scheduled 2021-10-21 Screening for malignant [facility] Test 07:05:21 neoplasm of colon of Medicin e (procedure) [code = 567844647] Future Scheduled 2021-10-21 Hepatitis C screening [facility] Test 07:05:21 (procedure) [code = of Medic ine 348058853] Future Scheduled 2021-10-21 Human immunodeficiency B [facility] Test 07:05:21 virus screening of Medicine (procedure) [code = 067456436] Future Scheduled 2021-10-21 FLU VACCINE > 6 MONTHS [address] [facility] Test 07:05:21 [code = FLU VACCINE > 6 of M edicine MONTHS] Future Scheduled 2021-10-21 BMI FOLLOW UP PLAN [facility] Test 07:05:21 [code = BMI FOLLOW UP of Med icine PLAN] Future Scheduled 2021-10-21 TETANUS SHOT (ADULT) [facility] Test 07:05:21 [code = TETANUS SHOT of Medi cine (ADULT)] Future Scheduled 2021-10-20 MRI CERVICAL SPINE WO 1 Occurrences [facility] [employer] [employer] Test 09:40:41 CONTRAST [code = starting of Medicine 02041-3] 10/20/2021 until 10/20/2022 Future Scheduled 2021-10-20 MRI THORACIC SPINE WO 1 Occurrences [employer] Test 09:40:41 CONTRAST [code = starting of Medicine 45993-1] 10/20/2021 until 10/20/2022 Future Scheduled 2021-10-20 XR LUMBAR SPINE AP 1 Occurrences [employer] Test 09:32:39 LATERAL FLEXION AND starting of Medic ine EXTENSION [code = 10/20/2021 until 05192-4] 10/20/2022 Future Scheduled 2021-10-20 XR SCOLIOSIS 2 VIEWS 1 Occurrences [employer] Test 09:32:39 [code = 78381-2] starting of Medicine 10/20/2021 until 10/20/2022 Future Scheduled 2021-10-01 FLU VACCINE > 6 MONTHS [facility] [employer] [employer] [facility] 09:30:15 [code = FLU VACCINE > 6 of M edicine MONTHS] Future Scheduled 2021-10-01 TETANUS SHOT (ADULT) [facility] [employer] Test 09:30:15 [code = TETANUS SHOT of Medi cine (ADULT)] Future Scheduled 2021-10-01 Screening for malignant [facility] [employer] Test 09:30:15 neoplasm of colon of Medicin e (procedure) [code = 659613487] Future Scheduled 2021-10-01 Hepatitis C screening [employer] Test 09:30:15 (procedure) [code = of Medic ine 754198677] Future Scheduled 2021-10-01 Human immunodeficiency [facility] [employer] Test 09:30:15 virus screening of Medicine (procedure) [code = 835385867] Future Scheduled 2021-03-[address] [facility] Test 00:00:00 (12+) [code = Medical Center DEPRESSION SCREENING (12+)] Future Scheduled 1992 HEPATITIS C [facility]CRE[facility]ING [facility] 00:00:00 [code = HEPATITIS C Medical Center SCREENING] Future Scheduled 1974 CT Colonography (combo) [facility] Test 00:00:00 [code = CT Colonography Medi [facility] Center (combo)] Future Scheduled 1974 Screening for malignant [facility] Test 00:00:00 neoplasm of colon Medical Ce nter (procedure) [code = 573030135] Future Scheduled 1974 Screening for malignant [facility] Test 00:00:00 neoplasm of colon Medical Ce nter (procedure) [code = 227989301] Future Scheduled 1974 Screening for malignant [facility] Test 00:00:00 neoplasm of colon Medical Ce nter (procedure) [code = 252377072] Future Scheduled 1974 Screening for malignant [facility] Test 00:00:00 neoplasm of colon Medical Ce nter (procedure) [code = 268546233] Future Scheduled 1974 Sigmoidoscopy [code = [facility] 00:[facility] S[facility]oscopy] Medical Cente r Encounters Start End Encounter Admission Attending Care Care Encounter Source Date/Time Date/Time Type Type Clinicians Facility Department ID 2021-10-23 Inpatient NARINDER RODRIGUEZ [facility] Surgery [id number] SLE 13:14:19 2021-11-10 2021-11-14 [facility] Debra Morales [id number] Methodi 12:01:00 15:12:00 Encounter Sharita Guillermo Elaine [id number] [id number] Hospit a .[id number] l .8 2021-11-10 2021-11-14 Inpatient SHARITA [facility] [id number] [place] 00:00:00 00:00:00 GUILLERMO Driscoll [facility] 2021-11-12 2021-11-12 [facility] [id number] 23:59:00 23:59:00 Encounter [facility] 2021-11-12 2021-11-[address] [facility] [id number] SLE 00:00:00 23:59:00 2021-11-10 2021-11-10 Orders Shireen [facility] [id number] 00:00:00 00:00:[address] [facility] 2021-11-02 2021-11-[address] [facility] [id number] SLE 09:32:53 23:59:00 2021-11-02 2021-11-02 [facility] [id number] 09:32:53 23:59:00 Encounter [facility] 2021-11-02 2021-11-02 Outpatient NARINDER RODRIGUEZ [facility] SLE [id number] [facility] 09:13:25 09:31:00 2021-11-02 2021-11-02 [facility] Narinder Brooks [facility] [id number] 09:00:00 09:31:00 Encounter [facility] 2021-11-02 2021-11-[address] [facility] [id number] [facility] 00:00:00 00:00:00 2021-10-30 2021-10-30 [facility] Narinder Brooks [facility] [id number] 00:[facility]00 00:00:00 Only [facility] 2021-10-29 2021-10-[address] [facility] [id number] [facility] 09:47:40 23:59:00 2021-10-29 2021-10-29 [facility] [id number] 09:20:00 23:59:00 Encounter [facility] 2021-10-29 2021-10-29 [facility] [id number] [facility] 00:[facility] 00:00[facility]00 [facility] 2021-10-22 2021-10-22 Outpatient KRISTAL JIMENEZ Dnaiela [id number] [facility] 13:18:58 16:48:48 MELISSA marin of Medicin e 2021-10-20 2021-10-20 Office NARINDER BROOKS [facility] [id number] [facility] 08:46:21 13:53:02 Visit AMBULATOR [id number] College Y [id number] of [id number] Medi judi 300 e 2021-10-15 2021-10-15 Outpatient Daniela [facility] [id number] [facility] 08:20:37 15:14:38 Nataliia wall of Medicin e 2021-10-15 2021-10-15 Outpatient KRISTAL JIMENEZ [facility] [id number] [facility] 08:22:01 10:02:16 MELISSA Co llege of Medicin e 2021-10-05 2021-10-05 Outpatient KRISTAL JIMENEZ [facility] [id number] [facility] 12:57:12 12:57:12 MELISSA Co llege of Medicin e 2021-10-01 2021-10-01 Office KRISTAL JIMENEZ 1.2.840.[id number] [facility] 10:29:54 12:26:23 Visit MELISSA AMBULATOR 350.1.13.21 College Y 0.2.7.2.686 [id number] Medi judi 300 e 2021-09-24 2021-09-30 Inpatient ER WENDY LEVY Emergency [id number] [facility] 07:58:00 13:53:00 [facility] 2021-09-24 2021-09-30 [facility] Maribell Ley [facility] [id number] [facility] 07:58:00 13:53:00 [facility] 2021-09-24 2021-09-24 Outpatient [facility] [id number] [facility] 00:00:00 23:59:00 [facility] 2021-09-24 2021-09-24 Outside Ariela, [facility] [id number] 00:00:00 00:00:00 Orders [facility] 2021-09-24 2021-09-24 Orders [facility] [id number] 00:00:00 00:00:00 Only [facility] 2021-09-24 2021-09-[address] [facility] [id number] [facility] 00[facility]:00 [facility] 2021-09-17 2021-09-21 Inpatient ER RO [facility] Neurology [id number] [facility] 06:16:00 13:19:00 [place] 2021-09-17 2021-09-21 [facility] Igor Thomason [facility] [id number] [facility] 06:16:00 13:19:00 [facility] 2021-09-14 2021-09-14 Office Wei Arredondo 1.2.840.114 [id number] Patricia 16:30:00 16:45:00 Visit Alexa Kemp 350.1.13.13 sonia Butlerchristi 1.2.7.2.686 [id number] 2021-09-04 2021-09-04 Outpatient PATRICIA ARREDONDO [id number] Patricia 00:00:00 00:00:00 ALEXA Seybol d 2021-09-04 2021-09-04 Outpatient PATRICIA ARREDONDO [id number] Patricia 00:00:00 00:00:00 ALEXA Adamsybol tessa 2021-09-03 2021-09-03 Outpatient MELO GONZALEZ [id number] Patricia 00:00:00 00:00:00 Seybol d 2021-07-14 2021-07-14 Outpatient Tapan [facility] [id number] [facility] 11:23:00 15:24:00 TONY [facility] 2021-07-14 2021-07-14 [facility] 1.2.840.114 [id number] [facility] 11:23:00 15:24:00 Encounter Tony INFANTE 350.1.13.10 [place] [id number] [facility] [address] 2021-07-14 2021-07-14 Surgery [facility] 1.2.840.114 [id number] Univers 11:45:00 14:07:00 Tony INFANTE 350.1.13.10 ity of [facility] [place] [id number] [facility] [address] 2021-07-09 2021-07-09 Medical Researcher Angeli, Adc Lab Main [facility] 1.2.8 40.114 [id number] Univers 10:15:00 10:30:00 Visit Tony Garcia 350.1.13.10 [place] [id number] Ok dical NAL 353 [facility] 2021-07-09 2021-07-09 Outpatient R [facility] [id number] Univers 10:15:00 10:15:00 [id number] [facility] 2021-07-09 2021-07-09 Outpatient R RADHA NEUMANN, [facility] [id number] [facility] 10:15:00 10:15:00 TONY [facility] 2021-05-18 2021-05-18 Outpatient LAB90 PATRICIA ZAVALA [id number] Patricia 09:45:00 09:45:00 Seybol d 2021-05-18 2021-05-18 Office Wei Arredondo 1.2.840.114 [id number] Patricia 09:00:00 09:30:00 Visit Alexa Kemp 350.1.13.13 Se sonia Coates 1.2.7.2.686 [id number] 2021-05-05 2021-05-05 Outpatient LISA MELO PATRICIA ZAVALA [id number] Patricia 00:00:00 00:00:00 Seybol d 2021-04-24 2021-04-24 Imm/Inj Nurse, Adc Pob Immunization [facility] 1.2.840.114 [id number] Univers 09:10:00 09:10:00 Visit Willis Harvey 350.1.13 .10 [place] [id number] Ok dical NAL 421 [facility] 2020-11-24 2020-11-24 Emergency [facility] 1.2.367.155 [id number] Univers 05:24:00 06:37:00 Jaguar Infante 350.1.13.10 i ty of [place] [id number] [facility] 0[address] [place] 2020-11-24 2020-11-24 Emergency X SINGER [facility] ERT [id number] Univers 05:24:00 05:24:00 JAGUAR [facility] 2020-11-23 2020-11-23 Emergency [facility] 1.2.144.462 [id number] Univers 03:35:00 06:36:00 Jaguar Infante 350.1.13.10 i [place] 4.2.7.2.686 [facility] [id number] [place] [address] [address] 2020-11-23 2020-11-23 Emergency X [facility] ERT [id number] Univers 03:35:00 03:35:00 JAGUAR [facility] 2014-08-01 2014-08-02 Inpatient [facility] [id number] Memoria 11:10:00 20:38:[address] 2014-08-01 2014-08-02 Inpatient [facility] [id number] Memoria 11:10:00 20:38:[address] 2014-08-01 2014-08-02 Outpatient Jorge, 2.16.840. 2.16.840.1. 4 [id number] 06:10:00 15:38:00 Garth P [id number]. [id number] 3.615.0.1 5.0.101 01 Results Test Description Test Time Test Comments Results Result Comments Source Urine culture 2021-11-14 05:37:00 Test Item Value Reference Range Interpretation Comme nts Urine culture isolate Mixed joseph <=10-3 Specimen InformationSpecimen (test code = 65745-6) col/cc Source : UrineSpecimen Site: [facility] [id number] 00:41:15 Test Item Value Reference Range Interpretation Comments Case number (test code = [id number]) Surgical pathology See link below for report (test code = PDF Lab Report 6745) Result status (test code This is Final Report = [id number]) for [id number] [facility] RNA [Presence] in Respiratory specimen by JAS with probe [id number] 18:54:48 Test Item Value Reference Range Interpretation Comments SARS-CoV-2 (COVID-19) RNA Not detected [Presence] in Respiratory specimen by JAS with probe detection (test code = 87339-5) Whether patient is employed in a Unknown healthcare setting (test code = 38697-8) Whether the patient has symptoms Unknown related to condition of interest (test code = 85289-8) Whether the patient was Unknown hospitalized for condition of interest (test code = 44811-8) Whether the patient was admitted Unknown to intensive care unit (ICU) for condition of interest (test code = 76690-7) Whether patient resides in a Unknown congregate care setting (test code = 19898-7) status (test code = Unknown 54454-9) Date and time of symptom onset Unknown (test code = 33671-7) RAD, CHEST, 2 [id number] 16:04:00Reason for exam:[facility] 1975 Sex: MFINAL REPORT Comparison: 09/24/2021 History: Preoperative examination Findings:Lungs clear. No pleural effusions or pneumothorax. The heart shadow and pulmonary vascularity are normal in appearance. The thoracic aorta appears normal in caliber. Mild degenerative changes are notedin the spine. Impression: No evidence of acute cardiopulmonary disease. Signed: Jamal Cook MDReport Verified Date/Time: 11/02/2021 16:04:28 Urinalysis w/Microscopic + Reflex to [id number] 11:34:07 Test Item Value Reference Range Interpretation Comments Color, UA (test code Yellow = 5778-6) Clarity, UA (test Hazy code = 5767-9) Specific [place], UA 1.015 1.001-1.035 (test code = 5811-5) pH, UA (test code = 6.0 5.0-8.0 5803-2) Protein, UA (test 200 mg/dL Negative A code = 36765-7) Glucose, UA (test Negative Negative code = 365) Ketones, UA (test Negative Negative code = 2514-8) Bilirubin, UA (test Negative Negative code = 23080-6) Blood, UA (test code Large Negative A = 99696-5) Nitrite, UA (test Negative Negative code = 5802-4) Leukocytes, UA (test Trace Negative A code = 5799-2) Urobilinogen, UA 0.2 mg/dL 0.2-1.0 (test code = 20006-8) RBC, UA (test code = 116 See_Comment [Autom ated 36290-6) message] The system which generated this result transmit susanne reference range : /HPF. The reference range was not used to interpret this result as normal/abnormal . WBC, UA (test code = 7 See_Comment [Autom ated 5821-4) message] The system which generated this result transmit susanne reference range : /HPF. The reference range was not used to interpret this result as normal/abnormal . Bacteria, UA (test Rare code = 13087-0) Mucus (test code = Rare 8247-9) Squam Epithel, UA 1 See_Comment [Automate d (test code = 59338-6) messag e] The system which generated this result transmit susanne reference range : /HPF. The reference range was not used to interpret this result as normal/abnormal . Crystals, Urine (test None Seen code = 44062-3) Specimen Source (test code = 2795) PEDRO LUIS (test code = PEDRO LUIS) Milling General Superintendent ID - [auto]Milling General Superintendent ID - tech Lab Interpretation Abnormal (test code = 52239-9) [facility] [id number] 11:34:07 Test Item Value Reference Range Interpretation Comments COLOR (BEAKER) (test code = 470) Yellow CLARITY (BEAKER) (test code = 469) Hazy SPECIFIC GRAVITY UA (BEAKER) (test 1.015 1.001-1.035 code = 468) PH UA (BEAKER) (test code = 467) 6.0 5.0-8.0 PROTEIN UA (BEAKER) (test code = 200 mg/dL Negative A 464) GLUCOSE UA (BEAKER) (test code = Negative Negative 365) KETONES UA (BEAKER) (test code = Negative Negative 371) BILIRUBIN UA (BEAKER) (test code = Negative Negative 462) BLOOD UA (BEAKER) (test code = 461) Large Negative A NITRITE UA (BEAKER) (test code = Negative Negative 465) LEUKOCYTE ESTERASE UA (BEAKER) Trace Negative A (test code = 466) UROBILINOGEN UA (BEAKER) (test code 0.2 mg/dL 0.2-1.0 = 463) RBC UA (BEAKER) (test code = 519) 116 /HPF WBC UA (BEAKER) (test code = 520) 7 /HPF BACTERIA (BEAKER) (test code = 517) Rare MUCUS (BEAKER) (test code = 1574) Rare SQUAMOUS EPITHELIAL (BEAKER) (test 1 /HPF code = 516) CRYSTALS, URINE (BEAKER) (test code None Seen = 1521) SOURCE(BEAKER) (test code = 2795) [employer] General Superintendent ID - [auto]Milling General Superintendent ID - techBASIC METABOLIC [id number] 10:21:36 Test Item Value Reference Range Interpretation Comments SODIUM (BEAKER) 143 meq/L 136-145 (test code = 381) POTASSIUM 4.8 meq/L 3.5-5.1 (BEAKER) (test code = 379) CHLORIDE (BEAKER) 112 meq/L 98-107 H (test code = 382) CO2 (BEAKER) 22 meq/L 22-29 (test code = 355) BLOOD UREA 54 mg/dL 7-21 H NITROGEN (BEAKER) (test code = 354) CREATININE 5.91 mg/dL 0.57-1.25 H (BEAKER) (test code = 358) GLUCOSE RANDOM 106 mg/dL 70-105 H (BEAKER) (test code = 652) CALCIUM (BEAKER) 9.2 mg/dL 8.4-10.2 (test code = 697) EGFR (BEAKER) 11 Interpretatio n of eGFR (test code = mL/min/1.73 values Stage De scription 1092) sq m Result G1 More l or high >=90 G2 Mildly decreased 60-89 G3a Mildl y to moderately 45-5 9 G3b Moderately to s everely 30-44 G4 Severl y decreased 15-29 G5 Kidney failure <15Reported eGF R is based on the CKD-EPI 2021 equation that d oes not use a race coefficientEsti mated GFR is not as accur ate as Creatinine Adilene murphy in predicting glom erular filtration rate . Estimated GFR is not appl icable for dialysis patien ts [employer] General Superintendent ID - MOPT/[id number] 10:13:11 Test Item Value Reference Range Interpretation Comments PROTIME (BEAKER) (test 14.9 seconds 11.9-14.2 H code = 759) INR (BEAKER) (test 1.20 See_Comment [Automat ed code = 370) message] The [employer] stem which generated this result transmitted reference range : <=5.90. The reference range was not used to interpret this result as normal/abnormal . PARTIAL THROMBOPLASTIN 31.4 seconds 22.5-36.0 TIME (BEAKER) (test code = 760) RECOMMENDED COUMADIN/WARFARIN INR THERAPY RANGESSTANDARD DOSE: 2.0 - 3.0 Includes: PROPHYLAXIS for venous thrombosis, systemic embolization; TREATMENT for venous thrombosis and/or pulmonary embolus.HIGH RISK: Target INR is 2.5-3.5 for patients with mechanical heart valves.CBC W/PLT COUNT & AUTO [id number] 10:01:25 Test Item Value Reference Range Interpretation Comments WHITE BLOOD CELL COUNT (BEAKER) 10.4 K/ L 3.5-10.5 (test code = 775) RED BLOOD CELL COUNT (BEAKER) 3.78 M/ L 4.63-6.08 L (test code = 761) HEMOGLOBIN (BEAKER) (test code = 10.7 GM/DL 13.7-17.5 L 410) HEMATOCRIT (BEAKER) (test code = 33.2 % 40.1-51.0 L 411) MEAN CORPUSCULAR VOLUME (BEAKER) 87.8 fL 79.0-92.2 (test code = 753) MEAN CORPUSCULAR HEMOGLOBIN 28.3 pg 25.7-32.2 (BEAKER) (test code = 751) MEAN CORPUSCULAR HEMOGLOBIN CONC 32.2 GM/DL 32.3-36.5 L (BEAKER) (test code = 752) RED CELL DISTRIBUTION WIDTH 16.1 % 11.6-14.4 H (BEAKER) (test code = 412) PLATELET COUNT (BEAKER) (test 145 K/CU MM 150-450 L code = 756) MEAN PLATELET VOLUME (BEAKER) 10.6 fL 9.4-12.4 (test code = 754) NUCLEATED RED BLOOD CELLS 0 /100 WBC 0-0 (BEAKER) (test code = 413) NEUTROPHILS RELATIVE PERCENT 70 % (BEAKER) (test code = 429) LYMPHOCYTES RELATIVE PERCENT 20 % (BEAKER) (test code = 430) MONOCYTES RELATIVE PERCENT 9 % (BEAKER) (test code = 431) EOSINOPHILS RELATIVE PERCENT 1 % (BEAKER) (test code = 432) BASOPHILS RELATIVE PERCENT 0 % (BEAKER) (test code = 437) NEUTROPHILS ABSOLUTE COUNT 7.26 K/ L 1.78-5.38 H (BEAKER) (test code = 670) LYMPHOCYTES ABSOLUTE COUNT 2.03 K/ L 1.32-3.57 (BEAKER) (test code = 414) MONOCYTES ABSOLUTE COUNT (BEAKER) 0.92 K/ L 0.30-0.82 H (test code = 415) EOSINOPHILS ABSOLUTE COUNT 0.13 K/ L 0.04-0.54 (BEAKER) (test code = 416) BASOPHILS ABSOLUTE COUNT (BEAKER) 0.02 K/ L 0.01-0.08 (test code = 417) IMMATURE GRANULOCYTES-RELATIVE 1 % 0-1 PERCENT (BEAKER) (test code = 2801) POC-Glucose [id number] 11:42:07 Test Item Value Reference Range Interpretation Comments POC-Glucose Meter (test 130 mg/dL 70-110 H : TE STED AT [facility] code = 1538) 6720 [facility], 770 30: Milling General Superintendent/Techni sandrine ID = [id number] for [place] Lab Interpretation (test Abnormal code = 88665-9) [facility] [id number] 11:42:07 Test Item Value Reference Range Interpretation Comments POC-GLUCOSE METER 130 mg/dL 70-110 H : TESTED A T [facility] 6720 (BEAKER) (test code [facility], = 1538) [address]: Milling General Superintendent/Techni sandrine ID = [id number] for IGNACIO DASH BLOOD [id number] 09:34:55 Test Item Value Reference Range Interpretation Comments CULTURE (BEAKER) A From Aerobi c Bottle (test code = Only Coagulase 1095) negative Staphylococcus GRAM STAIN From aerobic RESULT (BEAKER) bottle only: (test code = gram positive 1123) cocci in pairs and clusters POCT-GLUCOSE [id number] 07:30:29 Test Item Value Reference Range Interpretation Comments POC-GLUCOSE METER 82 mg/dL 70-110 : TESTED A T [facility] 6720 (BEAKER) (test code = DEEPIKA Tapan [facility], 1538) 17419: [employer] General Superintendent/Techni sandrine ID = [id number] for IGNACIO DASH BASIC METABOLIC [id number] 07:15:12 Test Item Value Reference Range Interpretation Comments SODIUM (BEAKER) 139 meq/L 136-145 (test code = 381) POTASSIUM (BEAKER) 4.5 meq/L 3.5-5.1 (test code = 379) CHLORIDE (BEAKER) 111 meq/L 98-107 H (test code = 382) CO2 (BEAKER) (test 20 meq/L 22-29 L code = 355) BLOOD UREA NITROGEN 83 mg/dL 7-21 H (BEAKER) (test code = 354) CREATININE (BEAKER) 1.98 mg/dL 0.57-1.25 H (test code = 358) GLUCOSE RANDOM 78 mg/dL 70-105 (BEAKER) (test code = 652) CALCIUM (BEAKER) 8.3 mg/dL 8.4-10.2 L (test code = 697) EGFR (BEAKER) (test 36 mL/min/1.73 ESTIMA SUSANNE GFR IS code = 1092) sq m NOT ACCURATE CREATININE CLEARANCE IN PREDICTING GLOMERULAR FILTRATION RATE . ESTIMATED GFR I S NOT APPLICABLE FOR DIALYSIS PATIEN TS. [employer] General Superintendent ID - PIAYA LCBC W/PLT COUNT & AUTO [id number] 06:27:50 Test Item Value Reference Range Interpretation Comments WHITE BLOOD CELL COUNT (BEAKER) 6.1 K/ L 3.5-10.5 (test code = 775) RED BLOOD CELL COUNT (BEAKER) 3.14 M/ L 4.63-6.08 L (test code = 761) HEMOGLOBIN (BEAKER) (test code = 8.6 GM/DL 13.7-17.5 L 410) HEMATOCRIT (BEAKER) (test code = 27.3 % 40.1-51.0 L 411) MEAN CORPUSCULAR VOLUME (BEAKER) 86.9 fL 79.0-92.2 (test code = 753) MEAN CORPUSCULAR HEMOGLOBIN 27.4 pg 25.7-32.2 (BEAKER) (test code = 751) MEAN CORPUSCULAR HEMOGLOBIN CONC 31.5 GM/DL 32.3-36.5 L (BEAKER) (test code = 752) RED CELL DISTRIBUTION WIDTH 14.4 % 11.6-14.4 (BEAKER) (test code = 412) PLATELET COUNT (BEAKER) (test 261 K/CU MM 150-450 code = 756) MEAN PLATELET VOLUME (BEAKER) 10.2 fL 9.4-12.4 (test code = 754) NUCLEATED RED BLOOD CELLS 0 /100 WBC 0-0 (BEAKER) (test code = 413) NEUTROPHILS RELATIVE PERCENT 66 % (BEAKER) (test code = 429) LYMPHOCYTES RELATIVE PERCENT 21 % (BEAKER) (test code = 430) MONOCYTES RELATIVE PERCENT 10 % (BEAKER) (test code = 431) EOSINOPHILS RELATIVE PERCENT 2 % (BEAKER) (test code = 432) BASOPHILS RELATIVE PERCENT 0 % (BEAKER) (test code = 437) NEUTROPHILS ABSOLUTE COUNT 4.01 K/ L 1.78-5.38 (BEAKER) (test code = 670) LYMPHOCYTES ABSOLUTE COUNT 1.29 K/ L 1.32-3.57 L (BEAKER) (test code = 414) MONOCYTES ABSOLUTE COUNT (BEAKER) 0.58 K/ L 0.30-0.82 (test code = 415) EOSINOPHILS ABSOLUTE COUNT 0.13 K/ L 0.04-0.54 (BEAKER) (test code = 416) BASOPHILS ABSOLUTE COUNT (BEAKER) 0.02 K/ L 0.01-0.08 (test code = 417) IMMATURE GRANULOCYTES-RELATIVE 1 % 0-1 PERCENT (BEAKER) (test code = 2801) POCT-GLUCOSE [id number] 21:24:37 Test Item Value Reference Range Interpretation Comments POC-GLUCOSE METER 107 mg/dL 70-110 : TESTED A T [facility] 6720 (BEAKER) (test code = DEEPIKA DIAZ [place], 1538) 686[address]: [employer] General Superintendent/Techni sandrine ID = [id number] for SUSY ERIC POCT-GLUCOSE [id number] 15:51:07 Test Item Value Reference Range Interpretation Comments POC-GLUCOSE METER 119 mg/dL 70-110 H : TESTED A T [facility] 6720 (BEAKER) (test code = DEEPIKA Phelan [facility], 1538) 87950: Milling General Superintendent/Techni sandrine ID = [id number] for Lalitha Samano BLOOD [id number] 14:00:47 Test Item Value Reference Range Interpretation Comments CULTURE (BEAKER) (test No growth in 5 days code = 1095) Protein, random [id number] 12:11:40 Test Item Value Reference Range Interpretation Comments Protein, Urine (test code 311 mg/dL 0-14 H = 2888-6) PEDRO LUIS (test code = PEDRO LUIS) [employer] General Superintendent ID - GABRIELLE Kumar Lab Interpretation (test Abnormal code = 82035-6) [facility], RANDOM [id number] 12:11:40 Test Item Value Reference Range Interpretation Comments PROTEIN, URINE (BEAKER) (test code 311 mg/dL 0-14 H = 1569) [employer] General Superintendent ID - GABRIELLE LOsmolality, [id number] 12:03:57 Test Item Value Reference Range Interpretation Comments Osmolality, Ur (test code 324 See_Comment [ Automated message] = 2695-5) The system [employer] generated this result transmitted ref erence range: 50-1,200 mOsm/kg mOsm/kg . The reference range was not used to int erpret this result as normal/abnormal . Lab Interpretation (test Normal code = 13728-5) [facility] HospitalOSMOLALITY, [id number] 12:03:57 Test Item Value Reference Range Interpretation Comments OSMOLALITY URINE 324 mOsm/kg See_Comment [Automated message] (BEAKER) (test code = The sy stem which 614) generated this result transmitted ref erence range: 50-1,200 mOsm/kg. The reference range was not used to int erpret this result as normal/abnormal . Eosinophil [id number] 11:32:56 Test Item Value Reference Range Interpretation Comments Eosinophil Smear (test code = No EOS seen [place] seen 52184-4) Lab Interpretation (test code = Normal 96912-2) [facility] HospitalEOSINOPHIL SMEAR, [id number] 11:32:56 Test Item Value Reference Range Interpretation Comments EOSINOPHIL SMEAR, URINE (BEAKER) No EOS seen No EOS seen (test code = 1851) POCT-GLUCOSE [id number] 11:32:08 Test Item Value Reference Range Interpretation Comments POC-GLUCOSE METER 90 mg/dL 70-110 : TESTED A T [facility] 6720 (BEAKER) (test code = DEE[place]KA [place], 1538) [address]: [employer] General Superintendent/Techni sandrine ID = [id number] for Lalitha Osborne Creatinine, random [id number] 11:07:53 Test Item Value Reference Range Interpretation Comments Creatinine, Ur 134.3 mg/dL (test code = 2161-8) PEDRO LUIS (test code = Reference Range: No PEDRO LUIS) NormalsOperator ID - PIAYA L [facility] random [id number] 11:07:53 Test Item Value Reference Range Interpretation Comments Sodium Urine (test 29 meq/L code = 2955-3) PEDRO LUIS (test code = Reference Range: No PEDRO LUIS) NormalsOperator ID - PIAYA L [facility]CREAT[facility]INE, RANDOM [id number] 11:07:53 Test Item Value Reference Range Interpretation Comments CREATININE URINE (BEAKER) (test 134.3 mg/dL code = 375) Reference Range: No NormalsOperator ID - PIAYA LSODIUM, RANDOM [id number] 11:07:53 Test Item Value Reference Range Interpretation Comments SODIUM URINE (BEAKER) (test code = 29 meq/L 243) Reference Range: No NormalsOperator ID - PIAYA LUrinalysis w/Microscopic 2021-09-29 10:54:31 Test Item Value Reference Range Interpretation Comments Color, UA (test code Yellow = 5778-6) Clarity, UA (test Hazy code = 5767-9) Specific [place], UA 1.015 1.001-1.035 (test code = 5811-5) pH, UA (test code = 6.0 5.0-8.0 5803-2) Protein, UA (test 300 mg/dL Negative A code = 52523-3) Glucose, UA (test Negative Negative code = 365) Ketones, UA (test Negative Negative code = 2514-8) Bilirubin, UA (test Negative Negative code = 61711-1) Blood, UA (test code Large Negative A = 92043-9) Nitrite, UA (test Negative Negative code = 5802-4) Leukocytes, UA (test Trace Negative A code = 5799-2) Urobilinogen, UA 0.2 mg/dL 0.2-1.0 (test code = 66637-0) RBC, UA (test code = 2 See_Comment [Autom ated 31298-7) message] The system which generated this result transmit susanne reference range : /HPF. The reference range was not used to interpret this result as normal/abnormal . WBC, UA (test code = 2 See_Comment [Autom ated 5821-4) message] The system which generated this result transmit susanne reference range : /HPF. The reference range was not used to interpret this result as normal/abnormal . Bacteria, UA (test Rare code = 55879-6) Mucus (test code = Rare 8247-9) Hyaline Casts, UA 3 See_Comment [Automate d (test code = 63122-3) messag e] The system which generated this result transmit susanne reference range : /LPF. The reference range was not used to interpret this result as normal/abnormal . Crystals, Urine (test None Seen code = 70986-0) Specimen Source (test code = 2795) PEDRO LUIS (test code = PEDRO LUIS) [employer] General Superintendent ID - [auto]Milling General Superintendent ID - tech Lab Interpretation Abnormal (test code = 55606-2) [facility] W/ [id number] 10:54:31 Test Item Value Reference Range Interpretation Comments COLOR (BEAKER) (test code = 470) Yellow CLARITY (BEAKER) (test code = 469) Hazy SPECIFIC GRAVITY UA (BEAKER) (test 1.015 1.001-1.035 code = 468) PH UA (BEAKER) (test code = 467) 6.0 5.0-8.0 PROTEIN UA (BEAKER) (test code = 300 mg/dL Negative A 464) GLUCOSE UA (BEAKER) (test code = Negative Negative 365) KETONES UA (BEAKER) (test code = Negative Negative 371) BILIRUBIN UA (BEAKER) (test code = Negative Negative 462) BLOOD UA (BEAKER) (test code = 461) Large Negative A NITRITE UA (BEAKER) (test code = Negative Negative 465) LEUKOCYTE ESTERASE UA (BEAKER) Trace Negative A (test code = 466) UROBILINOGEN UA (BEAKER) (test code 0.2 mg/dL 0.2-1.0 = 463) RBC UA (BEAKER) (test code = 519) 2 /HPF WBC UA (BEAKER) (test code = 520) 2 /HPF BACTERIA (BEAKER) (test code = 517) Rare MUCUS (BEAKER) (test code = 1574) Rare HYALINE CASTS (BEAKER) (test code = 3 /LPF 514) CRYSTALS, URINE (BEAKER) (test code None Seen = 1521) SOURCE(BEAKER) (test code = 2795) [employer] General Superintendent ID - [auto][employer] General Superintendent ID - techOva and Parasite [id number] 08:56:31 Test Item Value Reference Range Interpretation Comments O&P Direct Smear (test No ova or parasites No ova or code = 71301-0) seen parasites seen O&P Concentrate Smear No ova or parasites No ova or (test code = 65706-2) seen parasites seen O&P Trichrome Smear No ova or parasites No ova or (test code = 53674-3) seen parasites seen PEDRO LUIS (test code = PEDRO LUIS) See scanned report Lab Interpretation (test Normal code = 24734-8) [id number] 07:21:34 Test Item Value Reference Range Interpretation Comments POC-GLUCOSE METER 81 mg/dL 70-110 : TESTED A T [facility] 6720 (BEAKER) (test code = [facility], 1538) [address]: Milling General Superintendent/Techni sandirne ID = [id number] for Lalitha Osborne POCT-GLUCOSE [id number] 06:16:27 Test Item Value Reference Range Interpretation Comments POC-GLUCOSE METER 78 mg/dL 70-110 : TESTED A T [facility] 6720 (BEAKER) (test code = [facility], 1538) 18059: Milling General Superintendent/Techni sandrine ID = [id number] for SUSY MORROW BASIC METABOLIC [id number] 04:00:34 Test Item Value Reference Range Interpretation Comments SODIUM (BEAKER) 135 meq/L 136-145 L (test code = 381) POTASSIUM (BEAKER) 4.5 meq/L 3.5-5.1 (test code = 379) CHLORIDE (BEAKER) 107 meq/L 98-107 (test code = 382) CO2 (BEAKER) (test 17 meq/L 22-29 L code = 355) BLOOD UREA NITROGEN 51 mg/dL 7-21 H (BEAKER) (test code = 354) CREATININE (BEAKER) 2.07 mg/dL 0.57-1.25 H (test code = 358) GLUCOSE RANDOM 171 mg/dL 70-105 H (BEAKER) (test code = 652) CALCIUM (BEAKER) 7.9 mg/dL 8.4-10.2 L (test code = 697) EGFR (BEAKER) (test 35 mL/min/1.73 ESTIMA SUSANNE GFR IS code = 1092) sq m NOT ACCURATE CREATININE CLEARANCE IN PREDICTING GLOMERULAR FILTRATION RATE . ESTIMATED GFR I S NOT APPLICABLE FOR DIALYSIS PATIEN TS. Milling General Superintendent ID - GABRIELLE [id number] 02:33:25 Test Item Value Reference Range Interpretation Comments MAGNESIUM (BEAKER) (test code = 2.3 mg/dL 1.6-2.6 627) Milling General Superintendent ID - GABRIELLE [id number] 02:33:25 Test Item Value Reference Range Interpretation Comments PHOSPHORUS (BEAKER) (test code = 4.0 mg/dL 2.3-4.7 604) Milling General Superintendent ID - GABRIELLE LPOCT-GLUCOSE [id number] 21:19:20 Test Item Value Reference Range Interpretation Comments POC-GLUCOSE METER 123 mg/dL 70-110 H : TESTED A T [facility] 6720 (BEAKER) (test code = [facility], 1538) 16531: Milling General Superintendent/Techni sandrine ID = [id number] for KE BE, SAUDATU POCT-GLUCOSE [id number] 15:38:18 Test Item Value Reference Range Interpretation Comments POC-GLUCOSE METER 132 mg/dL 70-110 H : TESTED A T [facility] 6720 (BEAKER) (test code = [facility], 1538) 96239: M[employer] General Superintendent/Techni sandrine ID = [id number] for Ga ry, Lalitha POCT-GLUCOSE [id number] 11:32:04 Test Item Value Reference Range Interpretation Comments POC-GLUCOSE METER 108 mg/dL 70-110 : TESTED A T [facility] 6720 (BEAKER) (test code = [facility], 1538) 31577: Milling General Superintendent/Techni sandrine ID = [id number] for Lalitha Samano POCT-GLUCOSE [id number] 07:23:08 Test Item Value Reference Range Interpretation Comments POC-GLUCOSE METER 100 mg/dL 70-110 : TESTED A T [facility] 6720 (BEAKER) (test code = [facility], 1538) 88743: [employer] General Superintendent/Techni sandrine ID = [id number] for Lalitha Samano CBC W/PLT COUNT & AUTO [id number] 06:38:31 Test Item Value Reference Range Interpretation Comments WHITE BLOOD CELL COUNT (BEAKER) 7.0 K/ L 3.5-10.5 (test code = 775) RED BLOOD CELL COUNT (BEAKER) 3.51 M/ L 4.63-6.08 L (test code = 761) HEMOGLOBIN (BEAKER) (test code = 9.5 GM/DL 13.7-17.5 L 410) HEMATOCRIT (BEAKER) (test code = 30.6 % 40.1-51.0 L 411) MEAN CORPUSCULAR VOLUME (BEAKER) 87.2 fL 79.0-92.2 (test code = 753) MEAN CORPUSCULAR HEMOGLOBIN 27.1 pg 25.7-32.2 (BEAKER) (test code = 751) MEAN CORPUSCULAR HEMOGLOBIN CONC 31.0 GM/DL 32.3-36.5 L (BEAKER) (test code = 752) RED CELL DISTRIBUTION WIDTH 14.6 % 11.6-14.4 H (BEAKER) (test code = 412) PLATELET COUNT (BEAKER) (test 252 K/CU MM 150-450 code = 756) MEAN PLATELET VOLUME (BEAKER) 10.1 fL 9.4-12.4 (test code = 754) NUCLEATED RED BLOOD CELLS 0 /100 WBC 0-0 (BEAKER) (test code = 413) NEUTROPHILS RELATIVE PERCENT 71 % (BEAKER) (test code = 429) LYMPHOCYTES RELATIVE PERCENT 15 % (BEAKER) (test code = 430) MONOCYTES RELATIVE PERCENT 11 % (BEAKER) (test code = 431) EOSINOPHILS RELATIVE PERCENT 2 % (BEAKER) (test code = 432) BASOPHILS RELATIVE PERCENT 0 % (BEAKER) (test code = 437) NEUTROPHILS ABSOLUTE COUNT 4.96 K/ L 1.78-5.38 (BEAKER) (test code = 670) LYMPHOCYTES ABSOLUTE COUNT 1.07 K/ L 1.32-3.57 L (BEAKER) (test code = 414) MONOCYTES ABSOLUTE COUNT (BEAKER) 0.80 K/ L 0.30-0.82 (test code = 415) EOSINOPHILS ABSOLUTE COUNT 0.15 K/ L 0.04-0.54 (BEAKER) (test code = 416) BASOPHILS ABSOLUTE COUNT (BEAKER) 0.01 K/ L 0.01-0.08 (test code = 417) IMMATURE GRANULOCYTES-RELATIVE 0 % 0-1 PERCENT (BEAKER) (test code = 2801) BASIC METABOLIC [id number] 05:04:07 Test Item Value Reference Range Interpretation Comments SODIUM (BEAKER) 138 meq/L 136-145 (test code = 381) POTASSIUM (BEAKER) 4.5 meq/L 3.5-5.1 (test code = 379) CHLORIDE (BEAKER) 110 meq/L 98-107 H (test code = 382) CO2 (BEAKER) (test 22 meq/L 22-29 code = 355) BLOOD UREA NITROGEN 40 mg/dL 7-21 H (BEAKER) (test code = 354) CREATININE (BEAKER) 1.71 mg/dL 0.57-1.25 H (test code = 358) GLUCOSE RANDOM 99 mg/dL 70-105 (BEAKER) (test code = 652) CALCIUM (BEAKER) 8.4 mg/dL 8.4-10.2 (test code = 697) EGFR (BEAKER) (test 43 mL/min/1.73 ESTIMA SUSANNE GFR IS code = 1092) sq m NOT ACCURATE CREATININE CLEARANCE IN PREDICTING GLOMERULAR FILTRATION RATE . ESTIMATED GFR I S NOT APPLICABLE FOR DIALYSIS PATIEN TS. [employer]illing General Superintendent ID - PIAYA LPOCT-GLUCOSE [id number] 20:39:12 Test Item Value Reference Range Interpretation Comments POC-GLUCOSE METER 88 mg/dL 70-110 : TESTED A T [facility] 6720 (BEAKER) (test code = [facility], 1538) 04338: Milling General Superintendent/Techni sandrine ID = [id number] for KB ASTUDILLO POCT-GLUCOSE [id number] 16:27:33 Test Item Value Reference Range Interpretation Comments POC-GLUCOSE METER 100 mg/dL 70-110 : TESTED A T [facility] 6720 (BEAKER) (test code [facility], = 1538) 65064: Milling General Superintendent/Techni sandrine ID = [id number] for Anuradha García POCT-GLUCOSE [id number] 12:22:08 Test Item Value Reference Range Interpretation Comments POC-GLUCOSE METER 143 mg/dL 70-110 H : TESTED A T [facility] 6720 (BEAKER) (test code [facility], = 1538) 28335: M[employer] General Superintendent/Techni sandrine ID = [id number] for Anuradha García POCT-GLUCOSE [id number] 08:46:16 Test Item Value Reference Range Interpretation Comments POC-GLUCOSE METER 99 mg/dL 70-110 : TESTED A T [facility] 6720 (BEAKER) (test code = [facility], 1538) 64746: M[employer] General Superintendent/Techni sandrine ID = [id number] for Anuradha García BASIC METABOLIC [id number] 03:35:42 Test Item Value Reference Range Interpretation Comments SODIUM (BEAKER) 139 meq/L 136-145 (test code = 381) POTASSIUM (BEAKER) 4.0 meq/L 3.5-5.1 (test code = 379) CHLORIDE (BEAKER) 109 meq/L 98-107 H (test code = 382) CO2 (BEAKER) (test 21 meq/L 22-29 L code = 355) BLOOD UREA NITROGEN 40 mg/dL 7-21 H (BEAKER) (test code = 354) CREATININE (BEAKER) 1.58 mg/dL 0.57-1.25 H (test code = 358) GLUCOSE RANDOM 97 mg/dL 70-105 (BEAKER) (test code = 652) CALCIUM (BEAKER) 8.0 mg/dL 8.4-10.2 L (test code = 697) EGFR (BEAKER) (test 47 mL/min/1.73 ESTIMA SUSANNE GFR IS code = 1092) sq m NOT ACCURATE CREATININE CLEARANCE IN PREDICTING GLOMERULAR FILTRATION RATE . ESTIMATED GFR I S NOT APPLICABLE FOR DIALYSIS PATIEN TS. [employer] General Superintendent ID - GABRIELLE [id number] 03:35:42 Test Item Value Reference Range Interpretation Comments MAGNESIUM (BEAKER) (test code = 2.4 mg/dL 1.6-2.6 627) [employer] General Superintendent ID - GABRIELLE [id number] 03:35:42 Test Item Value Reference Range Interpretation Comments PHOSPHORUS (BEAKER) (test code = 4.4 mg/dL 2.3-4.7 604) [employer] General Superintendent ID - GABRIELLE LVANCOMYCIN LEVEL, [id number] 03:33:58 Test Item Value Reference Range Interpretation Comments VANCOMYCIN TROUGH (BEAKER) (test 23.1 ug/mL 10.0-20.0 H code = 522) [employer] General Superintendent ID - GABRIELLE LCBC W/PLT COUNT & AUTO [id number] 03:16:37 Test Item Value Reference Range Interpretation Comments WHITE BLOOD CELL COUNT (BEAKER) 5.3 K/ L 3.5-10.5 (test code = 775) RED BLOOD CELL COUNT (BEAKER) 3.57 M/ L 4.63-6.08 L (test code = 761) HEMOGLOBIN (BEAKER) (test code = 10.2 GM/DL 13.7-17.5 L 410) HEMATOCRIT (BEAKER) (test code = 30.7 % 40.1-51.0 L 411) MEAN CORPUSCULAR VOLUME (BEAKER) 86.0 fL 79.0-92.2 (test code = 753) MEAN CORPUSCULAR HEMOGLOBIN 28.6 pg 25.7-32.2 (BEAKER) (test code = 751) MEAN CORPUSCULAR HEMOGLOBIN CONC 33.2 GM/DL 32.3-36.5 (BEAKER) (test code = 752) RED CELL DISTRIBUTION WIDTH 14.7 % 11.6-14.4 H (BEAKER) (test code = 412) PLATELET COUNT (BEAKER) (test 234 K/CU MM 150-450 code = 756) MEAN PLATELET VOLUME (BEAKER) 10.0 fL 9.4-12.4 (test code = 754) NUCLEATED RED BLOOD CELLS 0 /100 WBC 0-0 (BEAKER) (test code = 413) NEUTROPHILS RELATIVE PERCENT 65 % (BEAKER) (test code = 429) LYMPHOCYTES RELATIVE PERCENT 22 % (BEAKER) (test code = 430) MONOCYTES RELATIVE PERCENT 11 % (BEAKER) (test code = 431) EOSINOPHILS RELATIVE PERCENT 2 % (BEAKER) (test code = 432) BASOPHILS RELATIVE PERCENT 0 % (BEAKER) (test code = 437) NEUTROPHILS ABSOLUTE COUNT 3.43 K/ L 1.78-5.38 (BEAKER) (test code = 670) LYMPHOCYTES ABSOLUTE COUNT 1.16 K/ L 1.32-3.57 L (BEAKER) (test code = 414) MONOCYTES ABSOLUTE COUNT (BEAKER) 0.56 K/ L 0.30-0.82 (test code = 415) EOSINOPHILS ABSOLUTE COUNT 0.08 K/ L 0.04-0.54 (BEAKER) (test code = 416) BASOPHILS ABSOLUTE COUNT (BEAKER) 0.02 K/ L 0.01-0.08 (test code = 417) IMMATURE GRANULOCYTES-RELATIVE 1 % 0-1 PERCENT (BEAKER) (test code = 2801) POCT-GLUCOSE [id number] 20:46:35 Test Item Value Reference Range Interpretation Comments POC-GLUCOSE METER 110 mg/dL 70-110 : Notified RN/MD: ([facility]) (test code = TESTED AT [place] [address] 153) [facility], [address]: Milling General Superintendent/Techni sandrine ID = [id number] for HERNANDEZ INGRIDKB KO POCT-GLUCOSE [id number] 17:04:37 Test Item Value Reference Range Interpretation Comments POC-GLUCOSE METER 88 mg/dL 70-110 : TESTED A [facility] 6720 ([facility]) (test code = [facility], 153) 30828: Milling General Superintendent/Techni sandrine ID = [id number] for RUKHSANA DANIELLEVIBHA VANCOMYCIN LEVEL, [id number] 15:36:40 Test Item Value Reference Range Interpretation Comments VANCOMYCIN RANDOM ([facility]) (test 14.9 ug/mL code = 523) Reference Range: No NormalsOperator ID - JOCELYN MPOCT-GLUCOSE [id number] 11:43:33 Test Item Value Reference Range Interpretation Comments POC-GLUCOSE METER 86 mg/dL 70-110 : TESTED A T [facility] 6720 ([facility]) (test code = [facility], 153) [address]4412: Milling General Superintendent/Techni sandrine ID = [id number] for VIBHA SALAS BASIC METABOLIC [id number] 10:01:11 Test Item Value Reference Range Interpretation Comments SODIUM (BEAKER) 137 meq/L 136-145 (test code = 381) POTASSIUM (BEAKER) 3.9 meq/L 3.5-5.1 (test code = 379) CHLORIDE (BEAKER) 108 meq/L 98-107 H (test code = 382) CO2 (BEAKER) (test 21 meq/L 22-29 L code = 355) BLOOD UREA NITROGEN 43 mg/dL 7-21 H (BEAKER) (test code = 354) CREATININE (BEAKER) 1.81 mg/dL 0.57-1.25 H (test code = 358) GLUCOSE RANDOM 178 mg/dL 70-105 H (BEAKER) (test code = 652) CALCIUM (BEAKER) 7.9 mg/dL 8.4-10.2 L (test code = 697) EGFR (BEAKER) (test 40 mL/min/1.73 ESTIMA SUSANNE GFR IS code = 1092) sq m NOT ACCURATE CREATININE CLEARANCE IN PREDICTING GLOMERULAR FILTRATION RATE . ESTIMATED GFR I S NOT APPLICABLE FOR DIALYSIS PATIEN TS. [employer] General Superintendent ID - MAISHA MCBC W/PLT COUNT & AUTO [id number] 09:39:26 Test Item Value Reference Range Interpretation Comments WHITE BLOOD CELL COUNT (BEAKER) 5.8 K/ L 3.5-10.5 (test code = 775) RED BLOOD CELL COUNT (BEAKER) 3.59 M/ L 4.63-6.08 L (test code = 761) HEMOGLOBIN (BEAKER) (test code = 9.6 GM/DL 13.7-17.5 L 410) HEMATOCRIT (BEAKER) (test code = 31.5 % 40.1-51.0 L 411) MEAN CORPUSCULAR VOLUME (BEAKER) 87.7 fL 79.0-92.2 (test code = 753) MEAN CORPUSCULAR HEMOGLOBIN 26.7 pg 25.7-32.2 (BEAKER) (test code = 751) MEAN CORPUSCULAR HEMOGLOBIN CONC 30.5 GM/DL 32.3-36.5 L (BEAKER) (test code = 752) RED CELL DISTRIBUTION WIDTH 14.7 % 11.6-14.4 H (BEAKER) (test code = 412) PLATELET COUNT (BEAKER) (test 258 K/CU MM 150-450 code = 756) MEAN PLATELET VOLUME (BEAKER) 10.5 fL 9.4-12.4 (test code = 754) NUCLEATED RED BLOOD CELLS 0 /100 WBC 0-0 (BEAKER) (test code = 413) NEUTROPHILS RELATIVE PERCENT 74 % (BEAKER) (test code = 429) LYMPHOCYTES RELATIVE PERCENT 17 % (BEAKER) (test code = 430) MONOCYTES RELATIVE PERCENT 7 % (BEAKER) (test code = 431) EOSINOPHILS RELATIVE PERCENT 1 % (BEAKER) (test code = 432) BASOPHILS RELATIVE PERCENT 0 % (BEAKER) (test code = 437) NEUTROPHILS ABSOLUTE COUNT 4.32 K/ L 1.78-5.38 (BEAKER) (test code = 670) LYMPHOCYTES ABSOLUTE COUNT 0.96 K/ L 1.32-3.57 L (BEAKER) (test code = 414) MONOCYTES ABSOLUTE COUNT (BEAKER) 0.41 K/ L 0.30-0.82 (test code = 415) EOSINOPHILS ABSOLUTE COUNT 0.07 K/ L 0.04-0.54 (BEAKER) (test code = 416) BASOPHILS ABSOLUTE COUNT (BEAKER) 0.01 K/ L 0.01-0.08 (test code = 417) IMMATURE GRANULOCYTES-RELATIVE 1 % 0-1 PERCENT (BEAKER) (test code = 2801) POCT-GLUCOSE [id number] 08:14:22 Test Item Value Reference Range Interpretation Comments POC-GLUCOSE METER 88 mg/dL 70-110 : TESTED A T [facility] 6720 ([facility]) (test code = DEEPIKA Phelan [facility], 1538) [address]: Milling General Superintendent/Techni sandrine ID = [id number] for VIBHA SALAS POCT-GLUCOSE [id number] 23:15:36 Test Item Value Reference Range Interpretation Comments POC-GLUCOSE METER 76 mg/dL 70-110 : Notified RN/MD: TESTED ([facility]) (test code = AT [facility] 6720 [facility] 1538) [facility], 770 30: M[employer] General Superintendent/Techni sandrine ID = [id number] for ALLA GROVEDINAPALAKY POCT-GLUCOSE [id number] 16:41:45 Test Item Value Reference Range Interpretation Comments POC-GLUCOSE METER 90 mg/dL 70-110 : TESTED A T [facility] 6720 (BEAKER) (test code = [facility], 1538) 33761: Milling General Superintendent/Techni sandrine ID = [id number] for ROSINAS ONIGNACIO POCT-GLUCOSE [id number] 11:59:36 Test Item Value Reference Range Interpretation Comments POC-GLUCOSE METER 92 mg/dL 70-110 : TESTED A T [facility] 6720 (BEAKER) (test code = [facility], 1538) 318[address]: [employer] General Superintendent/Techni sandrine ID = [id number] for ROSINAS ONKYLIEE POCT-GLUCOSE [id number] 07:48:59 Test Item Value Reference Range Interpretation Comments POC-GLUCOSE METER 74 mg/dL 70-110 : TESTED A T [facility] 6720 (BEAKER) (test code = [facility], 1538) 54446: [employer] General Superintendent/Techni sandrine ID = [id number] for ROSINAS ONIGNACIO BLOOD CULTURE IDENTIFICATION [id number] 07:21:38 Test Item Value Reference Range Interpretation Comments LISTERIA MONOCYTOGENES Not detected Not detected (test code = 20151229) STAPHYLOCOCCUS (test Detected Not detected A Coagula se negative code = 3950118) Staph specie s (CoNS)- methicillin resistantFirst- merlin e therapy: Vancomycin MecA DETECTED Possib le contamination. The likelihood of pathogenicity i s increased if th e organism is observed in multiple blood cultures obtain ed from separate venipunctures. Reference Range : Not Detected STAPHYLOCOCCUS AUREUS Not detected Not detected (test code = 2444213) STREPTOCOCCUS (test code Not detected Not detected = 9487685) STREPTOCOCCUS AGALACTIAE Not detected Not detected (GROUP B) (test code = 7352985) STREPTOCOCCUS PNEUMONIAE Not detected Not detected (test code = 8163184) STREPTOCOCCUS PYOGENES Not detected Not detected (GROUP A) (test code = 6860532) ACINETOBACTER BAUMANNII Not detected Not detected (test code = 1541886) HAEMOPHILUS INFLUENZAE Not detected Not detected (test code = 6431152) NEISSERIA MENINGITIDIS Not detected Not detected (test code = 0747352) ENTEROBACTERIACEAE (test Not detected Not detected code = 2569220) ENTEROBACTER CLOACOE Not detected Not detected COMPLEX (test code = 9062247) KLEBSIELLA OXYTOCA (test Not detected Not detected code = 3659614) KLEBSIELLA PNEUMONIAE Not detected Not detected (test code = 0) PROTEUS (test code = Not detected Not detected 3724592) SERRATIA MARCESCENS Not detected Not detected (test code = 7864516) ALEXANDRA ALBICANS (test Not detected Not detected code = 7610641) ALEXANDRA GLABRATA (test Not detected Not detected code = 0188352) ALEXANDRA KRUSEI (test Not detected Not detected code = 2018737) ALEXANDRA PARAPSILOSIS Not detected Not detected (test code = 6869982) ALEXANDRA TROPICALIS (test Not detected Not detected code = 1116405) ESCHERICHIA COLI (test Not detected Not detected code = 0477835) METHICILLIN-RESISTANCE Detected Not detected A GENE (test code = 1833814) VANCOMYCIN-RESISTANCE GENE (test code = 6070022) CARBAPENEM-RESISTANCE GENE (test code = 0177812) ENTEROCOCCUS-BEAKER Not detected Not detected (test code = 5625481) PSEUDOMONAS Not detected Not detected AERUGINOSA-BEAKER (test code = 3824307) Other bacteria and resistance markers not targeted by this PCR panel cannot be excluded; therefore clinical correlation and follow up of serology, culture results, and other molecular studies is required. The results are not intended to be used as the sole means for clinical diagnosis or patient management decisions. This sample was tested at the [facility] using the [employer] Blood Culture ID Panel. It is FDA cleared and has been verified and approved by the [facility] for clinical use. This laboratory is CLIA-certified and College ofAmerican Pathologists (CAP)-accredited to perform high complexity testing.COMPREHENSIVE METABOLIC [id number] 06:19:53 Test Item Value Reference Range Interpretation Comments TOTAL PROTEIN 6.3 gm/dL 6.0-8.3 Specimen sligh tly (BEAKER) (test code = hemoly zed 770) ALBUMIN (BEAKER) 2.7 g/dL 3.5-5.0 L Specimen sl ightly (test code = 1145) hemolyzed ALKALINE PHOSPHATASE 71 U/L 40-150 (BEAKER) (test code = 346) BILIRUBIN TOTAL 0.5 mg/dL 0.2-1.2 Specimen sli ghtly (BEAKER) (test code = hemoly zed 377) SODIUM (BEAKER) (test 137 meq/L 136-145 code = 381) POTASSIUM (BEAKER) 3.7 meq/L 3.5-5.1 Specimen slightly (test code = 379) hemolyzed CHLORIDE (BEAKER) 107 meq/L 98-107 (test code = 382) CO2 (BEAKER) (test 21 meq/L 22-29 L code = 355) BLOOD UREA NITROGEN 51 mg/dL 7-21 H (BEAKER) (test code = 354) CREATININE (BEAKER) 2.18 mg/dL 0.57-1.25 H Specimen slightly (test code = 358) hemolyzed GLUCOSE RANDOM 79 mg/dL 70-105 (BEAKER) (test code = 652) CALCIUM (BEAKER) 7.9 mg/dL 8.4-10.2 L (test code = 697) AST (SGOT) (BEAKER) 26 U/L 5-34 Specimen slightly (test code = 353) hemolyzed ALT (SGPT) (BEAKER) 28 U/L 6-55 Specimen slightly (test code = 347) hemolyzed EGFR (BEAKER) (test 33 mL/min/1.73 ESTIMA SUSANNE GFR IS code = 1092) sq m NOT ACCURATE CREATININE CLEARANCE IN PREDICTING GLOMERULAR FILTRATION RATE . ESTIMATED GFR I S NOT APPLICABLE FOR DIALYSIS PATIEN TS. [employer] General Superintendent ID - [id number] 06:18:14 Test Item Value Reference Range Interpretation Comments MAGNESIUM (BEAKER) 2.5 mg/dL 1.6-2.6 Specimen slightly (test code = 627) hemolyzed [employer] General Superintendent ID - ADMINPTH, [id number] 06:08:47 Test Item Value Reference Range Interpretation Comments PARATHYROID HORMONE INTACT 108.2 pg/mL 8.5-72.5 H (BEAKER) (test code = 577) [employer] General Superintendent ID - JESSICA GVANCOMYCIN LEVEL, [id number] 06:01:46 Test Item Value Reference Range Interpretation Comments VANCOMYCIN RANDOM (BEAKER) (test 12.3 ug/mL code = 523) Reference Range: No NormalsOperator ID - JESSICA GCBC W/PLT COUNT & AUTO [id number] 05:40:36 Test Item Value Reference Range Interpretation Comments WHITE BLOOD CELL COUNT (BEAKER) 6.0 K/ L 3.5-10.5 (test code = 775) RED BLOOD CELL COUNT (BEAKER) 3.74 M/ L 4.63-6.08 L (test code = 761) HEMOGLOBIN (BEAKER) (test code = 10.0 GM/DL 13.7-17.5 L 410) HEMATOCRIT (BEAKER) (test code = 32.3 % 40.1-51.0 L 411) MEAN CORPUSCULAR VOLUME (BEAKER) 86.4 fL 79.0-92.2 (test code = 753) MEAN CORPUSCULAR HEMOGLOBIN 26.7 pg 25.7-32.2 (BEAKER) (test code = 751) MEAN CORPUSCULAR HEMOGLOBIN CONC 31.0 GM/DL 32.3-36.5 L (BEAKER) (test code = 752) RED CELL DISTRIBUTION WIDTH 14.8 % 11.6-14.4 H (BEAKER) (test code = 412) PLATELET COUNT (BEAKER) (test 233 K/CU MM 150-450 code = 756) MEAN PLATELET VOLUME (BEAKER) 10.2 fL 9.4-12.4 (test code = 754) NUCLEATED RED BLOOD CELLS 0 /100 WBC 0-0 (BEAKER) (test code = 413) NEUTROPHILS RELATIVE PERCENT 66 % (BEAKER) (test code = 429) LYMPHOCYTES RELATIVE PERCENT 20 % (BEAKER) (test code = 430) MONOCYTES RELATIVE PERCENT 11 % (BEAKER) (test code = 431) EOSINOPHILS RELATIVE PERCENT 1 % (BEAKER) (test code = 432) BASOPHILS RELATIVE PERCENT 0 % (BEAKER) (test code = 437) NEUTROPHILS ABSOLUTE COUNT 3.95 K/ L 1.78-5.38 (BEAKER) (test code = 670) LYMPHOCYTES ABSOLUTE COUNT 1.20 K/ L 1.32-3.57 L (BEAKER) (test code = 414) MONOCYTES ABSOLUTE COUNT (BEAKER) 0.67 K/ L 0.30-0.82 (test code = 415) EOSINOPHILS ABSOLUTE COUNT 0.05 K/ L 0.04-0.54 (BEAKER) (test code = 416) BASOPHILS ABSOLUTE COUNT (BEAKER) 0.01 K/ L 0.01-0.08 (test code = 417) IMMATURE GRANULOCYTES-RELATIVE 1 % 0-1 PERCENT (BEAKER) (test code = 2801) EOSINOPHIL SMEAR, [id number] 05:32:14 Test Item Value Reference Range Interpretation Comments EOSINOPHIL SMEAR, URINE (BEAKER) No EOS seen No EOS seen (test code = 1851) OSMOLALITY, [id number] 01:51:18 Test Item Value Reference Range Interpretation Comments OSMOLALITY URINE 399 mOsm/kg See_Comment [Automated message] (BEAKER) (test code = The sy stem which 614) generated this result transmitted ref erence range: 50-1,200 mOsm/kg. The reference range was not used to int erpret this result as normal/abnormal . [id number] 01:23:37 Test Item Value Reference Range Interpretation Comments PHOSPHORUS (BEAKER) (test code = 3.9 mg/dL 2.3-4.7 604) [facility] ID - ADMINURIC [id number] 21:49:07 Test Item Value Reference Range Interpretation Comments URIC ACID (BEAKER) (test code = 7.5 mg/dL 2.6-7.2 H 773) [facility] ID - BSCREATINE KINASE (CK)2021-09-24 21:49:07 Test Item Value Reference Range Interpretation Comments CREATINE KINASE TOTAL (BEAKER) (test 30 U/L 29-200 code = 380) [facility] ID - BSPOCT-GLUCOSE [id number] 21:23:36 Test Item Value Reference Range Interpretation Comments POC-GLUCOSE METER 116 mg/dL 70-110 H : TESTED A T [facility] 6720 (BEAKER) (test code = DEEPIKA DIAZ [place], 1538) [address]7933: [facility] Superintendent/Techni sandrine ID = [id number] for SUSY ERIC GI Pathogen Profile by PCR -ID [id number] 20:26:24 Test Item Value Reference Range Interpretation Comments CAMPYLOBACTER (PCR) Not detected Not detected (test code = 67069-1) PLESIOMONAS SHIGELLOIDES Not detected Not detected (PCR) (test code = 15763-5) SALMONELLA (PCR) (test Not detected Not detected code = 77859-7) YERSINIA ENTEROCOLITICA Not detected Not detected (PCR) (test code = 12081-0) VIBRIO CHOLERAE (PCR) Not detected Not detected (test code = 70404-6) ENTEROAGGREGATIVE E. Not detected Not detected COLI (EAEC) BY PCR (test code = 58675-9) ENTEROPATHOGENIC E. COLI Not detected Not detected (EPEC) BY PCR (test code = 13856-2) ENTEROTOXIGENIC E. COLI Not detected Not detected (ETEC) LT/ST BY PCR (test code = 29623-5) SHIGA-LIKE Not detected Not detected TOXIN-PRODUCING E. COLI (STEC) STX1/STX2 (test code = 18180-3) E. COLI O157 (PCR) (test code = 87637-1) SHIGELLA/ENTEROINVASIVE Not detected Not detected E. COLI (EIEC) BY PCR (test code = 13003-5) CRYPTOSPORIDIUM (PCR) Not detected Not detected (test code = 74365-4) CYCLOSPORA CAYETANENSIS Not detected Not detected (PCR) (test code = 78106-6) ENTAMOEBA HISTOLYTICA Not detected Not detected (PCR) (test code = 53371-1) GIARDIA LAMBLIA (PCR) Not detected Not detected (test code = 42936-2) ADENOVIRUS F 40/41 (PCR) Not detected Not detected (test code = 28069-8) ASTROVIRUS (PCR) (test Not detected Not detected code = 49772-4) NOROVIRUS GI/GII (PCR) Not detected Not detected (test code = 71374-8) ROTAVIRUS A (PCR) (test Not detected Not detected code = 10525-5) SAPOVIRUS (I, II, IV, V) Not detected Not detected BY PCR (test code = 69094-2) VIBRIO Not detected Not detected (PARAHAEMOLYTICUS, VULNIFICUS) (test code = 50650-4) PEDRO LUIS (test code = PEDRO LUIS) Other viruses, parasites and bacteria not targeted by this PCR panel cannot be excluded; therefore clinical correlation and follow up of serology, culture results, and other molecular studies is required. The results are not intended to be used as the sole means for clinical diagnosis or patient management decisions. This sample was tested at the [facility] using the [employer] Gastrointestinal Panel. It is FDA cleared and has been verified and approved by the [facility] for clinical use. This laboratory is CLIA-certified and [employer] [place] [employer] (CAP)-accredited to perform high complexity testing. [facility] BY [id number] 20:26:24 Test Item Value Reference Range Interpretation Comments CAMPYLOBACTER (PCR) (test code = Not detected Not detected 20150930) PLESIOMONAS SHIGELLOIDES (PCR) Not detected Not detected (test code = 20151004) SALMONELLA (PCR) (test code = Not detected Not detected ) YERSINIA ENTEROCOLITICA (PCR) Not detected Not detected (test code = 20151027) VIBRIO CHOLERAE (PCR) (test code Not detected Not detected = 20151028) ENTEROAGGREGATIVE E. COLI (EAEC) Not detected Not detected BY PCR (test code = 5776103) ENTEROPATHOGENIC E. COLI (EPEC) Not detected Not detected BY PCR (test code = 6181512) ENTEROTOXIGENIC E. COLI (ETEC) Not detected Not detected LT/ST BY PCR (test code = 5088808) SHIGA-LIKE TOXIN-PRODUCING E. Not detected Not detected COLI (STEC) STX1/STX2 (test code = 8189641) E. COLI O157 (PCR) (test code = 7115087) SHIGELLA/ENTEROINVASIVE E. COLI Not detected Not detected (EIEC) BY PCR (test code = 3658168) CRYPTOSPORIDIUM (PCR) (test code Not detected Not detected = 20151104) CYCLOSPORA CAYETANENSIS (PCR) Not detected Not detected (test code = ) ENTAMOEBA HISTOLYTICA (PCR) Not detected Not detected (test code = 20151127) GIARDIA LAMBLIA (PCR) (test code Not detected Not detected = 20151128) ADENOVIRUS F 40/41 (PCR) (test Not detected Not detected code = 20151129) ASTROVIRUS (PCR) (test code = Not detected Not detected 20151130) NOROVIRUS GI/GII (PCR) (test Not detected Not detected code = 20151201) ROTAVIRUS A (PCR) (test code = Not detected Not detected 20151202) SAPOVIRUS (I, II, IV, V) BY PCR Not detected Not detected (test code = 9136536) VIBRIO (PARAHAEMOLYTICUS, Not detected Not detected VULNIFICUS) (test code = ) Other viruses, parasites and bacteria not targeted by this PCR panel cannot be excluded; therefore clinical correlation and follow up of serology, culture results, and other molecular studies is required. The results are not intended to be used as the sole means for clinical diagnosis or patient management decisions. This sample was tested at the [facility] using the [employer] Gastrointestinal Panel. It is FDA cleared and has been verified and approved by the [facility] for clinical use. This laboratory is CLIA-certified and College ofAmerican Pathologists (CAP)-accredited to perform high complexity testing.MR, SPINE, LUMBAR, WITHOUT [id number] 19:48:00Unlisted Reason for Exam - Click Yes and Enter Reason Below->No Does the patient have an implanted electronic device?->NoCH[facility] : 1975 Sex: MFINAL REPORT MR, SPINE, LUMBAR, WITHOUT CONTRAST INDICATION: Back pain or radiculopathy, < 6 wks, uncomplicated COMPARISON: 09/17/2021 TECHNIQUE: Multiplanar, multisequence MR images of the lumbar spine without contrast. FINDINGS: 5 nonrib-bearing lumbar-type vertebral bodies are present. Alignment of the lumbar spine is within normal limits. Vertebral body height is maintained . Multilevel disc space height loss is present, most conspicuous at L4-D8Tnbiz terminates at L1-L2 disc space level.Cauda equina demonstrates normal appearance.No acute findings in the paraspinal soft tissues. Evaluation of the individual levels demonstrates: L1/L2: No significant canal or foraminal st enosis. L2/L3: Broad-based disc bulge with superimposed central disc extrusion, cranial and caudal migration of disc material. Prominent posterior epidural fat. Moderate spinal canal stenosis. No significant spinal canal narrowing. L3/L4: Broad-based disc bulge. Ligamentum flavum thickening. Bilateralfacet arthropathy and hypertrophy. Prominent posterior epidural fat. Moderate spinal canal narrowing. Mild right foraminal stenosis. L4/L5: Broad-based disc bulge with a large central and right paracentral disc extrusion, cranial and caudal migration of disc material. Severe canal stenosis. Severe right subarticular recess stenosis with impingement of the right L5 nerve root. Mild right foraminal sten osis. L5/S1: No significant canal or foraminal stenosis. IMPRESSION: Multilevel degenerative changesof the lumbar spine, most prominent at L4-L5 as per above. Signed: Theresa Mary MDReport VerifiedDate/Time: 09/24/2021 19:48:21 Clostridium difficile GDH [id number] 19:47:09 Test Item Value Reference Range Interpretation Comments C. Difficle Toxin Negative Negative (test code = 0263197650) C. Difficile G[facility] Positive Negative A C. difficil e Antigen (test code = present but toxin 4099782583) not detected. Indicates colonization wi th non-toxigenic strain or level of toxin below detectable levels. No need for enteric isolation. Treatment is rarely needed (only when stro ng clinical suspicion for Clostridium difficile infection) PEDRO LUIS (test code = Testing performed PEDRO LUIS) by [employer] Rapid Cassette Assay. For GDH, published sensitivity of the assay is 98.7% compared to cytotoxicity testing. For Toxin AB, published sensitivity is 87.8% and specificity 99.4% compared to cytotoxicity testing.Verificati on of kit performance was done by the [facility] prior to clinical use. Lab Interpretation Abnormal (test code = 53149-4) [facility]. DIFFICILE GDH [id number] 19:47:09 Test Item Value Reference Range Interpretation Comments CDT TOXIN (test code Negative Negative = 9788337479) CDT GDH ANTIGEN Positive Negative A C. difficile present but (test code = toxin not detec susanne. 5725166857) Indicates colon ization with non-toxige stephenie strain or level of tox in below detectable leve ls. No need for enteri c isolation. Maryellen tment is rarely needed ( only when strong clinical suspicion for Clostridium difficile infection) Testing performed by [employer] Rapid Cassette Assay. For GDH, published sensitivity of the assay is 98.7% compared to cytotoxicity testing. For Toxin AB, published sensitivity is 87.8% and specificity 99.4% compared to cytotoxicity testing.Verification of kit performance was done by the [facility] prior to clinical use.POCT-GLUCOSE [id number] 17:34:25 Test Item Value Reference Range Interpretation Comments POC-GLUCOSE METER 91 mg/dL 70-110 : TESTED A T [facility] 6720 (CONTRERAS) (test code = DEEPIKA Phelan [facility], 1538) 54969: Milling General Superintendent/Techni sandrine ID = [id number] for VIBHA SALAS POCT-GLUCOSE [id number] 15:44:32 Test Item Value Reference Range Interpretation Comments POC-GLUCOSE METER 103 mg/dL 70-110 : TESTED A T [facility] 67[facility] (CONTRERAS) (test code = DEEPIKA Phelan [facility], 1538) 77717: [employer] General Superintendent/Techni sandrine ID = [id number] for Me dlin, Ahslyn SARS-CoV2/RT-PCR (Asymptomatic ONLY)2021-09-24 15:10:25 Test Item Value Reference Interpretation Comments Range SARS-COV2/RT-PCR Negative Negative The SARS-Co V-2 (test code = target nucleic 75074-7) acids are not detected in thi s specimen. Negat anjel results do not preclude SARS-C oV-2 infection and should not be u sed as the sole bas is for patient management decisions. Nega tive results must be combined with clinical observations, patient history , and epidemiolog ical information. A false negative result may occu r if a specimen is improperly collected, transported or handled. This S ARS CoV-2 test is a rapid, real-ruthann e RT-PCR test intended for th e qualitative detection of nucleic acid fr om SARS-CoV-2 in a nasopharyngeal swab specimen colle susanne from individual s suspected of COVID-19 by the ir healthcare provider. PEDRO LUIS (test code = This test has been PEDRO LUIS) authorized by FDA under an EUA for use by authorized laboratories. This test is only authorized for the duration of the declaration that circumstances exist justifying the authorization of emergency use of in vitro diagnostic tests for detection and/or diagnosis of COVID-19 under Section 564(b)(1) of the Federal Food, Drug and Cosmetic Act, 21 U.S.C. 360bbb-3(b)(1), unless the authorization is terminated or revoked sooner. Fact Sheet for Healthcare Providers: https://www.[employer]/Documents/Xp ert%20Xpress%20SAR S%20CoV-2/Fact%20S heets/302-3802%20S ARS-COV-2%20HEALTH CARE%20PROVIDERS%2 0FACT%20SHEET.pdf Fact Sheet for Healthcare Patients: https://www.[employer]/Documents/Xp ert%20Xpress%20SAR S%20CoV-2/Fact%20S heets/302-3801%20S ARS-COV-2%20PATIEN T%20FACT%20SHEET.p df Lab Interpretation Normal (test code = 63990-4) [facility])2021-09-24 15:10:25 Test Item Value Reference Range Interpretation Comments SARS-COV2/RT-PCR Negative Negative The SARS-Co V-2 target (test code = nucleic acids a re not 7517706) detected in thi s specimen. Negative result s do not preclude SARS-C oV-2 infection and s hould not be used as the gena e basis for patient managem ent decisions. Nega tive results must be combine d with clinical observ ations, patient history , and epidemiological information. A false negativ e result may occur if a spec imen is improperly ines ected, transported or handled. This SARS CoV-2 test is a rapid, real-time RT-PC R test intended for th e qualitative detection of nu cleic acid from SARS-CoV-2 in a nasopharyngeal swab specimen collected from individuals suspected of CO VID-19 by their healthcar e provider. This test has been authorized by FDA under an EUA for use by authorized laboratories. This test is only authorized for the duration of the declaration that circumstances exist justifying the authorization of emergency use of in vitro diagnostic tests for detection and/or diagnosis of COVID-19 under Section 564(b)(1) of the Federal Food, Drug and Cosmetic Act, 21 U.S.C. 360bbb-3(b)(1), unless the authorization is terminated or revoked sooner. Fact Sheet for Healthcare Providers: https://www.[employer] m/Documents/Xpert%20Xpress%20SARS%20CoV-2/Fact%20Sheets/302-3802%72ZMQV-DKZ-7%20 HEALTHCARE%20PROVIDERS%20FACT%20SHEET.pdf Fact Sheet for Healthcare Patients: https://www.[employer]pp[employer]/Documents/Xpert%20Xp ress%20SARS%20CoV-2/Fact%20Sheets/302-3801%74KLLU-OYF-4%20PATIENT%20FACT%20SHEET .pdfCREATININE, RANDOM [id number] 14:48:43 Test Item Value Reference Range Interpretation Comments CREATININE URINE (BEAKER) (test 217.4 mg/dL code = 375) Reference Range: No NormalsOperator ID - JOCELYN MU/S, RENAL, [id number] 14:37:00Reason for exam:->GENERALIZED WEAKNESS, NOT ASSOCIATED WITH EXTREMITIESReason for exam:->[facility]OT[facility]ION [facility] : 1975 Sex: MFINAL REPORT TECHNIQUE: Grayscale ultrasound of the kidneys and bladder. INDICATION: GENERALIZED WEAKNESS, NOT ASSOCIATED WITH EXTREMITIESHYPOTENSION. COMPARISON: Ultrasound from09/18/2021. CT from 09/19/2021 FINDINGS: RIGHT KIDNEY: The right kidney measures 10.6 x 5.9 x 6 cm with a cortical thickness of 1.3 cm. No solid mass lesions. No hydronephrosis. Renal artery and vein arepatent. Renal stones measure up to 0.7 cm in the right lower pole more better visualized on the prior CT. LEFT KIDNEY: The left kidney measures 12.9 x 6 x 5 cm with a cortical thickness of 1.4 cm. No solid mass lesions. No hydronephrosis. Renal artery and vein are patent. Renal stones measure up to 0.7 cm and were better visualized the prior CT. BLADDER: The bladder is decompressed by a catheter. IMPRESSION: 1.No hydronephrosis 2.Bilateral renal stones are present but were better evaluated on the recent CT. Signed: Morena Yang Verified Date/Time: 09/24/2021 14:37:12 PROTEIN, RANDOM [id number] 14:12:33 Test Item Value Reference Range Interpretation Comments PROTEIN, URINE (BEAKER) (test code = 42 mg/dL 0-14 H 1569) [employer] General Superintendent ID - JOCELYN MSODIUM, RANDOM [id number] 14:12:33 Test Item Value Reference Range Interpretation Comments SODIUM URINE (BEAKER) (test code = 38 meq/L 243) Reference Range: No NormalsOperator ID Manuel BANKS [id number] 13:15:07 Test Item Value Reference Range Interpretation Comments CORTISOL, TOTAL (BEAKER) (test code 9.4 ug/dL 3.7-19.4 = 2755) [employer] General Superintendent ID - JOCELYN [id number] 13:13:13 Test Item Value Reference Range Interpretation Comments PROCALCITONIN (BEAKER) (test code 0.32 ng/mL <0.05 H = 3036) SEPSIS RISK (ng/mL)Low: 0.05-0.50Intermediate: 0.51-2.00High: >=2.01LACTIC ACID, [id number] 12:45:27 Test Item Value Reference Range Interpretation Comments LACTATE BLOOD VENOUS (2) (BEAKER) 0.88 mmol/L 0.50-2.20 (test code = 2872) [employer] General Superintendent ID - JOCELYN MPROTHROMBIN TIME/[id number] 12:41:42 Test Item Value Reference Range Interpretation Comments PROTIME (BEAKER) 16.7 seconds 11.9-14.2 H (test code = 759) INR (BEAKER) (test 1.38 See_Comment [Automat ed message] code = 370) The system [employer] generated this result transmitted ref erence range: <=5.90. The reference range was not used to int erpret this result as normal/abnormal . RECOMMENDED COUMADIN/WARFARIN INR THERAPY RANGESSTANDARD DOSE: 2.0 - 3.0 Includes: PROPHYLAXIS for venous thrombosis, systemic embolization; TREATMENT for venous thrombosis and/or pulmonary embolus.HIGH RISK: Target INR is 2.5-3.5 for patients with mechanical heart valves.RAD, CHEST, 1 VIEW, NON [id number] 12:21:00Reason for exam:->GENERALIZED WEAKNESS, NOT ASSOCIATED WITH EXTREMITIESReason for exam:->HYPOTENSIONShould this be performed at the bedside?->YesCH[facility] : 1975 Sex: MFINAL REPORT Exam: Chest radiograph Clinical History: Weakness Findings: The cardiomediastinal silhouette and lungs are normal. The regional skeleton and soft tissue are unremarkable. There is no evidence of pleural effusion or pneumothorax. Impression: No radiographic evidence of acute cardiopulmonary disease. Signed: Malka Garvey MDReport Verified Date/Time: 09/24/2021 12:21 :50 Reading Location: [facility] Radiology Reading Room [id number] 11:28:47 Test Item Value Reference Range Interpretation Comments PARTIAL THROMBOPLASTIN TIME 29.4 seconds 22.5-36.0 (BEAKER) (test code = 760) URINALYSIS W/ REFLEX URINE [id number] 10:10:59 Test Item Value Reference Range Interpretation Comments COLOR (BEAKER) (test code = 470) Yellow CLARITY (BEAKER) (test code = 469) Hazy SPECIFIC GRAVITY UA (BEAKER) (test 1.015 1.001-1.035 code = 468) PH UA (BEAKER) (test code = 467) 5.5 5.0-8.0 PROTEIN UA (BEAKER) (test code = 30 mg/dL Negative A 464) GLUCOSE UA (BEAKER) (test code = Negative Negative 365) KETONES UA (BEAKER) (test code = Negative Negative 371) BILIRUBIN UA (BEAKER) (test code = Negative Negative 462) BLOOD UA (BEAKER) (test code = 461) Moderate Negative A NITRITE UA (BEAKER) (test code = Negative Negative 465) LEUKOCYTE ESTERASE UA (BEAKER) Negative Negative (test code = 466) UROBILINOGEN UA (BEAKER) (test code 0.2 mg/dL 0.2-1.0 = 463) RBC UA (BEAKER) (test code = 519) 56 /HPF WBC UA (BEAKER) (test code = 520) 4 /HPF BACTERIA (BEAKER) (test code = 517) Rare MUCUS (BEAKER) (test code = 1574) Rare HYALINE CASTS (BEAKER) (test code = 1 /LPF 514) CRYSTALS, URINE (BEAKER) (test code None Seen = 1521) SOURCE(BEAKER) (test code = 2795) Milling General Superintendent ID - [auto][employer] General Superintendent ID - techCOMPREHENSIVE METABOLIC [id number] 10:09:13 Test Item Value Reference Range Interpretation Comments TOTAL PROTEIN 5.7 gm/dL 6.0-8.3 L (BEAKER) (test code = 770) ALBUMIN (BEAKER) 2.5 g/dL 3.5-5.0 L (test code = 1145) ALKALINE PHOSPHATASE 71 U/L 40-150 (BEAKER) (test code = 346) BILIRUBIN TOTAL 0.6 mg/dL 0.2-1.2 (BEAKER) (test code = 377) SODIUM (BEAKER) (test 135 meq/L 136-145 L code = 381) POTASSIUM (BEAKER) 3.7 meq/L 3.5-5.1 (test code = 379) CHLORIDE (BEAKER) 104 meq/L 98-107 (test code = 382) CO2 (BEAKER) (test 22 meq/L 22-29 code = 355) BLOOD UREA NITROGEN 63 mg/dL 7-21 H (BEAKER) (test code = 354) CREATININE (BEAKER) 3.39 mg/dL 0.57-1.25 H (test code = 358) GLUCOSE RANDOM 76 mg/dL 70-105 (BEAKER) (test code = 652) CALCIUM (BEAKER) 7.6 mg/dL 8.4-10.2 L (test code = 697) AST (SGOT) (BEAKER) 21 U/L 5-34 (test code = 353) ALT (SGPT) (BEAKER) 28 U/L 6-55 (test code = 347) EGFR (BEAKER) (test 20 mL/min/1.73 ESTIMA SUSANNE GFR IS code = 1092) sq m NOT ACCURATE CREATININE CLEARANCE IN PREDICTING GLOMERULAR FILTRATION RATE . ESTIMATED GFR I S NOT APPLICABLE FOR DIALYSIS PATIEN TS. [employer] General Superintendent ID - JOCELYN MHIGH SENSITIVITY TROPONIN [id number] 09:47:32 Test Item Value Reference Range Interpretation Comments HIGH SENSITIVITY < pg/ml See_Comment [Automated message] TROPONIN I (test code = The system which 7884524) generated this result transmitted ref erence range: <=35. Th e reference range was not used to interpr et this result as normal/abnormal . [employer] General Superintendent ID - MAISHA [facility] JUNIOR ASSISTANT MANAGER STAT High Sensitivity Troponin-I results should be used in conjunction with other diagnostic information such as ECG, clinical observations and information, and patient symptoms to aid in the diagnosis of [place].B-TYPE NATRIURETIC FACTOR (BNP)2021-09-24 09:47:11 Test Item Value Reference Range Interpretation Comments B-TYPE NATRIURETIC PEPTIDE (BEAKER) 44 pg/mL 0-100 (test code = 700) [employer] General Superintendent ID Manuel DOVERA MPROTHROMBIN TIME/[id number] 09:27:48 Test Item Value Reference Range Interpretation Comments PROTIME (BEAKER) 16.3 seconds 11.9-14.2 H (test code = 759) INR (BEAKER) (test 1.33 See_Comment [Automat ed message] code = 370) The system whic h generated this result transmitted ref erence range: <=5.90. The reference range was not used to int erpret this result as normal/abnormal . RECOMMENDED COUMADIN/WARFARIN INR THERAPY RANGESSTANDARD DOSE: 2.0 - 3.0 Includes: PROPHYLAXIS for venous thrombosis, systemic embolization; TREATMENT for venous thrombosis and/or pulmonary embolus.HIGH RISK: Target INR is 2.5-3.5 for patients with mechanical heart valves.CBC W/PLT COUNT & AUTO [id number] 09:20:25 Test Item Value Reference Range Interpretation Comments WHITE BLOOD CELL COUNT (BEAKER) 7.4 K/ L 3.5-10.5 (test code = 775) RED BLOOD CELL COUNT (BEAKER) 3.85 M/ L 4.63-6.08 L (test code = 761) HEMOGLOBIN (BEAKER) (test code = 10.4 GM/DL 13.7-17.5 L 410) HEMATOCRIT (BEAKER) (test code = 32.9 % 40.1-51.0 L 411) MEAN CORPUSCULAR VOLUME (BEAKER) 85.5 fL 79.0-92.2 (test code = 753) MEAN CORPUSCULAR HEMOGLOBIN 27.0 pg 25.7-32.2 (BEAKER) (test code = 751) MEAN CORPUSCULAR HEMOGLOBIN CONC 31.6 GM/DL 32.3-36.5 L (BEAKER) (test code = 752) RED CELL DISTRIBUTION WIDTH 14.9 % 11.6-14.4 H (BEAKER) (test code = 412) PLATELET COUNT (BEAKER) (test 265 K/CU MM 150-450 code = 756) MEAN PLATELET VOLUME (BEAKER) 10.5 fL 9.4-12.4 (test code = 754) NUCLEATED RED BLOOD CELLS 0 /100 WBC 0-0 (BEAKER) (test code = 413) NEUTROPHILS RELATIVE PERCENT 67 % (BEAKER) (test code = 429) LYMPHOCYTES RELATIVE PERCENT 20 % (BEAKER) (test code = 430) MONOCYTES RELATIVE PERCENT 10 % (BEAKER) (test code = 431) EOSINOPHILS RELATIVE PERCENT 1 % (BEAKER) (test code = 432) BASOPHILS RELATIVE PERCENT 0 % (BEAKER) (test code = 437) NEUTROPHILS ABSOLUTE COUNT 5.00 K/ L 1.78-5.38 (BEAKER) (test code = 670) LYMPHOCYTES ABSOLUTE COUNT 1.51 K/ L 1.32-3.57 (BEAKER) (test code = 414) MONOCYTES ABSOLUTE COUNT (BEAKER) 0.71 K/ L 0.30-0.82 (test code = 415) EOSINOPHILS ABSOLUTE COUNT 0.07 K/ L 0.04-0.54 (BEAKER) (test code = 416) BASOPHILS ABSOLUTE COUNT (BEAKER) 0.02 K/ L 0.01-0.08 (test code = 417) IMMATURE GRANULOCYTES-RELATIVE 2 % 0-1 H PERCENT (BEAKER) (test code = 2801) POCT-GLUCOSE [id number] 08:21:22 Test Item Value Reference Range Interpretation Comments POC-GLUCOSE METER 72 mg/dL 70-110 : TESTED A T [facility] 6720 (BEAKER) (test code = DEEPIKA DIAZ [place], 1538) [address]: [employer] General Superintendent/Techni sandrine ID = [id number] for Medl inJodieslyn CBC W/PLT COUNT & AUTO [id number] 07:15:36 Test Item Value Reference Range Interpretation Comments WHITE BLOOD CELL COUNT (BEAKER) 9.2 K/ L 3.5-10.5 (test code = 775) RED BLOOD CELL COUNT (BEAKER) 4.32 M/ L 4.63-6.08 L (test code = 761) HEMOGLOBIN (BEAKER) (test code = 11.7 GM/DL 13.7-17.5 L 410) HEMATOCRIT (BEAKER) (test code = 36.4 % 40.1-51.0 L 411) MEAN CORPUSCULAR VOLUME (BEAKER) 84.3 fL 79.0-92.2 (test code = 753) MEAN CORPUSCULAR HEMOGLOBIN 27.1 pg 25.7-32.2 (BEAKER) (test code = 751) MEAN CORPUSCULAR HEMOGLOBIN CONC 32.1 GM/DL 32.3-36.5 L (BEAKER) (test code = 752) RED CELL DISTRIBUTION WIDTH 15.4 % 11.6-14.4 H (BEAKER) (test code = 412) PLATELET COUNT (BEAKER) (test 259 K/CU MM 150-450 code = 756) MEAN PLATELET VOLUME (BEAKER) 9.9 fL 9.4-12.4 (test code = 754) NUCLEATED RED BLOOD CELLS 0 /100 WBC 0-0 (BEAKER) (test code = 413) NEUTROPHILS RELATIVE PERCENT 69 % (BEAKER) (test code = 429) LYMPHOCYTES RELATIVE PERCENT 16 % (BEAKER) (test code = 430) MONOCYTES RELATIVE PERCENT 12 % (BEAKER) (test code = 431) EOSINOPHILS RELATIVE PERCENT 1 % (BEAKER) (test code = 432) BASOPHILS RELATIVE PERCENT 0 % (BEAKER) (test code = 437) NEUTROPHILS ABSOLUTE COUNT 6.30 K/ L 1.78-5.38 H (BEAKER) (test code = 670) LYMPHOCYTES ABSOLUTE COUNT 1.50 K/ L 1.32-3.57 (BEAKER) (test code = 414) MONOCYTES ABSOLUTE COUNT (BEAKER) 1.06 K/ L 0.30-0.82 H (test code = 415) EOSINOPHILS ABSOLUTE COUNT 0.08 K/ L 0.04-0.54 (BEAKER) (test code = 416) BASOPHILS ABSOLUTE COUNT (BEAKER) 0.02 K/ L 0.01-0.08 (test code = 417) IMMATURE GRANULOCYTES-RELATIVE 2 % 0-1 H PERCENT (BEAKER) (test code = 2801) Urine [id number] 09:13:39 Test Item Value Reference Range Interpretation Comments Result (test code = 40-49,000 col/mL skin 6463-4) [facility]CT, [id number] 07:49:00Unlisted Reason for Exam - Click Yes and Enter Reason Below->NoIs this for enterography?->NoWill this procedure require oral contrast?->No [facility] : 1975 Sex: MFINALREPORT CT of the abdomen and pelvis, with contrast Clinical History: Abdominal distensionAbdominal pain, acute, nonlocalized Technique: CT of the abdomen and pelvis is performed with intravenous contrast administration. This exam was performed according to our departmental dose optimization program which includes automated exposure control, adjustment of the mA and/or kV according to patient's size and/or use of iterative reconstructive technique. Comparison Film: None Discussion: Visualized lower thorax is unremarkable. No liver lesion is identified. No biliary ductal dilatation, status post cholecystectomy. Spleen is enlarged and measures 17 cm sagittally. Pancreas, and adrenal glands are normal. There are nonobstructive stones in both kidneys, measuring up to 11 mm on the left, and a 12 mm on the right. No hydronephrosis. No suspicious mass lesion is identified. A few tiny hypodensities in the kidneys are probably cysts, but too small to definitively characterize. No evidence of bowel obstruction, or abnormal bowel wall thickening. Normal appendix. Status post gastric bypass. In the pelvis, bladder is decompressed with Yoon catheter. The prostate and seminal vesicles are unremarkable. No ascites, free air or adenopathy. Bony structures demonstrate mild degenerative changes. Impression: No acute process is identified in the abdomen or pelvis. Status post gastric bypass and cholecystectomy. Splenomegaly. Nonobstructive stones in both kidneys. Signed: Ita Gamez MDReport Verified Date/Time: 09/19/2021 07:49:01 Reading Location: [facility] C013X Ortho Consult Reading Room RAD, ABDOMEN/KUB, 1 VIEW [id number] 00:28:00 Reason for exam:->abdominal painShould this be performed at the bedside?->Yes[facility] : 1975 Sex: MFINALREPORT CLINICAL HISTORY: abdominal pain TECHNIQUE: RAD, ABDOMEN/KUB, 1 VIEW AP COMPARISON: None IMPRESSION: Few prominent loops of small bowel in the central abdomen are nonspecific, possibly reflecting ileus versus small bowel obstruction, correlate clinically and consider further evaluation with cross- sectional imaging if indicated.. Moderate stool burden throughout the large natalee wel.. 8 mm calcific density over the left renal shadow may represent nephrolithiasis.Yoon catheter overlies the bladder. Surgical clips in the right upper quadrant. Degenerative changes of the lower lumbar spine. Lung bases are clear. Signed: Sihrley Plata MDReport Verified Date/Time: 09/19/2021 00:28:11 [id number] 23:43:48 Test Item Value Reference Range Interpretation Comments LIPASE (BEAKER) (test code = 749) 42 U/L 8-78 [employer] ID - BSLACTIC ACID, [id number] 23:35:48 Test Item Value Reference Range Interpretation Comments LACTATE BLOOD VENOUS 1.57 mmol/L 0.50-2.20 Specime n slightly (2) (BEAKER) (test hemolyzed code = 2872) [employer] ID - BSU/S, RENAL, [id number] 15:25:00Reason for exam:->[facility] : 1975 Sex: MFINALREPORT U/S, RENAL, COMPLETE CLINICAL HISTORY: retention COMPARISON: None. TECHNIQUE: Real time grayscale and color Doppler imaging of the kidneys and urinary bladder was performed.FINDINGS: Right kidney:Length = 9.4 cmCortical thickness: NormalEchogenicity: NormalCollecting system: No hydronephrosisOther findings: Small hyperechoic foci with shadowing suggestion of multiple small renal stones Left kidney:Length = 13.3 cmCortical thickness: NormalEchogenicity: NormalCollecting system: No hydronephrosisOther findings: None Urinary bladder: Normally distended, Main renal artery and main renal vein: Patent bilaterally IMPRESSION: No hydronephrosis. Suggestion of small nonobstructive right renal calculi. Signed: Liana Pendleton MDReport Verified Date/Time: 09/18/2021 15:25:53 BASI METABOLIC [id number] 06:44:03 Test Item Value Reference Range Interpretation Comments SODIUM (BEAKER) 140 meq/L 136-145 (test code = 381) POTASSIUM (BEAKER) 3.9 meq/L 3.5-5.1 (test code = 379) CHLORIDE (BEAKER) 105 meq/L 98-107 (test code = 382) CO2 (BEAKER) (test 24 meq/L 22-29 code = 355) BLOOD UREA NITROGEN 26 mg/dL 7-21 H (BEAKER) (test code = 354) CREATININE (BEAKER) 1.24 mg/dL 0.57-1.25 (test code = 358) GLUCOSE RANDOM 230 mg/dL 70-105 H (BEAKER) (test code = 652) CALCIUM (BEAKER) 8.6 mg/dL 8.4-10.2 (test code = 697) EGFR (BEAKER) (test 62 mL/min/1.73 ESTIMA SUSANNE GFR IS code = 1092) sq m NOT ACCURATE CREATININE CLEARANCE IN PREDICTING GLOMERULAR FILTRATION RATE . ESTIMATED GFR I S NOT APPLICABLE FOR DIALYSIS PATIEN TS. [employer] ID - ADMINHEPATIC FUNCTION [id number] 06:44:03 Test Item Value Reference Range Interpretation Comments TOTAL PROTEIN (BEAKER) (test code = 6.4 gm/dL 6.0-8.3 770) ALBUMIN (BEAKER) (test code = 1145) 3.1 g/dL 3.5-5.0 L BILIRUBIN TOTAL (BEAKER) (test code 0.4 mg/dL 0.2-1.2 = 377) BILIRUBIN DIRECT (BEAKER) (test 0.2 mg/dL 0.1-0.5 code = 706) ALKALINE PHOSPHATASE (BEAKER) (test 101 U/L 40-150 code = 346) AST (SGOT) (BEAKER) (test code = 26 U/L 5-34 353) ALT (SGPT) (BEAKER) (test code = 36 U/L 6-55 347) [employer] ID - ADMINCBC W/PLT COUNT & AUTO [id number] 05:47:27 Test Item Value Reference Range Interpretation Comments WHITE BLOOD CELL COUNT (BEAKER) 10.4 K/ L 3.5-10.5 (test code = 775) RED BLOOD CELL COUNT (BEAKER) 4.29 M/ L 4.63-6.08 L (test code = 761) HEMOGLOBIN (BEAKER) (test code = 11.7 GM/DL 13.7-17.5 L 410) HEMATOCRIT (BEAKER) (test code = 36.5 % 40.1-51.0 L 411) MEAN CORPUSCULAR VOLUME (BEAKER) 85.1 fL 79.0-92.2 (test code = 753) MEAN CORPUSCULAR HEMOGLOBIN 27.3 pg 25.7-32.2 (BEAKER) (test code = 751) MEAN CORPUSCULAR HEMOGLOBIN CONC 32.1 GM/DL 32.3-36.5 L (BEAKER) (test code = 752) RED CELL DISTRIBUTION WIDTH 15.8 % 11.6-14.4 H (BEAKER) (test code = 412) PLATELET COUNT (BEAKER) (test 253 K/CU MM 150-450 code = 756) MEAN PLATELET VOLUME (BEAKER) 10.5 fL 9.4-12.4 (test code = 754) NUCLEATED RED BLOOD CELLS 0 /100 WBC 0-0 (BEAKER) (test code = 413) NEUTROPHILS RELATIVE PERCENT 85 % (BEAKER) (test code = 429) LYMPHOCYTES RELATIVE PERCENT 8 % (BEAKER) (test code = 430) MONOCYTES RELATIVE PERCENT 7 % (BEAKER) (test code = 431) EOSINOPHILS RELATIVE PERCENT 0 % (BEAKER) (test code = 432) BASOPHILS RELATIVE PERCENT 0 % (BEAKER) (test code = 437) NEUTROPHILS ABSOLUTE COUNT 8.81 K/ L 1.78-5.38 H (BEAKER) (test code = 670) LYMPHOCYTES ABSOLUTE COUNT 0.88 K/ L 1.32-3.57 L (BEAKER) (test code = 414) MONOCYTES ABSOLUTE COUNT (BEAKER) 0.69 K/ L 0.30-0.82 (test code = 415) EOSINOPHILS ABSOLUTE COUNT 0.00 K/ L 0.04-0.54 L (BEAKER) (test code = 416) BASOPHILS ABSOLUTE COUNT (BEAKER) 0.01 K/ L 0.01-0.08 (test code = 417) IMMATURE GRANULOCYTES-RELATIVE 0 % 0-1 PERCENT (BEAKER) (test code = 2801) URINALYSIS W/ REFLEX URINE [id number] 14:30:49 Test Item Value Reference Range Interpretation Comments COLOR (BEAKER) (test code = 470) Yellow CLARITY (BEAKER) (test code = 469) Clear SPECIFIC GRAVITY UA (BEAKER) (test 1.023 1.001-1.035 code = 468) PH UA (BEAKER) (test code = 467) 6.0 5.0-8.0 PROTEIN UA (BEAKER) (test code = 10 mg/dL Negative A 464) GLUCOSE UA (BEAKER) (test code = Negative Negative 365) KETONES UA (BEAKER) (test code = Negative Negative 371) BILIRUBIN UA (BEAKER) (test code = Negative Negative 462) BLOOD UA (BEAKER) (test code = 461) Trace Negative A NITRITE UA (BEAKER) (test code = Negative Negative 465) LEUKOCYTE ESTERASE UA (BEAKER) Moderate Negative A (test code = 466) UROBILINOGEN UA (BEAKER) (test code 0.2 mg/dL 0.2-1.0 = 463) RBC UA (BEAKER) (test code = 519) 3 /HPF WBC UA (BEAKER) (test code = 520) 16 /HPF BACTERIA (BEAKER) (test code = 517) Rare MUCUS (BEAKER) (test code = 1574) Rare SQUAMOUS EPITHELIAL (BEAKER) (test < /HPF code = 516) CRYSTALS, URINE (BEAKER) (test code None Seen = 1521) SOURCE(BEAKER) (test code = 2795) [employer] ID - [auto][employer] ID - techMR, SPINE, LUMBAR, WITHOUT CONTRAST 2021-09-17 12:24:00Concern for cauda equina syndromeUnlisted Reason for Exam - Click Yes and Enter Reason Below->No [facility] : 1975 Sex: MFINALREPORT MR, SPINE, LUMBAR, WITHOUT CONTRAST INDICATION: Back pain, progressive neurologic deficit COMPARISON: None TECHNIQUE: Multiplanar, multisequence MR images of the lumbar spine without contrast. FINDINGS: 5 nonrib-bearing lumbar-type vertebral bodies are present. Alignment ofthe lumbar spine is within normal limits. Vertebral body height is maintained. Multilevel disc spaceheight loss is present, most conspicuous at L4-X7Lxlxp terminates at L1-L2 disc space level.Cauda equina demonstrates normal appearance.No acute findings in the paraspinal soft tissues. Evaluation of the individual levels demonstrates: L1/L2: No significant canal or foraminal stenosis. L2/L3: Broad-based disc bulge with superimposed central disc extrusion, cranial and caudal migration of disc material. Prominent posterior epidural fat. Moderate spinal canal stenosis. No significant spinal canal narrowing. L3/L4: Broad-based disc bulge. Ligamentum flavum thickening. Bilateral facet arthropathy and hy pertrophy. Prominent posterior epidural fat. Moderate spinal canal narrowing. Mild right foraminal stenosis. L4/L5: Broad-based disc bulge with a large central and right paracentral disc extrusion, cranial and caudal migration of disc material. Severe canal stenosis. Severe right subarticular recess stenosis with impingement of the right L5 nerve root. Mild right foraminal stenosis. L5/S1: No significant canal or foraminal stenosis. IMPRESSION: Multilevel degenerative changes of the lumbar spine, most prominent at L4-L5 as per above. Signed: Theresa Mary MDReport Verified Date/Time: 09/17/2021 12:24:23 [id number] 10:57:26 Test Item Value Reference Range Interpretation Comments PROCALCITONIN (BEAKER) (test code 0.34 ng/mL <0.05 H = 3036) SEPSIS RISK (ng/mL)Low: 0.05-0.50Intermediate: 0.51-2.00High: >=2.01HEPATIC FUNCTION [id number] 09:51:25 Test Item Value Reference Range Interpretation Comments TOTAL PROTEIN (BEAKER) (test code = 7.2 gm/dL 6.0-8.3 770) ALBUMIN (BEAKER) (test code = 1145) 3.5 g/dL 3.5-5.0 BILIRUBIN TOTAL (BEAKER) (test code 0.9 mg/dL 0.2-1.2 = 377) BILIRUBIN DIRECT (BEAKER) (test 0.4 mg/dL 0.1-0.5 code = 706) ALKALINE PHOSPHATASE (BEAKER) (test 106 U/L 40-150 code = 346) AST (SGOT) (BEAKER) (test code = 28 U/L 5-34 353) ALT (SGPT) (BEAKER) (test code = 36 U/L 6-55 347) [employer] ID - PIAYA LC-REACTIVE [id number] 09:51:25 Test Item Value Reference Range Interpretation Comments C-REACTIVE PROTEIN (BEAKER) (test 26.59 mg/dL 0.00-0.50 H code = 676) [employer] ID - PIAYA LBASIC METABOLIC [id number] 09:51:24 Test Item Value Reference Range Interpretation Comments SODIUM (BEAKER) 138 meq/L 136-145 (test code = 381) POTASSIUM (BEAKER) 3.5 meq/L 3.5-5.1 (test code = 379) CHLORIDE (BEAKER) 101 meq/L 98-107 (test code = 382) CO2 (BEAKER) (test 25 meq/L 22-29 code = 355) BLOOD UREA NITROGEN 33 mg/dL 7-21 H (BEAKER) (test code = 354) CREATININE (BEAKER) 1.25 mg/dL 0.57-1.25 (test code = 358) GLUCOSE RANDOM 146 mg/dL 70-105 H (BEAKER) (test code = 652) CALCIUM (BEAKER) 8.8 mg/dL 8.4-10.2 (test code = 697) EGFR (BEAKER) (test 62 mL/min/1.73 ESTIMA SUSANNE GFR IS code = 1092) sq m NOT ACCURATE CREATININE CLEARANCE IN PREDICTING GLOMERULAR FILTRATION RATE . ESTIMATED GFR I S NOT APPLICABLE FOR DIALYSIS PATIEN TS. [employer] ID - PIAYA LCBC W/PLT COUNT & AUTO [id number] 09:14:02 Test Item Value Reference Range Interpretation Comments WHITE BLOOD CELL COUNT (BEAKER) 6.7 K/ L 3.5-10.5 (test code = 775) RED BLOOD CELL COUNT (BEAKER) 4.81 M/ L 4.63-6.08 (test code = 761) HEMOGLOBIN (BEAKER) (test code = 13.0 GM/DL 13.7-17.5 L 410) HEMATOCRIT (BEAKER) (test code = 40.4 % 40.1-51.0 411) MEAN CORPUSCULAR VOLUME (BEAKER) 84.0 fL 79.0-92.2 (test code = 753) MEAN CORPUSCULAR HEMOGLOBIN 27.0 pg 25.7-32.2 (BEAKER) (test code = 751) MEAN CORPUSCULAR HEMOGLOBIN CONC 32.2 GM/DL 32.3-36.5 L (BEAKER) (test code = 752) RED CELL DISTRIBUTION WIDTH 15.8 % 11.6-14.4 H (BEAKER) (test code = 412) PLATELET COUNT (BEAKER) (test 210 K/CU MM 150-450 code = 756) MEAN PLATELET VOLUME (BEAKER) 10.4 fL 9.4-12.4 (test code = 754) NUCLEATED RED BLOOD CELLS 0 /100 WBC 0-0 (BEAKER) (test code = 413) NEUTROPHILS RELATIVE PERCENT 86 % (BEAKER) (test code = 429) LYMPHOCYTES RELATIVE PERCENT 10 % (BEAKER) (test code = 430) MONOCYTES RELATIVE PERCENT 4 % (BEAKER) (test code = 431) EOSINOPHILS RELATIVE PERCENT 0 % (BEAKER) (test code = 432) BASOPHILS RELATIVE PERCENT 0 % (BEAKER) (test code = 437) NEUTROPHILS ABSOLUTE COUNT 5.78 K/ L 1.78-5.38 H (BEAKER) (test code = 670) LYMPHOCYTES ABSOLUTE COUNT 0.65 K/ L 1.32-3.57 L (BEAKER) (test code = 414) MONOCYTES ABSOLUTE COUNT (BEAKER) 0.27 K/ L 0.30-0.82 L (test code = 415) EOSINOPHILS ABSOLUTE COUNT 0.00 K/ L 0.04-0.54 L (BEAKER) (test code = 416) BASOPHILS ABSOLUTE COUNT (BEAKER) 0.01 K/ L 0.01-0.08 (test code = 417) IMMATURE GRANULOCYTES-RELATIVE 0 % 0-1 PERCENT (BEAKER) (test code = 2801) [id number] 11:10:43 Test Item Value Reference Range Interpretation Comments APPEARANCE (test code = Clear Clear 7193318426) COLOR (test code = Yellow Yellow 0431823035) PH (test code = 4.8-8.0 4252822177) SP GRAVITY (test code = 1.003-1.030 6202645171) GLU U QUAL (test code = Normal Normal 8045582947) BLOOD (test code = Negative Negative 9775617231) KETONES (test code = Negative Negative 9103922751) PROTEIN (test code = Negative Negative 2887-8) UROBILIN (test code = Normal Normal 9417301874) BILIRUBIN (test code = Negative Negative 5816492410) NITRITE (test code = Negative Negative 5476736681) LEUK IZZY (test code = Negative Negative 9634656773) RBC/HPF (test code = See_Comment [Autom ated message] 3015112596) The system [employer] generated this result transmitted ref erence range: 0 - 3 HP F. The reference range was not used to int erpret this result as normal/abnormal . WBC/HPF (test code = See_Comment [Autom ated message] 5348007912) The system [employer] generated this result transmitted ref erence range: 0 - 5 HP F. The reference range was not used to int erpret this result as normal/abnormal . BACTERIA (test code = Negative Negative 8413658098) MUCOUS (test code = Slight Negative LPF A 9361838323) SQ EPITH (test code = <1 HPF 4079214779) Lab Interpretation (test Abnormal code = 05433-9) [facility]43 Test Item Value Reference Range Interpretation Comments APPEARANCE (test code = Clear Clear 4991156485) COLOR (test code = Yellow Yellow 2221234149) PH (test code = 4.8-8.0 6190364626) SP GRAVITY (test code = 1.003-1.030 1319918129) GLU U QUAL (test code = Normal Normal 7342566559) BLOOD (test code = Negative Negative 2797174406) KETONES (test code = Negative Negative 9439470453) PROTEIN (test code = Negative Negative 2887-8) UROBILIN (test code = Normal Normal 4043913988) BILIRUBIN (test code = Negative Negative 9486648656) NITRITE (test code = Negative Negative 4371289818) LEUK IZZY (test code = Negative Negative 6096454092) RBC/HPF (test code = See_Comment [Autom ated message] 0137722685) The system [employer] generated this result transmitted ref erence range: 0 - 3 HP F. The reference range was not used to int erpret this result as normal/abnormal . WBC/HPF (test code = See_Comment [Autom ated message] 3474620675) The system [employer] generated this result transmitted ref erence range: 0 - 5 HP F. The reference range was not used to int erpret this result as normal/abnormal . BACTERIA (test code = Negative Negative 2861821901) MUCOUS (test code = Slight Negative LPF A 2026674926) SQ EPITH (test code = <1 HPF 0102373211) Lab Interpretation (test Abnormal code = 94794-5) [facility] ([id number])2020-11-24 11:03:51 Test Item Value Reference Range Interpretation Comments NA (test code = 139 mmol/L 135-145 7546756990) K (test code = 3.9 mmol/L 3.5-5.0 1102798151) CL (test code = 104 mmol/L 98-108 9623844458) CO2 TOTAL (test code = 24 mmol/L 23-31 0371970794) AGAP (test code = 2-16 3595489685) BUN (test code = 17 mg/dL 7-23 4972847213) GLUCOSE (test code = 106 mg/dL 70-110 0722718687) CREATININE (test code = 1.25 mg/dL 0.60-1.25 3500149937) TOTAL BILI (test code = 1.5 mg/dL 0.1-1.1 H 9118975600) CALCIUM (test code = 9.3 mg/dL 8.6-10.6 6883326888) T PROTEIN (test code = 8.2 g/dL 6.3-8.2 2381757373) ALBUMIN (test code = 4.6 g/dL 3.5-5.0 2057895559) ALK PHOS (test code = 91 U/L 34-122 5120838459) ALTv (test code = 19 U/L 5-50 2-6) AST(SGOT) (test code = 28 U/L 13-40 6944707365) eGFR (test code = mL/min/1.73m2 1724290820) PEDRO LUIS (test code = PEDRO LUIS) [...] tests). Lab Interpretation Abnormal (test code = 26252-0) [facility] (63790)2020-11-24 11:03:51 Test Item Value Reference Range Interpretation Comments NA (test code = 1074870111) 139 mmol/L 135-145 K (test code = 6274887466) 3.9 mmol/L 3.5-5.0 CL (test code = 3901839315) 104 mmol/L 98-108 CO2 TOTAL (test code = 3771663484) 24 mmol/L 23-31 AGAP (test code = 4890826864) 2-16 BUN (test code = 3737611298) 17 mg/dL 7-23 GLUCOSE (test code = 9921929055) 106 mg/dL 70-110 CREATININE (test code = 1.25 mg/dL 0.60-1.25 2320034464) TOTAL BILI (test code = 1.5 mg/dL 0.1-1.1 H 8424464935) CALCIUM (test code = 2656503566) 9.3 mg/dL 8.6-10.6 T PROTEIN (test code = 8239528730) 8.2 g/dL 6.3-8.2 ALBUMIN (test code = 6977150277) 4.6 g/dL 3.5-5.0 ALK PHOS (test code = 8708589123) 91 U/L 34-122 ALTv (test code = 1742-6) 19 U/L 5-50 AST(SGOT) (test code = 4935472166) 28 U/L 13-40 eGFR (test code = 7651172391) mL/min/1.73m2 PEDRO LUIS (test code = PEDRO LUIS) Lab Interpretation (test code = Abnormal 14560-3) [facility] 11:03:10 Test Item Value Reference Range Interpretation Comments LIPASE (test code = 8899232702) 129 U/L 0-220 Lab Interpretation (test code = Normal 58787-6) [facility] 11:03:10 Test Item Value Reference Range Interpretation Comments LIPASE (test code = 0036264863) 129 U/L 0-220 Lab Interpretation (test code = Normal 65754-2) [facility]COVID[facility] (ID NOW RAPID TESTING)2020-11-24 10:59:10 Test Item Value Reference Range Interpretation Comments SARS-CoV-2 Rapid ID NOW Not Detected Not Detected (test code = 83290-9) PEDRO LUIS (test code = PEDRO LUIS) ID NOW COVID-19 Assay is an isothermal nucleic acid amplification test intended for the qualitative detection of nucleic acid from SARS-CoV-2 viral RNA in nasopharyngeal (ADVISORY SOFTWARE ENGINEER) specimens. It is used under Emergency Use [...] indicated. Lab Interpretation Normal (test code = 58877-3) [facility]ID [facility])2020-11-24 10:59:10 Test Item Value Reference Range Interpretation Comments SARS-CoV-2 Rapid ID NOW (test Not Detected Not Detected code = 67266-7) PEDRO LUIS (test code = PEDRO LUIS) Lab Interpretation (test code = Normal 34662-3) [facility] WITH [id number] 10:52:27 Test Item Value Reference Range Interpretation Comments WBC (test code = See_Comment [Automated 2833-2) message] The sy stem which generated this result transmitted reference range : 4.20 - 10.70 10*3/?L. The reference range was not used to interpret this result as normal/abnormal . RBC (test code = See_Comment [Automated 568-6) message] The sy stem which generated this [...] RDW-SD (test code = 48.2 fL 38.5-51.6 46053-8) RDW-CV (test code = 15.3 % 12.1-15.4 788-0) PLT (test code = See_Comment [Automated 777-3) message] The sy stem which generated this result transmitted reference range : 150 - 328 10*3/ ?L. The reference r matilda was not used to interpret this result as normal/abnormal . MPV (test code = 10.4 fL 9.8-13.0 18715-5) NRBC/100 WBC (test See_Comment [Automat ed code = 1062168191) message] The system which generated this result transmitted reference range : 0.0 - 10.0 /100 WBCs. The refer ence range was not u sed to interpret th is result as normal/abnormal . NRBC x10^3 (test code <0.01 See_Comment [Auto mated = 9083891113) message] The s ystem which generated this result transmitted reference range : 10*3/?L. The reference range was not used to interpret this result as normal/abnormal . GRAN MAT (NEUT) % 67.4 % (test code = 770-8) IMM GRAN % (test code 0.60 % = 6131017562) LYMPH % (test code = 19.2 % 736-9) MONO % (test code = 11.5 % 5905-5) EOS % (test code = 0.8 % 713-8) BASO % (test code = 0.5 % 706-2) GRAN MAT x10^3(ANC) 7.13 10*3/uL 1.99-6.95 H (test code = 2732851231) IMM GRAN x10^3 (test 0.06 10*3/uL 0.00-0.06 code = 0517168652) LYMPH x10^3 (test code 2.03 10*3/uL 1.09-3.23 = 731-0) MONO x10^3 (test code 1.22 10*3/uL 0.36-1.02 H = 742-7) EOS x10^3 (test code = 0.08 10*3/uL 0.06-0.53 711-2) BASO x10^3 (test code 0.05 10*3/uL 0.01-0.09 = 704-7) Lab Interpretation Abnormal (test code = 38871-9) [facility] WITH [id number] 10:52:27 Test Item Value Reference Range Interpretation Comments WBC (test code = See_Comment [Automated 7290-2) message] The sy stem which generated this result transmitted reference range : 4.20 - 10.70 10*3/?L. The reference range was not used to interpret this result as normal/abnormal . RBC (test code = See_Comment [Automated 139-8) message] The sy stem which generated this [...] RDW-SD (test code = 48.2 fL 38.5-51.6 76753-8) RDW-CV (test code = 15.3 % 12.1-15.4 788-0) PLT (test code = See_Comment [Automated 777-3) message] The sy stem which generated this result transmitted reference range : 150 - 328 10*3/ ?L. The reference r matilda was not used to interpret this result as normal/abnormal . MPV (test code = 10.4 fL 9.8-13.0 39599-2) NRBC/100 WBC (test See_Comment [Automat ed code = 2391222515) message] The system which generated this result transmitted reference range : 0.0 - 10.0 /100 WBCs. The refer ence range was not u sed to interpret th is result as normal/abnormal . NRBC x10^3 (test code <0.01 See_Comment [Auto mated = 5881291480) message] The s ystem which generated this result transmitted reference range : 10*3/?L. The reference range was not used to interpret this result as normal/abnormal . GRAN MAT (NEUT) % 67.4 % (test code = 770-8) IMM GRAN % (test code 0.60 % = 6417528396) LYMPH % (test code = 19.2 % 736-9) MONO % (test code = 11.5 % 5905-5) EOS % (test code = 0.8 % 713-8) BASO % (test code = 0.5 % 706-2) GRAN MAT x10^3(ANC) 7.13 10*3/uL 1.99-6.95 H (test code = 8499111409) IMM GRAN x10^3 (test 0.06 10*3/uL 0.00-0.06 code = 6724477476) LYMPH x10^3 (test code 2.03 10*3/uL 1.09-3.23 = 731-0) MONO x10^3 (test code 1.22 10*3/uL 0.36-1.02 H = 742-7) EOS x10^3 (test code = 0.08 10*3/uL 0.06-0.53 711-2) BASO x10^3 (test code 0.05 10*3/uL 0.01-0.09 = 704-7) Lab Interpretation Abnormal (test code = 76816-0) [facility]17:59 Test Item Value Reference Range Interpretation Comments APPEARANCE (test code = Clear Clear 2464242998) COLOR (test code = Yellow Yellow 5495996512) PH (test code = 4.8-8.0 6225374113) SP GRAVITY (test code = 1.003-1.030 5767761933) GLU U QUAL (test code = Normal Normal 4627867379) BLOOD (test code = Negative Negative 9563301381) KETONES (test code = Negative Negative 8224672984) PROTEIN (test code = Negative Negative 2887-8) UROBILIN (test code = Normal Normal 0205747816) BILIRUBIN (test code = Negative Negative 8925194254) NITRITE (test code = Negative Negative 7336971153) LEUK IZZY (test code = Negative Negative 7897709762) RBC/HPF (test code = See_Comment [Autom ated message] 8054940266) The system [employer] generated this result transmitted ref erence range: 0 - 3 HP F. The reference range was not used to int erpret this result as normal/abnormal . WBC/HPF (test code = See_Comment [Autom ated message] 5231956350) The system [employer] generated this result transmitted ref erence range: 0 - 5 HP F. The reference range was not used to int erpret this result as normal/abnormal . BACTERIA (test code = Negative Negative 7327948410) Lab Interpretation (test Normal code = 14087-0) [facility] 09:17:59 Test Item Value Reference Range Interpretation Comments APPEARANCE (test code = Clear Clear 0485073224) COLOR (test code = Yellow Yellow 6653041534) PH (test code = 4.8-8.0 1260287332) SP GRAVITY (test code = 1.003-1.030 4484281056) GLU U QUAL (test code = Normal Normal [id number]) BLOOD (test code = Negative Negative 7354624585) KETONES (test code = Negative Negative 8579972955) PROTEIN (test code = Negative Negative 2887-8) UROBILIN (test code = Normal Normal 0931253859) BILIRUBIN (test code = Negative Negative 4334074351) NITRITE (test code = Negative Negative 1562648322) LEUK IZZY (test code = Negative Negative 8157017417) RBC/HPF (test code = See_Comment [Autom ated message] [id number]) The system [employer] generated this result transmitted ref erence range: 0 - 3 HP F. The reference range was not used to int erpret this result as normal/abnormal . WBC/HPF (test code = See_Comment [Autom ated message] [id number]) The system [employer] generated this result transmitted ref erence range: 0 - 5 HP F. The reference range was not used to int erpret this result as normal/abnormal . BACTERIA (test code = Negative Negative [id number]) Lab Interpretation (test Normal code = 78122-6) [facility]. METABOLIC PANEL (34826)2020-11-23 09:12:56 Test Item Value Reference Range Interpretation Comments NA (test code = 141 mmol/L 135-145 2040504049) K (test code = 4.3 mmol/L 3.5-5.0 5624290121) CL (test code = 102 mmol/L 98-108 2810173533) CO2 TOTAL (test code = 28 mmol/L 23-31 9919140741) AGAP (test code = 2-16 6613475204) BUN (test code = 17 mg/dL 7-23 3544234727) GLUCOSE (test code = 103 mg/dL 70-110 5124619659) CREATININE (test code = 1.26 mg/dL 0.60-1.25 H 5338607003) TOTAL BILI (test code = 1.3 mg/dL 0.1-1.1 H 5886197289) CALCIUM (test code = 10.2 mg/dL 8.6-10.6 5365569685) T PROTEIN (test code = 8.8 g/dL 6.3-8.2 H 4599982848) ALBUMIN (test code = 5.0 g/dL 3.5-5.0 0512382557) ALK PHOS (test code = 96 U/L 34-122 3569286505) ALTv (test code = 24 U/L 5-50 1742-6) AST(SGOT) (test code = 31 U/L 13-40 5227290461) eGFR (test code = mL/min/1.73m2 7998112771) PEDRO LUIS (test code = PEDRO LUIS) [...] tests). Lab Interpretation Abnormal (test code = 94928-8) [facility]. METABOLIC PANEL (40429)2020-11-23 09:12:56 Test Item Value Reference Range Interpretation Comments NA (test code = 1779211523) 141 mmol/L 135-145 K (test code = 6387247363) 4.3 mmol/L 3.5-5.0 CL (test code = 9415028237) 102 mmol/L 98-108 CO2 TOTAL (test code = 9221327046) 28 mmol/L 23-31 AGAP (test code = 5550626302) 2-16 BUN (test code = 4627418524) 17 mg/dL 7-23 GLUCOSE (test code = 0498369088) 103 mg/dL 70-110 CREATININE (test code = 1.26 mg/dL 0.60-1.25 H 5702152637) TOTAL BILI (test code = 1.3 mg/dL 0.1-1.1 H 5188659997) CALCIUM (test code = 7229337968) 10.2 mg/dL 8.6-10.6 T PROTEIN (test code = 0808856060) 8.8 g/dL 6.3-8.2 H ALBUMIN (test code = 1482310506) 5.0 g/dL 3.5-5.0 ALK PHOS (test code = 3293951947) 96 U/L 34-122 ALTv (test code = 1742-6) 24 U/L 5-50 AST(SGOT) (test code = 5351735650) 31 U/L 13-40 eGFR (test code = 2913263276) mL/min/1.73m2 PEDRO LUIS (test code = PEDRO LUIS) Lab Interpretation (test code = Abnormal 96015-9) [facility] Test Item Value Reference Range Interpretation Comments LIPASE (test code = 0489571038) 183 U/L 0-220 Lab Interpretation (test code = Normal 31169-7) [facility] Test Item Value Reference Range Interpretation Comments LIPASE (test code = 5924726645) 183 U/L 0-220 Lab Interpretation (test code = Normal 56068-9) [facility] WITH [id number] 08:57:36 Test Item Value Reference Range Interpretation Comments WBC (test code = See_Comment H [Automated 6690-2) message] The sy stem which generated this result transmitted reference range : 4.20 - 10.70 10*3/?L. The reference range was not used to interpret this result as normal/abnormal . RBC (test code = See_Comment H [Automated 469-8) message] The sy stem which generated this [...] RDW-SD (test code = 45.6 fL 38.5-51.6 80030-7) RDW-CV (test code = 15.3 % 12.1-15.4 788-0) PLT (test code = See_Comment [Automated 777-3) message] The sy stem which generated this result transmitted reference range : 150 - 328 10*3/ ?L. The reference r matilda was not used to interpret this result as normal/abnormal . MPV (test code = 9.9 fL 9.8-13.0 47757-2) NRBC/100 WBC (test See_Comment [Automat ed code = 9471891773) message] The system which generated this result transmitted reference range : 0.0 - 10.0 /100 WBCs. The refer ence range was not u sed to interpret th is result as normal/abnormal . NRBC x10^3 (test code <0.01 See_Comment [Auto mated = 9163338346) message] The s ystem which generated this result transmitted reference range : 10*3/?L. The reference range was not used to interpret this result as normal/abnormal . GRAN MAT (NEUT) % 62.2 % (test code = 770-8) IMM GRAN % (test code 0.50 % = 1550870019) LYMPH % (test code = 22.6 % 736-9) MONO % (test code = 12.6 % 5905-5) EOS % (test code = 1.5 % 713-8) BASO % (test code = 0.6 % 706-2) GRAN MAT x10^3(ANC) 6.87 10*3/uL 1.99-6.95 (test code = 8133159521) IMM GRAN x10^3 (test 0.06 10*3/uL 0.00-0.06 code = 4401954726) LYMPH x10^3 (test code 2.50 10*3/uL 1.09-3.23 = 731-0) MONO x10^3 (test code 1.39 10*3/uL 0.36-1.02 H = 742-7) EOS x10^3 (test code = 0.17 10*3/uL 0.06-0.53 711-2) BASO x10^3 (test code 0.07 10*3/uL 0.01-0.09 = 704-7) Lab Interpretation Abnormal (test code = 41895-7) [facility] WITH [id number] 08:57:36 Test Item Value Reference Range Interpretation [...] RDW-SD (test code = 45.6 fL 38.5-51.6 16454-7) RDW-CV (test code = 15.3 % 12.1-15.4 788-0) PLT (test code = See_Comment [Automated 777-3) message] The sy stem which generated this result transmitted reference range : 150 - 328 10*3/ ?L. The reference r matilda was not used to interpret this result as normal/abnormal . MPV (test code = 9.9 fL 9.8-13.0 29754-3) NRBC/100 WBC (test See_Comment [Automat ed code = 5952660090) message] The system which generated this result transmitted reference range : 0.0 - 10.0 /100 WBCs. The refer ence range was not u sed to interpret th is result as normal/abnormal . NRBC x10^3 (test code <0.01 See_Comment [Auto mated = 5289073309) message] The s ystem which generated this result transmitted reference range : 10*3/?L. The reference range was not used to interpret this result as normal/abnormal . GRAN MAT (NEUT) % 62.2 % (test code = 770-8) IMM GRAN % (test code 0.50 % = 8574384630) LYMPH % (test code = 22.6 % 736-9) MONO % (test code = 12.6 % 5905-5) EOS % (test code = 1.5 % 713-8) BASO % (test code = 0.6 % 706-2) GRAN MAT x10^3(ANC) 6.87 10*3/uL 1.99-6.95 (test code = 6379272574) IMM GRAN x10^3 (test 0.06 10*3/uL 0.00-0.06 code = 7477097263) LYMPH x10^3 (test code 2.50 10*3/uL 1.09-3.23 = 731-0) MONO x10^3 (test code 1.39 10*3/uL 0.36-1.02 H = 742-7) EOS x10^3 (test code = 0.17 10*3/uL 0.06-0.53 711-2) BASO x10^3 (test code 0.07 10*3/uL 0.01-0.09 = 704-7) Lab Interpretation Abnormal (test code = 10265-6) [facility] Test Item Value Reference Range Interpretation Comments AGAP (test code = AGAP) 11.4 10.0-20.0 [facility]BxqakbySTPONYHUUSWH5545-16-53 10:24:00 Test Item Value Reference Range Interpretation Comments CO2 (test code = CO2) 28 24-32 [facility] MichiganWytjjzgWXWBZBBGNOEL0509-50-04 10:24:00 Test Item Value Reference Range Interpretation Comments BUN (test code = BUN) 17 7-22 [facility] MichiganVtjdkklPIFPXUZLMMQB7351-65-41 10:24:00 Test Item Value Reference Range Interpretation Comments Glucose Lvl (test code = Glucose Lvl) 102 70-99 [facility] MichiganQemnjetPHFBFRXNSCBQ4921-33-12 10:24:00 Test Item Value Reference Range Interpretation Comments eGFR (test code = eGFR) 75 [facility] MichiganKuyrwnhMFRICWXRXCZY7731-16-22 10:24:00 Test Item Value Reference Range Interpretation Comments Calcium Lvl (test code = Calcium Lvl) 9.0 8.5-10.5 [facility] MichiganZbbxtnuYOPVVRHKQCAG6506-00-96 10:24:00 Test Item Value Reference Range Interpretation Comments Chloride Lvl (test code = Chloride Lvl) 105 95-109 [facility] MichiganNuiagivKKHRFYWIFOTO0713-66-66 10:24:00 Test Item Value Reference Range Interpretation Comments Potassium Lvl (test code = Potassium 4.4 3.5-5.1 Lvl) [facility] MichiganBypfjujTCWGUIPMIWBI3475-65-25 10:24:00 Test Item Value Reference Range Interpretation Comments Creatinine Lvl (test code = Creatinine 1.2 0.5-1.4 Lvl) [facility] MichiganRzhxtxgIDRKJWIWMQWN9334-76-22 10:24:00 Test Item Value Reference Range Interpretation Comments Sodium Lvl (test code = Sodium Lvl) 140 135-145 [facility] CentralOcqwanhBCJUDZQGIU8316-89-75 10:24:00 Test Item Value Reference Range Interpretation Comments Hgb (test code = Hgb) 15.2 14.0-18.0 [facility] CentralObpforlIEOUOXPVPL2414-01-66 10:24:00 Test Item Value Reference Range Interpretation Comments MPV (test code = MPV) 8.8 7.4-10.4 [facility] CentralXzfomyzGTPPBITLZJ2764-52-58 10:24:00 Test Item Value Reference Range Interpretation Comments MCH (test code = MCH) 32.1 pg 27.0-31.0 [facility] CentralAopwpxcIRBPXPLSNO1691-38-43 10:24:00 Test Item Value Reference Range Interpretation Comments MCV (test code = MCV) 92.1 80.0-94.0 [facility] CentralYwzkenhNQZWOLJHJF8538-12-60 10:24:00 Test Item Value Reference Range Interpretation Comments MCHC (test code = MCHC) 34.9 32.0-36.0 [facility] CentralMgplogwOCQQLAGBSE2641-84-43 10:24:00 Test Item Value Reference Range Interpretation Comments Hct (test code = Hct) 43.6 42.0-54.0 [facility] CentralGrckxtfFJDGNJKXSD2987-39-41 10:24:00 Test Item Value Reference Range Interpretation Comments RBC (test code = RBC) 4.73 4.70-6.10 [facility] CentralIbrxvcqNXJHYPAVJQ6404-59-65 10:24:00 Test Item Value Reference Range Interpretation Comments WBC (test code = WBC) 8.9 3.7-10.4 [facility] CentralEcoqjonOTTQQMRLUR1391-02-41 10:24:00 Test Item Value Reference Range Interpretation Comments RDW (test code = RDW) 13.6 11.5-14.5 [facility] CentralXmjnkxrFVNQMTUHCN0897-42-60 10:24:00 Test Item Value Reference Range Interpretation Comments Platelet (test code = Platelet) 145 133-450 [facility] CentralGeeawaxUHHXHPPPCT9831-63-75 10:24:00 Test Item Value Reference Range Interpretation Comments Segs (test code = Segs) 80.9 45.0-75.0 [facility] CentralObshykbRLYJIFHLHL4850-22-08 10:24:00 Test Item Value Reference Range Interpretation Comments Lymphocytes (test code = Lymphocytes) 12.5 20.0-40.0 [facility] CentralPhkvwemBJKVMVAYUF9557-36-24 10:24:00 Test Item Value Reference Range Interpretation Comments Segs-Bands # (test code = Segs-Bands #) 7.2 1.5-8.1 [facility] CentralOreqlsfOJCENOYEPR3155-34-32 10:24:00 Test Item Value Reference Range Interpretation Comments Monocytes (test code = Monocytes) 6.4 2.0-12.0 [facility] CentralBucqkxgUBFZAOHBJS7960-99-72 10:24:00 Test Item Value Reference Range Interpretation Comments Basophils (test code = 0.2 See_Comment [Aut omated message] The Basophils) system which ge nerated this result tra nsmitted reference range : <=1.0. The reference r matilda was not used to int erpret this result as normal/abnormal . [facility] CentralPqkawsjIBQTBVTHEG6210-37-73 10:24:00 Test Item Value Reference Range Interpretation Comments Eosinophils (test code = 0.0 See_Comment [A utomated message] The Eosinophils) system which ge nerated this result tra nsmitted reference range : <=4.0. The reference r matilda was not used to int erpret this result as normal/abnormal . [facility] CentralKhothdaWUOABRNWDR8312-34-36 10:24:00 Test Item Value Reference Range Interpretation Comments Lymphocytes # (test code = Lymphocytes 1.1 1.0-5.5 #) [facility] CentralDymjrktBCIFQWWRYQ4526-85-75 10:24:00 Test Item Value Reference Range Interpretation Comments Monocytes # (test code 0.6 See_Comment [Aut omated message] The = Monocytes #) system which generated this result tra nsmitted reference range : <=0.8. The reference r matilda was not used to int erpret this result as normal/abnormal . [facility]PfgxucoARQUOEKGQN7597-96-72 10:24:00 Test Item Value Reference Range Interpretation Comments Eosinophils # (test code 0.0 See_Comment [A utomated message] The = Eosinophils #) system whic h generated this result tra nsmitted reference range : <=0.5. The reference r matilda was not used to int erpret this result as normal/abnormal . [facility] MichiganYdkystaWDAFICASHYFV5899-61-67 10:24:00 Test Item Value Reference Range Interpretation Comments AGAP (test code = AGAP) 11.4 10.0-20.0 [facility] MichiganPslaerdGIRILDPFUKII5196-70-06 10:24:00 Test Item Value Reference Range Interpretation Comments CO2 (test code = CO2) 28 24-32 [facility] MichiganQjtcpneCOGVXUWFWKQU4752-11-16 10:24:00 Test Item Value Reference Range Interpretation Comments BUN (test code = BUN) 17 7-22 [facility] MichiganUbtoilaURSWYCSOWUEH6396-88-05 10:24:00 Test Item Value Reference Range Interpretation Comments Glucose Lvl (test code = Glucose Lvl) 102 70-99 [facility] MichiganZsibilbWWZAMDBETXHB9786-55-34 10:24:00 Test Item Value Reference Range Interpretation Comments eGFR (test code = eGFR) 75 [facility] MichiganOgoygltCDYWKMROVVOA4680-52-45 10:24:00 Test Item Value Reference Range Interpretation Comments Calcium Lvl (test code = Calcium Lvl) 9.0 8.5-10.5 [facility] MichiganVlxjgbyYNONSNEGKIUS3051-93-30 10:24:00 Test Item Value Reference Range Interpretation Comments Chloride Lvl (test code = Chloride Lvl) 105 95-109 [facility] MichiganBtfedpsQMAXYBURDCXD2659-05-31 10:24:00 Test Item Value Reference Range Interpretation Comments Potassium Lvl (test code = Potassium 4.4 3.5-5.1 Lvl) [facility] MichiganWmjwbtrTAIFXKDFIZBB4816-97-13 10:24:00 Test Item Value Reference Range Interpretation Comments Creatinine Lvl (test code = Creatinine 1.2 0.5-1.4 Lvl) [facility] MichiganUgeqtiqKYOZXVGHHHSO1034-38-83 10:24:00 Test Item Value Reference Range Interpretation Comments Sodium Lvl (test code = Sodium Lvl) 140 135-145 [facility] CentralAvlomsxFOSEGQDTCL7731-49-19 10:24:00 Test Item Value Reference Range Interpretation Comments Hgb (test code = Hgb) 15.2 14.0-18.0 [facility] CentralUgtybpzSRSFYFCLBN8780-52-58 10:24:00 Test Item Value Reference Range Interpretation Comments MPV (test code = MPV) 8.8 7.4-10.4 [facility] CentralFqesgmdOITUPADEAU7600-12-23 10:24:00 Test Item Value Reference Range Interpretation Comments MCH (test code = MCH) 32.1 pg 27.0-31.0 [facility] CentralWbjoadkXJDTNUGLHH1835-54-16 10:24:00 Test Item Value Reference Range Interpretation Comments MCV (test code = MCV) 92.1 80.0-94.0 [facility] CentralVondibxWLEYURSALX3650-38-29 10:24:00 Test Item Value Reference Range Interpretation Comments MCHC (test code = MCHC) 34.9 32.0-36.0 [facility] CentralJlrqoanEYPJZGJRVV0466-57-78 10:24:00 Test Item Value Reference Range Interpretation Comments Hct (test code = Hct) 43.6 42.0-54.0 [facility] CentralGmhsejrVHPWUVUFWR8596-29-06 10:24:00 Test Item Value Reference Range Interpretation Comments RBC (test code = RBC) 4.73 4.70-6.10 [facility] CentralBzlbczwQHIOMJLDGE3838-17-49 10:24:00 Test Item Value Reference Range Interpretation Comments WBC (test code = WBC) 8.9 3.7-10.4 [facility] CentralZfnkabiGXPUZIYBGT9767-22-07 10:24:00 Test Item Value Reference Range Interpretation Comments RDW (test code = RDW) 13.6 11.5-14.5 [facility] CentralMilbkxjPGUAUALBWC5695-86-40 10:24:00 Test Item Value Reference Range Interpretation Comments Platelet (test code = Platelet) 145 133-450 [facility] CentralRbvucvoIVNBBCMSGC6881-94-06 10:24:00 Test Item Value Reference Range Interpretation Comments Segs (test code = Segs) 80.9 45.0-75.0 [facility] CentralDzxbpsgYGRLKVLBWM3777-53-31 10:24:00 Test Item Value Reference Range Interpretation Comments Lymphocytes (test code = Lymphocytes) 12.5 20.0-40.0 [facility] CentralXkfxdrxDKQHMCPUOU9622-95-25 10:24:00 Test Item Value Reference Range Interpretation Comments Segs-Bands # (test code = Segs-Bands #) 7.2 1.5-8.1 [facility] CentralWirpuquOQRUKMTXXW7897-06-83 10:24:00 Test Item Value Reference Range Interpretation Comments Monocytes (test code = Monocytes) 6.4 2.0-12.0 [facility] CentralRuoxmqmBAIRLAUCRM2791-32-08 10:24:00 Test Item Value Reference Range Interpretation Comments Basophils (test code = 0.2 See_Comment [Aut omated message] The Basophils) system which ge nerated this result tra nsmitted reference range : <=1.0. The reference r matilda was not used to int erpret this result as normal/abnormal . [facility] CentralYbgciqqOAQOBLRKEX8798-33-79 10:24:00 Test Item Value Reference Range Interpretation Comments Eosinophils (test code = 0.0 See_Comment [A utomated message] The Eosinophils) system which ge nerated this result tra nsmitted reference range : <=4.0. The reference r matilda was not used to int erpret this result as normal/abnormal . [facility] CentralSajvwieBQPHORKHTP9194-96-49 10:24:00 Test Item Value Reference Range Interpretation Comments Lymphocytes # (test code = Lymphocytes 1.1 1.0-5.5 #) [facility] CentralFzrpdcaLSUSLWWLRH8722-34-96 10:24:00 Test Item Value Reference Range Interpretation Comments Monocytes # (test code 0.6 See_Comment [Aut omated message] The = Monocytes #) system which generated this result tra nsmitted reference range : <=0.8. The reference r matilda was not used to int erpret this result as normal/abnormal . [facility] CentralCrebjpwLFOEBMOKAW9797-40-49 10:24:00 Test Item Value Reference Range Interpretation Comments Eosinophils # (test code 0.0 See_Comment [A utomated message] The = Eosinophils #) system whic h generated this result tra nsmitted reference range : <=0.5. The reference r matilda was not used to int erpret this result as normal/abnormal . [facility]2015-05-07 22:11:00 Test Item Value Reference Range Interpretation Comments eGFR (test code = eGFR) 62 [facility] XSBFM5423-38-69 22:11:00 Test Item Value Reference Range Interpretation Comments Creatinine Lvl (test code = Creatinine 1.4 0.5-1.4 Lvl) [facility] CentralYvnyypzAWECAXFLBU4583-41-48 22:11:00 Test Item Value Reference Range Interpretation Comments Platelet (test code = Platelet) 158 133-450 [facility] CentralCnhetcaCZPLUWFUJG0806-95-68 22:11:00 Test Item Value Reference Range Interpretation Comments PTT (test code = PTT) 34.2 s 22.9-35.8 [facility] YQOHN3546-17-86 22:11:00 Test Item Value Reference Range Interpretation Comments eGFR (test code = eGFR) 62 [facility] GFFMI4818-28-48 22:11:00 Test Item Value Reference Range Interpretation Comments Creatinine Lvl (test code = Creatinine 1.4 0.5-1.4 Lvl) [facility]DprzakfRHOHWAMBVH2642-90-54 22:11:00 Test Item Value Reference Range Interpretation Comments Platelet (test code = Platelet) 158 133-450 [facility] HospitalIlfqzlrJUEIHHHWJN8181-87-30 22:11:00 Test Item Value Reference Range Interpretation Comments PTT (test code = PTT) 34.2 s 22.9-35.8 [facility] [employer] CPHNZKC6401-00-80 16:00:00 Test Item Value Reference Range Interpretation Comments Antibody Scrn (test Negative (08/01/14 11:00 code = Antibody Scrn) AM) [facility] [employer] FGLUENQ6569-38-83 16:00:00 Test Item Value Reference Range Interpretation Comments ABO/Rh (test code = ABO/Rh) A POS [facility] [employer] VOWZHDP7892-02-84 16:00:00 Test Item Value Reference Range Interpretation Comments Antibody Scrn (test Negative (08/01/14 11:00 code = Antibody Scrn) AM) [facility] [employer] KVAGKXS6380-63-61 16:00:00 Test Item Value Reference Range Interpretation Comments ABO/Rh (test code = ABO/Rh) A POS [facility] [employer] URQYH7868-14-71 18:47:00 Test Item Value Reference Range Interpretation Comments VITAMIN B1 (THIAMINE) WHOLE BLOOD (test 73 78-185 code = VITAMIN B1 (THIAMINE) WHOLE BLOOD) [facility]2015-04-24 18:47:00 Test Item Value Reference Range Interpretation Comments Vitamin D, 25-OH, Total (test code = 20 30-100 Vitamin D, 25-OH, Total) [facility]2015-04-24 18:47:00 Test Item Value Reference Range Interpretation Comments eGFR (test code = eGFR) 75 [facility]2015-04-24 18:47:00 Test Item Value Reference Range Interpretation Comments Calcium Lvl (test code = Calcium Lvl) 8.7 8.5-10.5 [facility]2015-04-24 18:47:00 Test Item Value Reference Range Interpretation Comments Creatinine Lvl (test code = Creatinine 1.2 0.5-1.4 Lvl) [facility]2015-04-24 18:47:00 Test Item Value Reference Range Interpretation Comments Chloride Lvl (test code = Chloride Lvl) 109 95-109 [facility]2015-04-24 18:47:00 Test Item Value Reference Range Interpretation Comments Potassium Lvl (test code = Potassium 3.8 3.5-5.1 Lvl) [facility]2015-04-24 18:47:00 Test Item Value Reference Range Interpretation Comments Sodium Lvl (test code = Sodium Lvl) 144 135-145 [facility]2015-04-24 18:47:00 Test Item Value Reference Range Interpretation Comments Bili Total (test code = Bili Total) 0.6 0.2-1.3 [facility]2015-04-24 18:47:00 Test Item Value Reference Range Interpretation Comments Alk Phos (test code = Alk Phos) 100 39-136 [facility]2015-04-24 18:47:00 Test Item Value Reference Range Interpretation Comments AST (test code = AST) 45 See_Comment [Auto mated message] The system which ge nerated this result transmit susanne reference range : <=37. The reference range was not used to interpr et this result as more l/abnormal. [facility]2015-04-24 18:47:00 Test Item Value Reference Range Interpretation Comments Albumin Lvl (test code = Albumin Lvl) 3.9 3.5-5.0 [facility]2015-04-24 18:47:00 Test Item Value Reference Range Interpretation Comments ALT (test code = ALT) 91 See_Comment [Auto mated message] The system which ge nerated this result transmit susanne reference range : <=65. The reference range was not used to interpr et this result as more l/abnormal. [facility]2015-04-24 18:47:00 Test Item Value Reference Range Interpretation Comments Total Protein (test code = Total 7.9 6.4-8.4 Protein) [facility]2015-04-24 18:47:00 Test Item Value Reference Range Interpretation Comments CO2 (test code = CO2) 27 24-32 [facility]2015-04-24 18:47:00 Test Item Value Reference Range Interpretation Comments BUN (test code = BUN) 20 7-22 [facility]2015-04-24 18:47:00 Test Item Value Reference Range Interpretation Comments Glucose Lvl (test code = Glucose Lvl) 121 70-99 [facility]2015-04-24 18:47:00 Test Item Value Reference Range Interpretation Comments Globulin (test code = Globulin) 4.0 2.0-4.0 [facility]2015-04-24 18:47:00 Test Item Value Reference Range Interpretation Comments B/C Ratio (test code = B/C Ratio) 17 6-25 [facility]2015-04-24 18:47:00 Test Item Value Reference Range Interpretation Comments A/G Ratio (test code = A/G Ratio) 1.0 0.7-1.6 [facility]2015-04-24 18:47:00 Test Item Value Reference Range Interpretation Comments AGAP (test code = AGAP) 11.8 10.0-20.0 [facility] CentralWipgkvbSUCXAIURNY1328-81-85 18:47:00 Test Item Value Reference Range Interpretation Comments Lymphocytes # (test code = Lymphocytes 2.6 1.0-5.5 #) [facility] CentralQbbjpqjQHBNGSIBWU8833-01-24 18:47:00 Test Item Value Reference Range Interpretation Comments Monocytes # (test code 0.8 See_Comment [Aut omated message] The = Monocytes #) system which generated this result tra nsmitted reference range : <=0.8. The reference r matilda was not used to int erpret this result as normal/abnormal . [place] 083025-04-24 18:47:00 Test Item Value Reference Range Interpretation Comments Eosinophils # (test code 0.2 See_Comment [A utomated message] The = Eosinophils #) system whic h generated this result tra nsmitted reference range : <=0.5. The reference r matilda was not used to int erpret this result as normal/abnormal . [facility] CentralAoaurxvSOKCZUJHMR7023-98-74 18:47:00 Test Item Value Reference Range Interpretation Comments Basophils # (test code 0.0 See_Comment [Aut omated message] The = Basophils #) system which generated this result tra nsmitted reference range : <=0.2. The reference r matilda was not used to int erpret this result as normal/abnormal . [facility] CentralKguteacLFTDPYCGWU5621-71-72 18:47:00 Test Item Value Reference Range Interpretation Comments Monocytes (test code = Monocytes) 10.5 2.0-12.0 [facility] CentralCqsvbfnTSUDFTKOWB5752-60-82 18:47:00 Test Item Value Reference Range Interpretation Comments Eosinophils (test code = 2.0 See_Comment [A utomated message] The Eosinophils) system which ge nerated this result tra nsmitted reference range : <=4.0. The reference r matilda was not used to int erpret this result as normal/abnormal . [facility] CentralCzbbuczFJMOTJTYCS9618-43-12 18:47:00 Test Item Value Reference Range Interpretation Comments Basophils (test code = 0.3 See_Comment [Aut omated message] The Basophils) system which ge nerated this result tra nsmitted reference range : <=1.0. The reference r matilda was not used to int erpret this result as normal/abnormal . [facility] CentralHxbetjfUFFOVMNQDV9687-08-52 18:47:00 Test Item Value Reference Range Interpretation Comments Segs-Bands # (test code = Segs-Bands #) 4.4 1.5-8.1 [facility] CentralEwbfczaNYPLHWGUQX1252-91-48 18:47:00 Test Item Value Reference Range Interpretation Comments Segs (test code = Segs) 54.3 45.0-75.0 [facility] CentralVazuijpGXWJTTPSDN6063-88-16 18:47:00 Test Item Value Reference Range Interpretation Comments Lymphocytes (test code = Lymphocytes) 32.9 20.0-40.0 [facility] CentralPcmhartFLRLZILUBH4091-40-22 18:47:00 Test Item Value Reference Range Interpretation Comments PTT (test code = PTT) 31.7 s 22.9-35.8 [facility] CentralRffwadfHHXUWJOUJK9172-89-13 18:47:00 Test Item Value Reference Range Interpretation Comments PT (test code = PT) 13.3 s 12.0-14.7 [facility] CentralLzteskoKOHCSUZUSR3230-63-43 18:47:00 Test Item Value Reference Range Interpretation Comments INR (test code = INR) 1.01 0.85-1.17 [facility] CentralWinjxxkNKEHZTZXRZ1416-76-95 18:47:00 Test Item Value Reference Range Interpretation Comments WBC (test code = WBC) 8.1 3.7-10.4 [facility] CentralOneiifeIDAQKESLHN8563-25-33 18:47:00 Test Item Value Reference Range Interpretation Comments Hgb (test code = Hgb) 16.2 14.0-18.0 [facility] CentralKvmpingQHOGNZNJPK5955-06-34 18:47:00 Test Item Value Reference Range Interpretation Comments RBC (test code = RBC) 5.14 4.70-6.10 [facility] CentralTefjzsbERMYBIHODE9291-26-88 18:47:00 Test Item Value Reference Range Interpretation Comments Hct (test code = Hct) 47.2 42.0-54.0 [facility] CentralQdymlwqOTAUWFRTSF1231-52-03 18:47:00 Test Item Value Reference Range Interpretation Comments MCV (test code = MCV) 91.7 80.0-94.0 [facility] CentralJknkvwmYKOBIGNFTM3610-27-42 18:47:00 Test Item Value Reference Range Interpretation Comments MCH (test code = MCH) 31.5 pg 27.0-31.0 [facility] CentralRoincpbIKYSKPBCLT9756-27-65 18:47:00 Test Item Value Reference Range Interpretation Comments MCHC (test code = MCHC) 34.3 32.0-36.0 [facility] CentralMphxzyaCQWTGLYAFD3047-43-01 18:47:00 Test Item Value Reference Range Interpretation Comments RDW (test code = RDW) 13.3 11.5-14.5 [facility] CentralMrusvioZYQSLHBMDT8649-66-46 18:47:00 Test Item Value Reference Range Interpretation Comments MPV (test code = MPV) 9.4 7.4-10.4 [facility] CentralVomoacxWJRVZVTHPG9282-79-42 18:47:00 Test Item Value Reference Range Interpretation Comments Platelet (test code = Platelet) 161 133-450 [facility] [id number] 18:47:00 Test Item Value Reference Range Interpretation Comments PTH Intact (test code = PTH Intact) 60.1 11.1-79.5 [facility] [id number] 18:47:00 Test Item Value Reference Range Interpretation Comments UA Urobilinogen (test code = UA <=1.0 mg/dL 0.1-1.0 Urobilinogen) [facility] [id number] 18:47:00 Test Item Value Reference Range Interpretation Comments Micro? (test code = Not Indicated Micro?) *NA*(07/19/14 1:47 PM) [facility] [id number] 18:47:00 Test Item Value Reference Range Interpretation Comments UA RBC (test code = no gt See_Comment [Automa susanne message] The UA RBC) system which ge nerated this result transmit susanne reference range : <=2. The reference range was not used to interpr et this result as more l/abnormal. [facility] [id number] 18:47:00 Test Item Value Reference Range Interpretation Comments UA WBC (test code = no gt See_Comment [Automa susanne message] The UA WBC) system which ge nerated this result transmit susanne reference range : <=5. The reference range was not used to interpr et this result as more l/abnormal. [facility] [id number] 18:47:00 Test Item Value Reference Range Interpretation Comments UA Mucus (test code = UA Mucus) Few /LPF [facility] [id number] 18:47:00 Test Item Value Reference Range Interpretation Comments UA Blood (test code = Negative (07/19/14 1:47 UA Blood) PM) [facility] [id number] 18:47:00 Test Item Value Reference Range Interpretation Comments UA Bili (test code = Negative *NA*(07/19/14 UA Bili) 1:47 PM) [facility] [id number] 18:47:00 Test Item Value Reference Range Interpretation Comments UA Nitrite (test code Negative (07/19/14 1:47 = UA Nitrite) PM) [facility] AND [id number] 18:47:00 Test Item Value Reference Range Interpretation Comments UA Leuk Est (test Negative (07/19/14 1:47 code = UA Leuk Est) PM) [facility] AND [id number] 18:47:00 Test Item Value Reference Range Interpretation Comments UA Turbidity (test code = Clear (07/19/14 1:47 UA Turbidity) PM) [facility] AND [id number] 18:47:00 Test Item Value Reference Range Interpretation Comments UA Color (test code = Light Yellow UA Color) *NA*(07/19/14 1:47 PM) [facility] AND [id number] 18:47:00 Test Item Value Reference Range Interpretation Comments UA Ketones (test code = UA Negative mg/dL Ketones) [facility] AND [id number] 18:47:00 Test Item Value Reference Range Interpretation Comments UA Glucose (test code = UA Negative mg/dL Glucose) [facility] AND [id number] 18:47:00 Test Item Value Reference Range Interpretation Comments UA Protein (test code = UA Negative mg/dL Protein) [facility] AND [id number] 18:47:00 Test Item Value Reference Range Interpretation Comments UA pH (test code = UA pH) 5.5 5.0-8.0 [facility] AND [id number] 18:47:00 Test Item Value Reference Range Interpretation Comments UA Spec Grav (test code = UA Spec Grav) 1.012 [facility] CentralBvgciwzJGJPIPOVEO7853-16-01 18:47:00 Test Item Value Reference Range Interpretation Comments Monocytes # (test code 0.8 See_Comment [Aut omated message] The = Monocytes #) system which generated this result tra nsmitted reference range : <=0.8. The reference r matilda was not used to int erpret this result as normal/abnormal . [facility] CentralPgyjrjcDMERFIGGWV3663-66-19 18:47:00 Test Item Value Reference Range Interpretation Comments Eosinophils # (test code 0.2 See_Comment [A utomated message] The = Eosinophils #) system whic h generated this result tra nsmitted reference range : <=0.5. The reference r matilda was not used to int erpret this result as normal/abnormal . [facility] CentralIfraweoUSQOXQIXVR2154-44-36 18:47:00 Test Item Value Reference Range Interpretation Comments Basophils # (test code 0.0 See_Comment [Aut omated message] The = Basophils #) system which generated this result tra nsmitted reference range : <=0.2. The reference r matilda was not used to int erpret this result as normal/abnormal . [facility] CentralJibsnvcWEYLCLPMZC2231-53-34 18:47:00 Test Item Value Reference Range Interpretation Comments Monocytes (test code = Monocytes) 10.5 2.0-12.0 [facility] CentralAnajtlkTXZJEPQEHT8474-68-93 18:47:00 Test Item Value Reference Range Interpretation Comments Eosinophils (test code = 2.0 See_Comment [A utomated message] The Eosinophils) system which ge nerated this result tra nsmitted reference range : <=4.0. The reference r matilda was not used to int erpret this result as normal/abnormal . [facility] CentralTqxrjxyCFGPHUGSEB4780-97-69 18:47:00 Test Item Value Reference Range Interpretation Comments Basophils (test code = 0.3 See_Comment [Aut omated message] The Basophils) system which ge nerated this result tra nsmitted reference range : <=1.0. The reference r matilda was not used to int erpret this result as normal/abnormal . [facility] CentralSygothsNIMVNOUCJG5278-53-40 18:47:00 Test Item Value Reference Range Interpretation Comments Segs-Bands # (test code = Segs-Bands #) 4.4 1.5-8.1 [facility] CentralAozwwxiADQVWHYBIE8182-99-08 18:47:00 Test Item Value Reference Range Interpretation Comments Segs (test code = Segs) 54.3 45.0-75.0 [facility] CentralEhrhqlaGOQZMGWRSS3180-36-28 18:47:00 Test Item Value Reference Range Interpretation Comments Lymphocytes (test code = Lymphocytes) 32.9 20.0-40.0 [facility] CentralNiqiccfUUPAHQGBDZ6850-27-85 18:47:00 Test Item Value Reference Range Interpretation Comments PTT (test code = PTT) 31.7 s 22.9-35.8 [facility] CentralWpvyrmfNWSSPNANPA3360-46-46 18:47:00 Test Item Value Reference Range Interpretation Comments PT (test code = PT) 13.3 s 12.0-14.7 [facility]RzurwonNJDZTIEOBH2489-80-20 18:47:00 Test Item Value Reference Range Interpretation Comments INR (test code = INR) 1.01 0.85-1.17 [facility] HospitalBxvctffEVWDSXZWDB8904-75-45 18:47:00 Test Item Value Reference Range Interpretation Comments WBC (test code = WBC) 8.1 3.7-10.4 [facility] CentralRdtoandAXKPETTDPU1833-48-72 18:47:00 Test Item Value Reference Range Interpretation Comments Hgb (test code = Hgb) 16.2 14.0-18.0 [facility] HospitalBvhlzifFIWLYKHOMV9642-69-37 18:47:00 Test Item Value Reference Range Interpretation Comments RBC (test code = RBC) 5.14 4.70-6.10 [facility] CentralBunzvrcHTJBZBXSBI6997-22-25 18:47:00 Test Item Value Reference Range Interpretation Comments Hct (test code = Hct) 47.2 42.0-54.0 [facility] CentralObfpynzCVAAYZBLGT0721-10-00 18:47:00 Test Item Value Reference Range Interpretation Comments MCV (test code = MCV) 91.7 80.0-94.0 [facility] HospitalAbdchuzLWCHVAZWFN3029-08-93 18:47:00 Test Item Value Reference Range Interpretation Comments MCH (test code = MCH) 31.5 pg 27.0-31.0 [facility] HospitalIbrqrotKGZADJHURL8666-47-86 18:47:00 Test Item Value Reference Range Interpretation Comments MCHC (test code = MCHC) 34.3 32.0-36.0 [facility] CentralVmvrrrbEOFGNUXOHE5848-31-80 18:47:00 Test Item Value Reference Range Interpretation Comments RDW (test code = RDW) 13.3 11.5-14.5 [facility] HospitalPfpkssqFLENZVKZTN7139-69-03 18:47:00 Test Item Value Reference Range Interpretation Comments MPV (test code = MPV) 9.4 7.4-10.4 [facility] HospitalWzefmkvGHEVIJPBSI7989-39-61 18:47:00 Test Item Value Reference Range Interpretation Comments Platelet (test code = Platelet) 161 133-450 [facility]PAR[facility] LENADVL8556-13-27 18:47:00 Test Item Value Reference Range Interpretation Comments PTH Intact (test code = PTH Intact) 60.1 11.1-79.5 [facility] [id number] 18:47:00 Test Item Value Reference Range Interpretation Comments UA Urobilinogen (test code = UA <=1.0 mg/dL 0.1-1.0 Urobilinogen) [facility] [id number] 18:47:00 Test Item Value Reference Range Interpretation Comments Micro? (test code = Not Indicated Micro?) *NA*(07/19/14 1:47 PM) [facility] AND [id number] 18:47:00 Test Item Value Reference Range Interpretation Comments UA RBC (test code = no gt See_Comment [Automa susanne message] The UA RBC) system which ge nerated this result transmit susanne reference range : <=2. The reference range was not used to interpr et this result as more l/abnormal. [facility] AND [id number] 18:47:00 Test Item Value Reference Range Interpretation Comments UA WBC (test code = no gt See_Comment [Automa susanne message] The UA WBC) system which ge nerated this result transmit susanne reference range : <=5. The reference range was not used to interpr et this result as more l/abnormal. [facility] AND [id number] 18:47:00 Test Item Value Reference Range Interpretation Comments UA Mucus (test code = UA Mucus) Few /LPF [facility] AND [id number] 18:47:00 Test Item Value Reference Range Interpretation Comments UA Blood (test code = Negative (07/19/14 1:47 UA Blood) PM) [facility] AND [id number] 18:47:00 Test Item Value Reference Range Interpretation Comments UA Bili (test code = Negative *NA*(07/19/14 UA Bili) 1:47 PM) [facility] AND [id number] 18:47:00 Test Item Value Reference Range Interpretation Comments UA Nitrite (test code Negative (07/19/14 1:47 = UA Nitrite) PM) [facility] [id number] 18:47:00 Test Item Value Reference Range Interpretation Comments UA Leuk Est (test Negative (07/19/14 1:47 code = UA Leuk Est) PM) [facility] AND [id number] 18:47:00 Test Item Value Reference Range Interpretation Comments UA Turbidity (test code = Clear (07/19/14 1:47 UA Turbidity) PM) [facility] AND [id number] 18:47:00 Test Item Value Reference Range Interpretation Comments UA Color (test code = Light Yellow UA Color) *NA*(07/19/14 1:47 PM) [facility] AND [id number] 18:47:00 Test Item Value Reference Range Interpretation Comments UA Ketones (test code = UA Negative mg/dL Ketones) [facility] AND [id number] 18:47:00 Test Item Value Reference Range Interpretation Comments UA Glucose (test code = UA Negative mg/dL Glucose) [facility] AND [id number] 18:47:00 Test Item Value Reference Range Interpretation Comments UA Protein (test code = UA Negative mg/dL Protein) [facility] AND [id number] 18:47:00 Test Item Value Reference Range Interpretation Comments UA pH (test code = UA pH) 5.5 5.0-8.0 [facility] AND [id number] 18:47:00 Test Item Value Reference Range Interpretation Comments UA Spec Grav (test code = UA Spec Grav) 1.012 [facility]2015-04-24 18:47:00 Test Item Value Reference Range Interpretation Comments VITAMIN B1 (THIAMINE) WHOLE BLOOD (test 73 78-185 code = VITAMIN B1 (THIAMINE) WHOLE BLOOD) [facility]2015-04-24 18:47:00 Test Item Value Reference Range Interpretation Comments Vitamin D, 25-OH, Total (test code = 20 30-100 Vitamin D, 25-OH, Total) [facility]2015-04-24 18:47:00 Test Item Value Reference Range Interpretation Comments eGFR (test code = eGFR) 75 [facility]2015-04-24 18:47:00 Test Item Value Reference Range Interpretation Comments Calcium Lvl (test code = Calcium Lvl) 8.7 8.5-10.5 [facility]2015-04-24 18:47:00 Test Item Value Reference Range Interpretation Comments Creatinine Lvl (test code = Creatinine 1.2 0.5-1.4 Lvl) [facility]2015-04-24 18:47:00 Test Item Value Reference Range Interpretation Comments Chloride Lvl (test code = Chloride Lvl) 109 95-109 [facility]2015-04-24 18:47:00 Test Item Value Reference Range Interpretation Comments Potassium Lvl (test code = Potassium 3.8 3.5-5.1 Lvl) [facility]2015-04-24 18:47:00 Test Item Value Reference Range Interpretation Comments Sodium Lvl (test code = Sodium Lvl) 144 135-145 [facility]2015-04-24 18:47:00 Test Item Value Reference Range Interpretation Comments Bili Total (test code = Bili Total) 0.6 0.2-1.3 [facility]2015-04-24 18:47:00 Test Item Value Reference Range Interpretation Comments Alk Phos (test code = Alk Phos) 100 39-136 [facility]2015-04-24 18:47:00 Test Item Value Reference Range Interpretation Comments AST (test code = AST) 45 See_Comment [Auto mated message] The system which ge nerated this result transmit susanne reference range : <=37. The reference range was not used to interpr et this result as more l/abnormal. [facility]2015-04-24 18:47:00 Test Item Value Reference Range Interpretation Comments Albumin Lvl (test code = Albumin Lvl) 3.9 3.5-5.0 [facility]2015-04-24 18:47:00 Test Item Value Reference Range Interpretation Comments ALT (test code = ALT) 91 See_Comment [Auto mated message] The system which ge nerated this result transmit susanne reference range : <=65. The reference range was not used to interpr et this result as more l/abnormal. [facility]2015-04-24 18:47:00 Test Item Value Reference Range Interpretation Comments Total Protein (test code = Total 7.9 6.4-8.4 Protein) [facility]2015-04-24 18:47:00 Test Item Value Reference Range Interpretation Comments CO2 (test code = CO2) 27 24-32 [facility]2015-04-24 18:47:00 Test Item Value Reference Range Interpretation Comments BUN (test code = BUN) 20 7-22 [facility]2015-04-24 18:47:00 Test Item Value Reference Range Interpretation Comments Glucose Lvl (test code = Glucose Lvl) 121 70-99 [facility] [id number] 18:47:00 Test Item Value Reference Range Interpretation Comments Globulin (test code = Globulin) 4.0 2.0-4.0 [facility]2015-04-24 18:47:00 Test Item Value Reference Range Interpretation Comments B/C Ratio (test code = B/C Ratio) 17 6-25 [facility]2015-04-24 18:47:00 Test Item Value Reference Range Interpretation Comments A/G Ratio (test code = A/G Ratio) 1.0 0.7-1.6 [facility] [id number] 18:47:00 Test Item Value Reference Range Interpretation Comments AGAP (test code = AGAP) 11.8 10.0-20.0 [facility] HospitalUvactfnCEYYPBFBHX5260-19-35 18:47:00 Test Item Value Reference Range Interpretation Comments Lymphocytes # (test code = Lymphocytes 2.6 1.0-5.5 #) [facility]
[2021-12-14 15:02] VITALS: BMI 32.3
[2021-12-14] MEDS ORDERED: ONDANSETRON 4 MG/2 ML VIAL IV PRN (15:15)
--- NOTE | 2021-12-14 15:23 | P.HP ---
Certification for Inpatient Patient admitted to: Observation With expected LOS: <2 Midnights Patient will require the following post-hospital care: Other Practitioner: I am a practitioner with admitting privileges, knowledge of patient current condition, hospital course, and medical plan of care. Services: Services provided to patient in accordance with Admission requirements found in Title 42 Section 412.3 of the Code of Federal Regulations Patient History Date of Service: 12/14/21 Primary Care Provider: Star Reason for admission: worsening cellulitis of the scrotum History of Present Illness: Patient is an office patient of [facility] with a history of topus gout, htn ckd stage 4. He was recently in [facility] for stage 4 ckd. His last creatine had resolved to 2.0. Has received multiple rounds of nsaids over the last few months for the gout. He came to the office last week for swelling in the right scrotum and elbow. The patient was started on bactrim and tramadol. Came back with increased swelling and tenderness. Despite the antibiotics. Have tried to Call Dr. Dave Monahan. Who unfortunately is out of town. The patient was admitted as he has failed out patient antibiotics and pain management. Allergies No Known Allergies Allergy (Verified 12/14/21 11:28) - Past Medical/Surgical History Has patient received pneumonia vaccine in the past: No - Social History Smoking Status: Never smoker Alcohol use: No CD- Drugs: No Caffeine use: Yes Review of Systems 10-point ROS is otherwise unremarkable Genitourinary: Other (pain and swelling in the right groin ) Physical Examination - Physical Exam General: Alert, In no apparent distress HEENT: Atraumatic, PERRLA, Mucous membr. moist/pink, EOMI, Sclerae nonicteric Neck: Supple, 2+ carotid pulse no bruit, No LAD, Without JVD or thyroid abnormality Respiratory: Clear to auscultation bilaterally, Normal air movement Cardiovascular: Regular rate/rhythm, Normal S1 S2 Gastrointestinal: Normal bowel sounds, No tenderness Musculoskeletal: No tenderness Integumentary: No rashes Neurological: Normal gait, Normal speech, Normal strength at 5/5 x4 extr, Normal tone, Normal affect Lymphatics: No axilla or inguinal lymphadenopathy External genitalia: Lesions (significant mass in the right scrotum. Has grown from last week. ) - Studies Microbiology Data (last 24 hrs): 12/14/21 11:54 Nasopharnyx Influenza Type A Antigen Screen - Final 12/14/21 11:54 Nasopharnyx Influenza Type B Antigen Screen - Final Assessment and Plan - Problems (Diagnosis) (1) Scrotal mass Current Visit: Yes Status: Acute Plan: Will start the patient on antibiotics and fluids. Will plan on transfering him to [facility] for urology and imaging (2) Cellulitis Current Visit: Yes Status: Acute Plan: start him on vancomycin and meropenemn. Will get blood cultures on the patient . Qualifiers: Site of cellulitis: other site Qualified Code(s): L03.818 - Cellulitis of other sites (3) Gout with tophi Current Visit: Yes Status: Acute (4) CKD (chronic kidney disease) Current Visit: Yes Status: Acute Plan: continue the prednisone for the glomerulonephritis. Will start him on fluids. Qualifiers: Chronic kidney disease stage: stage 3 (moderate) Discharge Plan: Transfer Plan to discharge in: Greater than 2 days - Advance Directives Does patient have a Living Will: No Does patient have a Durable POA for Healthcare: No - Code Status/Comfort Care Code Status Assessed: No Code Status: Full Code Physician Review: Patient Assessed, Agree with Above Assessment and Plan Critical Care: No Time Spent Managing Pts Care (In Minutes): 70
[2021-12-14] MEDS ORDERED: VANCOMYCIN 2 GM in NA CHLORIDE 0.9% 500 ML IVPB ONE (17:00)
[2021-12-14] MEDS: ACETAMINOPHEN 500 MG TAB PO SCH ×2 (17:27→21:14)
[2021-12-14] MEDS: ENOXAPARIN 30 MG/0.3 ML SQ SCH (17:27)
[2021-12-14] MEDS: NA CHLORIDE 0.9% 1,000 ML IV SCH (18:45)
[2021-12-14] MEDS: Meropenem 500 MG in NA CHLORIDE 0.9% 100 ML IV SCH (18:46)
[2021-12-14] MEDS: predniSONE 20 MG TAB PO SCH (21:14)
[2021-12-14] MEDS: HYDRALAZINE HCL 20 MG/ML VIAL IV PRN (21:15)
[2021-12-14] MEDS ORDERED: VANCOMYCIN 2 GM in NA CHLORIDE 0.9% 500 ML IVPB SCH (23:00)
[2021-12-15] MEDS: Meropenem 500 MG in NA CHLORIDE 0.9% 100 ML IV SCH (01:59)
[2021-12-15] MEDS: ACETAMINOPHEN 500 MG TAB PO SCH ×4 (04:29→22:16)
[2021-12-15] MEDS: NA CHLORIDE 0.9% 1,000 ML IV SCH ×2 (05:20→13:26)
[2021-12-15 05:48] LABS: Absolute Lymphocytes (CBC) 0.7 K/uL (0.7-4.9); Hematocrit 29.8 % (39.6-49.0); Lymphocytes % 7.8 % (15.3-44.8); MCV 88.8 fL (80-100); MPV 7.6 fL (7.6-11.3); RBC Red Blood Cell Count 3.35 M/uL (4.33-5.43)
[2021-12-15 06:13] LABS: Albumin 2.6 g/dL (3.4-5.0); Bilirubin Total 0.3 mg/dL (0.2-1.0); Potassium 3.9 mmol/L (3.5-5.1); Protein, Total 5.5 g/dL (6.4-8.2)
[2021-12-15] MEDS: Meropenem 1,000 MG in NA CHLORIDE 0.9% 100 ML IV SCH ×2 (08:31→22:15)
[2021-12-15] MEDS: PANTOPRAZOLE 40MG TABLET PO SCH (08:32)
[2021-12-15] MEDS: predniSONE 20 MG TAB PO SCH ×2 (08:32→22:15)
[2021-12-15] MEDS: HYDRALAZINE HCL 20 MG/ML VIAL IV PRN ×2 (08:32→16:58)
[2021-12-15] MEDS: HYDROMORPHONE HCL 1 MG/ML INJ IV PRN ×2 (09:05→16:08)
--- NOTE | 2021-12-15 13:02 | P.PN ---
Subjective Date of Service: 12/15/21 Primary Care Provider: Star Chief Complaint: worsening cellulitis of the scrotum Subjective: No new changes Review of Systems 10-point ROS is otherwise unremarkable Genitourinary: Other (pain and swelling in right scrotum) Physical Examination - Vital Signs Temperature: 97.5 F Blood Pressure: 174/96 Pulse: 49 Respirations: 14 Pulse Ox (%): 99 - Physical Exam General: Alert, In no apparent distress HEENT: Atraumatic, PERRLA, EOMI Neck: Supple, JVD not distended Respiratory: Clear to auscultation bilaterally, Normal air movement Cardiovascular: Regular rate/rhythm, Normal S1 S2 Gastrointestinal: Normal bowel sounds, No tenderness Musculoskeletal: No tenderness Integumentary: No rashes Neurological: Normal speech, Normal tone, Normal affect Lymphatics: No axilla or inguinal lymphadenopathy - Studies Laboratory Data (last 24 hrs) 12/15/21 05:29: Sodium 143, Potassium 3.9, BUN 44 H, Creatinine 2.55 H, Glucose 156 H, Total Bilirubin 0.3, AST 12 L, ALT 43, Alkaline Phosphatase 67 12/15/21 05:29: WBC 8.70, Hgb 10.2 L, Hct 29.8 L, Plt Count 121 L 12/14/21 15:27: Uric Acid 5.0 Microbiology Data (last 24 hrs): 12/14/21 11:54 Nasopharnyx Influenza Type A Antigen Screen - Final 12/14/21 11:54 Nasopharnyx Influenza Type B Antigen Screen - Final Assessment And Plan - Current Problems (Diagnosis) (1) Scrotal mass Current Visit: Yes Status: Acute Plan: Will start the patient on antibiotics and fluids. Will plan on transfering him to [facility] for urology and imaging 12/15 Will start the patient on lidocaine for pain. So far no growth on cultures (2) Cellulitis Current Visit: Yes Status: Acute Plan: start him on vancomycin and meropenemn. Will get blood cultures on the patient . Qualifiers: Site of cellulitis: other site Qualified Code(s): L03.818 - Cellulitis of other sites (3) Gout with tophi Current Visit: Yes Status: Acute (4) CKD (chronic kidney disease) Current Visit: Yes Status: Acute Plan: continue the prednisone for the glomerulonephritis. Will start him on fluids. Qualifiers: Chronic kidney disease stage: stage 3 (moderate) Chronic kidney disease stage 3 subtype: stage 3b (GFR 30-44) Discharge Plan: Home - Code Status/Comfort Care Code Status Assessed: No Physician Review: Patient Assessed, Agree with Above Assessment and Plan Critical Care: No Time Spent Managing PTS Care (In Minutes): 20
[2021-12-15] MEDS: ENOXAPARIN 30 MG/0.3 ML SQ SCH (16:08)
[2021-12-15] MEDS: LIDOCAINE JELLY 2%- 5 ML TUBE TOP PRN (16:16)
[2021-12-15] MEDS: HOME MED 1 EA UNK (Mycophenolate Mofetil [Cellcept] 500 MG Tablet) PO SCH (21:00)
[2021-12-15] MEDS: METOPROLOL XL 50 MG TAB PO SCH (22:15)
[2021-12-15] MEDS ORDERED: VANCOMYCIN 1.75 GM in NA CHLORIDE 0.9% 500 ML IVPB SCH (23:00)
[2021-12-16] MEDS: LIDOCAINE JELLY 2%- 5 ML TUBE TOP PRN ×2 (03:26→13:00)
[2021-12-16] MEDS: NA CHLORIDE 0.9% 1,000 ML IV SCH ×2 (03:26→15:45)
[2021-12-16] MEDS: ACETAMINOPHEN 500 MG TAB PO SCH ×4 (03:27→21:44)
[2021-12-16] MEDS: HYDROMORPHONE HCL 1 MG/ML INJ IV PRN ×4 (03:29→21:45)
[2021-12-16] MEDS: HYDRALAZINE HCL 20 MG/ML VIAL IV PRN ×2 (04:33→16:42)
[2021-12-16 06:12] LABS: Absolute Lymphocytes (CBC) 0.8 K/uL (0.7-4.9); Hematocrit 31.1 % (39.6-49.0); Lymphocytes % 7.3 % (15.3-44.8); MCV 89.7 fL (80-100); MPV 7.6 fL (7.6-11.3); RBC Red Blood Cell Count 3.47 M/uL (4.33-5.43)
[2021-12-16 06:27] LABS: Albumin 2.6 g/dL (3.4-5.0); Bilirubin Total 0.3 mg/dL (0.2-1.0); Potassium 4.3 mmol/L (3.5-5.1); Protein, Total 5.4 g/dL (6.4-8.2)
[2021-12-16] MEDS: PANTOPRAZOLE 40MG TABLET PO SCH (08:07)
[2021-12-16] MEDS: METOPROLOL XL 50 MG TAB PO SCH ×2 (08:07→20:03)
[2021-12-16] MEDS: HOME MED 1 EA UNK (Febuxostat [Febuxostat] 40 MG Tablet) PO SCH (08:08)
[2021-12-16] MEDS: predniSONE 20 MG TAB PO SCH ×2 (08:08→20:03)
[2021-12-16] MEDS: Meropenem 1,000 MG in NA CHLORIDE 0.9% 100 ML IV SCH (08:08)
[2021-12-16] MEDS: HOME MED 1 EA UNK (Mycophenolate Mofetil [Cellcept] 500 MG Tablet) PO SCH ×2 (08:09→20:07)
[2021-12-16] MEDS ORDERED: VANCOMYCIN 1.25 GM in NA CHLORIDE 0.9% 250 ML IVPB SCH (09:00)
[2021-12-16] MEDS ORDERED: VANCOMYCIN 1.75 GM in NA CHLORIDE 0.9% 500 ML IVPB SCH (10:00)
[2021-12-16] MEDS: ENOXAPARIN 30 MG/0.3 ML SQ SCH (16:41)
--- NOTE | 2021-12-16 18:17 | P.PN ---
Subjective Date of Service: 12/16/21 Primary Care Provider: Star Chief Complaint: worsening cellulitis of the scrotum Subjective: No new changes Review of Systems 10-point ROS is otherwise unremarkable Genitourinary: Other (scrotal pain ) Physical Examination - Vital Signs Temperature: 97.8 F Blood Pressure: 162/101 Pulse: 54 Respirations: 16 Pulse Ox (%): 98 - Physical Exam General: Alert, In no apparent distress HEENT: Atraumatic, PERRLA, EOMI Neck: Supple, JVD not distended Respiratory: Clear to auscultation bilaterally, Normal air movement Cardiovascular: Regular rate/rhythm, Normal S1 S2 Gastrointestinal: Normal bowel sounds, No tenderness Musculoskeletal: No tenderness Integumentary: No rashes Neurological: Normal speech, Normal tone, Normal affect Lymphatics: No axilla or inguinal lymphadenopathy - Studies Laboratory Data (last 24 hrs) 12/16/21 05:53: Sodium 143, Potassium 4.3, BUN 40 H, Creatinine 2.21 H, Glucose 149 H, Total Bilirubin 0.3, AST 15, ALT 44, Alkaline Phosphatase 67 12/16/21 05:53: WBC 11.30 H, Hgb 10.7 L, Hct 31.1 L, Plt Count 126 L Assessment And Plan - Current Problems (Diagnosis) (1) Scrotal mass Current Visit: Yes Status: Acute Plan: Will start the patient on antibiotics and fluids. Will plan on transfering him to [facility] for urology and imaging 12/16 d/c antibiotics Will continue pain management (2) Gout with tophi Current Visit: Yes Status: Acute (3) CKD (chronic kidney disease) Current Visit: Yes Status: Acute Plan: continue the prednisone for the glomerulonephritis. Will start him on fluids. Qualifiers: Chronic kidney disease stage: stage 3 (moderate) Chronic kidney disease stage 3 subtype: stage 3b (GFR 30-44) (4) HTN (hypertension) Current Visit: Yes Status: Acute Plan: started the patient on imdur. Will stop the patients fluids Control bp better. Hopefully can discharge in abram morning Qualifiers: Hypertension type: primary hypertension Qualified Code(s): I10 - Essential (primary) hypertension Discharge Plan: Home Plan to discharge in: 24 Hours - Code Status/Comfort Care Code Status Assessed: No Physician Review: Patient Assessed, Agree with Above Assessment and Plan Critical Care: No Time Spent Managing PTS Care (In Minutes): 20
[2021-12-16 22:44] VITALS: O2SAT 97
[2021-12-17] MEDS: ACETAMINOPHEN 500 MG TAB PO SCH ×2 (04:29→11:37)
[2021-12-17 06:46] LABS: Absolute Lymphocytes (CBC) 1.6 K/uL (0.7-4.9); Hematocrit 30.8 % (39.6-49.0); Lymphocytes % 13.2 % (15.3-44.8); MCV 89.8 fL (80-100); MPV 7.6 fL (7.6-11.3); RBC Red Blood Cell Count 3.43 M/uL (4.33-5.43)
[2021-12-17 07:02] LABS: Albumin 2.7 g/dL (3.4-5.0); Bilirubin Total 0.4 mg/dL (0.2-1.0); Protein, Total 5.6 g/dL (6.4-8.2)
[2021-12-17 08:15] VITALS: BP 183/90
[2021-12-17] MEDS: METOPROLOL XL 50 MG TAB PO SCH (08:17)
[2021-12-17] MEDS: predniSONE 20 MG TAB PO SCH (08:17)
[2021-12-17] MEDS: HOME MED 1 EA UNK (Febuxostat [Febuxostat] 40 MG Tablet) PO SCH (08:18)
[2021-12-17] MEDS: HYDROMORPHONE HCL 1 MG/ML INJ IV PRN (08:18)
[2021-12-17] MEDS: HOME MED 1 EA UNK (Mycophenolate Mofetil [Cellcept] 500 MG Tablet) PO SCH (08:18)
[2021-12-17] MEDS: PANTOPRAZOLE 40MG TABLET PO SCH (08:18)
[2021-12-17] MEDS ORDERED: ISOSORBIDE MONO SR 30 MG TAB PO SCH (09:00)
--- NOTE | 2021-12-17 09:14 | P.DS ---
Admission Date: 12/14/21 Discharge Date: 12/17/21 Primary Care Provider: Star Disposition: ROUTINE DISCHARGE Discharge Condition: GOOD Reason for Admission: worsening cellulitis of the scrotum - Problems (1) Scrotal mass Current Visit: Yes Status: Acute (2) Gout with tophi Current Visit: Yes Status: Acute (3) CKD (chronic kidney disease) Current Visit: Yes Status: Acute Qualifiers: Chronic kidney disease stage: stage 3 (moderate) Chronic kidney disease stage 3 subtype: stage 3b (GFR 30-44) (4) HTN (hypertension) Current Visit: Yes Status: Acute Qualifiers: Hypertension type: primary hypertension Qualified Code(s): I10 - Essential (primary) hypertension Brief History of Present Illness: Patient is an office patient of [employer] with a history of topus gout, htn ckd stage 4. He was recently in [place] for stage 4 ckd. His last creatine had resolved to 2.0. Has received multiple rounds of nsaids over the last few months for the gout. He came to the office last week for swelling in the [facility] scrotum and elbow. The patient was started on bactrim and tramadol. Came back with increased swelling and tenderness. Despite the antibiotics. Have tried to Call Dr. Dave Monahan. Who unfortunately is out of town. The patient was admitted as he has failed out patient antibiotics and pain management. Hospital Course: Patient was admitted for pain management and to rule out infection. Uric acid and blood cultures were normal. Have worked on controlling his bp. Will discharge him on isosorbide 60mg. Follow up in a week to reacess pain management and bp Will see about getting him to an outpatient urologist for his scrotal mass Vital Signs/Physical Exam: Temp Pulse Resp BP Pulse Ox 96.8 F 53 18 183/90 H 99 12/17/21 08:12 12/17/21 08:17 12/17/21 08:12 12/17/21 08:17 12/17/21 08:12 General: Alert, In no apparent distress HEENT: Atraumatic, PERRLA, EOMI Neck: Supple, JVD not distended Respiratory: Clear to auscultation bilaterally, Normal air movement Cardiovascular: Regular rate/rhythm, Normal S1 S2 Gastrointestinal: Normal bowel sounds, No tenderness Musculoskeletal: No tenderness Integumentary: No rashes Neurological: Normal speech, Normal tone, Normal affect Lymphatics: No axilla or inguinal lymphadenopathy Laboratory Data at Discharge: WBC 12.20 K/uL (4.3-10.9) H 12/17/21 06:15 Hgb 10.5 g/dL (13.6-17.9) L 12/17/21 06:15 Hct 30.8 % (39.6-49.0) L 12/17/21 06:15 Plt Count 133 K/uL (152-406) L 12/17/21 06:15 Sodium 142 mmol/L (136-145) 12/17/21 06:15 Potassium 5.0 mmol/L (3.5-5.1) D 12/17/21 06:15 BUN 38 mg/dL (7-18) H 12/17/21 06:15 Creatinine 1.94 mg/dL (0.55-1.3) H 12/17/21 06:15 Glucose 101 mg/dL (74-106) 12/17/21 06:15 Uric Acid 5.0 mg/dL (3.5-7.2) 12/14/21 15:27 Total Bilirubin 0.4 mg/dL (0.2-1.0) 12/17/21 06:15 AST 13 U/L (15-37) L 12/17/21 06:15 ALT 41 U/L (12-78) 12/17/21 06:15 Alkaline Phosphatase 59 U/L (45-117) 12/17/21 06:15 Home Medications: Febuxostat 40 mg PO 1X 12/14/21 Iron Fum,Ps/Folic/Bcomp,C No.9 [Integra Plus Capsule] 1X 12/14/21 Metoprolol Succinate [Toprol Xl] 50 mg PO BID 12/14/21 Mycophenolate Mofetil [Cellcept] 500 mg PO BID 12/14/21 Sulfamethoxazole/Trimethoprim [Bactrim 400-80 mg Tablet] BID 12/14/21 predniSONE [Prednisone] 20 mg PO 12/14/21 Isosorbide Mononitrate [Isosorbide Mononitrate ER] 60 mg PO DAILY 90 Days #90 tab 12/17/21 LIDOCAINE 2% JELLY, 5mL [Xylocaine 2% Jelly*] 30 ml MM TID PRN 10 Days #120 ea 12/17/21 New Medications: Isosorbide Mononitrate [Isosorbide Mononitrate ER] 60 mg PO DAILY 90 Days #90 tab LIDOCAINE 2% JELLY, 5mL [Xylocaine 2% Jelly*] 30 ml MM TID PRN 10 Days #120 ea PRN Reason: Pain Scale 5-7 (Moderate) Diet: Regular Activity: Ad ki Followup: Alfnoso Graves MD [Family Provider] - 1 Week Time spent managing pt's care (in minutes): 30
--- NOTE | 2021-12-17 10:56 | RAD REPORT ---
EXAM DESCRIPTION: US - Scrotum Testicles - 12/17/2021 10:47 am CLINICAL HISTORY: scrotal mass Pain and swelling scrotal area. COMPARISON: No comparisons FINDINGS: The right testicle 5.2 x 3.6 x 2.8 cm. No intratesticular masses or evidence of testicular torsion. The left testicle 5.2 x 3.7 x 2.8 cm. No intratesticular masses or evidence of testicular torsion. Both epididymides are normal in size and appearance. Poorly defined heterogenous complex fluid collection inferior to the right testicle measuring 3.6 x 2 .7 cm. This is suspicious for abscess collection. IMPRESSION: No testicular mass or torsion findings. Complex suspected fluid collection inferior to the right testicle within the scrotum is likely absces s collection.
[2021-12-17 12:33] VITALS: TEMP 97.3
[2021-12-18] MEDS ORDERED: ISOSORBIDE MONO SR 60 MG TAB PO SCH (09:00)
== END 2021-12-17 12:59 | disposition home or self-care (01) | DRG 728 ==
LOC: 2ND 14:03 → 4TH 14:31
PROVIDERS: ADMIT Internal Medicine; ATTEND Internal Medicine
DX: N49.2 Inflammatory disorders of scrotum (principal); N50.9 Disorder of male genital organs, unspecified; N05.9 Unspecified nephritic syndrome with unspecified morphologic changes; I12.9 Hypertensive chronic kidney disease with stage 1 through stage 4 chronic kidney disease, or unspecified chronic kidney disease; N18.32 Chronic kidney disease, stage 3b; M1A.9XX1 Chronic gout, unspecified, with tophus (tophi); Z79.52 Long term (current) use of systemic steroids; Z79.899 Other long term (current) drug therapy; Z20.822 Contact with and (suspected) exposure to COVID-19
CPT/HCPCS: 36415; 76870; 80053; 80202; 82947; 83036; 84550; 85025; 87040; 87804; 87811; J0360; J1170; J1650; J2185; J3370; J7030; J7040; J7050; J7512